=== PATIENT | female | born 1930 | race Caucasian/White ===

== ENCOUNTER 2016-12-08 13:02 | Inpatient (IN) | payer MEDICARE, BC ==
[2016-12-08] VITALS (12 sets, daily range): BP systolic 116–151; BP diastolic 61–97; PULSE 87–132; RESP 20–24; TEMP 97.8–98.1; O2SAT 94–98
[~2016-12-08] VITALS: Ht 162.6 cm; Wt 98.5 kg
[2016-12-08] MEDS ORDERED: DILTIAZEM HCL 25 MG/5 ML VIAL IVP ONE (14:15)
--- NOTE | 2016-12-08 14:22 | PD ---
HPI Chief Complaint: Respiratory Symptoms Time Seen by Provider: 14:17 (Dominick Brower) Time Seen by Provider: 13:48 (Heber Barnett MD) Travel History International Travel<30 days: No Contact w/Intl Traveler<30days: No Traveled to known affect area: No (Dominick Brower) International Travel<30 days: No Contact w/Intl Traveler<30days: No Traveled to known affect area: No (Heber Barnett MD) History of Present Illness HPI 86-year-old female that presents to the ED for evaluation of shortness of breath for the past 4 weeks worsening for the past 2 weeks. Per patient she's had Sinus like symptoms initially. She was seen by her doctor and prescribed steroids as well as inhalers with minimal relief. Per patient she continued to have the shortness of breath and today became more severe which now she has some pressure in her chest. Per patient she came here to get evaluated. She denies taking any blood thinners but she does state that she has a history of atrial fibrillation. Per patient she has never had to have surgery on her heart or any heart operations. Per patient she only takes medications he takes per patient 12th different pills. So history of high blood pressure. Per patient she is short of breath when she ambulates. Per patient is significantly worsening for the past couple of days. Nothing seems to be making it better. Per patient she finished the medications given to her by her PCP just a week ago with no relief. Patient comes here to get evaluated because his symptoms are not improving and she is feeling worse. She has no headache. Patient states no chest pain but chest discomfort is more like a pressure when she takes a deep breath. She has no fevers chills or sweats. She still continues to have some cough. She does have a history of COPD per patient but has never had to be on inhalers until she had this episode. (Dominick Brower) HPI 86-year-old female presents with 4 week history of shortness of breath and congestion. The patient seen by her primary care physician started on steroids and inhalers. The patient presents today because the shortness of breath became worse. She states that she is now having chest pressure. (Heber Barnett MD) [facility] Past Medical History Heart Rhythm Problems: Yes Cardiovascular Problems: Yes High Cholesterol: Yes Diabetes: Yes Patient Takes Glucophage: Yes Diminished Hearing: No Hypertension: Yes Tetanus Vaccination: < 5 Years Influenza Vaccination: Yes ?: Not (Dominick Brower) Social History Alcohol Use: Yes (RARE) Tobacco Use: No Substance Use: No (Dominick Brower) Allergies-Medications (Allergen,Severity, Reaction): Coded Allergies: No Known Allergies (Unverified , 12/08/16) Reported Meds & Prescriptions Reported Meds & Active Scripts Active Reported Potassium Chloride ER (Potassium Chloride) 10 Meq Tab 20 Meq PO DAILY Levothyroxine (Levothyroxine Sodium) 50 Mcg Tab 50 Mcg PO DAILY Atorvastatin (Atorvastatin Calcium) 20 Mg Tab 20 Mg PO HS Diltiazem CD 24 HR 240 Mg Caper 240 Mg PO DAILY Pantoprazole (Pantoprazole Sodium) 40 Mg Tab 40 Mg PO DAILY (Heber Barnett MD) Review of Systems General / Constitutional: No: Fever, Chills, Weight Gain, Weight Loss, Other Eyes: No: Diploplia, Blurred Vision, Photophobia, Drainage, Redness, Foreign Body Sensation, Pain, Tearing, Blind Spots, Visual changes, Blindness, Other HENT: No: Headaches, Vertigo, Lightheadedness, Sore Throat, Rhinitis, Rhinorrhea, Congestion, Nosebleed, Neck Stiffness, Neck Pain, Masses, Gingival Bleeding, Dental Difficulties, Ear Discharge, Earache, Other Cardiovascular: Positive: Chest Pain or Discomfort, Palpitations, Tachycardia, No: Irregular Rhythm, Diaphoresis, Syncope, Dyspnea on exertion, Varicosities , Edema, Cyanosis, Varicosities, Phlebitis, Claudication, Other Respiratory: Positive: Cough, Shortness of Breath, No: Wheezing, Sneezing, Orthopnea, Hemoptysis, Stridor, Night Sweats, Pleuritic Pain, Other Gastrointestinal: No: Nausea, Vomiting, Diarrhea, Abdominal Pain, Hematemesis, Hematochezia, Constipation, Changes in Bowel Habits, Indigestion, Dysphagia, Loss of Appetite, Other Genitourinary: No: Urgency, Frequency, Dysuria, Nocturia, Hematuria, Decreased Urinary Output, Oliguria, Hesitancy, Dribbling, Incontinence, Pelvic Pain, Flank Pain, Dyspareunia, Discharge, Dysmenorrhea, Menorrhagia, Metorrhagia, Vaginal Bleeding, Other Musculoskeletal: No: Myalgias, Arthralgias, Limited ROM, Weakness, Cramping, Edema, Pain, Atrophy, Other Skin: No Rash, No Itching, No Dryness, No Lumps, No Hives, No Change in Pigmentation, No Change in nails, No Alopecia, No Lesions, No Breast Lumps, No Breast Tenderness, No Breast Swelling, No Other Neurologic: No: Weakness, Dizziness, Syncope, Focal Abnormalities, Coordination Problem, Tremor, Ataxia, Headache, Change in Mentation, Slurred Speech, Paresthesia, Incontinence, Seizures, Sensory Disturbance, Other Psychiatric: No: Anxiety, Depression, Suicidal Ideations, Disorder of Thought, Mood Disorder, Substance Abuse, Homicidal Ideation, Other Hematologic/Lymphatic: No: Easy Bruising, Lymph Node Enlargement, Other (Dominick Brower) Physical Exam Narrative GENERAL: SKIN: Warm and dry. HEAD: Atraumatic. Normocephalic. EYES: Pupils equal and round. No scleral icterus. No injection or drainage. ENT: No nasal bleeding or discharge. Mucous membranes pink and moist. Tongue is midline. No uvula deviation. NECK: Trachea midline. No JVD. CARDIOVASCULAR: Irregular rate and rhythm. No sign of murmur, S3, S4 but hard to assess secondary to irregular heart rate RESPIRATORY: No accessory muscle use. Clear to auscultation. Breath sounds equal bilaterally. GASTROINTESTINAL: Abdomen soft, non-tender, nondistended. Hepatic and splenic margins not palpable. MUSCULOSKELETAL: Extremities without clubbing, cyanosis, or edema. No obvious deformities. Full range of motion of the upper and lower extremities bilaterally with no pain. 2+ pulses bilaterally. NEUROLOGICAL: Awake and alert. No obvious cranial nerve deficits. Motor grossly within normal limits. Five out of 5 muscle strength in the arms and legs. Normal speech. PSYCHIATRIC: Appropriate mood and affect; insight and judgment normal. (Dominick Brower) Data Data Orders Electrocardiogram (12/08/16 ) Electrocardiogram (12/08/16 13:46) Complete Blood Count With Diff (12/08/16 13:46) Comprehensive Metabolic Panel (12/08/16 13:46) Ckmb (Isoenzyme) Profile (12/08/16 13:46) Troponin I (12/08/16 13:46) B-Type Natriuretic Peptide (12/08/16 13:46) Prothrombin Time / Inr (Pt) (12/08/16 13:46) Act Partial Throm Time (Ptt) (12/08/16 13:46) Magnesium (Mg) (12/08/16 13:46) Thyroid Stimulating Hormone (12/08/16 13:46) Chest, Single Ap (12/08/16 13:46) Iv Access Insert/Monitor (12/08/16 13:46) Ecg Monitoring (12/08/16 13:46) Oximetry (12/08/16 13:46) Vital Signs (Adult) Q15MX4,Q4H (12/08/16 14:09) Cone Machine Operator / Telemetry AUSTYN.Q8H (12/08/16 14:09) Cardiac Rhythm AUSTYN.Q8H (12/08/16 14:09) ^ Notify Dr: Other (12/08/16 14:09) Diltiazem Inj (Cardizem Inj) (12/08/16 14:15) Diltiazem Inj (Cardizem Inj) (12/08/16 15:00) Aspirin (Aspirin) (12/08/16 15:45) Nitroglycerin 2% Oint (Nitroglycerin 2% (12/08/16 15:45) Admit Order (Ed Use Only) (12/08/16 16:23) Consult Cardiology (12/08/16 ) (Heber Barnett MD) MDM Medical Decision Making Medical Screen Exam Complete: Yes Emergency Medical Condition: Yes Medical Record Reviewed: Yes Interpretation(s) EKG show atrial fibrillation with RVR with a ventricular rate of 125. Read by me and attending. No sign of acute ischemia noted. CBC & BMP Diagram 12/08/16 14:50 BMP of 500 Troponin slightly elevated at 0.08 CK-MB negative. LFTs negative. CXR negative Differential Diagnosis Atrial fibrillation versus ACS versus pneumonia versus COPD versus bronchitis versus respiratory distress versus shortness of breath Narrative Course 86-year-old female that presents to the ED for evaluation of shortness of breath. Patient was properly examined and was found to have signs and symptoms and physical presentation what appears to be acute a. fib on RVR. Possible pneumonia or other severe disease cannot be ruled out. Recommend labs and imaging. Patient is agreeable with this. EKG show A. fib on RVR. Case discussed in my attending who agrees with plan. Patient was given Cardizem bolus and was reassessed. Patient still atrial fibrillation with a heart rate in the 130s. Patient was put on a drip. Labs show slightly elevated BNP as well as slightly elevated troponin of 0.08. Patient again does not have any EKG changes. At this time I believe this is likely more related to the A. fib as well as the heart failure and recommends admission to medicine with inpatient consult to cardiology. This was discussed in my attending Dr. Barnett who agrees admission to medicine. This was discussed with the patient who agrees to admission. Patient's music specialist is Dr. Henderson. I spoke with Dr. Gale who agrees to admission. She wanted me to place a consult to her music specialist. This was placed by me. (Dominick Brower) Medical Screen Exam Complete: Yes Emergency Medical Condition: Yes Differential Diagnosis Pneumonia versus CHF versus A. fib with RVR versus ACS Narrative Course She was seen with Korey Brower PA-C. Patient presented with shortness of breath 4 weeks. Patient was found to be with A. fib with rapid ventricular response. She was bolused with Cardizem and placed on a Cardizem drip. The patient was also found to have an elevated troponin but her x-ray showed congestive heart failure. Elevated troponin is likely secondary to the congestive heart failure. The [facility] Dr. Gale agreed to the admission. There is a consult cardiology. I, Dr. Barnett, have reviewed the advance practice practitioner's documentation and am in agreement, met with the patient face to face, made the diagnosis, and the medical decision making was done by me. *My assessment and Findings: Atrial fibrillation with rapid ventricular response. Congestive heart failure.. Elevated troponin. (Heber Barnett MD) Procedures EKG Prior to Arrival: No (Dominick Brower) Diagnosis Primary Impression: Atrial fibrillation with RVR Additional Impression: Troponin level elevated Admitting Information Admitting Physician Requests: Admit (Dominick Brower) Scripts Furosemide 40 Mg Tab40 Mg PO DAILY 30 Days Prov:Tisha Gale MD 12/11/16 Tolterodine ER (Detrol LA)2 Mg Cap2 Mg PO DAILY 30 Days Prov:Tisha Gale MD 12/11/16 Potassium Chloride Microencaps 20 Meq Tab20 Meq PO DAILY 30 Days Prov:Tisha Gale MD 12/11/16 Metoprolol Tartrate (Lopressor)50 Mg Tab50 Mg PO Q12HR 30 Days Prov:Tisha Gale MD 12/11/16 Lisinopril 5 Mg Tab2.5 Mg PO DAILY 30 Days Prov:Tisha Gale MD 12/11/16 Levofloxacin (Levaquin)500 Mg Hlo051 Mg PO DAILY 6 Days Prov:Tisha Gale MD 12/11/16 Ferrous Sulfate 325 Mg [id number] Mg PO BID 30 Days Prov:Tisha Gale MD 12/11/16 Diltiazem CD 24 HR (Cardizem CD 24 HR)240 Mg [id number] Mg PO DAILY 30 Days Prov:Tisha Gale MD 12/11/16 [Aspirin] (Aspirin Chew)81 MG CHEW No Conflict Check81 Mg PO DAILY 90 Days Prov:Tisha Gale MD 12/11/16 Oxygen tank 1 Ea Tank #2 Liter Chip.canula Continuous Oxygen Concentrator Portable Gaseous 2 L/min via Nasal Cannula Continuous For 99 months Prov:Tisha Gale MD 12/10/16 Dominick Brower Dec 08, 2016 14:22 Heber Barnett MD Dec 13, 2016 08:28 (ALT/SGPT) Alkaline Phosphatase 129 U/L Total Creatine Kinase 37 U/L Troponin I 0.08 NG/ML B-Type Natriuretic Peptide 505 PG/ML Total Protein 7.0 GM/DL Albumin 3.0 GM/DL Thyroid Stimulating Hormone 1.400 uIU/ML 3rd Gen [facility] Medical Decision Making Medical Screen Exam Complete: Yes Emergency Medical Condition: Yes Medical Record Reviewed: Yes Interpretation(s) EKG show atrial fibrillation with RVR with a ventricular rate of 125. Read by me and attending. No sign of acute ischemia noted. CBC & BMP Diagram 12/08/16 14:50 BMP of 500 Troponin slightly elevated at 0.08 CK-MB negative. LFTs negative. CXR negative Differential Diagnosis Atrial fibrillation versus ACS versus pneumonia versus COPD versus bronchitis versus respiratory distress versus shortness of breath Narrative Course 86-year-old female that presents to the ED for evaluation of shortness of breath. Patient was properly examined and was found to have signs and symptoms and physical presentation what appears to be acute a. fib on RVR. Possible pneumonia or other severe disease cannot be ruled out. Recommend labs and imaging. Patient is agreeable with this. EKG show A. fib on RVR. Case discussed in my attending who agrees with plan. Patient was given Cardizem bolus and was reassessed. Patient still atrial fibrillation with a heart rate in the 130s. Patient was put on a drip. Labs show slightly elevated BNP as well as slightly elevated troponin of 0.08. Patient again does not have any EKG changes. At this time I believe this is likely more related to the A. fib as well as the heart failure and recommends admission to medicine with inpatient consult to cardiology. This was discussed in my attending Dr. Barnett who agrees admission to medicine. This was discussed with the patient who agrees to admission. Patient's music specialist is Dr. Henderson. I spoke with Dr. Gale who agrees to admission. She wanted me to place a consult to her music specialist. This was placed by me. Procedures EKG Prior to Arrival: No Diagnosis Primary Impression: Atrial fibrillation with RVR Additional Impression: Troponin level elevated Admitting Information Admitting Physician Requests: Admit Dominick Brower Dec 08, 2016 14:22
--- NOTE | 2016-12-08 14:42 | RADRPT ---
EXAM DATE/TIME: 12/08/2016 13:50 [facility] COMPARISON: No previous studies available for comparison. INDICATIONS : Patient has been short of breath for two weeks. She also claims this morning she had an elevated hear t rate. MEDICAL HISTORY : None. SURGICAL HISTORY : None. ENCOUNTER: Initial ACUITY: 2 weeks PAIN SCORE: 0/10 LOCATION: Bilateral chest FINDINGS: The heart is enlarged. The pulmonary vascular pattern is normal. Minimal scattered atelectactic obdulio nges are noted bilaterally. Degenerative changes are noted involving the shoulders bilaterally. Sco liosis and degenerative changes of the thoracic spine are noted. CONCLUSION: 1. Cardiomegaly. 2. Scattered atelectactic changes bilaterally. 3. Degenerative changes involving the shoulders bilaterally. 4. Degenerative changes and scoliosis of the thoracic spine. Jorden Foster MD on December 08, 2016 at 14:37 Board Certified Radiologist. This report was verified electronically.
[2016-12-08] MEDS ORDERED: METF1000 PO (15:00)
[2016-12-08] MEDS ORDERED: DILT-64 PO (15:00)
[2016-12-08] MEDS ORDERED: PANT40TA3 PO (15:00)
[2016-12-08] MEDS ORDERED: LISI-519 PO (15:00)
[2016-12-08] MEDS ORDERED: POTA10TA2 PO (15:00)
[2016-12-08] MEDS ORDERED: ATOR20TA15 PO (15:00)
[2016-12-08] MEDS ORDERED: LEVO50TA4 PO (15:00)
[2016-12-08 15:04] LABS: AUTOMATED NEUTROPHIL # 9.5 TH/MM3 (1.8-7.7); BASOPHIL % 0.3 % (0.0-2.0); EOSINOPHIL % 0.3 % (0.0-4.0); HEMATOCRIT 32.1 % (35.0-46.0); LYMPH % 10.3 % (9.0-44.0); LYMPHOCYTE # 1.2 TH/MM3 (1.0-4.8); MEAN CELL VOLUME 75.4 FL (80.0-100.0); MEAN CORPUSCULAR HEMOGLOBIN 23.9 PG (27.0-34.0); MEAN CORPUSCULAR HGB CONC 31.6 % (32.0-36.0); MONO % 9.7 % (0.0-8.0); NEUT % 79.4 % (16.0-70.0); PLATELET COUNT 374 TH/MM3 (150-450); RED BLOOD COUNT 4.26 MIL/MM3 (4.00-5.30); RED CELL DISTRIBUTION WIDTH 16.6 % (11.6-17.2); WHITE BLOOD COUNT 11.9 TH/MM3 (4.0-11.0)
[2016-12-08 15:06] LABS: HEMO FLAGS AUTO DIFF
[2016-12-08 15:19] LABS: APTT (PATIENT) 25.1 SEC (24.3-30.1); INTERNATIONAL NORMALIZED RATIO 1.1 RATIO; PROTHROMBIN TIME - PATIENT 12.4 SEC (9.8-11.6)
[2016-12-08 15:24] LABS: ALT (GPT) 48 U/L (10-53); ANION GAP 12 MEQ/L (5-15); AST (GOT) 29 U/L (15-37); BICARBONATE 21.7 MEQ/L (21.0-32.0); BLOOD UREA NITROGEN 15 MG/DL (7-18); CHLORIDE 107 MEQ/L (98-107); GLOMERULAR FILTRATION RATE 60 ML/MIN (>89); MAGNESIUM 1.7 MG/DL (1.5-2.5); POTASSIUM 3.4 MEQ/L (3.5-5.1); SODIUM (NA) 141 MEQ/L (136-145)
[2016-12-08] MEDS: DILTIAZEM INJ 125 MG in SODIUM CHLORIDE 0.9% INJ 100 ML IV SCH (15:25)
[2016-12-08 15:33] LABS: ALKALINE PHOSPHATASE 129 U/L (45-117); TOTAL BILIRUBIN ADULT 0.5 MG/DL (0.2-1.0)
[2016-12-08 15:35] LABS: CREATINE KINASE 37 U/L (26-192)
[2016-12-08] MEDS ORDERED: NITROGLYCERIN 2% OINT 1 GM PACKET TOPICAL ONE (15:45)
[2016-12-08] MEDS ORDERED: ASPIRIN 325 MG TAB PO ONE (15:45)
[2016-12-08] MEDS ORDERED: POTASSIUM CHLORIDE 20 MEQ CONTROLLED RELEASE TAB PO ONE (16:45)
[2016-12-08 17:06] LABS: OVALOCYTES 1+ (NORMAL); PLATELET ESTIMATE SMEAR NORMAL (NORMAL); PLATELET MORPHOLOGY NORMAL (NORMAL); SCAN/DIFF AUTO DIFF CONFIRMED
--- NOTE | 2016-12-08 17:14 | HHI.HP ---
[facility] Ad[facility] Diagnosis a fib on RVR, positive troponin Diagnoses: Chief Complaint: Palpitations Travel History International Travel<30 Days: No Contact w/Intl Traveler <30 Da: No Traveled to Known Affected Are: No History of Present Illness 86-year-old female with a past medical history of A. fib, HTN, DM, HLD, GERD, hypothyroidism who presented with palpitations and shortness of breath. The patient states that a few weeks ago she had "the flu" and bronchitis. She doesn 't say she was actually diagnosed with the flu, but she did have an illness at that time. She states the way her symptoms from that improved, but otherwise it didn't. For the past 2 weeks she's been having constant sensation of heart racing and pounding with associated shortness of breath and chest tightness. She states that it eventually got so worse this morning that she decided to come to the ED for evaluation. She received IV Cardizem in the ED, and states that her symptoms have improved at this time. Currently she denies any further palpitations, but her heart rate remains around 130. She denies any specific chest pain or radiation of the chest tightness. Her link assembler is Dr. Henderson. Her medication list says that she is on diltiazem, but she is not sure about this. She states she had previously been tried on Xarelto, but had bleeding and was taken off of that. She does not take an aspirin. She states 2 days ago she had an episode of nausea, no vomiting. She has noticed that her legs have been a little more swollen lately, but denies any weight gain, actually feels like she has lost weight. Review of Systems Except as stated in HPI: all other systems reviewed are Neg Past Family Social History Past Medical History Hypertension Hyperlipidemia Atrial fibrillation Diabetes mellitus GERD Hypothyroidism History of breast cancer Past Surgical History Right breast lumpectomy followed by additional breast surgery in 1994 Left knee replacement in 2012 Reported Medications Potassium Chloride ER (Potassium Chloride) 10 Meq Tab 20 Meq PO DAILY Metformin (Metformin HCl) 1,000 Mg Tab 1,000 Mg PO BID With meals Levothyroxine (Levothyroxine Sodium) 50 Mcg Tab 50 Mcg PO DAILY Atorvastatin (Atorvastatin Calcium) 20 Mg Tab 20 Mg PO HS Lisinopril 5 Mg Tab 5 Mg PO DAILY Diltiazem CD 24 HR 240 Mg Caper 240 Mg PO DAILY? Pantoprazole (Pantoprazole Sodium) 40 Mg Tab 40 Mg PO DAILY Allergies: Coded Allergies: No Known Allergies (Unverified , 12/08/16) Active Ordered Medications Current Medications Medications (Trade) Dose Ordered Sig/Nova Route Start Time Stop Time Status Last Admin (Cardizem Inj/NS Inj) 125 ml @ 0 mls/hr TITRATE IV 12/08/16 15:00 12/08/16 15:25 (Lipitor) 20 mg HS PO 12/08/16 21:00 UNV (Synthroid) 50 mcg DAILY PO 12/09/16 09:00 UNV (Prinivil) 5 mg DAILY PO 12/09/16 09:00 UNV (Protonix) 40 mg DAILY PO 12/09/16 09:00 UNV (KCl) 20 meq DAILY PO 12/09/16 09:00 UNV Family History Mother and father had heart disease Social History Has one drink every 2 or 3 weeks Quit smoking over 40 years ago Lives at home by herself Physical Exam Vital Signs Vital Signs Date Time Temp Pulse Resp B/P Pulse Ox O2 Delivery O2 Flow Rate FiO2 12/08/16 16:25 124 20 138/96 95 Nasal Cannula 3 12/08/16 15:55 132 20 143/97 Nasal Cannula 3 95 12/08/16 15:20 128 20 135/91 95 Nasal Cannula 3 12/08/16 13:49 22 Nasal Cannula 3 95 12/08/16 13:45 136 20 95 Nasal Cannula 3 12/08/16 13:41 97.8 126 20 151/94 95 Physical Exam GENERAL: Well-developed well-nourished. In no acute distress. SKIN: Warm and dry. No lesions noted. HEENT: Normocephalic. Pupils equal and round. Mucous membranes pink and moist. CARDIOVASCULAR: Tachycardic irregular rate and rhythm. No murmur appreciated. RESPIRATORY: No accessory muscle use. Clear to auscultation. Breath sounds equal bilaterally. GASTROINTESTINAL: Abdomen soft, non-tender, nondistended. Bowel sounds x4. MUSCULOSKELETAL: No obvious deformities. No clubbing or cyanosis. Trace bilateral edema. NEUROLOGICAL: Awake and alert. No focal neurological deficits. Moves upper and lower extremities spontaneously. Normal speech. PSYCHIATRIC: Appropriate mood and affect; insight and judgment normal. Laboratory Laboratory Tests Test 12/08/16 14:50 White Blood Count 11.9 Red Blood Count 4.26 Hemoglobin 10.2 Hematocrit 32.1 Mean Corpuscular Volume 75.4 Mean Corpuscular Hemoglobin 23.9 Mean Corpuscular Hemoglobin 31.6 Concent Red Cell Distribution Width 16.6 Platelet Count 374 Mean Platelet Volume 8.1 Neutrophils (%) (Auto) 79.4 Lymphocytes (%) (Auto) 10.3 Monocytes (%) (Auto) 9.7 Eosinophils (%) (Auto) 0.3 Basophils (%) (Auto) 0.3 Neutrophils # (Auto) 9.5 Lymphocytes # (Auto) 1.2 Monocytes # (Auto) 1.2 Eosinophils # (Auto) 0.0 Basophils # (Auto) 0.0 CBC Comment AUTO DIFF Differential Comment AUTO DIFF CONFIRMED Platelet Estimate NORMAL Platelet Morphology Comment NORMAL Ovalocytes 1+ Prothrombin Time 12.4 Prothromb Time International 1.1 Ratio Activated Partial 25.1 Thromboplast Time Sodium Level 141 Potassium Level 3.4 Chloride Level 107 Carbon Dioxide Level 21.7 Anion Gap 12 Blood Urea Nitrogen 15 Creatinine 0.90 Estimat Glomerular Filtration 60 Rate Random Glucose 111 Calcium Level 8.8 Magnesium Level 1.7 Total Bilirubin 0.5 Aspartate Amino Transf 29 (AST/SGOT) Alanine Aminotransferase 48 (ALT/SGPT) Alkaline Phosphatase 129 Total Creatine Kinase 37 Troponin I 0.08 B-Type Natriuretic Peptide 505 Total Protein 7.0 Albumin 3.0 Thyroid Stimulating Hormone 1.400 3rd Gen Result Diagram: 12/08/16 1450 12/08/16 1450 Assessment and Plan Assessment and Plan 86-year-old female with a past medical history of A. fib, HTN, DM, HLD, GERD, hypothyroidism who presented with palpitations and shortness of breath A. fib with RVR: Presented with heart pounding, shortness of breath, and chest tightness EKG personally reviewed, shows irregular rhythm rate 125. no definite acute ST changes, although there is artifact. No previous EKG for comparison. PE: irregular rhythm, soft systolic murmur left sternal border; Labs reviewed: Potassium 3.4. Troponin 0.08. BNP 505. TSH within normal limits at 1.4. Imaging reviewed: Chest x-ray shows cardiomegaly, atelectasis, no definite acute cardiopulmonary process. -Continue diltiazem drip -Check repeat EKG -Replace potassium -Start daily aspirin -Check echocardiogram -Trend troponins -Monitor on telemetry -Supplemental O2 as needed and incentive spirometry -Patient's link assembler consulted in the ED Diabetes mellitus: Hold home metformin for now. Coverage with SSI with [employer]. HTN: Continue lisinopril. HLD: Continue statin. Hypothyroidism: Continue levothyroxine. GERD: Continue PPI. DVT prophylaxis: SCDs. Patient reports history of GI and urinary bleed on anticoagulation, caution. Discussed Condition With Patient, ED PA and RN, Dr. Gale Attending Statement 86 years old female having shortness of breath, palpitations for about a week now , with 3 pillow orthopnea, leg swelling history of chronic a fib- at one point started on Xarelto was DC because of blood in stools +OB, on CCB PE- awake and aleert, short of breath decreased breath sounds irregularly irregular rhtyhm abdomen soft, + edema atrial fibrillation in RVR- on cardizem drip- Dr. Henderson consulted DM type 2. monitor Gianni Emery Dec 08, 2016 17:14 Tisha Gale MD Dec 08, 2016 17:31 Gianni Emery Dec 08, 2016 17:14 Tisha Gale MD Dec 08, 2016 17:31
[2016-12-08] MEDS ORDERED: METOPROLOL TARTRATE 5 MG/5 ML VIAL IV PUSH ONE (17:15)
[2016-12-08] MEDS ORDERED: METOPROLOL TARTRATE 25 MG TAB PO ONE (17:15)
[2016-12-08] MEDS ORDERED: GLUCAGON 1 MG/ML VIAL OTHER PRN (17:15)
[2016-12-08] MEDS ORDERED: DEXTROSE 50% IN WATER 50 ML VIAL(D50) IV PUSH PRN (17:15)
--- NOTE | 2016-12-08 19:29 | MB ---
cc: MARIA DEL CARMEN OLVERA MD DATE OF CONSULTATION: 12/08/2016 REASON FOR CONSULTATION: A-fib with rapid ventricular rate and elevated troponin. HISTORY OF PRESENT ILLNESS Ms. Michel is a pleasant 86 year-old female who does have a history of atrial fibrillation. She reports that she has had the flu with bronchitis, and then over the last two weeks she has had progressive shortness of breath and some mild lower extremity edema. She was prescribed steroids and an inhaler with minimal relief. She denied any chest pressure or chest pain to me. She subsequently sought attention in the emergency room. PAST MEDICAL HISTORY: Significant for: 1. Aortic stenosis with a mean gradient of 15 mmHg in 2016. 2. Atrial fibrillation with a SUNDAR vas score of 5: Age greater than 75, female. 3. Hypertension. 4. Diabetes. 5. She also has a history of GI bleed and is therefore not on any anticoagulation. 6. History of hyperlipidemia. 7. Noncompliance. 8. Hypothyroidism. SOCIAL HISTORY The patient rarely has alcohol and does not smoke. NO KNOWN DRUG ALLERGIES. OUTPATIENT MEDICATIONS Reportedly include: 1. Metformin. 2. Levophed 3. Atorvastatin. 4. Lisinopril 5. Diltiazem 240 milligrams a day. 6. Pantoprazole REVIEW OF SYSTEMS Except as mentioned in the HPI all 12 systems are negative. PHYSICAL EXAMINATION: On physical examination vital signs, heart rate of 130, respiratory rate 20, blood pressure 143/97. General: She is an overweight elderly female in no apparent distress. Neck: Her neck is free from JVD. Lungs: Lungs have few bibasilar crackles. Cardiovascular: She has a normal S1, S2. There is a 2/6 systolic murmur. The rhythm is irregular and tachycardiac. LABORATORY VALUES: Significant for creatinine of 0.9, white blood cell count of 11.9, and creatinine of 3.4. Troponin is 0.08, BNP is 505. Albumin 3.0. EKG shows atrial fibrillation with rapid ventricular rate of 140 beats per minute. IMPRESSION 1. Atrial fibrillation - the patient does certainly have A-fib with RVR despite bolus and Cardizem drip at 15. Thus at this point I am going to leave the Cardizem on an and IV Lopressor. Again the patient is not on anticoagulation secondary to her history of GI bleed. 2. CHF - the patient does have what is likely acute diastolic dysfunction from her A-fib RVR, I believe this is why her troponin and BNP are elevated. Munir Early /5:14 PM /7:20 PM
[2016-12-08] MEDS: INSULIN ASPART SUPPLEMENTAL SCALE SQ SCH (21:00)
[2016-12-08] MEDS: SODIUM CHLORIDE 0.9% FLUSH 10 ML FLUSH IVF SCH (21:00)
[2016-12-08] MEDS: ATORVASTATIN 20 MG TAB PO SCH (21:23)
[2016-12-09] VITALS (29 sets, daily range): BP systolic 123–155; BP diastolic 50–103; PULSE 55–115; RESP 18–20; TEMP 97.4–98.3; O2SAT 93–99
[2016-12-09] MEDS: LEVOTHYROXINE SODIUM 50 MCG TAB PO SCH (05:29)
[2016-12-09] MEDS: INSULIN ASPART SUPPLEMENTAL SCALE SQ SCH ×4 (05:36→22:09)
[2016-12-09] MEDS ORDERED: METOPROLOL TARTRATE 25 MG TAB PO ONE (06:45)
--- NOTE | 2016-12-09 06:45 | PD.CARD.PN ---
Subjective Subjective Remarks Pt without complaints, breathing is better Objective Medications Current Medications Medications (Trade) Dose Ordered Sig/Nova Route Start Time Stop Time Status Last Admin (Cardizem Inj/NS Inj) 125 ml @ 0 mls/hr TITRATE IV 12/08/16 15:00 12/08/16 15:25 (Lipitor) 20 mg HS PO 12/08/16 21:00 12/08/16 21:23 (Synthroid) 50 mcg DAILY@06 PO 12/09/16 06:00 12/09/16 05:29 (Prinivil) 5 mg DAILY PO 12/09/16 09:00 (Protonix) 40 mg DAILY PO 12/09/16 09:00 (KCl) 20 meq DAILY PO 12/09/16 09:00 (NS Flush) 2 ml BID IVF 12/08/16 21:00 (Aspirin Chew) 81 mg DAILY PO 12/09/16 09:00 (D50w (Vial) Inj) 25 ml UNSCH PRN IV PUSH 12/08/16 17:15 (Glucagon Inj) 1 mg UNSCH PRN OTHER 12/08/16 17:15 Vital Signs / I&O Vital Signs Date Time Temp Pulse Resp B/P Pulse Ox O2 Delivery O2 Flow Rate FiO2 12/09/16 06:00 92 12/09/16 05:00 99 12/09/16 04:00 100 12/09/16 04:00 98.3 94 20 141/103 95 12/09/16 03:00 92 12/09/16 02:00 94 12/09/16 01:00 90 12/09/16 00:00 108 12/08/16 23:00 87 12/08/16 22:00 98 Nasal Cannula 4.00 12/08/16 22:00 98.1 90 22 128/81 95 12/08/16 21:00 109 24 123/71 94 Nasal Cannula 4 12/08/16 20:00 101 24 128/61 94 Nasal Cannula 4 12/08/16 19:00 117 24 147/85 96 Nasal Cannula 4 12/08/16 17:49 97.8 102 20 116/75 Nasal Cannula 3.00 95 12/08/16 17:07 95 Nasal Cannula 3.00 12/08/16 16:25 124 20 138/96 95 Nasal Cannula 3 12/08/16 15:55 132 20 143/97 Nasal Cannula 3 95 3/21/17 15:20 128 20 135/91 95 Nasal Cannula 3 12/08/16 13:49 22 Nasal Cannula 3 95 12/08/16 13:45 136 20 95 Nasal Cannula 3 12/08/16 13:41 97.8 126 20 151/94 95 I/O 12/08/16 12/08/16 12/08/16 12/09/16 12/09/16 12/09/16 07:00 15:00 23:00 07:00 15:00 23:00 Intake Total 240 ml Balance 240 ml Intake Oral 240 ml # Voids 1 # Bowel Movements 1 Physical Exam GENERAL: Well developed, well nourished. No acute distress. HEENT: Jugular venous pressure is normal. CHEST: Lungs clear to auscultation bilaterally. Unlabored respiratory effort. CARDIAC: irregular rate and rhythm without S3, S4, or murmur. ABDOMEN: Soft, nontender, no hepatosplenomegaly. Bowel sounds present. EXTREMITIES: No clubbing, cyanosis, or edema. Laboratory Laboratory Tests Test 12/08/16 12/08/16 12/09/16 14:50 19:05 00:03 White Blood Count 11.9 TH/MM3 Red Blood Count 4.26 MIL/MM3 Hemoglobin 10.2 GM/DL Hematocrit 32.1 % Mean Corpuscular Volume 75.4 FL Mean Corpuscular Hemoglobin 23.9 PG Mean Corpuscular Hemoglobin 31.6 % Concent Red Cell Distribution Width 16.6 % Platelet Count 374 TH/MM3 Mean Platelet Volume 8.1 FL Neutrophils (%) (Auto) 79.4 % Lymphocytes (%) (Auto) 10.3 % Monocytes (%) (Auto) 9.7 % Eosinophils (%) (Auto) 0.3 % Basophils (%) (Auto) 0.3 % Neutrophils # (Auto) 9.5 TH/MM3 Lymphocytes # (Auto) 1.2 TH/MM3 Monocytes # (Auto) 1.2 TH/MM3 Eosinophils # (Auto) 0.0 TH/MM3 Basophils # (Auto) 0.0 TH/MM3 CBC Comment AUTO DIFF Differential Comment AUTO DIFF CONFIRMED Platelet Estimate NORMAL Platelet Morphology Comment NORMAL Ovalocytes 1+ Prothrombin Time 12.4 SEC Prothromb Time International 1.1 RATIO Ratio Activated Partial 25.1 SEC Thromboplast Time Sodium Level 141 MEQ/L Potassium Level 3.4 MEQ/L Chloride Level 107 MEQ/L Carbon Dioxide Level 21.7 MEQ/L Anion Gap 12 MEQ/L Blood Urea Nitrogen 15 MG/DL Creatinine 0.90 MG/DL Estimat Glomerular Filtration 60 ML/MIN Rate Random Glucose 111 MG/DL Calcium Level 8.8 MG/DL Magnesium Level 1.7 MG/DL Total Bilirubin 0.5 MG/DL Aspartate Amino Transf 29 U/L (AST/SGOT) Alanine Aminotransferase 48 U/L (ALT/SGPT) Alkaline Phosphatase 129 U/L Total Creatine Kinase 37 U/L Troponin I 0.08 NG/ML 0.08 NG/ML 0.07 NG/ML B-Type Natriuretic Peptide 505 PG/ML Total Protein 7.0 GM/DL Albumin 3.0 GM/DL Thyroid Stimulating Hormone 1.400 uIU/ML 3rd Gen Imaging Last 72 hours Impressions Chest X-Ray 12/08/16 1346 Signed Impressions: Service Date/Time: Thursday, December 08, 2016 13:50 - CONCLUSION: 1. Cardiomegaly. 2. Scattered atelectactic changes bilaterally. 3. Degenerative changes involving the shoulders bilaterally. 4. Degenerative changes and scoliosis of the thoracic spine. Jorden Foster MD Assessment and Plan Assessment and Plan 1. Atrial fibrillation - rate controlled overnight then spiked with ambulation to BR => continue PO dilt and wean IV as hua => continue metoprolol as started in ER -no anticoagulation secondary to hx GIB 2. CHF - check ECHO Lavern Henderson MD Dec 09, 2016 06:45
[2016-12-09] MEDS: PANTOPRAZOLE SOD 40 MG DELAYED RELEASE TAB PO SCH (08:55)
[2016-12-09] MEDS: ASPIRIN 81 MG CHEW TAB PO SCH (08:55)
[2016-12-09] MEDS: SODIUM CHLORIDE 0.9% FLUSH 10 ML FLUSH IVF SCH ×2 (08:56→21:00)
--- NOTE | 2016-12-09 08:56 | HHI.PR ---
Subjective Remarks patient feeling better very interactive telemetry- rate in the 80s Objective Vitals Vital Signs Date Time Temp Pulse Resp B/P Pulse Ox O2 Delivery O2 Flow Rate FiO2 12/09/16 07:49 94 Nasal Cannula 4.00 12/09/16 06:00 92 12/09/16 05:00 99 12/09/16 04:00 100 12/09/16 04:00 98.3 94 20 141/103 95 12/09/16 03:00 92 12/09/16 02:00 94 12/09/16 01:00 90 12/09/16 00:00 108 12/08/16 23:00 87 12/08/16 22:00 98 Nasal Cannula 4.00 12/08/16 22:00 98.1 90 22 128/81 95 12/08/16 21:00 109 24 123/71 94 Nasal Cannula 4 12/08/16 20:00 101 24 128/61 94 Nasal Cannula 4 12/08/16 19:00 117 24 147/85 96 Nasal Cannula 4 12/08/16 17:49 97.8 102 20 116/75 Nasal Cannula 3.00 95 12/08/16 17:07 95 Nasal Cannula 3.00 12/08/16 16:25 124 20 138/96 95 Nasal Cannula 3 12/08/16 15:55 132 20 143/97 Nasal Cannula 3 95 12/08/16 15:20 128 20 135/91 95 Nasal Cannula 3 12/08/16 13:49 22 Nasal Cannula 3 95 12/08/16 13:45 136 20 95 Nasal Cannula 3 12/08/16 13:41 97.8 126 20 151/94 95 I/O 12/08/16 12/08/16 12/08/16 12/09/16 12/09/16 12/09/16 07:00 15:00 23:00 07:00 15:00 23:00 Intake Total 240 ml Balance 240 ml Intake Oral 240 ml # Voids 1 # Bowel Movements 1 Result Diagram: 12/08/16 1450 12/08/16 1450 Imaging Last Impressions Chest X-Ray 12/08/16 1346 Signed Impressions: Service Date/Time: Thursday, December 08, 2016 13:50 - CONCLUSION: 1. Cardiomegaly. 2. Scattered atelectactic changes bilaterally. 3. Degenerative changes involving the shoulders bilaterally. 4. Degenerative changes and scoliosis of the thoracic spine. Jorden Foster MD Objective Remarks anicteric lungs no rales or wheezes irregularly irregular rhythm abdomen soft, nontender extremities + edema neuro exam- unremarkable A/P Assessment and Plan 86-year-old female with a past medical history of A. fib, HTN, DM, HLD, GERD, hypothyroidism who presented with palpitations and shortness of breath A. fib with RVR: transition to po CArdizem 300 mg po daily continue on Lopressor bid CArdiology ff ASA daily elevated BNP check echo on Lasix Hypokalemia recheck lytes today Diabetes mellitus: on Metformin as OP Coverage with SSI with Accu-Cheks. HTN: Continue lisinopril. HLD: Continue statin. Hypothyroidism: Continue levothyroxine. GERD: Continue PPI. DVT prophylaxis: SCDs. Patient reports history of GI and urinary bleed on anticoagulation ,Increase ambulation and monitor HR Tisha Gale MD Dec 09, 2016 08:56
[2016-12-09] MEDS ORDERED: POTASSIUM CHLORIDE 10 MEQ CONTROLLED RELEASE TAB PO SCH (09:00)
[2016-12-09] MEDS ORDERED: LISINOPRIL 5 MG TAB PO SCH (09:00)
[2016-12-09] MEDS: DILTIAZEM-CD 300 MG CAP ER PO SCH (09:30)
--- NOTE | 2016-12-09 09:34 | EKG ---
Date Performed: 12/08/2016 Time Performed: 23:04:42 PTAGE: 86 years EKG: Atrial fibrillation Possible anterior infarct - age undetermined Low QRS voltages in precor dial leads Abnormal ECG PREVIOUS TRACING : 12/08/2016 17.50 DOCTOR: Carlos Alberto Jolley Interpretating Date/Time 12/09/2016 09:32:52
--- NOTE | 2016-12-09 10:23 | EKG ---
Date Performed: 12/08/2016 Time Performed: 17:50:59 PTAGE: 86 years EKG: ATRIAL FIBRILLATION WITH RAPID VENTRICULAR RESPONSE POSSIBLE ANTERIOR MYOCARDIAL INFARCTION ABNORMAL RHYTHM ECG PREVIOUS TRACING : 12/08/2016 14.05 DOCTOR: Carlos Alberto Jolley Interpretating Date/Time 12/09/2016 10:22:25
--- NOTE | 2016-12-09 11:06 | EKG ---
Date Performed: 12/08/2016 Time Performed: 14:05:54 PTAGE: 86 years EKG: ATRIAL FIBRILLATION WITH RAPID VENTRICULAR RESPONSE WITH ABERRANT CONDUCTION OR VENTRICULAR PREMATURE COMPLEXES POSSIBLE ANTERIOR MYOCARDIAL INFARCTION ABNORMAL RHYTHM ECG NO PREVIOUS TRACING DOCTOR: Carlos Alberto Jolley Interpretating Date/Time 12/09/2016 11:05:05
[2016-12-09] MEDS: DILTIAZEM INJ 125 MG in SODIUM CHLORIDE 0.9% INJ 100 ML IV SCH (12:11)
[2016-12-09 14:14] LABS: BICARBONATE 22.1 MEQ/L (21.0-32.0); POTASSIUM 4.2 MEQ/L (3.5-5.1)
--- NOTE | 2016-12-09 20:03 | EC ---
Study Study Date:12/09/2016 STUDY CONCLUSIONS SUMMARY - Left ventricle: The cavity size was mildly dilated. Wall thickness was increased in a pattern of mild LVH. Systolic function was moderately reduced. The estimated ejection fraction was 35%. Wall motion was normal; there were no regional wall motion abnormalities. - Aortic valve: Transvalvular velocity was increased. There was moderate stenosis. Mean gradient: 20mm Hg (S). Peak gradient: 25mm Hg (S). Valve area: 0.78cm^2(VTI). Valve area: 1.06cm^2 (Vmax). - Mitral valve: Calcified annulus. Moderately thickened leaflets, . - Right ventricle: The cavity size was dilated. Wall thickness was normal. - Tricuspid valve: Moderate regurgitation. - Pulmonary arteries: Systolic pressure was mildly increased. PA peak pressure: 44mm Hg (S). If LV function is below 40, please consider prescribing an ACEI or ARB or document rationale for non-use. PROCEDURE DATA STUDY STATUS: Elective. Procedure: Transthoracic echocardiography. Image quality was good. Scanning was performed from the parasternal, apical, and subcostal acoustic windows. Study completion: The patient tolerated the procedure well. Transthoracic echocardiography. M-mode, complete 2D, complete spectral Doppler, and color Doppler. Height: Height: 64in. Weight: Weight: 274.4lb. Body mass index: BMI: 47.2kg/m^2. Body surface area: BSA: 2.24m^2. Patient status: Inpatient. CARDIAC ANATOMY LEFT VENTRICLE: The cavity size was mildly dilated. Wall thickness was increased in a pattern of mild LVH. Systolic function was moderately reduced. The estimated ejection fraction was 35%. Wall motion was normal; there were no regional wall motion abnormalities. AORTIC VALVE: Trileaflet; severely thickened, moderately calcified leaflets. Doppler: Transvalvular velocity was increased. There was moderate stenosis. No regurgitation. Valve area: 0.78cm^2(VTI). Indexed valve area: 0.35cm^2/m^2 (VTI). Valve area: 1.06cm^2 (Vmax). Indexed valve area: 0.47cm^2/m^2 (Vmax). Mean gradient: 20mm Hg (S). Peak gradient: 25mm Hg (S). AORTA: Aortic root: The aortic root was normal in size. MITRAL VALVE: Calcified annulus. Moderately thickened leaflets, . Doppler: Transvalvular velocity was within the normal range. There was no evidence for stenosis. Trace regurgitation. Valve area by pressure half-time: 3.93cm^2. Indexed valve area by pressure half-time: 1.75cm^2/m^2. Valve area by continuity equation (using LVOT flow): 0.95cm^2. Indexed valve area by continuity equation (using LVOT flow): 0.42cm^2/m^2. Mean gradient: 5mm Hg (D). Peak gradient: 17mm Hg (D). LEFT ATRIUM: The atrium was normal in size. RIGHT VENTRICLE: The cavity size was dilated. Wall thickness was normal. PULMONIC VALVE: Doppler: Transvalvular velocity was within the normal range. There was no evidence for stenosis. No regurgitation. TRICUSPID VALVE: Structurally normal valve. Doppler: Transvalvular velocity was within the normal range. Moderate regurgitation. Peak gradient: 35mm Hg (D). PULMONARY ARTERY: The main pulmonary artery was normal-sized. Systolic pressure was mildly increased. RIGHT ATRIUM: The atrium was normal in size. PERICARDIUM: There was no pericardial effusion. SYSTEMIC VEINS: Inferior vena cava: The vessel was normal in size. Patient weight: 274.4lb _Ejection fraction:_ 65-75% _Fractional shortening:_ 32% up to 5Kg 5-11.5Kg 11.6-22.9Kg 23-45Kg 45-57Kg Aortic Root 7-13 <17 13-22 17-27 17-27 LA diam 6-13 <23 24-38 33-47 37-40 RVID 10-17 7-15 7-15 7-18 8-17 LVIDd 12-22 <32 24-38 33-47 37-40 LVPW 2-4 3-6 5-7 6-8 7-8 IVS 2-4 3-6 5-7 6-8 7-8 BASIC MEASUREMENTS ADULT NORMAL Left ventricle LV internal dimension, ED, chordal 46.6 mm 43-52 level, PLAX LV internal dimension, ES, chordal *39.8 mm 23-38 level, PLAX Fractional shortening, chordal level, *15 % >29 PLAX LV posterior wall thickness, ED 11.9 mm IVS/LVPW ratio, ED 1.03 <1.3 Volume, ED, MOD, 1-plane 45 ml Volume, ES, MOD, 1-plane 30 ml Ejection fraction, MOD, 1-plane 33 % Stroke volume, MOD, 1-plane 15 ml Volume index, ED, MOD, 1-plane 20 ml/m^2 Volume index, ES, MOD, 1-plane 13 ml/m^2 Stroke index, MOD, 1-plane 6.7 ml/m^2 Ventricular septum Septal thickness, ED 12.2 mm Aortic valve Leaflet separation *9 mm 15-26 Left atrium Anterior-posterior dimension 37 mm Anterior-posterior dimension index 1.65 cm/m^2 <2.2 BASIC MEASUREMENTS ADULT NORMAL Aortic valve Leaflet separation *9 mm 15-26 Aorta Root diameter, ED 23 mm 20-37 DOPPLER MEASUREMENTS ADULT NORMAL Main pulmonary artery Pressure, S *44 mm Hg =30 Aortic valve Peak velocity, S 306 cm/s Mean velocity, S 212 cm/s VTI, S 47.3 cm Mean gradient, S 20 mm Hg Peak gradient, S 25 mm Hg Valve area, VTI 0.78 cm^2 Valve area index, VTI 0.35 cm^2/m^2 Valve area, Vmax 1.06 cm^2 Valve area index, Vmax 0.47 cm^2/m^2 Mitral valve Peak E-wave velocity 174 cm/s Peak A-wave velocity 75.3 cm/s Mean velocity, D 94 cm/s Pressure half-time 56 ms Mean gradient, D 5 mm Hg Peak gradient, D 17 mm Hg Peak E/A ratio 2.3 Valve area, pressure half-time 3.93 cm^2 Valve area index, pressure half-time 1.75 cm^2/m^2 Valve area, LVOT continuity 0.95 cm^2 Valve area index, LVOT continuity 0.42 cm^2/m^2 Tricuspid valve Peak gradient, D 35 mm Hg Maximal inflow velocity 296 cm/s Regurgitant peak velocity 293 cm/s Peak RV-RA gradient, S 34 mm Hg Systemic veins Estimated CVP 10 mm Hg Right ventricle RV pressure, S *44 mm Hg <30 Pulmonic valve Peak velocity, S 97.7 cm/s LEGEND: Mean values are shown as u=mean value. Asterisk (*) lion values outside specified normal range. Aspen Graves [id number]
[2016-12-09] MEDS: ATORVASTATIN 20 MG TAB PO SCH (21:25)
[2016-12-09] MEDS: METOPROLOL TARTRATE 25 MG TAB PO SCH (21:25)
[2016-12-10] VITALS (31 sets, daily range): BP systolic 120–163; BP diastolic 62–99; PULSE 52–108; RESP 16–20; TEMP 97.7–98.7; O2SAT 92–99
[2016-12-10] MEDS ORDERED: ONDANSETRON HCL 4 MG/2 ML VIAL IV PUSH PRN (01:45)
[2016-12-10] MEDS: LEVOTHYROXINE SODIUM 50 MCG TAB PO SCH (05:42)
[2016-12-10] MEDS: INSULIN ASPART SUPPLEMENTAL SCALE SQ SCH ×4 (05:42→21:24)
--- NOTE | 2016-12-10 07:19 | PD.CARD.PN ---
Subjective Subjective Remarks Pt without complaints Objective Medications Current Medications Medications (Trade) Dose Ordered Sig/Nova Route Start Time Stop Time Status Last Admin (Lipitor) 20 mg HS PO 12/08/16 21:00 12/09/16 21:25 (Synthroid) 50 mcg DAILY@06 PO 12/09/16 06:00 12/10/16 05:42 (Protonix) 40 mg DAILY PO 12/09/16 09:00 12/09/16 08:55 (NS Flush) 2 ml BID IVF 12/08/16 21:00 12/09/16 21:00 (Aspirin Chew) 81 mg DAILY PO 12/09/16 09:00 12/09/16 08:55 (D50w (Vial) Inj) 25 ml UNSCH PRN IV PUSH 12/08/16 17:15 (Glucagon Inj) 1 mg UNSCH PRN OTHER 12/08/16 17:15 (Cardizem Cd) 300 mg DAILY PO 12/09/16 09:00 12/09/16 09:30 (Lopressor) 25 mg Q12HR PO 12/09/16 21:00 12/09/16 21:25 (Zofran Inj) 4 mg Q6HR PRN IV PUSH 12/10/16 01:45 Vital Signs / I&O Vital Signs Date Time Temp Pulse Resp B/P Pulse Ox O2 Delivery O2 Flow Rate FiO2 12/10/16 06:00 108 12/10/16 05:00 90 12/10/16 04:56 86 12/10/16 04:40 98.3 87 130/62 99 12/10/16 03:00 94 12/10/16 02:00 52 12/10/16 01:00 52 12/10/16 00:00 62 12/09/16 23:00 58 12/09/16 23:00 97.4 55 123/50 99 12/09/16 22:00 78 12/09/16 21:00 90 12/09/16 20:00 86 12/09/16 19:15 97.4 78 139/93 98 12/09/16 19:00 89 12/09/16 18:24 97 12/09/16 17:00 94 12/09/16 16:00 92 12/09/16 15:30 103 19 132/98 98 12/09/16 15:00 98 12/09/16 14:00 88 12/09/16 13:51 81 12/09/16 12:58 93 12/09/16 11:05 98.0 99 18 139/96 96 12/09/16 11:00 94 12/09/16 10:13 95 12/09/16 09:00 110 12/09/16 08:00 99 12/09/16 07:49 94 Nasal Cannula 4.00 12/09/16 07:21 98.3 115 20 155/95 93 I/O 12/09/16 12/09/16 12/09/16 12/10/16 12/10/16 12/10/16 06:59 14:59 22:59 06:59 14:59 22:59 Intake Total 240 ml 588 ml 240 ml Output Total 450 ml Balance 240 ml 588 ml -210 ml Intake Oral 240 ml 480 ml 240 ml IV Total 108 ml Output Urine Total 450 ml # Voids 1 2 # Bowel Movements 3 Physical Exam GENERAL: Well developed, well nourished. No acute distress. HEENT: Jugular venous pressure is normal. CHEST: Lungs clear to auscultation bilaterally. Unlabored respiratory effort. CARDIAC: irregular rate and rhythm without S3, S4, or murmur. ABDOMEN: Soft, nontender, no hepatosplenomegaly. Bowel sounds present. EXTREMITIES: No clubbing, cyanosis, or edema. Laboratory Laboratory Tests Test 12/09/16 13:21 Sodium Level 141 MEQ/L Potassium Level 4.2 MEQ/L Chloride Level 108 MEQ/L Carbon Dioxide Level 22.1 MEQ/L Anion Gap 11 MEQ/L Blood Urea Nitrogen 26 MG/DL Creatinine 1.11 MG/DL Estimat Glomerular Filtration 47 ML/MIN Rate Random Glucose 142 MG/DL Calcium Level 7.9 MG/DL Assessment and Plan Assessment and Plan 1. Atrial fibrillation - rate controlled overnight then spiked with ambulation to BR => reasonable on present meds => no anticoagulation secondary to hx GIB 2. CHF - check ECHO---as outpatient -stable 3. Dispo- ok for d/c from CV perspective Lavern Henderson MD Dec 10, 2016 07:19
--- NOTE | 2016-12-10 08:51 | HHI.PR ---
Subjective Remarks awake and alert, denies any pain appears very anxious complains frequent urination- slight burning Objective Vitals Vital Signs Date Time Temp Pulse Resp B/P Pulse Ox O2 Delivery O2 Flow Rate FiO2 12/10/16 08:14 85 12/10/16 08:00 98.2 107 20 163/99 92 12/10/16 07:46 93 21 12/10/16 07:00 94 12/10/16 06:00 108 12/10/16 05:00 90 12/10/16 04:56 86 12/10/16 04:40 98.3 87 130/62 99 12/10/16 03:00 94 12/10/16 02:00 52 12/10/16 01:00 52 12/10/16 00:00 62 12/09/16 23:00 58 12/09/16 23:00 97.4 55 123/50 99 12/09/16 22:00 78 12/09/16 21:00 90 12/09/16 20:00 86 12/09/16 19:15 97.4 78 139/93 98 12/09/16 19:00 89 12/09/16 18:24 97 12/09/16 17:00 94 12/09/16 16:00 92 12/09/16 15:30 103 19 132/98 98 12/09/16 15:00 98 12/09/16 14:00 88 12/09/16 13:51 81 12/09/16 12:58 93 12/09/16 11:05 98.0 99 18 139/96 96 12/09/16 11:00 94 12/09/16 10:13 95 12/09/16 09:00 110 I/O 12/09/16 12/09/16 12/09/16 12/10/16 12/10/16 12/10/16 07:00 15:00 23:00 07:00 15:00 23:00 Intake Total 240 ml 588 ml 240 ml Output Total 450 ml Balance 240 ml 588 ml -210 ml Intake Oral 240 ml 480 ml 240 ml IV Total 108 ml Output Urine Total 450 ml # Voids 1 2 # Bowel Movements 3 Result Diagram: 12/08/16 1450 12/09/16 1321 Imaging Last Impressions Chest X-Ray 12/08/16 1346 Signed Impressions: Service Date/Time: Thursday, December 08, 2016 13:50 - CONCLUSION: 1. Cardiomegaly. 2. Scattered atelectactic changes bilaterally. 3. Degenerative changes involving the shoulders bilaterally. 4. Degenerative changes and scoliosis of the thoracic spine. Jorden Foster MD Objective Remarks anicteric lungs no rales or wheezes irregularly irregular rhythm abdomen soft, nontender extremities no edema neuro exam- unremarkable A/P Assessment and Plan 86-year-old female with a past medical history of A. fib, HTN, DM, HLD, GERD, hypothyroidism who presented with palpitations and shortness of breath A. fib with RVR:- beter controlled HYpertension- some elevated readings Cardiomyopathy- EF 35% BNP 500s will benefit from TERI- was DC earlier. or low dose diuretics- will also help with HTN Check BMP. add TERI- Lisinorpil 2.5 mg daily po CArdizem 300 mg po daily continue on Lopressor bid ASA daily no OAC with reported GIB Hypokalemia- corrected Diabetes mellitus: Coverage with SSI with Accu-Cheks. restart Metformin at 500 mg po bid- check bmp. first Microcytic anemia- + guiac check iron studies Overactive bladder- Frequent Urination- mild burning get UA. CBC was n Ves[facility]- not availabe start Detrol 2 mg LA daily HLD: Continue statin. Hypothyroidism: Continue levothyroxine.. TSH normal GERD: Continue PPI. DVT prophylaxis: SCDs. Patient reports history of GI and urinary bleed on anticoagulation ,Increase ambulation and monitor HR Tisha Gale MD Dec 10, 2016 08:50
[2016-12-10] MEDS ORDERED: metFORMIN HCL 500 MG TAB PO SCH (09:00)
[2016-12-10] MEDS: ASPIRIN 81 MG CHEW TAB PO SCH (09:04)
[2016-12-10] MEDS: PANTOPRAZOLE SOD 40 MG DELAYED RELEASE TAB PO SCH (09:04)
[2016-12-10] MEDS: SODIUM CHLORIDE 0.9% FLUSH 10 ML FLUSH IVF SCH ×2 (09:04→21:00)
[2016-12-10] MEDS: DILTIAZEM-CD 300 MG CAP ER PO SCH (09:04)
[2016-12-10] MEDS: METOPROLOL TARTRATE 25 MG TAB PO SCH ×2 (09:04→21:23)
[2016-12-10] MEDS: LISINOPRIL 5 MG TAB PO SCH (10:26)
[2016-12-10] MEDS ORDERED: PILL SPLITTER OTHER PRN (10:30)
[2016-12-10] MEDS: TOLTERODINE TARTRATE 2 MG CAP LA PO SCH (10:43)
[2016-12-10 12:07] LABS: HEMATOCRIT 30.4 % (35.0-46.0); MEAN CELL VOLUME 74.2 FL (80.0-100.0); MEAN CORPUSCULAR HEMOGLOBIN 23.3 PG (27.0-34.0); MEAN CORPUSCULAR HGB CONC 31.4 % (32.0-36.0); PLATELET COUNT 353 TH/MM3 (150-450); WHITE BLOOD COUNT 22.7 TH/MM3 (4.0-11.0)
[2016-12-10 12:10] LABS: REVIEW FLAG FINAL
[2016-12-10 12:27] LABS: FERRITIN 35 NG/ML (8-252); TRANSFERRIN IRON PROFILE 263 MG/DL (200-360)
[2016-12-10 12:34] LABS: BICARBONATE 21.5 MEQ/L (21.0-32.0); POTASSIUM 3.9 MEQ/L (3.5-5.1)
[2016-12-10] MEDS ORDERED: OXYGENTANK NAS.CANULA (13:41)
[2016-12-10 18:00] LABS: BACTERIA, URINE RARE /hpf; BLOOD, URINE NEG (NEG); COMMENT (UR) CULTURE INDICATED; CULTURE IF INDICATED CULTURE INDICATED; GLUCOSE,URINE NEG (NEG); KETONE, URINE NEG (NEG); NITRITE,URINE NEG (NEG); PH, URINE 5.5 (5.0-8.5); SQUAMOUS EPITHELIAL CELL URINE 2 /hpf (0-5); TRANSITIONAL EPI CELLS, URINE <1 /hpf; URINE COLOR YELLOW (YELLW/STRAW)
[2016-12-10] MEDS: LEVOFLOXACIN 500 MG TAB PO SCH (18:22)
[2016-12-10] MEDS: ATORVASTATIN 20 MG TAB PO SCH (21:23)
[2016-12-10] MEDS: FERROUS SULFATE 325 MG (65 MG ELEMENTAL IRON) TAB PO SCH (21:23)
[2016-12-11] VITALS (14 sets, daily range): BP systolic 120–138; BP diastolic 81–89; PULSE 76–112; RESP 16–20; TEMP 97.7–98.1; O2SAT 93–98
[2016-12-11] MEDS: LEVOTHYROXINE SODIUM 50 MCG TAB PO SCH (06:21)
[2016-12-11] MEDS: INSULIN ASPART SUPPLEMENTAL SCALE SQ SCH ×2 (06:22→12:05)
[2016-12-11 07:08] LABS: BICARBONATE 24.9 MEQ/L (21.0-32.0); POTASSIUM 3.3 MEQ/L (3.5-5.1)
[2016-12-11] MEDS ORDERED: FUROSEMIDE 20 MG TAB PO SCH (09:00)
--- NOTE | 2016-12-11 09:06 | PD.CARD.PN ---
Subjective Subjective Remarks PT without complaints Objective Medications Current Medications Medications (Trade) Dose Ordered Sig/Nova Route Start Time Stop Time Status Last Admin (Lipitor) 20 mg HS PO 12/08/16 21:00 12/10/16 21:23 (Synthroid) 50 mcg DAILY@06 PO 12/09/16 06:00 12/11/16 06:21 (Protonix) 40 mg DAILY PO 12/09/16 09:00 12/10/16 09:04 (NS Flush) 2 ml BID IVF 12/08/16 21:00 12/10/16 09:04 (Aspirin Chew) 81 mg DAILY PO 12/09/16 09:00 12/10/16 09:04 (D50w (Vial) Inj) 25 ml UNSCH PRN IV PUSH 12/08/16 17:15 (Glucagon Inj) 1 mg UNSCH PRN OTHER 12/08/16 17:15 (Cardizem Cd) 300 mg DAILY PO 12/09/16 09:00 12/10/16 09:04 (Lopressor) 25 mg Q12HR PO 12/09/16 21:00 12/10/16 21:23 (Zofran Inj) 4 mg Q6HR PRN IV PUSH 12/10/16 01:45 (Detrol La) 2 mg DAILY PO 12/10/16 09:30 12/10/16 10:43 (Prinivil) 2.5 mg DAILY PO 12/10/16 10:15 12/10/16 10:26 (Pill Splitter) 1 ea UNSCH PRN OTHER 12/10/16 10:30 (Ferrous Sulfate) 325 mg BID PO 12/10/16 21:00 12/10/16 21:23 (Levaquin) 500 mg DAILY PO 12/10/16 17:30 12/10/16 18:22 (Lasix) 20 mg DAILY PO 12/11/16 09:00 Vital Signs / I&O Vital Signs Date Time Temp Pulse Resp B/P Pulse Ox O2 Delivery O2 Flow Rate FiO2 12/11/16 08:00 97.7 108 18 138/89 96 12/11/16 07:48 95 21 12/11/16 07:00 85 12/11/16 06:23 98.0 98 20 120/85 98 12/11/16 06:00 102 12/11/16 05:00 88 12/11/16 04:00 110 12/11/16 03:00 90 12/11/16 02:00 76 12/11/16 01:00 76 12/11/16 00:00 82 12/10/16 23:00 98.1 96 16 140/89 96 12/10/16 23:00 74 12/10/16 22:00 92 12/10/16 21:00 108 12/10/16 20:00 100 12/10/16 19:00 98.7 100 20 120/91 96 12/10/16 19:00 89 12/10/16 18:13 102 12/10/16 17:26 95 Nasal Cannula 2.00 12/10/16 17:00 99 12/10/16 16:00 97.9 99 17 145/89 95 12/10/16 16:00 98 12/10/16 15:00 104 12/10/16 14:00 91 12/10/16 13:00 92 12/10/16 12:04 97.7 103 18 135/88 99 12/10/16 12:00 90 12/10/16 11:07 95 12/10/16 10:48 147/98 12/10/16 10:00 100 12/10/16 09:56 93 Nasal Cannula 2.00 12/10/16 09:40 2.00 I/O 12/10/16 12/10/16 12/10/16 12/11/16 12/11/16 12/11/16 07:00 15:00 23:00 07:00 15:00 23:00 Intake Total 240 ml 480 ml 240 ml Output Total 450 ml 550 ml 500 ml Balance -210 ml -70 ml -260 ml Intake Oral 240 ml 480 ml 240 ml Output Urine Total 450 ml 550 ml 500 ml # Bowel Movements 3 0 0 Physical Exam GENERAL: Well developed, well nourished. No acute distress. HEENT: Jugular venous pressure is normal. CHEST: Lungs clear to auscultation bilaterally. Unlabored respiratory effort. CARDIAC: irregular rate and rhythm without S3, S4, or murmur. ABDOMEN: Soft, nontender, no hepatosplenomegaly. Bowel sounds present. EXTREMITIES: No clubbing, cyanosis, or edema. Laboratory Laboratory Tests Test 12/10/16 12/10/16 12/11/16 11:30 17:35 06:03 White Blood Count 22.7 TH/MM3 Red Blood Count 4.10 MIL/MM3 Hemoglobin 9.6 GM/DL Hematocrit 30.4 % Mean Corpuscular Volume 74.2 FL Mean Corpuscular Hemoglobin 23.3 PG Mean Corpuscular Hemoglobin 31.4 % Concent Red Cell Distribution Width 17.0 % Platelet Count 353 TH/MM3 Mean Platelet Volume 8.6 FL Sodium Level 139 MEQ/L 139 MEQ/L Potassium Level 3.9 MEQ/L 3.3 MEQ/L Chloride Level 105 MEQ/L 104 MEQ/L Carbon Dioxide Level 21.5 MEQ/L 24.9 MEQ/L Anion Gap 13 MEQ/L 10 MEQ/L Blood Urea Nitrogen 35 MG/DL 31 MG/DL Creatinine 1.28 MG/DL 0.94 MG/DL Estimat Glomerular Filtration 40 ML/MIN 57 ML/MIN Rate Random Glucose 144 MG/DL 103 MG/DL Calcium Level 8.6 MG/DL 8.4 MG/DL Iron Level 16 MCG/DL Total Iron Binding Capacity 368 MCG/DL Percent Iron Saturation 4.3 % Ferritin 35 NG/ML Urine Color YELLOW Urine Turbidity HAZY Urine pH 5.5 Urine Specific [place] 1.019 Urine Protein 30 mg/dL Urine Glucose (UA) NEG mg/dL Urine Ketones NEG mg/dL Urine Occult Blood NEG Urine Nitrite NEG Urine Bilirubin NEG Urine Urobilinogen 2.0 MG/DL Urine Leukocyte Esterase LARGE Urine RBC 2 /hpf Urine WBC 18 /hpf Urine Squamous Epithelial 2 /hpf Cells Urine Transitional Epithelial <1 /hpf Cells Urine Bacteria RARE /hpf Microscopic Urinalysis Comment CULTURE INDICATED Assessment and Plan Assessment and Plan 1. Atrial fibrillation - => reasonable on present meds => no anticoagulation secondary to hx GIB 2. CHF, acute systolic failure, likely tachycardic induced from AF -stable, titrate up metoprolol, less dilt - fluid and sodium caps discussed -agree with lasix 3. HTN-reasonable 4. Dispo- ok for d/c from CV perspective, follow up Wednesday Lavern Henderson MD Dec 11, 2016 09:06
[2016-12-11] MEDS ORDERED: POTASSIUM CHLORIDE 20 MEQ CONTROLLED RELEASE TAB PO SCH (09:15)
[2016-12-11] MEDS ORDERED: METOPROLOL TARTRATE 50 MG TAB PO SCH (09:15)
--- NOTE | 2016-12-11 09:30 | HHI.PR ---
Subjective Remarks patient feeling better voiding well very feisty no chest pains Objective Vitals Vital Signs Date Time Temp Pulse Resp B/P Pulse Ox O2 Delivery O2 Flow Rate FiO2 12/11/16 08:00 97.7 108 18 138/89 96 12/11/16 07:48 95 21 12/11/16 07:00 85 12/11/16 06:23 98.0 98 20 120/85 98 12/11/16 06:00 102 12/11/16 05:00 88 12/11/16 04:00 110 12/11/16 03:00 90 12/11/16 02:00 76 12/11/16 01:00 76 12/11/16 00:00 82 12/10/16 23:00 98.1 96 16 140/89 96 12/10/16 23:00 74 12/10/16 22:00 92 12/10/16 21:00 108 12/10/16 20:00 100 12/10/16 19:00 98.7 100 20 120/91 96 12/10/16 19:00 89 12/10/16 18:13 102 12/10/16 17:26 95 Nasal Cannula 2.00 12/10/16 17:00 99 12/10/16 16:00 97.9 99 17 145/89 95 12/10/16 16:00 98 12/10/16 15:00 104 12/10/16 14:00 91 12/10/16 13:00 92 12/10/16 12:04 97.7 103 18 135/88 99 12/10/16 12:00 90 12/10/16 11:07 95 12/10/16 10:48 147/98 12/10/16 10:00 100 12/10/16 09:56 93 Nasal Cannula 2.00 12/10/16 09:40 2.00 I/O 12/10/16 12/10/16 12/10/16 12/11/16 12/11/16 12/11/16 07:00 15:00 23:00 07:00 15:00 23:00 Intake Total 240 ml 480 ml 240 ml Output Total 450 ml 550 ml 500 ml Balance -210 ml -70 ml -260 ml Intake Oral 240 ml 480 ml 240 ml Output Urine Total 450 ml 550 ml 500 ml # Bowel Movements 3 0 0 Result Diagram: 12/10/16 1130 12/11/16 0603 Imaging Last Impressions Chest X-Ray 12/08/16 1346 Signed Impressions: Service Date/Time: Thursday, December 08, 2016 13:50 - CONCLUSION: 1. Cardiomegaly. 2. Scattered atelectactic changes bilaterally. 3. Degenerative changes involving the shoulders bilaterally. 4. Degenerative changes and scoliosis of the thoracic spine. Jorden Foster MD Objective Remarks anicteric lungs no rales or wheezes irregularly irregular rhythm abdomen soft, nontender extremities no edema neuro exam- unremarkable A/P Assessment and Plan 86-year-old female with a past medical history of A. fib, HTN, DM, HLD, GERD, hypothyroidism who presented with palpitations and shortness of breath A. fib with RVR:- beter controlled HYpertension- some elevated readings Cardiomyopathy- EF 35% BNP 500s Lisinorpil 2.5 mg daily po CArdizem 300 mg po daily continue on Lopressor bid ASA daily no OAC with reported GIB lasix 40 mg po daily Hypokalemia- corrected. KCL 20 neq po daily Diabetes mellitus: Coverage with SSI with Accu-Cheks. restart Metformin at 500 mg po bid- - decrease to once daily- Ff up with PCP Microcytic anemia- + guiac check iron studies Overactive bladder- UTI- DC on po Levaquin total 7 days. PCP ff up Leukocytosis- due to UTI CBC as OP Detrol 2 mg LA daily HLD: Continue statin. Hypothyroidism: Continue levothyroxine.. TSH normal GERD: Continue PPI. DC home today FF up with cardiology - Wednesday FF up with PCP- next week- patient will call Tisha Gale MD Dec 11, 2016 09:30
[2016-12-11] MEDS ORDERED: DETR2CAP PO (09:41)
[2016-12-11] MEDS ORDERED: FURO40TA PO (09:41)
[2016-12-11] MEDS ORDERED: METO-309 PO (09:41)
[2016-12-11] MEDS ORDERED: POTA20TA5 PO (09:41)
[2016-12-11] MEDS ORDERED: LISI-519 PO (09:41)
[2016-12-11] MEDS ORDERED: FERR325T PO (09:41)
[2016-12-11] MEDS ORDERED: Aspirin Chew PO (09:41)
[2016-12-11] MEDS ORDERED: CARD240C6 PO (09:41)
[2016-12-11] MEDS ORDERED: LEVA500T PO (09:41)
[2016-12-11] MEDS: TOLTERODINE TARTRATE 2 MG CAP LA PO SCH (09:45)
[2016-12-11] MEDS: SODIUM CHLORIDE 0.9% FLUSH 10 ML FLUSH IVF SCH (09:45)
[2016-12-11] MEDS: PANTOPRAZOLE SOD 40 MG DELAYED RELEASE TAB PO SCH (09:45)
[2016-12-11] MEDS: LISINOPRIL 5 MG TAB PO SCH (09:46)
[2016-12-11] MEDS: ASPIRIN 81 MG CHEW TAB PO SCH (09:46)
[2016-12-11] MEDS: LEVOFLOXACIN 500 MG TAB PO SCH (09:46)
[2016-12-11] MEDS: FERROUS SULFATE 325 MG (65 MG ELEMENTAL IRON) TAB PO SCH (09:46)
--- NOTE | 2016-12-11 09:46 | HHI.DS ---
Discharge Summary Admission Date Dec 08, 2016 at 16:25 Discharge Date: Dec 11, 2016 Admitting Diagnosis a fib on RVR, positive troponin (1) Atrial fibrillation with RVR ICD Code: I48.91 Diagnosis: Principal (2) CMP Diagnosis: Principal Procedures none Brief History - From Admission 86-year-old female with a past medical history of A. fib, HTN, DM, HLD, GERD, hypothyroidism who presented with palpitations and shortness of breath. The patient states that a few weeks ago she had "the flu" and bronchitis. She doesn 't say she was actually diagnosed with the flu, but she did have an illness at that time. She states the way her symptoms from that improved, but otherwise it didn't. For the past 2 weeks she's been having constant sensation of heart racing and pounding with associated shortness of breath and chest tightness. She states that it eventually got so worse this morning that she decided to come to the ED for evaluation. She received IV Cardizem in the ED, and states that her symptoms have improved at this time. Currently she denies any further palpitations, but her heart rate remains around 130. She denies any specific chest pain or radiation of the chest tightness. Her motorcycle tester is Dr. Henderson. Her medication list says that she is on diltiazem, but she is not sure about this. She states she had previously been tried on Xarelto, but had bleeding and was taken off of that. She does not take an aspirin. She states 2 days ago she had an episode of nausea, no vomiting. She has noticed that her legs have been a little more swollen lately, but denies any weight gain, actually feels like she has lost weight. CBC/BMP: 12/10/16 1130 12/11/16 0603 Significant Findings Laboratory Tests Test 12/08/16 12/08/16 12/09/16 12/09/16 14:50 19:05 00:03 13:21 White Blood Count 11.9 TH/MM3 (4.0-11.0) Hemoglobin 10.2 GM/DL (11.6-15.3) Hematocrit 32.1 % (35.0-46.0) Mean Corpuscular Volume 75.4 FL (80.0-100.0) Mean Corpuscular Hemoglobin 23.9 PG (27.0-34.0) Mean Corpuscular Hemoglobin 31.6 % Concent (32.0-36.0) Neutrophils (%) (Auto) 79.4 % (16.0-70.0) Monocytes (%) (Auto) 9.7 % (0.0-8.0) Neutrophils # (Auto) 9.5 TH/MM3 (1.8-7.7) Monocytes # (Auto) 1.2 TH/MM3 (0-0.9) Ovalocytes 1+ (NORMAL) Prothrombin Time 12.4 SEC (9.8-11.6) Potassium Level 3.4 MEQ/L (3.5-5.1) Estimat Glomerular Filtration 60 ML/MIN (>89) 47 ML/MIN (>89) Rate Random Glucose 111 MG/DL 142 MG/DL (74-106) (74-106) Alkaline Phosphatase 129 U/L (45-117) Troponin I 0.08 NG/ML 0.08 NG/ML 0.07 NG/ML (0.02-0.05) (0.02-0.05) (0.02-0.05) B-Type Natriuretic Peptide 505 PG/ML (0-100) Albumin 3.0 GM/DL (3.4-5.0) Chloride Level 108 MEQ/L (98-107) Blood Urea Nitrogen 26 MG/DL (7-18) Creatinine 1.11 MG/DL (0.50-1.00) Calcium Level 7.9 MG/DL (8.5-10.1) Test 12/10/16 12/10/16 12/11/16 11:30 17:35 06:03 White Blood Count 22.7 TH/MM3 (4.0-11.0) Hemoglobin 9.6 GM/DL (11.6-15.3) Hematocrit 30.4 % (35.0-46.0) Mean Corpuscular Volume 74.2 FL (80.0-100.0) Mean Corpuscular Hemoglobin 23.3 PG (27.0-34.0) Mean Corpuscular Hemoglobin 31.4 % Concent (32.0-36.0) Blood Urea Nitrogen 35 MG/DL (7-18) 31 MG/DL (7-18) Creatinine 1.28 MG/DL (0.50-1.00) Estimat Glomerular Filtration 40 ML/MIN (>89) 57 ML/MIN (>89) Rate Random Glucose 144 MG/DL (74-106) Iron Level 16 MCG/DL (50-170) Percent Iron Saturation 4.3 % (20-50) Urine Turbidity HAZY (CLEAR) Urine Protein 30 mg/dL (NEG-TRACE) Urine Leukocyte Esterase LARGE (NEG) Urine WBC 18 /hpf (0-5) Urine Bacteria RARE /hpf (NONE) Potassium Level 3.3 MEQ/L (3.5-5.1) Calcium Level 8.4 MG/DL (8.5-10.1) Imaging Last Impressions Chest X-Ray 12/08/16 1346 Signed Impressions: Service Date/Time: Thursday, December 08, 2016 13:50 - CONCLUSION: 1. Cardiomegaly. 2. Scattered atelectactic changes bilaterally. 3. Degenerative changes involving the shoulders bilaterally. 4. Degenerative changes and scoliosis of the thoracic spine. Jorden Foster MD PE at Discharge anicteric lungs no rales or wheezes irregularly irregular rhythm abdomen soft, nontender extremities no edema neuro exam- unremarkable Pt update on day of discharge awake and alert, ambulating gradually with 02 a fib rhythmcontrolled rate Hospital Course 86-year-old female with a past medical history of A. fib, HTN, DM, HLD, GERD, hypothyroidism who presented with palpitations and shortness of breath A. fib with RVR:- beter controlled HYpertension- some elevated readings Cardiomyopathy- EF 35% BNP 500s Lisinorpil 2.5 mg daily po CArdizem 300 mg po daily continue on Lopressor bid ASA daily no OAC with reported GIB lasix 40 mg po daily Hypokalemia- corrected. KCL 20 neq po daily Diabetes mellitus: Coverage with SSI with Accu-Cheks. restart Metformin at 500 mg po bid- - decrease to once daily- Ff up with PCP Microcytic anemia- + guiac check iron studies Overactive bladder- UTI- DC on po Levaquin total 7 days. PCP ff up Leukocytosis- due to UTI CBC as OP Detrol 2 mg LA daily HLD: Continue statin. Hypothyroidism: Continue levothyroxine.. TSH normal GERD: Continue PPI. DC home today FF up with cardiology - Wednesday FF up with PCP- next week- patient will call Pt Condition on Discharge: Stable Discharge Disposition: Discharge Home Discharge Time: <= 30 minutes Discharge Instructions DIET: Follow Instructions for: Heart Healthy Diet, Diabetic Diet Speech Therapy-Diet Recommends: Regular Activities you can perform: Weight Bearing as Joaquín Activities to Avoid: Strenuous Activity Follow up Referrals: Cardiology - 12/14/16 with [facility] PCP Follow-up with PCP New Medications: Oxygen tank (Oxygen tank) 1 Ea Tank 2 LITER MARISEL.CANULA CONTINUOUS Oxygen Concentrator Portable Gaseous 2 L/min via Nasal Cannula Continuous For 99 months HYPOXEMIA PREVENTION #2 CYLINDER Diltiazem CD 24 HR (Cardizem CD 24 HR) 240 Mg Caper 240 MG PO DAILY AFIB Days 30 CAP Ferrous Sulfate (Ferrous Sulfate) 325 Mg Tab 325 MG PO BID IRondef Days 30 TAB Furosemide (Furosemide) 40 Mg Tab 40 MG PO DAILY CMP Days 30 TAB Levofloxacin (Levaquin) 500 Mg Tab 500 MG PO DAILY UTI Days 6 TAB Lisinopril (Lisinopril) 5 Mg Tab 2.5 MG PO DAILY CMP Days 30 TAB Metoprolol Tartrate (Lopressor) 50 Mg Tab 50 MG PO Q12HR AFIB Days 30 TAB Potassium Chloride Microencaps (Potassium Chloride Microencaps) 20 Meq Tab 20 MEQ PO DAILY HEMANTH Days 30 TAB Tolterodine ER (Detrol LA) 2 Mg Cap 2 MG PO DAILY INCO Days 30 CAP ([Aspirin Chew]) 81 MG CHEW 81 MG PO DAILY AFIB Days 90 TAB.CHEW Continued Medications: Atorvastatin (Atorvastatin) 20 Mg Tab 20 MG PO HS Cholesterol Management #30 Ref 0 TAB Diltiazem CD 24 HR (Diltiazem CD 24 HR) 240 Mg Caper 240 MG PO DAILY #30 Ref 0 CAP Levothyroxine (Levothyroxine) 50 Mcg Tab 50 MCG PO DAILY Thyroid #30 Ref 0 TAB Pantoprazole (Pantoprazole) 40 Mg Tab 40 MG PO DAILY Reflux #30 Ref 0 TAB Potassium Chloride ER (Potassium Chloride ER) 10 Meq Tab 20 MEQ PO DAILY Electrolyte Replacement #30 Ref 0 TAB Discontinued Medications: Lisinopril (Lisinopril) 5 Mg Tab 5 MG PO DAILY Blood Pressure Management #30 Ref 0 TAB Metformin (Metformin) 1,000 Mg Tab 1000 MG PO BID With meals Blood Sugar Management #60 Ref 0 TAB Tisha Gale MD Dec 11, 2016 09:46
[2016-12-11] MEDS ORDERED: DILTIAZEM-CD 240 MG CAP ER PO SCH (10:00)
[2016-12-12] MEDS ORDERED: FUROSEMIDE 40 MG TAB PO SCH (09:00)
[2016-12-12] MEDS ORDERED: LEVOFLOXACIN 250 MG TAB PO SCH (09:00)
== END 2016-12-11 13:00 | disposition home or self-care (01) | DRG 308 ==
LOC: NEPE 13:02 → NEDA 16:25 → HCIN 21:50
PROVIDERS: ADMIT Internal Medicine; ATTEND Internal Medicine
DX: I48.91 Unspecified atrial fibrillation (principal); I50.41 Acute combined systolic (congestive) and diastolic (congestive) heart failure; I42.9 Cardiomyopathy, unspecified; N39.0 Urinary tract infection, site not specified; J44.9 Chronic obstructive pulmonary disease, unspecified; E11.9 Type 2 diabetes mellitus without complications; I10 Essential (primary) hypertension; D50.9 Iron deficiency anemia, unspecified; E03.9 Hypothyroidism, unspecified; E78.5 Hyperlipidemia, unspecified; K21.9 Gastro-esophageal reflux disease without esophagitis; Z85.3 Personal history of malignant neoplasm of breast; Z96.652 Presence of left artificial knee joint; E87.6 Hypokalemia; I35.0 Nonrheumatic aortic (valve) stenosis; N32.81 Overactive bladder; Z79.899 Other long term (current) drug therapy; Z91.19 Patient's noncompliance with other medical treatment and regimen
CPT/HCPCS: 71010; 76937; 80048; 80053; 81001; 82550; 82728; 82948; 83540; 83550; 83735; 83880; 84443; 84484; 85025; 85027; 85610; 85730; 87077; 87086; 87186; 93005; 93306; 94150; 94620; 96365; 96376; J1815

== ENCOUNTER 2017-01-30 11:10 | Inpatient (IN) | payer MEDICARE, BC ==
[~2017-01-30] VITALS: Ht 167.6 cm; Wt 87.0 kg
[~2017-01-30 11:10] MED LIST: ATOR20TA15 PO; Aspirin Chew PO; CARD240C6 PO; DETR2CAP PO; DILT-64 PO; FERR325T PO; FURO40TA PO; LEVA500T PO; LEVO50TA4 PO; LISI-519 PO; METO-309 PO; OXYGENTANK NAS.CANULA; PANT40TA3 PO; POTA10TA2 PO; POTA20TA5 PO
[2017-01-30 11:17] VITALS: BP 137/84; PULSE 84; RESP 19; TEMP 98.7; O2SAT 99
[2017-01-30 11:45] VITALS: O2SAT 99
[2017-01-30] MEDS ORDERED: SODIUM CHLORIDE 0.9% FLUSH 10 ML FLUSH IVF PRN (11:45)
--- NOTE | 2017-01-30 11:49 | PD ---
HPI Chief Complaint: Altered Mental Status Time Seen by Provider: 11:44 Travel History International Travel<30 days: No Contact w/Intl Traveler<30days: No Traveled to known affect area: No History of Present Illness HPI 86 -year-old female presents to the emergency department for altered mental status from [facility]. Apparently, she was found on the floor this morning. The patient is confused and tells me different stories. First she tells me that she called out of bed, then she told me that she fell out of bed. The patient is oriented to her name and president, but not to place or time. The patient has a past medical history of A. fib, HTN, DM, HLD, GERD, hypothyroidism. She denies any complaints at this time. I reviewed the paperwork from [facility] and it does appear that she is on Eliquis. The patient is unable to contribute to history due to confusion. Once the patient's sister arrived at bedside, I spoke to her. She states the patient has been confused for the past week, but was completely with it before that. She states that she got discharged from [facility] on Wednesday after having DVTs in the bilateral lower extremities. She was confused before she was discharged and they told her was due to a UTI. The sister says she is more alert today, but is not typically confused. PFSH Past Medical History Heart Rhythm Problems: Yes (afib) Cancer: Yes (Breast ) Cardiovascular Problems: Yes High Cholesterol: Yes COPD: Yes Diabetes: Yes Patient Takes Glucophage: No Diminished Hearing: No Hypertension: Yes Social History Alcohol Use: Yes (RARE) Tobacco Use: No Substance Use: No Allergies-Medications (Allergen,Severity, Reaction): Coded Allergies: No Known Allergies (Unverified , 12/08/16) Reported Meds & Prescriptions Reported Meds & Active Scripts Active Reported Ativan (Lorazepam) 0.5 Mg Tab 0.5 Mg PO Q8H PRN Nitrofurantoin Macrocrystal 100 Mg Cap 100 Mg PO QID 5 Days Humalog Inj (Insulin Human Lispro) 1,000 Unit/10 Ml Vial 2-10 Units SQ ACHS SLIDING SCALE: if 151-200=2 units, 201-250=4 units, 251-300=6 units, 301-350=8 units, 351-400=10 units, <70 or >401, call MD Diltiazem (Diltiazem HCl) 30 Mg Tab 30 Mg PO Q6HR Catapres (Clonidine) 0.1 Mg Tab 0.1 Mg PO Q8HR Metformin (Metformin HCl) 500 Mg Tab 500 Mg PO BID With meals Keppra (Levetiracetam) 500 Mg Tab 500 Mg PO BID Calcium 600 Mg Tab 600 Mg PO BID Eliquis (Apixaban) 2.5 Mg Tab 2.5 Mg PO BID Zocor (Simvastatin) 20 Mg Tab 20 Mg PO HS Seroquel (Quetiapine Fumarate) 25 Mg Tab 25 Mg PO BID Omeprazole 20 Mg Tab 20 Mg PO DAILY Lisinopril 20 Mg Tab 20 Mg PO HS Fish Oil 1000 mg ([place]-3 Fatty Acids) 1 Cap Cap 1,000 Mg PO DAILY Lanoxin (Digoxin) 0.25 Mg Tab 0.25 Mg PO DAILY Hold for apical pulse less than 60. Notify Physician if held. Vitamin D3 (Cholecalciferol) 1,000 Unit Tab 1,000 Units PO DAILY Potassium Chloride ER (Potassium Chloride) 20 Meq Tab 20 Meq PO BID Levothyroxine (Levothyroxine Sodium) 50 Mcg Tab 50 Mcg PO DAILY Review of Systems Except as stated in HPI: all other systems reviewed are Neg Physical Exam Exam Limitations: Altered Mental Status Narrative GENERAL: Well-nourished, well-developed elderly female patient, afebrile. Patient is alert and oriented to person and president only, but not place or time. SKIN: Focused skin assessment warm/dry. Patient is ecchymosis noted to left upper extremity. HEAD: Normocephalic. Atraumatic. ENT: Mucosa pink and moist. No erythema or exudates. No uvular edema. No uvular , palatal, or tonsillar deviation. Airway patent. Nasal turbinates appear normal without nasal blood, purulent drainage or septal hematoma. Bilateral tympanic membranes are clear without erythema or perforation. EYES: No scleral icterus. No injection or drainage. NECK: Supple, trachea midline. No JVD or lymphadenopathy. CARDIOVASCULAR: Regular rate and rhythm without murmurs, gallops, or rubs. RESPIRATORY: Breath sounds equal bilaterally. No accessory muscle use. Lungs sounds are clear to auscultation. GASTROINTESTINAL: Abdomen soft, non-tender, nondistended. MUSCULOSKELETAL: No cyanosis, or edema. BACK: Nontender without obvious deformity. No CVA tenderness. Data Data Last Documented VS Vital Signs Date Time Temp Pulse Resp B/P Pulse Ox O2 Delivery O2 Flow Rate FiO2 01/30/17 11:45 99 Room Air 01/30/17:17 98.7 84 19 137/84 Orders Electrocardiogram (01/30/17 11:38) Complete Blood Count With Diff (01/30/17 11:38) Comprehensive Metabolic Panel (01/30/17 11:38) Creatine Kinase (Cpk) (01/30/17 11:38) Prothrombin Time / Inr (Pt) (01/30/17 11:38) Act Partial Throm Time (Ptt) (01/30/17 11:38) Troponin I (01/30/17 11:38) Lactic Acid Sepsis Protocol (01/30/17 11:38) Urinalysis - C+S If Indicated (01/30/17 11:38) Blood Culture (01/30/17 11:38) Chest, Single Ap (01/30/17 11:38) Ct Brain W/O Iv Contrast(Rout) (01/30/17 11:38) Blood Glucose (01/30/17 11:38) Ecg Monitoring (01/30/17 11:38) Iv Access Insert/Monitor (01/30/17 11:38) Oximetry (01/30/17 11:38) Sodium Chloride 0.9% Flush (Ns Flush) (01/30/17 11:45) Magnesium (Mg) (01/30/17 11:38) Cath For Specimen (01/30/17 11:38) Type And Screen (01/30/17 11:43) Digoxin (01/30/17 12:27) Urine Culture (01/30/17 12:05) Ceftriaxone Inj (Rocephin Inj) (01/30/17 13:45) Admit Order (Ed Use Only) (01/30/17 14:19) Labs Laboratory Tests Test 01/30/17 01/30/17 01/30/17 01/30/17 10:30 11:55 12:05 12:35 White Blood Count 9.3 TH/MM3 Red Blood Count 4.19 MIL/MM3 Hemoglobin 10.1 GM/DL Hematocrit 32.0 % Mean Corpuscular Volume 76.5 FL Mean Corpuscular Hemoglobin 24.2 PG Mean Corpuscular Hemoglobin 31.6 % Concent Red Cell Distribution Width 21.0 % Platelet Count 360 TH/MM3 Mean Platelet Volume 8.5 FL Neutrophils (%) (Auto) 69.3 % Lymphocytes (%) (Auto) 13.7 % Monocytes (%) (Auto) 11.0 % Eosinophils (%) (Auto) 5.1 % Basophils (%) (Auto) 0.9 % Neutrophils # (Auto) 6.5 TH/MM3 Lymphocytes # (Auto) 1.3 TH/MM3 Monocytes # (Auto) 1.0 TH/MM3 Eosinophils # (Auto) 0.5 TH/MM3 Basophils # (Auto) 0.1 TH/MM3 CBC Comment AUTO DIFF Differential Total Cells 100 Counted Neutrophils % (Manual) 55 % Band Neutrophils % 6 % Lymphocytes % 18 % Monocytes % 14 % Eosinophils % 4 % Neutrophils # (Manual) 6.0 TH/MM3 Metamyelocytes 2 % Myelocytes 1 % Differential Comment FINAL DIFF MANUAL Platelet Estimate NORMAL Platelet Morphology Comment NORMAL Ovalocytes 1+ Prothrombin Time 12.0 SEC Prothromb Time International 1.1 RATIO Ratio Activated Partial 28.5 SEC Thromboplast Time Sodium Level 141 MEQ/L Potassium Level 3.6 MEQ/L Chloride Level 106 MEQ/L Carbon Dioxide Level 23.8 MEQ/L Anion Gap 11 MEQ/L Blood Urea Nitrogen 11 MG/DL Creatinine 0.79 MG/DL Estimat Glomerular Filtration 69 ML/MIN Rate Random Glucose 88 MG/DL Calcium Level 9.8 MG/DL Magnesium Level 1.7 MG/DL Total Bilirubin 0.9 MG/DL Aspartate Amino Transf 35 U/L (AST/SGOT) Alanine Aminotransferase 26 U/L (ALT/SGPT) Alkaline Phosphatase 116 U/L Total Creatine Kinase 25 U/L Troponin I 0.07 NG/ML Total Protein 7.8 GM/DL Albumin 2.9 GM/DL Digoxin Level 2.6 NG/ML Blood Type O POSITIVE Antibody Screen NEGATIVE Blood Bank Comment Urine Color YELLOW Urine Turbidity HAZY Urine pH 7.0 Urine Specific [place] 1.011 Urine Protein TRACE mg/dL Urine Glucose (UA) NEG mg/dL Urine Ketones TRACE mg/dL Urine Occult Blood TRACE Urine Nitrite NEG Urine Bilirubin NEG Urine Urobilinogen LESS THAN 2.0 MG/DL Urine Leukocyte Esterase LARGE Urine RBC 7 /hpf Urine WBC /hpf Urine WBC Clumps FEW Urine Squamous Epithelial 1 /hpf Cells Urine Bacteria FEW /hpf Microscopic Urinalysis Comment CULTURE INDICATED Lactic Acid Level 1.7 mmol/L [facility] Medical Decision Making Medical Screen Exam Complete: Yes Emergency Medical Condition: Yes Medical Record Reviewed: Yes Interpretation(s) chest x-ray - CONCLUSION: 1. Cardiomegaly with bibasilar atelectasis. CT brain - CONCLUSION: 1. No acute intracranial abnormality. 2. Probable small calcified meningioma left frontal parafalcine region. 3. Fluid left maxillary sinus. Differential Diagnosis Electrolyte abnormality versus dehydration versus UTI versus sepsis versus ACS versus intracranial abnormality Narrative Course 86-year-old elderly female presents to the emergency department sent from [facility] for altered mental status. The patient is confused and unable to contribute to history. EKG, CBC, CMP, magnesium, CK, troponin, lactic acid, PTT, PTT/INR, UA, blood cultures 2, type and screen are ordered and pending. Chest x-ray and CT of the brain are ordered and pending. EKG shows atrial fibrillation, heart rate 86, inverted T waves noted in I, II, V4, V5, V6 which do appear new. CBC shows hemoglobin 10.1, hematocrit 32.0. CMP shows no acute abnormality. Magnesium is 1.7. CK is 25. Troponin is 0.07 , this appears to be at patient's baseline. Lactic acid is 1.7. Coags show no acute abnormality. UA shows large leukocyte esterase, innumerable WBC, few wbc clumps. Digoxin is elevated at 2.6. Chest x-ray shows cardiomegaly with bibasilar atelectasis. CT of the brain shows no acute intracranial abnormality ; probable small calcified meningioma left frontal parafalcine region; fluid left maxillary sinus. Patient is given Rocephin 1 g IV. Patient will be admitted for UTI, altered mental status, elevated digoxin. Dr. Hanson accepted admission. Diagnosis Primary Impression: UTI (urinary tract infection) Qualified Code: N30.00 - Acute cystitis without hematuria Additional Impressions: Altered mental status Qualified Code: R41.82 - Altered mental status, unspecified altered mental status type Elevated digoxin level Admitting Information Admitting Physician Requests: Admit Roberta Song January 30, 2017 11:49 Admitting Information Admitting Physician Requests: it Roberta Song January 30, 2017 11:49
--- NOTE | 2017-01-30 12:11 | RADRPT ---
EXAM DATE/TIME: 01/30/2017 11:44 [facility] COMPARISON: CHEST SINGLE AP, December 08, 2016, 13:50. INDICATIONS : Weakness. AMS. MEDICAL HISTORY : None. SURGICAL HISTORY : None. ENCOUNTER: Initial ACUITY: 1 day PAIN SCORE: 7/10 LOCATION: Bilateral chest FINDINGS: A single view of the chest demonstrates minimal bibasilar densities. Cardiomegaly. The cardiomediasti nal contours are unremarkable. Osseous structures are intact. Degenerative changes right shoulder. CONCLUSION: 1. Cardiomegaly with bibasilar atelectasis. Rajat Miller MD on January 30, 2017 at 12:08 Board Certified Radiologist. This report was verified electronically.
[2017-01-30 12:34] LABS: AUTOMATED NEUTROPHIL # 6.5 TH/MM3 (1.8-7.7); BASOPHIL # 0.1 TH/MM3 (0-0.2); BASOPHIL % 0.9 % (0.0-2.0); EOSINOPHIL # 0.5 TH/MM3 (0-0.4); EOSINOPHIL % 5.1 % (0.0-4.0); LYMPH % 13.7 % (9.0-44.0); LYMPHOCYTE # 1.3 TH/MM3 (1.0-4.8); MEAN CELL VOLUME 76.5 FL (80.0-100.0); MEAN CORPUSCULAR HEMOGLOBIN 24.2 PG (27.0-34.0); MEAN CORPUSCULAR HGB CONC 31.6 % (32.0-36.0); NEUT % 69.3 % (16.0-70.0); PLATELET COUNT 360 TH/MM3 (150-450); RED BLOOD COUNT 4.19 MIL/MM3 (4.00-5.30); WHITE BLOOD COUNT 9.3 TH/MM3 (4.0-11.0)
[2017-01-30 12:37] LABS: HEMO FLAGS AUTO DIFF
[2017-01-30 12:44] LABS: APTT (PATIENT) 28.5 SEC (24.3-30.1); INTERNATIONAL NORMALIZED RATIO 1.1 RATIO
[2017-01-30 12:46] LABS: BACTERIA, URINE FEW /hpf; BLOOD, URINE TRACE (NEG); COMMENT (UR) CULTURE INDICATED; CULTURE IF INDICATED CULTURE INDICATED; GLUCOSE,URINE NEG (NEG); KETONE, URINE TRACE mg/dL (NEG); NITRITE,URINE NEG (NEG); SQUAMOUS EPITHELIAL CELL URINE 1 /hpf (0-5); URINE COLOR YELLOW (YELLW/STRAW)
[2017-01-30 12:54] LABS: ANION GAP 11 MEQ/L (5-15); AST (GOT) 35 U/L (15-37); BICARBONATE 23.8 MEQ/L (21.0-32.0); BLOOD UREA NITROGEN 11 MG/DL (7-18); CHLORIDE 106 MEQ/L (98-107); GLOMERULAR FILTRATION RATE 69 ML/MIN (>89); MAGNESIUM 1.7 MG/DL (1.5-2.5); POTASSIUM 3.6 MEQ/L (3.5-5.1); SODIUM (NA) 141 MEQ/L (136-145)
[2017-01-30 12:58] LABS: ALKALINE PHOSPHATASE 116 U/L (45-117); ALT (GPT) 26 U/L (10-53); TOTAL BILIRUBIN ADULT 0.9 MG/DL (0.2-1.0)
[2017-01-30 13:14] LABS: BANDS 6 % (0-6); EOSINOPHILS 4 % (0-4); METAMYELOCYTES 2 % (0-1); MYELOCYTES 1 % (0-0); OVALOCYTES 1+ (NORMAL); PLATELET ESTIMATE SMEAR NORMAL (NORMAL); PLATELET MORPHOLOGY NORMAL (NORMAL); POLYS (SEG NEUTROPHILS) 55 % (16-70); SCAN/DIFF FINAL DIFF MANUAL; WBC DIFF SAMPLE 100
[2017-01-30 13:19] LABS: CREATINE KINASE 25 U/L (26-192)
[2017-01-30] MEDS ORDERED: FISH100020 PO (13:39)
[2017-01-30] MEDS ORDERED: POTA-163 PO (13:39)
[2017-01-30] MEDS ORDERED: LANO0.2510 PO (13:39)
[2017-01-30] MEDS ORDERED: VITA100018 PO (13:39)
[2017-01-30] MEDS ORDERED: LISI-515 PO (13:39)
[2017-01-30] MEDS ORDERED: OMEP20TA PO (13:39)
[2017-01-30] MEDS ORDERED: CALC600T13 PO (13:40)
[2017-01-30] MEDS ORDERED: SERO25TA PO (13:40)
[2017-01-30] MEDS ORDERED: LEVE500 PO (13:40)
[2017-01-30] MEDS ORDERED: ZOCO20TA PO (13:40)
[2017-01-30] MEDS ORDERED: APIX2.5T PO (13:40)
[2017-01-30] MEDS ORDERED: CLON.1 PO (13:40)
[2017-01-30] MEDS ORDERED: METF500T PO (13:40)
[2017-01-30] MEDS ORDERED: cefTRIAXone INJ 1,000 MG in SODIUM CHLORIDE 0.9% INJ 100 ML IV ONE (13:45)
--- NOTE | 2017-01-30 13:53 | RADRPT ---
EXAM DATE/TIME: 01/30/2017 13:35 [facility] COMPARISON: No previous studies available for comparison. INDICATIONS : Altered mental status. Found on floor this morning. RADIATION DOSE: 37.52 CTDIvol (mGy) MEDICAL HISTORY : Cardiovascular disease. Carcinoma, breast. Chronic obstructive pulmonary disease.Diabetes. Hypertensi on. SURGICAL HISTORY : None. ENCOUNTER: Initial ACUITY: 1 day PAIN SCALE: 0/10 LOCATION: cranial TECHNIQUE: Multiple contiguous axial images were obtained of the head. Using automated exposure control and adj ustment of the mA and/or kV according to patient size, radiation dose was kept as low as reasonably a chievable to obtain optimal diagnostic quality images. FINDINGS: CEREBRUM: The ventricles are normal for age. No evidence of midline shift, mass lesion, hemorrhage or acute in farction. Prominent left parafalcine frontal calcification could be meningioma. No extra-axial fluid collections are seen. POSTERIOR FOSSA: The cerebellum and brainstem are intact. The 4th ventricle is midline. The cerebellopontine angle i s unremarkable. EXTRACRANIAL: The visualized portion of the orbits is intact. Fluid left maxillary sinus. SKULL: The calvaria is intact. No evidence of skull fracture. CONCLUSION: 1. No acute intracranial abnormality. 2. Probable small calcified meningioma left frontal parafalcine region. 3. Fluid left maxillary sinus. Rajat Miller MD on January 30, 2017 at 13:49 Board Certified Radiologist. This report was verified electronically.
[2017-01-30] MEDS ORDERED: NITR1CAP36 PO (13:56)
[2017-01-30] MEDS ORDERED: LORA-392 PO (13:56)
[2017-01-30] MEDS ORDERED: DILT30TA PO (13:56)
[2017-01-30] MEDS ORDERED: HUMALOG SQ (13:56)
[2017-01-30] MEDS: SODIUM CHLOR 0.9% 1000 ML INJ 1,000 ML IV SCH (14:19)
[2017-01-30] MEDS ORDERED: ONDANSETRON HCL 4 MG/2 ML VIAL IVP PRN (14:30)
[2017-01-30] MEDS ORDERED: NALOXONE HCL 0.4 MG/ML AMP IV PRN (14:30)
[2017-01-30] MEDS ORDERED: SODIUM CHLORIDE 0.9% FLUSH 10 ML FLUSH IV FLUSH PRN (14:30)
[2017-01-30] MEDS ORDERED: ACETAMINOPHEN 325 MG TAB PO PRN ×2 (14:30)
[2017-01-30 16:29] VITALS: BP 167/72
[2017-01-30 16:47] VITALS: BP 145/78
--- NOTE | 2017-01-30 17:18 | HHI.HP ---
HPI Service [facility] Primary Care Physician Vish Ortiz MD Admission Diagnosis UTI, AMS Diagnoses: (1) UTI (urinary tract infection) (2) Toxic metabolic encephalopathy (3) Afib (4) DM (diabetes mellitus) Chief Complaint: AMS Travel History International Travel<30 Days: No Contact w/Intl Traveler <30 Da: No Traveled to Known Affected Are: No History of Present Illness 86-year-old female with a history of diabetes type 2 and recent diagnosis of DVT of bilateral lower extremities was brought to the ED from local intermediate for evaluation of acute onset of altered mental status change. Per EMR, patient was found on the floor this morning and appears to be confused. During my exam patient was alert to self and age however not to date and place but she knew with the current president is. She denies any shortness of breath, GI bleed. She has no WBC however UA was positive Review of Systems Other 12 systems reviewed and are negative except for the one mentioned in history of present illness Past Family Social History Past Medical History Hypertension Hyperlipidemia Atrial fibrillation Diabetes mellitus GERD Hypothyroidism History of breast cancer Past Surgical History Right breast lumpectomy followed by additional breast surgery in 1994 Left knee replacement in 2012 Reported Medications Ativan (Lorazepam) 0.5 Mg Tab 0.5 Mg PO Q8H PRN Nitrofurantoin Macrocrystal 100 Mg Cap 100 Mg PO QID 5 Days Humalog Inj (Insulin Human Lispro) 1,000 Unit/10 Ml Vial 2-10 Units SQ ACHS SLIDING SCALE: if 151-200=2 units, 201-250=4 units, 251-300=6 units, 301-350=8 units, 351-400=10 units, <70 or >401, call Diltiazem (Diltiazem HCl) 30 Mg Tab 30 Mg PO Q6HR Catapres (Clonidine) 0.1 Mg Tab 0.1 Mg PO Q8HR Metformin (Metformin HCl) 500 Mg Tab 500 Mg PO BID With meals Keppra (Levetiracetam) 500 Mg Tab 500 Mg PO BID Calcium 600 Mg Tab 600 Mg PO BID Eliquis (Apixaban) 2.5 Mg Tab 2.5 Mg PO BID Zocor (Simvastatin) 20 Mg Tab 20 Mg PO HS Seroquel (Quetiapine Fumarate) 25 Mg Tab 25 Mg PO BID Omeprazole 20 Mg Tab 20 Mg PO DAILY Lisinopril 20 Mg Tab 20 Mg PO HS Fish Oil 1000 mg (Margaret-3 Fatty Acids) 1 Cap Cap 1,000 Mg PO DAILY Lanoxin (Digoxin) 0.25 Mg Tab 0.25 Mg PO DAILY Hold for apical pulse less than 60. Notify Physician if held. Vitamin D3 (Cholecalciferol) 1,000 Unit Tab 1,000 Units PO DAILY Potassium Chloride ER (Potassium Chloride) 20 Meq Tab 20 Meq PO BID Levothyroxine (Levothyroxine Sodium) 50 Mcg Tab 50 Mcg PO DAILY Allergies: Coded Allergies: No Known Allergies (Unverified , 12/08/16) Family History Not relevant secondary to patient's age Social History Alcohol Use: Yes (RARE) Tobacco Use: No Substance Use: No Physical Exam Vital Signs Vital Signs Date Time Temp Pulse Resp B/P Pulse Ox O2 Delivery O2 Flow Rate FiO2 01/30/17 16:47 145/78 99 01/30/17 16:29 167/72 01/30/17 11:45 99 Room Air 01/30/17 11:21 99 Room Air 01/30/17 11:17 98.7 84 19 137/84 99 Physical Exam GENERAL: This is a well-nourished, well-developed patient, in no apparent distress. SKIN: No rashes, ecchymoses or lesions. Cool and dry. HEAD: Atraumatic. Normocephalic. No temporal or scalp tenderness. EYES: Pupils equal round and reactive. Extraocular motions intact. No scleral icterus. No injection or drainage. ENT: Nose without bleeding, purulent drainage or septal hematoma. Throat without erythema, tonsillar hypertrophy or exudate. Uvula midline. Airway patent. NECK: Trachea midline. No JVD or lymphadenopathy. Supple, nontender, no meningeal signs. CARDIOVASCULAR: Regular rate and rhythm without murmurs, gallops, or rubs. RESPIRATORY: Clear to auscultation. Breath sounds equal bilaterally. No wheezes , rales, or rhonchi. GASTROINTESTINAL: Abdomen soft, non-tender, nondistended. No hepato-splenomegaly , or palpable masses. No guarding. MUSCULOSKELETAL: Extremities without clubbing, cyanosis, or edema. No joint tenderness, effusion, or edema noted. No calf tenderness. Negative Homans sign bilaterally. NEUROLOGICAL: Awake and alert. Cranial nerves II through XII intact. Motor and sensory grossly within normal limits. Five out of 5 muscle strength in all muscle groups. Normal speech. Laboratory Laboratory Tests Test 01/30/17 01/30/17 01/30/17 01/30/17 10:30 11:55 12:05 12:35 White Blood Count 9.3 Red Blood Count 4.19 Hemoglobin 10.1 Hematocrit 32.0 Mean Corpuscular Volume 76.5 Mean Corpuscular Hemoglobin 24.2 Mean Corpuscular Hemoglobin 31.6 Concent Red Cell Distribution Width 21.0 Platelet Count 360 Mean Platelet Volume 8.5 Neutrophils (%) (Auto) 69.3 Lymphocytes (%) (Auto) 13.7 Monocytes (%) (Auto) 11.0 Eosinophils (%) (Auto) 5.1 Basophils (%) (Auto) 0.9 Neutrophils # (Auto) 6.5 Lymphocytes # (Auto) 1.3 Monocytes # (Auto) 1.0 Eosinophils # (Auto) 0.5 Basophils # (Auto) 0.1 CBC Comment AUTO DIFF Differential Total Cells 100 Counted Neutrophils % (Manual) 55 Band Neutrophils % 6 Lymphocytes % 18 Monocytes % 14 Eosinophils % 4 Neutrophils # (Manual) 6.0 Metamyelocytes 2 Myelocytes 1 Differential Comment FINAL DIFF MANUAL Platelet Estimate NORMAL Platelet Morphology Comment NORMAL Ovalocytes 1+ Prothrombin Time 12.0 Prothromb Time International 1.1 Ratio Activated Partial 28.5 Thromboplast Time Sodium Level 141 Potassium Level 3.6 Chloride Level 106 Carbon Dioxide Level 23.8 Anion Gap 11 Blood Urea Nitrogen 11 Creatinine 0.79 Estimat Glomerular Filtration 69 Rate Random Glucose 88 Calcium Level 9.8 Magnesium Level 1.7 Total Bilirubin 0.9 Aspartate Amino Transf 35 (AST/SGOT) Alanine Aminotransferase 26 (ALT/SGPT) Alkaline Phosphatase 116 Total Creatine Kinase 25 Troponin I 0.07 Total Protein 7.8 Albumin 2.9 Digoxin Level 2.6 Blood Type O POSITIVE Antibody Screen NEGATIVE Blood Bank Comment Urine Color YELLOW Urine Turbidity HAZY Urine pH 7.0 Urine Specific Aston 1.011 Urine Protein TRACE Urine Glucose (UA) NEG Urine Ketones TRACE Urine Occult Blood TRACE Urine Nitrite NEG Urine Bilirubin NEG Urine Urobilinogen LESS THAN 2.0 Urine Leukocyte Esterase LARGE Urine RBC 7 Urine WBC Urine WBC Clumps FEW Urine Squamous Epithelial 1 Cells Urine Bacteria FEW Microscopic Urinalysis Comment CULTURE INDICATED Lactic Acid Level 1.7 Date/Time Procedure Status Source Growth 01/30/17 12:05 Urine Culture Received Urine Catheterized Urine Pending 01/30/17 10:45 Aerobic Blood Culture Received Blood Peripheral Pending 01/30/17 10:45 Anaerobic Blood Culture Received Blood Peripheral Pending Result Diagram: 01/30/17 1030 01/30/17 1030 Imaging Last Impressions Head CT 01/30/17 1138 Signed Impressions: Service Date/Time: Monday, January 30, 2017 13:35 - CONCLUSION: 1. No acute intracranial abnormality. 2. Probable small calcified meningioma left frontal parafalcine region. 3. Fluid left maxillary sinus. Rajat Miller MD Chest X-Ray 01/30/17 1138 Signed Impressions: Service Date/Time: Monday, January 30, 2017 11:44 - CONCLUSION: 1. Cardiomegaly with bibasilar atelectasis. Rajat Miller MD Assessment and Plan Problem List: (1) UTI (urinary tract infection) ICD Code: N39.0 Status: Acute (2) Toxic metabolic encephalopathy ICD Code: G92 Status: Resolved (3) Afib ICD Code: I48.91 Status: Chronic Assessment and Plan 86-year-old female with Toxic metabolic encephalopathy-likely secondary to UTI Head CT noted and review by me with finding of 1. No acute intracranial abnormality. 2. Probable small calcified meningioma left frontal parafalcine region. 3. Fluid left maxillary sinus UTI: Status post Rocephin IV 1 in ED, continue with antibiotic pending urine culture A. fib Hypertension- some elevated readings Cardiomyopathy- EF 35% BNP 500s Resume Lisinopril 2.5 mg daily, Cardizem , Lasix 40 mg po daily, Eliquis Diabetes mellitus: Coverage with SSI with Accu-Cheks. Hold Metformin HLD: Resume statin. Hypothyroidism: Resume levothyroxine. GERD: Continue PPI. DVT prophylaxis: Eliquis DVT prophylaxis: Code Status Full code Discussed Condition With Patient, ED physician Physician Certification 2 Midnight Certification Type: Admission for Inpatient Services Order for Inpatient Services The services are ordered in accordance with Medicare regulations or non- Medicare payer requirements, as applicable. In the case of services not specified as inpatient-only, they are appropriately provided as inpatient services in accordance with the 2-midnight benchmark. Estimated LOS (days): 2 days is the estimated time the patient will need to remain in the hospital, assuming treatment plan goals are met and no additional complications. Post-Hospital Plan: Not yet determined Problem Qualifiers (1) UTI (urinary tract infection): Qualified Code: N30.00 - Acute cystitis without hematuria Rajat Hanson MD January 30, 2017 17:17
[2017-01-30] MEDS ORDERED: GLUCAGON 1 MG/ML VIAL OTHER PRN (17:45)
[2017-01-30] MEDS ORDERED: DEXTROSE 50% IN WATER 50 ML VIAL(D50) IV PUSH PRN (17:45)
[2017-01-30] MEDS: DILTIAZEM HCL 30 MG TAB PO SCH (18:00)
[2017-01-30] MEDS ORDERED: ENALAPRILAT 1.25 MG/ML VIAL IV PUSH PRN (18:15)
[2017-01-30] MEDS ORDERED: RESP: ALBUTEROL 2.5 MG/IPRATROPIUM 0.5 MG NEB (PRN) NEB (18:15)
[2017-01-30 18:37] VITALS: BP 165/67; PULSE 86; RESP 17; TEMP 98.2; O2SAT 95
[2017-01-30 20:00] VITALS: BP 159/85; PULSE 90; RESP 20; TEMP 98.1; O2SAT 97
[2017-01-30] MEDS: INSULIN ASPART SUPPLEMENTAL SCALE SQ SCH (21:00)
[2017-01-30] MEDS: POTASSIUM CHLORIDE 20 MEQ CONTROLLED RELEASE TAB PO SCH (21:44)
[2017-01-30] MEDS: SODIUM CHLORIDE 0.9% FLUSH 10 ML FLUSH IV FLUSH SCH (21:44)
[2017-01-30] MEDS: LISINOPRIL 20 MG TAB PO SCH (21:44)
[2017-01-30] MEDS: PRAVASTATIN SOD 40 MG TAB PO SCH (21:44)
[2017-01-30] MEDS: cloNIDine HCL 0.1 MG TAB PO SCH (21:44)
[2017-01-30] MEDS: levETIRAcetam 500 MG TAB PO SCH (21:44)
[2017-01-30] MEDS: APIXABAN 2.5 MG TABLET PO SCH (21:44)
[2017-01-31] VITALS (7 sets, daily range): BP systolic 140–163; BP diastolic 67–93; PULSE 79–91; RESP 18–20; TEMP 97.9–98.8; O2SAT 92–97
[2017-01-31] MEDS: SODIUM CHLOR 0.9% 1000 ML INJ 1,000 ML IV SCH ×3 (00:19→20:19)
[2017-01-31] MEDS: DILTIAZEM HCL 30 MG TAB PO SCH ×5 (01:17→23:45)
[2017-01-31] MEDS: cloNIDine HCL 0.1 MG TAB PO SCH ×3 (05:25→20:32)
[2017-01-31] MEDS: INSULIN ASPART SUPPLEMENTAL SCALE SQ SCH ×4 (06:05→20:33)
[2017-01-31] MEDS: APIXABAN 2.5 MG TABLET PO SCH ×2 (08:10→20:32)
[2017-01-31] MEDS: levETIRAcetam 500 MG TAB PO SCH ×2 (08:10→20:32)
[2017-01-31] MEDS: PANTOPRAZOLE SOD 20 MG DELAYED RELEASE TAB PO SCH (08:10)
[2017-01-31] MEDS: POTASSIUM CHLORIDE 20 MEQ CONTROLLED RELEASE TAB PO SCH ×2 (08:10→20:32)
[2017-01-31] MEDS: LEVOTHYROXINE SODIUM 50 MCG TAB PO SCH (08:11)
[2017-01-31] MEDS: SODIUM CHLORIDE 0.9% FLUSH 10 ML FLUSH IV FLUSH SCH ×2 (08:13→20:33)
[2017-01-31 08:47] LABS: AUTOMATED NEUTROPHIL # 6.6 TH/MM3 (1.8-7.7); BASOPHIL # 0.1 TH/MM3 (0-0.2); BASOPHIL % 1.1 % (0.0-2.0); EOSINOPHIL # 0.3 TH/MM3 (0-0.4); EOSINOPHIL % 3.5 % (0.0-4.0); HEMATOCRIT 30.6 % (35.0-46.0); HEMO FLAGS AUTO DIFF; LYMPH % 13.2 % (9.0-44.0); LYMPHOCYTE # 1.2 TH/MM3 (1.0-4.8); MEAN CELL VOLUME 76.6 FL (80.0-100.0); MEAN CORPUSCULAR HEMOGLOBIN 23.6 PG (27.0-34.0); MEAN CORPUSCULAR HGB CONC 30.9 % (32.0-36.0); MONO % 12.6 % (0.0-8.0); NEUT % 69.6 % (16.0-70.0); PLATELET COUNT 316 TH/MM3 (150-450); RED BLOOD COUNT 3.99 MIL/MM3 (4.00-5.30); RED CELL DISTRIBUTION WIDTH 20.9 % (11.6-17.2); WHITE BLOOD COUNT 9.5 TH/MM3 (4.0-11.0)
[2017-01-31 09:16] LABS: ALT (GPT) 21 U/L (10-53); ANION GAP 9 MEQ/L (5-15); AST (GOT) 29 U/L (15-37); BICARBONATE 25.2 MEQ/L (21.0-32.0); BLOOD UREA NITROGEN 10 MG/DL (7-18); CHLORIDE 110 MEQ/L (98-107); GLOMERULAR FILTRATION RATE 84 ML/MIN (>89); POTASSIUM 3.6 MEQ/L (3.5-5.1); SODIUM (NA) 144 MEQ/L (136-145)
[2017-01-31 09:34] LABS: ALKALINE PHOSPHATASE 89 U/L (45-117); DIGOXIN 1.5 NG/ML (0.8-2.0); TOTAL BILIRUBIN ADULT 0.6 MG/DL (0.2-1.0)
[2017-01-31 09:39] LABS: ACANTHOCYTES OCC (NORMAL); OVALOCYTES 1+ (NORMAL)
[2017-01-31 09:40] LABS: SCAN/DIFF AUTO DIFF CONFIRMED
--- NOTE | 2017-01-31 09:55 | HHI.PR ---
Subjective Remarks Follow-up UTI/encephalopathy 01/31/17-patient seen and examined. She is pleasantly confused. She removed her telemetry overnight. Currently afebrile Objective Vitals Vital Signs Date Time Temp Pulse Resp B/P Pulse Ox O2 Delivery O2 Flow Rate FiO2 01/31/17 08:00 98.0 90 18 140/68 92 01/31/17 04:00 98.2 81 20 151/67 93 01/31/17 01:39 98.3 84 20 154/93 97 01/30/17 20:00 98.1 90 20 159/85 97 01/30/17 18:37 98.2 86 17 165/67 95 01/30/17 16:47 145/78 99 01/30/17 16:29 167/72 01/30/17 11:45 99 Room Air 01/30/17 11:21 99 Room Air 01/30/17 11:17 98.7 84 19 137/84 99 I/O 01/30/17 01/30/17 01/30/17 01/31/17 01/31/17 01/31/17 07:00 15:00 23:00 07:00 15:00 23:00 Intake Total 480 ml Balance 480 ml Intake Oral 480 ml # Voids 2 Result Diagram: 01/31/17 0757 01/31/17 0757 Imaging Last Impressions Head CT 01/30/171137 Signed Impressions: Service Date/Time: Monday, January 30, 2017 13:35 - CONCLUSION: 1. No acute intracranial abnormality. 2. Probable small calcified meningioma left frontal parafalcine region. 3. Fluid left maxillary sinus. Rajat Miller MD Chest X-Ray 01/30/17 1131 Signed Impressions: Service Date/Time: Monday, January 30, 2017 11:44 - CONCLUSION: 1. Cardiomegaly with bibasilar atelectasis. Rajat Miller MD Objective Remarks GENERAL: NAD SKIN: Warm and dry. HEAD: Normocephalic. EYES: No scleral icterus. No injection or drainage. NECK: Supple, trachea midline. No JVD or lymphadenopathy. CARDIOVASCULAR: Irregular Regular rate and rhythm without murmurs, gallops, or rubs. RESPIRATORY: Breath sounds equal bilaterally. No accessory muscle use. GASTROINTESTINAL: Abdomen soft, non-tender, nondistended. MUSCULOSKELETAL: No cyanosis, or edema. BACK: Nontender without obvious deformity. No CVA tenderness. A/P Problem List: (1) UTI (urinary tract infection) ICD Code: N39.0 Status: Acute (2) Toxic metabolic encephalopathy ICD Code: G92 Status: Resolved (3) Afib ICD Code: I48.91 Status: Chronic (4) DM (diabetes mellitus) ICD Code: E11.9 Status: Chronic Assessment and Plan 86-year-old female with Toxic metabolic encephalopathy-likely secondary to UTI-resolved Head CT noted and review by me with finding of 1. No acute intracranial abnormality. 2. Probable small calcified meningioma left frontal parafalcine region. 3. Fluid left maxillary sinus UTI: Continue with Rocephin IV daily pending urine culture A. fib Hypertension- some elevated readings Cardiomyopathy- EF 35% BNP 500s Continue with Lisinopril 2.5 mg daily, Cardizem , Lasix 40 mg po daily, Eliquis Resume digoxin Diabetes mellitus: Coverage with SSI with Accu-Cheks. Hold Metformin HLD: on statin. Hypothyroidism: on levothyroxine. GERD: Continue PPI. DVT prophylaxis: Eliquis DVT prophylaxis: Problem Qualifiers (1) UTI (urinary tract infection): Qualified Code: N30.00 - Acute cystitis without hematuria Rajat Hanson MD January 31, 2017 09:55
[2017-01-31] MEDS ORDERED: cefTRIAXone INJ 1,000 MG in SODIUM CHLORIDE 0.9% INJ 100 ML IV SCH (13:00)
[2017-01-31] MEDS ORDERED: LORazepam 2 MG/ML VIAL IM ONE (15:00)
--- NOTE | 2017-01-31 17:45 | EKG ---
Date Performed: 01/30/2017 Time Performed: 11:52:07 PTAGE: 86 years EKG: ATRIAL FIBRILLATION LOW QRS VOLTAGE IN PRECORDIAL LEADS ST DEVIATION AND MODERATE T-WAVE AB NORMALITY, CONSIDER LATERAL ISCHEMIA When compared to previous tracing, there has been an increase in The anterolateral ST segment changes. The patient appears to remain in atrial fibrillation, allthoug h there Is too much artifact on todays EKG to be certain about th rhythm, It is most likely atrial fi brillation. Clinical corrolation is suggested. ABNORMAL ECG PREVIOUS TRACING : 12/08/2016 23.04.42 DOCTOR: Clarissa Elizabeth Interpretating Date/Time 01/31/2017 17:43:42
[2017-01-31] MEDS: LISINOPRIL 20 MG TAB PO SCH (20:32)
[2017-01-31] MEDS: PRAVASTATIN SOD 40 MG TAB PO SCH (20:33)
[2017-02-01] VITALS: BP 147/70; PULSE 83; RESP 20; TEMP 97.5; O2SAT 95
[2017-02-01 04:00] VITALS: BP 171/81; PULSE 80; RESP 18; TEMP 97.6; O2SAT 99
[2017-02-01] MEDS: DILTIAZEM HCL 30 MG TAB PO SCH ×2 (05:11→13:23)
[2017-02-01] MEDS: cloNIDine HCL 0.1 MG TAB PO SCH ×2 (05:11→13:24)
[2017-02-01] MEDS: SODIUM CHLOR 0.9% 1000 ML INJ 1,000 ML IV SCH (06:06)
[2017-02-01] MEDS: INSULIN ASPART SUPPLEMENTAL SCALE SQ SCH ×2 (06:06→11:00)
[2017-02-01 08:01] VITALS: BP 149/72; PULSE 71; RESP 20; TEMP 97.3; O2SAT 96
[2017-02-01] MEDS ORDERED: DIGOXIN 0.25 MG TAB PO SCH (09:00)
--- NOTE | 2017-02-01 09:02 | HHI.PR ---
Subjective Remarks Follow-up UTI/encephalopathy 01/31/17-patient seen and examined. She is pleasantly confused. She removed her telemetry overnight. Currently afebrile 02/01/17-patient seen and examined, afebrile, again pleasantly confused. Patient has been ripping off all IV access. Objective Vitals Vital Signs Date Time Temp Pulse Resp B/P Pulse Ox O2 Delivery O2 Flow Rate FiO2 02/01/17 08:01 97.3 71 20 149/72 96 02/01/17 04:00 97.6 80 18 171/81 99 02/01/17 00:00 97.5 83 20 147/70 95 01/31/17 20:00 97.9 79 18 153/88 96 01/31/17 18:30 98.8 85 20 143/72 97 01/31/17 16:00 98.2 91 18 155/80 97 01/31/17 12:00 98.1 89 18 163/78 92 I/O 01/31/17 01/31/17 01/31/17 02/01/17 02/01/17 02/01/17 07:00 15:00 23:00 07:00 15:00 23:00 Intake Total 1440 ml 100 ml 100 ml Output Total 350 ml Balance 1090 ml 100 ml 100 ml Intake Oral 1440 ml 100 ml 100 ml Output Urine Total 350 ml # Voids 4 0 1 # Bowel Movements 2 0 0 Result Diagram: 01/31/17 0757 01/31/17 0757 Imaging Last Impressions Head CT 01/30/17 1138 Signed Impressions: Service Date/Time: Monday, January 30, 2017 13:35 - CONCLUSION: 1. No acute intracranial abnormality. 2. Probable small calcified meningioma left frontal parafalcine region. 3. Fluid left maxillary sinus. Rajat Miller MD Chest X-Ray 01/30/17 1138 Signed Impressions: Service Date/Time: Monday, January 30, 2017 11:44 - CONCLUSION: 1. Cardiomegaly with bibasilar atelectasis. Rajat Miller MD Objective Remarks GENERAL: NAD SKIN: Warm and dry. HEAD: Normocephalic. EYES: No scleral icterus. No injection or drainage. NECK: Supple, trachea midline. No JVD or lymphadenopathy. CARDIOVASCULAR: Irregular Regular rate and rhythm without murmurs, gallops, or rubs. RESPIRATORY: Breath sounds equal bilaterally. No accessory muscle use. GASTROINTESTINAL: Abdomen soft, non-tender, nondistended. MUSCULOSKELETAL: No cyanosis, or edema. BACK: Nontender without obvious deformity. No CVA tenderness. Procedures none A/P Problem List: (1) UTI (urinary tract infection) ICD Code: N39.0 Status: Resolved (2) Toxic metabolic encephalopathy ICD Code: G92 Status: Resolved (3) Afib ICD Code: I48.91 Status: Chronic (4) DM (diabetes mellitus) ICD Code: E11.9 Status: Chronic Assessment and Plan 86-year-old female with Toxic metabolic encephalopathy-likely secondary to UTI-resolved Head CT noted and review by me with finding of 1. No acute intracranial abnormality. 2. Probable small calcified meningioma left frontal parafalcine region. 3. Fluid left maxillary sinus UTI: Currently on Rocephin however urine culture negative therefore will discontinue antibiotic A. fib Hypertension- some elevated readings Cardiomyopathy- EF 35% BNP 500s Continue with Lisinopril 2.5 mg daily, Cardizem , Lasix 40 mg po daily, Eliquis and digoxin. Diabetes mellitus: Coverage with SSI with Accu-Cheks. Resume Metformin HLD: on statin. Hypothyroidism: on levothyroxine. GERD: Continue PPI. DVT prophylaxis: Eliquis Problem Qualifiers (1) UTI (urinary tract infection): Qualified Code: N30.00 - Acute cystitis without hematuria Rajat Hanson MD February 01, 2017 09:02
--- NOTE | 2017-02-01 09:03 | HHI.DS ---
Discharge Summary Admission Date January 30, 2017 at 14:21 Discharge Date: February 01, 2017 Admitting Diagnosis UTI, AMS (1) UTI (urinary tract infection) ICD Code: N39.0 (2) Toxic metabolic encephalopathy ICD Code: G92 (3) Afib ICD Code: I48.91 (4) DM (diabetes mellitus) ICD Code: E11.9 Procedures none Brief History - From Admission 86-year-old female with a history of diabetes type 2 and recent diagnosis of DVT of bilateral lower extremities was brought to the ED from local senior care for evaluation of acute onset of altered mental status change. Per EMR, patient was found on the floor this morning and appears to be confused. During my exam patient was alert to self and age however not to date and place but she knew with the current president is. She denies any shortness of breath, GI bleed. She has no WBC however UA was positive CBC/BMP: 01/31/17 0757 01/31/17 0757 Significant Findings Laboratory Tests Test 01/30/17 01/30/17 01/31/17 10:30 12:05 07:57 Hemoglobin 10.1 GM/DL 9.4 GM/DL (11.6-15.3) (11.6-15.3) Hematocrit 32.0 % 30.6 % (35.0-46.0) (35.0-46.0) Mean Corpuscular Volume 76.5 FL 76.6 FL (80.0-100.0) (80.0-100.0) Mean Corpuscular Hemoglobin 24.2 PG 23.6 PG (27.0-34.0) (27.0-34.0) Mean Corpuscular Hemoglobin 31.6 % 30.9 % Concent (32.0-36.0) (32.0-36.0) Red Cell Distribution Width 21.0 % 20.9 % (11.6-17.2) (11.6-17.2) Monocytes (%) (Auto) 11.0 % 12.6 % (0.0-8.0) (0.0-8.0) Eosinophils (%) (Auto) 5.1 % (0.0-4.0) Monocytes # (Auto) 1.0 TH/MM3 1.2 TH/MM3 (0-0.9) (0-0.9) Eosinophils # (Auto) 0.5 TH/MM3 (0-0.4) Monocytes % 14 % (0-8) Metamyelocytes 2 % (0-1) Myelocytes 1 % (0-0) Ovalocytes 1+ (NORMAL) 1+ (NORMAL) Prothrombin Time 12.0 SEC (9.8-11.6) Estimat Glomerular Filtration 69 ML/MIN (>89) 84 ML/MIN (>89) Rate Total Creatine Kinase 25 U/L (26-192) Troponin I 0.07 NG/ML (0.02-0.05) Albumin 2.9 GM/DL 2.3 GM/DL (3.4-5.0) (3.4-5.0) Digoxin Level 2.6 NG/ML (0.8-2.0) Urine Turbidity HAZY (CLEAR) Urine Ketones TRACE mg/dL (NEG) Urine Occult Blood TRACE (NEG) Urine Leukocyte Esterase LARGE (NEG) Urine RBC 7 /hpf (0-3) Urine WBC Clumps FEW (NONE) Urine Bacteria FEW /hpf (NONE) Red Blood Count 3.99 MIL/MM3 (4.00-5.30) Acanthocytes OCC (NORMAL) Chloride Level 110 MEQ/L (98-107) PE at Discharge GENERAL: NAD SKIN: Warm and dry. HEAD: Normocephalic. EYES: No scleral icterus. No injection or drainage. NECK: Supple, trachea midline. No JVD or lymphadenopathy. CARDIOVASCULAR: Irregular Regular rate and rhythm without murmurs, gallops, or rubs. RESPIRATORY: Breath sounds equal bilaterally. No accessory muscle use. GASTROINTESTINAL: Abdomen soft, non-tender, nondistended. MUSCULOSKELETAL: No cyanosis, or edema. BACK: Nontender without obvious deformity. No CVA tenderness. Hospital Course Patient admitted secondary to acute toxic metabolic encephalopathy and diagnosed with UTI for which she was started on IV antibiotic with monitoring of culture. Outpatient medications were resumed except metformin. Patient was started on sliding scale insulin with monitoring of blood glucose. Rocephin was discontinue as urine culture resulted negative. DVT and GI prophylaxis were provided. Pt Condition on Discharge: Stable Discharge Disposition: Discharge to SNF Discharge Time: > 30 minutes Discharge Instructions DIET: Follow Instructions for: Diabetic Diet Speech Therapy-Diet Recommends: Soft Activities you can perform: Regular-No Restrictions Follow up Referrals: PCP Follow-up - 2-3 Days New Medications: Lorazepam (Ativan) 0.5 Mg Tab 0.5 MG PO Q8H PRN ANXIETY AND/OR AGITATION #6 Ref 0 TAB Continued Medications: Apixaban (Eliquis) 2.5 Mg Tab 2.5 MG PO BID Blood Clot Prevention Ref 0 TAB Calcium (Calcium) 600 Mg Tab 600 MG PO BID TAB Cholecalciferol (Vitamin D3) 1,000 Unit Tab 1000 UNITS PO DAILY Nutritional Supplement #1 Ref 0 BOTTLE Clonidine (Catapres) 0.1 Mg Tab 0.1 MG PO Q8HR Blood Pressure Management #1 Ref 0 TAB Digoxin (Lanoxin) 0.25 Mg Tab 0.25 MG PO DAILY Hold for apical pulse less than 60. Notify Physician if held. A -FIB #30 Ref 0 TAB Diltiazem (Diltiazem) 30 Mg Tab 30 MG PO Q6HR A-FIB #120 Ref 0 TAB Insulin Lispro (Human) Inj (Humalog Inj) 1,000 Unit/10 Ml Vial 2-10 UNITS SQ ACHS SLIDING SCALE: if 151-200=2 units, 201-250=4 units, 251-300= 6 units, 301-350=8 units, 351-400=10 units, <70 or >401, call Blood Sugar Management #1 Ref 0 VIAL Levetiracetam (Keppra) 500 Mg Tab 500 MG PO BID Control Seizures #60 Ref 0 TAB Levothyroxine (Levothyroxine) 50 Mcg Tab 50 MCG PO DAILY Thyroid #30 Ref 0 TAB Lisinopril (Lisinopril) 20 Mg Tab 20 MG PO HS Blood Pressure Management #30 Ref 0 TAB Metformin (Metformin) 500 Mg Tab 500 MG PO BID With meals Blood Sugar Management #60 Ref 0 TAB Gilead-3 Fatty Acids (Fish Oil 1000 mg) 1 Cap Cap 1000 MG PO DAILY Nutritional Supplement Omeprazole (Omeprazole) 20 Mg Tab 20 MG PO DAILY GERD #30 Ref 0 TAB Potassium Chloride ER (Potassium Chloride ER) 20 Meq Tab 20 MEQ PO BID Electrolyte Replacement #60 Ref 0 TAB Quetiapine (Seroquel) 25 Mg Tab 25 MG PO BID Agitation #30 Ref 0 TAB Simvastatin (Zocor) 20 Mg Tab 20 MG PO HS Cholesterol Management #30 Ref 0 TAB Discontinued Medications: Lorazepam (Ativan) 0.5 Mg Tab 0.5 MG PO Q8H PRN AGITATION Ref 0 TAB Nitrofurantoin Macrocrystal (Nitrofurantoin Macrocrystal) 100 Mg Cap 100 MG PO QID UTI Days 5 Ref 0 CAP Rajat Hanson MD February 01, 2017 09:03
[2017-02-01] MEDS ORDERED: LORA-392 PO (09:06)
[2017-02-01] MEDS: PANTOPRAZOLE SOD 20 MG DELAYED RELEASE TAB PO SCH (09:27)
[2017-02-01] MEDS: levETIRAcetam 500 MG TAB PO SCH (09:27)
[2017-02-01] MEDS: POTASSIUM CHLORIDE 20 MEQ CONTROLLED RELEASE TAB PO SCH (09:27)
[2017-02-01] MEDS: APIXABAN 2.5 MG TABLET PO SCH (09:27)
[2017-02-01] MEDS: LEVOTHYROXINE SODIUM 50 MCG TAB PO SCH (09:28)
[2017-02-01] MEDS: SODIUM CHLORIDE 0.9% FLUSH 10 ML FLUSH IV FLUSH SCH (09:28)
[2017-02-01 12:01] VITALS: BP 144/85; PULSE 104; RESP 18; TEMP 97.2; O2SAT 97
== END 2017-02-01 15:45 | DRG 689 ==
LOC: NEPC 11:10 → NEDA 14:21 → N04B 18:07
PROVIDERS: ADMIT Hospitalist; ATTEND Hospitalist
DX: N39.0 Urinary tract infection, site not specified (principal); G92 Toxic encephalopathy; I48.91 Unspecified atrial fibrillation; I42.9 Cardiomyopathy, unspecified; E11.9 Type 2 diabetes mellitus without complications; Z79.4 Long term (current) use of insulin; Z79.84 Long term (current) use of oral hypoglycemic drugs; Z86.718 Personal history of other venous thrombosis and embolism; Z79.02 Long term (current) use of antithrombotics/antiplatelets; I10 Essential (primary) hypertension; E78.5 Hyperlipidemia, unspecified; K21.9 Gastro-esophageal reflux disease without esophagitis; E03.9 Hypothyroidism, unspecified; Z85.3 Personal history of malignant neoplasm of breast; Z96.652 Presence of left artificial knee joint
CPT/HCPCS: 70450; 71010; 80053; 80162; 81001; 82550; 82948; 83605; 83735; 84484; 85007; 85025; 85027; 85610; 85730; 86850; 86900; 86901; 87040; 87086; 93005; 96365; J0696; J2060; J7030

== ENCOUNTER 2017-02-02 17:10 | Inpatient (IN) | payer MEDICARE, BC ==
[~2017-02-02] VITALS: Ht 170.2 cm; Wt 89.2 kg
[~2017-02-02 17:10] MED LIST changes: +APIX2.5T PO; -ATOR20TA15 PO; -Aspirin Chew PO; +CALC600T13 PO; -CARD240C6 PO; +CLON.1 PO; -DETR2CAP PO; -DILT-64 PO; +DILT30TA PO; -FERR325T PO; +FISH100020 PO; -FURO40TA PO; +HUMALOG SQ; +LANO0.2510 PO; -LEVA500T PO; +LEVE500 PO; +LISI-515 PO; -LISI-519 PO; +LORA-392 PO; +METF500T PO; -METO-309 PO; +OMEP20TA PO; -OXYGENTANK NAS.CANULA; -PANT40TA3 PO; +POTA-163 PO; -POTA10TA2 PO; -POTA20TA5 PO; +SERO25TA PO; +VITA100018 PO; +ZOCO20TA PO
[2017-02-02 17:24] VITALS: BP 143/73; PULSE 99; RESP 17; TEMP 99.1; O2SAT 96
[2017-02-02] MEDS ORDERED: SODIUM CHLOR 0.9% 1000 ML INJ 1,000 ML IV SCH (18:55)
--- NOTE | 2017-02-02 19:26 | PD ---
HPI Chief Complaint: Altered Mental Status Time Seen by Provider: 19:24 Travel History International Travel<30 days: No Contact w/Intl Traveler<30days: No Traveled to known affect area: No History of Present Illness HPI 86-year-old female that presents to the ED for evaluation of altered mental status. Apparently patient is a [facility] [facility] and has a history of dementia. She was apparently agitated today and per report apparently patient made a mess of her room. Per ambulance report patient's room did not appear to be completely in disarray. The pillow appeared to have had its insides taken out but otherwise the room was fine. Patient her facility is more altered than her usual. She was seen here less than a week ago and admitted for UTI. She denies any medical problems. Whenever I ask her what brought her here she tells me that she works for the [employer] and she used to work for the [employer] and she wants to go home. History is somewhat limited because of first mental status. She does have a lot of medical issues. She takes multiple medications including digoxin, seizure medications as well as blood pressure and other medications. Patient denies any falls or injuries. No head injuries. No allergies to medication. PFSH Past Medical History Heart Rhythm Problems: Yes (afib) Cancer: Yes (Breast ) Cardiovascular Problems: Yes High Cholesterol: Yes COPD: Yes Diabetes: Yes Patient Takes Glucophage: Yes (this morning) Diminished Hearing: No Hypertension: Yes Social History Alcohol Use: Yes (RARE) Tobacco Use: No Substance Use: No Allergies-Medications (Allergen,Severity, Reaction): Coded Allergies: No Known Allergies (Unverified , 02/02/17) Reported Meds & Prescriptions Reported Meds & Active Scripts Active Ativan (Lorazepam) 0.5 Mg Tab 0.5 Mg PO Q8H PRN Reported Humalog Inj (Insulin Human Lispro) 1,000 Unit/10 Ml Vial 2-10 Units SQ ACHS SLIDING SCALE: if 151-200=2 units, 201-250=4 units, 251-300=6 units, 301-350=8 units, 351-400=10 units, <70 or >401, call Diltiazem (Diltiazem HCl) 30 Mg Tab 30 Mg PO Q6HR Catapres (Clonidine) 0.1 Mg Tab 0.1 Mg PO Q8HR Metformin (Metformin HCl) 500 Mg Tab 500 Mg PO BID With meals Keppra (Levetiracetam) 500 Mg Tab 500 Mg PO BID Calcium 600 Mg Tab 600 Mg PO BID Eliquis (Apixaban) 2.5 Mg Tab 2.5 Mg PO BID Zocor (Simvastatin) 20 Mg Tab 20 Mg PO HS Seroquel (Quetiapine Fumarate) 25 Mg Tab 25 Mg PO BID Omeprazole 20 Mg Tab 20 Mg PO DAILY Lisinopril 20 Mg Tab 20 Mg PO HS Fish Oil 1000 mg ([place]-3 Fatty Acids) 1 Cap Cap 1,000 Mg PO DAILY Lanoxin (Digoxin) 0.25 Mg Tab 0.25 Mg PO DAILY Hold for apical pulse less than 60. Notify Physician if held. Vitamin D3 (Cholecalciferol) 1,000 Unit Tab 1,000 Units PO DAILY Potassium Chloride ER (Potassium Chloride) 20 Meq Tab 20 Meq PO BID Levothyroxine (Levothyroxine Sodium) 50 Mcg Tab 50 Mcg PO DAILY Review of Systems ROS Limitations: Poor Historian Except as stated in HPI: all other systems reviewed are Neg Physical Exam Exam Limitations: Poor Historian Narrative GENERAL: SKIN: Warm and dry. HEAD: Atraumatic. Normocephalic. EYES: Pupils equal and round. No scleral icterus. No injection or drainage. ENT: No nasal bleeding or discharge. Mucous membranes pink and moist. Tongue is midline. No uvula deviation. NECK: Trachea midline. No JVD. CARDIOVASCULAR: Regular rate and rhythm. No murmurs, S3, S4. RESPIRATORY: No accessory muscle use. Clear to auscultation. Breath sounds equal bilaterally. GASTROINTESTINAL: Abdomen soft, non-tender, nondistended. Hepatic and splenic margins not palpable. MUSCULOSKELETAL: Extremities without clubbing, cyanosis, or edema. No obvious deformities. Full range of motion of the upper and lower extremities bilaterally. 2+ pulses bilaterally. NEUROLOGICAL: Awake and alert. No obvious cranial nerve deficits. Motor grossly within normal limits. Five out of 5 muscle strength in the arms and legs. Normal speech. PSYCHIATRIC: Demented mood and affect; insight and judgment normal. Data Data Last Documented VS Vital Signs Date Time Temp Pulse Resp B/P Pulse Ox O2 Delivery O2 Flow Rate FiO2 02/02/17 17:24 99.1 99 17 143/73 96 Orders Electrocardiogram (02/02/17 18:55) Complete Blood Count With Diff (02/02/17 18:55) Comprehensive Metabolic Panel (02/02/17 18:55) Creatine Kinase (Cpk) (02/02/17 18:55) Prothrombin Time / Inr (Pt) (02/02/17 18:55) Act Partial Throm Time (Ptt) (02/02/17 18:55) Troponin I (02/02/17 18:55) Thyroid Stimulating Hormone (02/02/17 18:55) Urinalysis - C+S If Indicated (02/02/17 18:55) Lactic Acid Sepsis Protocol (02/02/17 18:55) Blood Culture (02/02/17 18:55) Chest, Single Ap (02/02/17 18:55) Ct Brain W/O Iv Contrast(Rout) (02/02/17 18:55) Blood Glucose (02/02/17 18:55) Ecg Monitoring (02/02/17 18:55) Iv Access Insert/Monitor (02/02/17 18:55) Oximetry (02/02/17 18:55) Sodium Chlor 0.9% 1000 Ml Inj (Ns 1000 M (02/02/17 18:55) Levetiracetam (02/02/17 19:00) Digoxin (02/02/17 18:55) MDM Medical Decision Making Medical Screen Exam Complete: Yes Emergency Medical Condition: Yes Medical Record Reviewed: Yes Differential Diagnosis Altered mental status versus dementia versus dementia with behavioral issues versus UTI versus sepsis Narrative Course 86-year-old female that presents to the ED for evaluation of possible altered mental status. Patient was properly examined and was found to have signs and symptoms consistent with appears to be altered mental status. Unclear to at this time. Patient does appear to have a history of dementia. Per [facility] patient is more agitated. Labs and imaging ordered. Patient will be signed out to provider pending disposition and treatment plan. Dominick Brower February 02, 2017 19:26
--- NOTE | 2017-02-02 19:30 | RADRPT ---
EXAM DATE/TIME: 02/02/2017 19:13 [facility] COMPARISON: No previous studies available for comparison. INDICATIONS : Altered mental status. RADIATION DOSE: 56.35 CTDIvol (mGy) MEDICAL HISTORY : Hypertension. Carcinoma, breast. Diabetes. SURGICAL HISTORY : None. ENCOUNTER: Initial ACUITY: 1 day PAIN SCALE: 0/10 LOCATION: cranial TECHNIQUE: Multiple contiguous axial images were obtained of the head. Using automated exposure control and adj ustment of the mA and/or kV according to patient size, radiation dose was kept as low as reasonably a chievable to obtain optimal diagnostic quality images. FINDINGS: There is a stable 1.4 cm left frontal calcified meningioma. Subcentimeter probable calcified meningio ma also posteriorly on the left. No other intracranial mass. No evidence for recent infarct. No midli ne shift. No hydrocephalus. Cortical volume loss. Fluid in left maxillary sinus. CONCLUSION: 1. No acute intracranial abnormalities. Left maxillary sinusitis similar to January 30. Juventino Mcgregor MD on February 02, 2017 at 19:25 Board Certified Radiologist. This report was verified electronically.
--- NOTE | 2017-02-02 19:42 | RADRPT ---
EXAM DATE/TIME: 02/02/2017 19:06 [facility] COMPARISON: CHEST SINGLE AP, January 30, 2017, 11:44. INDICATIONS : Syncope. MEDICAL HISTORY : None. SURGICAL HISTORY : None. ENCOUNTER: Initial ACUITY: 1 day PAIN SCORE: 0/10 LOCATION: Bilateral chest FINDINGS: Mild cardiomegaly. Tortuous aorta. Mild scoliosis. Minimal basilar atelectasis or scarring. No consol idation, effusion or pneumothorax. CONCLUSION: 1. Minimal basilar atelectasis. Juventino Mcgregor MD on February 02, 2017 at 19:40 Board Certified Radiologist. This report was verified electronically.
[2017-02-02 19:57] LABS: AUTOMATED NEUTROPHIL # 14.7 TH/MM3 (1.8-7.7); BASOPHIL # 0.2 TH/MM3 (0-0.2); BASOPHIL % 0.9 % (0.0-2.0); EOSINOPHIL # 0.4 TH/MM3 (0-0.4); EOSINOPHIL % 2.2 % (0.0-4.0); HEMATOCRIT 23.4 % (35.0-46.0); LYMPH % 7.9 % (9.0-44.0); LYMPHOCYTE # 1.4 TH/MM3 (1.0-4.8); MEAN CELL VOLUME 77.4 FL (80.0-100.0); MONO % 7.1 % (0.0-8.0); NEUT % 81.9 % (16.0-70.0); PLATELET COUNT 537 TH/MM3 (150-450); RED BLOOD COUNT 3.02 MIL/MM3 (4.00-5.30); RED CELL DISTRIBUTION WIDTH 21.9 % (11.6-17.2)
[2017-02-02 20:18] LABS: ANION GAP 10 MEQ/L (5-15); AST (GOT) 18 U/L (15-37); BICARBONATE 24.4 MEQ/L (21.0-32.0); BLOOD UREA NITROGEN 14 MG/DL (7-18); CHLORIDE 108 MEQ/L (98-107); GLOMERULAR FILTRATION RATE 57 ML/MIN (>89); POTASSIUM 3.9 MEQ/L (3.5-5.1); SODIUM (NA) 142 MEQ/L (136-145)
[2017-02-02 20:25] LABS: HEMO FLAGS AUTO DIFF
[2017-02-02 20:27] LABS: APTT (PATIENT) 25.8 SEC (24.3-30.1); INTERNATIONAL NORMALIZED RATIO 1.1 RATIO; PROTHROMBIN TIME - PATIENT 12.4 SEC (9.8-11.6)
[2017-02-02 20:34] LABS: ALKALINE PHOSPHATASE 93 U/L (45-117); ALT (GPT) 19 U/L (10-53); DIGOXIN 1.5 NG/ML (0.8-2.0); TOTAL BILIRUBIN ADULT 0.6 MG/DL (0.2-1.0)
[2017-02-02 20:43] LABS: CREATINE KINASE 25 U/L (26-192)
[2017-02-02] MEDS ORDERED: SODIUM CHLOR 0.9% 1000 ML INJ 1,000 ML IV ONE (20:48)
[2017-02-02] MEDS ORDERED: PIPERACIL-TAZO 4.5 GM PREMIX 100 ML IV STA (20:52)
[2017-02-02] MEDS ORDERED: VANCOMYCIN INJ 1,000 MG in SODIUM CHLOR 0.9% 250 ML INJ 250 ML IV STA (20:52)
[2017-02-02 21:03] VITALS: O2SAT 98
[2017-02-02 21:21] LABS: BANDS 3 % (0-6); EOSINOPHILS 1 % (0-4); MYELOCYTES 2 % (0-0); NEUTROPHIL # MANUAL DIFF 16.9 TH/MM3 (1.8-7.7); POLYS (SEG NEUTROPHILS) 89 % (16-70); WBC DIFF SAMPLE 100
[2017-02-02 21:23] LABS: ACANTHOCYTES OCC (NORMAL); OVALOCYTES 1+ (NORMAL)
[2017-02-02 21:24] LABS: PLATELET ESTIMATE SMEAR HIGH (NORMAL); PLATELET MORPHOLOGY NORMAL (NORMAL); SCAN/DIFF FINAL DIFF MANUAL
[2017-02-02 21:30] VITALS: BP 160/70; PULSE 104; RESP 16; O2SAT 97
[2017-02-02 21:38] LABS: BLOOD, URINE NEG (NEG); GLUCOSE,URINE NEG (NEG); KETONE, URINE NEG (NEG); NITRITE,URINE NEG (NEG); PH, URINE 6.5 (5.0-8.5); SQUAMOUS EPITHELIAL CELL URINE <1 /hpf (0-5); URINE COLOR YELLOW (YELLW/STRAW)
--- NOTE | 2017-02-02 21:43 | PD ---
Physical Exam Date Seen by Provider: February 02, 2017 Time Seen by Provider: 21:00 Narrative For full history and physical examination please see previous provider's note. I assumed care of this patient when she was transferred to a medical bed. Data Data Last Documented VS Orders Electrocardiogram (02/02/17 18:55) Complete Blood Count With Diff (02/02/17 18:55) Comprehensive Metabolic Panel (02/02/17 18:55) Creatine Kinase (Cpk) (02/02/17 18:55) Prothrombin Time / Inr (Pt) (02/02/17 18:55) Act Partial Throm Time (Ptt) (02/02/17 18:55) Troponin I (02/02/17 18:55) Thyroid Stimulating Hormone (02/02/17 18:55) Urinalysis - C+S If Indicated (02/02/17 18:55) Lactic Acid Sepsis Protocol (02/02/17 18:55) Blood Culture (02/02/17 18:55) Chest, Single Ap (02/02/17 18:55) Ct Brain W/O Iv Contrast(Rout) (02/02/17 18:55) Blood Glucose (02/02/17 18:55) Ecg Monitoring (02/02/17 18:55) Iv Access Insert/Monitor (02/02/17 18:55) Oximetry (02/02/17 18:55) Sodium Chlor 0.9% 1000 Ml Inj (Ns 1000 M (02/02/17 18:55) Levetiracetam (02/02/17 19:00) Digoxin (02/02/17 18:55) Urinary Catheter Insert/Apply (02/02/17 20:48) Sodium Chlor 0.9% 1000 Ml Inj (Ns 1000 M (02/02/17 20:48) Piperacil-Tazo 4.5 Gm Premix (Zosyn 4.5 (02/02/17 20:52) Vancomycin Inj (Vancomycin Inj) (02/02/17 20:52) Urine Culture (02/02/17 21:20) Type And Screen (02/02/17 21:51) Red Blood Cells (Rbc) (02/02/17 21:51) Ct Abd/Pel W Iv Contrast(Rout) (02/02/17 ) Iohexol 350 Inj (Omnipaque 350 Inj) (02/02/17 22:42) Apixaban (Eliquis) (02/03/17 09:00) Calcium Carbonate (Oscal) (02/03/17 09:00) Cholecalciferol (Vitamin D3) (02/03/17 09:00) Digoxin (Lanoxin) (02/03/17 09:00) Levetiracetam (Keppra) (02/03/17 09:00) Levothyroxine (Synthroid) (02/03/17 06:00) Lorazepam (Ativan) (02/03/17 01:45) Quetiapine (Seroquel) (02/03/17 09:00) (Nf) [place]-3 Fatty Acids (Fish Oil 1000 (02/03/17 09:00) Pantoprazole (Protonix) (02/03/17 09:00) Pravastatin (Pravachol) (02/03/17 21:00) Admit To Inpatient (02/03/17 ) Code Status (02/03/17 01:37) Dry Clipper Tender / Telemetry AUSTYN.Q8H (02/03/17 01:37) Diet 1999 Ada Cons Carb (02/03/17 Breakfast) Sodium Chlor 0.9% 1000 Ml Inj (Ns 1000 M (02/03/17 01:37) Sodium Chloride 0.9% Flush (Ns Flush) (02/03/17 01:45) Sodium Chloride 0.9% Flush (Ns Flush) (02/03/17 09:00) Lactic Acid Sepsis Protocol (02/03/17 01:37) Comprehensive Metabolic Panel (02/04/17 06:00) Complete Blood Count With Diff (02/04/17 06:00) Blood Culture (02/03/17 01:37) C-Reactive Protein (Crp) (02/03/17 01:37) Chest, Single Ap (02/04/17 ) Consult Pt Eval & Treat (02/03/17 01:37) Ot Request For Service (02/03/17 01:37) Heparin Inj (Heparin Inj) (02/03/17 06:00) Scd Bilateral/Knee High AUSTYN.BID (02/03/17 01:37) Bruce Bilateral/Knee High AUSTYN.QSHIFT (02/03/17 01:37) Piperacil-Tazo 4.5 Gm Premix (Zosyn 4.5 (02/03/17 03:00) Vancomycin Consult Pharmacy (Vancomycin (02/03/17 01:45) ^ Initiate Protocol (02/03/17 01:37) ^ Instruction (02/03/17 01:37) Misc Nursing Information (02/03/17 01:45) Chlorhexidine 2% Cloth (Chlorhexidine 2% (02/03/17 04:00) Chlorhexidine 2% Cloth (Chlorhexidine 2% (02/03/17 01:45) Mrsa Pcr Surveillance (02/03/17 01:37) Inpatient Certification (02/03/17 ) Blood Product Administration .UPON TRANSFUSION (02/03/17 01:43) Albuterol-Ipratropium Neb (Duoneb Neb) (02/03/17 01:45) Admit Order (Ed Use Only) (02/03/17 ) Labs MDM Medical Record Reviewed: Yes Supervised Visit with NIELS: No Interpretation(s) Last Impressions Head CT 02/02/171854 Signed Impressions: Service Date/Time: Thursday, February 02, 2017 19:13 - CONCLUSION: 1. No acute intracranial abnormalities. Left maxillary sinusitis similar to January 30. Juventino Mcgregor MD Chest X-Ray 02/02/171854 Signed Impressions: Service Date/Time: Thursday, February 02, 2017 19:06 - CONCLUSION: 1. Minimal basilar atelectasis. Juventino Mcgregor MD Laboratory Tests Test 02/02/17 19:35 White Blood Count 18.0 TH/MM3 Red Blood Count 3.02 MIL/MM3 Hemoglobin 7.3 GM/DL Hematocrit 23.4 % Mean Corpuscular Volume 77.4 FL Mean Corpuscular Hemoglobin 24.0 PG Mean Corpuscular Hemoglobin 31.0 % Concent Red Cell Distribution Width 21.9 % Platelet Count 537 TH/MM3 Mean Platelet Volume 8.1 FL Neutrophils (%) (Auto) 81.9 % Lymphocytes (%) (Auto) 7.9 % Monocytes (%) (Auto) 7.1 % Eosinophils (%) (Auto) 2.2 % Basophils (%) (Auto) 0.9 % Neutrophils # (Auto) 14.7 TH/MM3 Lymphocytes # (Auto) 1.4 TH/MM3 Monocytes # (Auto) 1.3 TH/MM3 Eosinophils # (Auto) 0.4 TH/MM3 Basophils # (Auto) 0.2 TH/MM3 CBC Comment AUTO DIFF Differential Total Cells 100 Counted Neutrophils % (Manual) 89 % Band Neutrophils % 3 % Lymphocytes % 2 % Monocytes % 3 % Eosinophils % 1 % Neutrophils # (Manual) 16.9 TH/MM3 Myelocytes 2 % Differential Comment FINAL DIFF MANUAL Platelet Estimate HIGH Platelet Morphology Comment NORMAL Ovalocytes 1+ Acanthocytes OCC Prothrombin Time 12.4 SEC Prothromb Time International 1.1 RATIO Ratio Activated Partial 25.8 SEC Thromboplast Time Sodium Level 142 MEQ/L Potassium Level 3.9 MEQ/L Chloride Level 108 MEQ/L Carbon Dioxide Level 24.4 MEQ/L Anion Gap 10 MEQ/L Blood Urea Nitrogen 14 MG/DL Creatinine 0.93 MG/DL Estimat Glomerular Filtration 57 ML/MIN Rate Random Glucose 116 MG/DL Lactic Acid Level 2.4 mmol/L Calcium Level 8.9 MG/DL Total Bilirubin 0.6 MG/DL Aspartate Amino Transf 18 U/L (AST/SGOT) Alanine Aminotransferase 19 U/L (ALT/SGPT) Alkaline Phosphatase 93 U/L Total Creatine Kinase 25 U/L Troponin I 0.10 NG/ML Total Protein 7.2 GM/DL Albumin 2.7 GM/DL Thyroid Stimulating Hormone 2.180 uIU/ML 3rd Gen Digoxin Level 1.5 NG/ML Vital Signs Date Time Temp Pulse Resp B/P Pulse Ox O2 Delivery O2 Flow Rate FiO2 02/02/17 21:03 98 Room Air 02/02/17 17:24 99.1 99 17 143/73 96 Differential Diagnosis Sepsis versus UTI versus pneumonia versus arrhythmia versus slight abnormality versus dementia versus other Narrative Course Patient is an 86-year-old female presenting to emergency for evaluation of altered mental status. Patient is accompanied by her sister who states 2 and half weeks ago her mentation was normal and she was living on her own, then she was diagnosed with blood clots and since that time she has not been the same. EKG shows atrial fibrillation with a heart rate of 92. Patient is on eliquis CBC with an elevated white count of 18 with left shift, hemoglobin is 7.3/23.4. Stool was negative for occult blood on Hemoccult card. Patient type and crossmatch for 2 units packed red blood cells. Urinary catheter ordered for accurate I&O's. Lactic acid 2.4 Troponin 0.10 TSH 2.18 Urinalysis with 8 white blood cells Chest x-ray shows minimal basilar atelectasis Head CT shows no intracranial abnormalities Previous urine culture was negative, reflex culture pending on this specimen obtained today however it doesn't appear that the source of her infection is related to a urinary tract infection. CT scan abdomen and pelvis is ordered and pending. Care of patient transferred to my attending physician who will determine patient 's disposition. HemaPrompt Test Point of Care Fecal Specimen Occult Blood: Negative Scripts Clonidine (Catapres)0.1 Mg Tab0.1 Mg PO Q8HR #90 TAB Ref 0 Prov:Tarik Ang MD 02/08/17 Levetiracetam (Keppra)500 Mg [id number] Mg PO BID #60 TAB Ref 0 Prov:Tarik Ang MD 02/08/17 Apixaban (Eliquis)2.5 Mg Tab2.5 Mg PO BID #60 TAB Ref 0 Prov:Tarik Ang MD 02/08/17 Quetiapine (Seroquel)25 Mg Tab25 Mg PO BID #60 TAB Ref 0 Prov:Tarik Ang MD 02/08/17 Digoxin (Lanoxin)0.25 Mg Tab0.25 Mg PO DAILY #30 TAB Ref 0 Hold for apical pulse less than 60. Notify Physician if held. Prov:Tarik Ang MD 02/08/17 Levothyroxine 50 Mcg Tab50 Mcg PO DAILY #30 TAB Ref 0 Prov:Tarik Ang MD 02/08/17 Amoxicillin-Clavulanate 875-125 mg [id number] Mg PO Q12HR #4 TAB Prov:Tarik Ang MD 02/08/17 Pravastatin (Pravachol)40 Mg Tab40 Mg PO HS #30 TAB Prov:Tarik Ang MD 02/08/17 Metoprolol Tartrate (Lopressor)50 Mg Tab50 Mg PO Q12HR #60 TAB Prov:Tarik Ang MD 02/08/17 Diltiazem CD 24 HR (Cardizem CD 24 HR)240 Mg [id number] Mg PO DAILY #30 CAP Prov:Tarik Ang MD 02/08/17 Bessy Amaro February 02, 2017 21:43 Neutrophils % (Manual) 89 % Band Neutrophils % 3 % Lymphocytes % 2 % Monocytes % 3 % Eosinophils % 1 % Neutrophils # (Manual) 16.9 TH/MM3 Myelocytes 2 % Differential Comment FINAL DIFF MANUAL Platelet Estimate HIGH Platelet Morphology Comment NORMAL Ovalocytes 1+ Acanthocytes OCC Prothrombin Time 12.4 SEC Prothromb Time International 1.1 RATIO Ratio Activated Partial 25.8 SEC Thromboplast Time Sodium Level 142 MEQ/L Potassium Level 3.9 MEQ/L Chloride Level 108 MEQ/L Carbon Dioxide Level 24.4 MEQ/L Anion Gap 10 MEQ/L Blood Urea Nitrogen 14 MG/DL Creatinine 0.93 MG/DL Estimat Glomerular Filtration 57 ML/MIN Rate Random Glucose 116 MG/DL Lactic Acid Level 2.4 mmol/L Calcium Level 8.9 MG/DL Total Bilirubin 0.6 MG/DL Aspartate Amino Transf 18 U/L (AST/SGOT) Alanine Aminotransferase 19 U/L (ALT/SGPT) Alkaline Phosphatase 93 U/L Total Creatine Kinase 25 U/L Troponin I 0.10 NG/ML Total Protein 7.2 GM/DL Albumin 2.7 GM/DL Thyroid Stimulating Hormone 2.180 uIU/ML 3rd Gen Digoxin Level 1.5 NG/ML Vital Signs Date Time Temp Pulse Resp B/P Pulse Ox O2 Delivery O2 Flow Rate FiO2 02/02/17 21:03 98 Room Air 02/02/17 17:24 99.1 99 17 143/73 96 Differential Diagnosis Sepsis versus UTI versus pneumonia versus arrhythmia versus slight abnormality versus dementia versus other Narrative Course Patient is an 86-year-old female presenting to emergency for evaluation of altered mental status. Patient is accompanied by her sister who states 2 and half weeks ago her mentation was normal and she was living on her own, then she was diagnosed with blood clots and since that time she has not been the same. EKG shows atrial fibrillation with a heart rate of 92. Patient is on eliquis CBC with an elevated white count of 18 with left shift, hemoglobin is 7.3/23.4. Stool was negative for occult blood on Hemoccult card. Patient type and crossmatch for 2 units packed red blood cells. Urinary catheter ordered for accurate I&O's. Lactic acid 2.4 Troponin 0.10 TSH 2.18 Urinalysis with 8 white blood cells Chest x-ray shows minimal basilar atelectasis Head CT shows no intracranial abnormalities Previous urine culture was negative, reflex culture pending on this specimen obtained today however it doesn't appear that the source of her infection is related to a urinary tract infection. CT scan abdomen and pelvis is ordered and pending. Care of patient transferred to my attending physician who will determine patient 's disposition. HemaPrompt Test Point of Care Fecal Specimen Occult Blood: Negative Bessy Amaro February 02, 2017 21:43
[2017-02-02 21:44] LABS: COMMENT (UR) CATH-CULTURE IND; CULTURE IF INDICATED CATH CULTURE IND
[2017-02-02 21:45] LABS: LACTIC ACID GHOST NOT REPORTABLE
[2017-02-02 22:00] VITALS: BP 123/55; PULSE 98; RESP 16; O2SAT 97
[2017-02-02] MEDS ORDERED: IOHEXOL 350 MG/ML 10 ML VIAL (for RAD DIAG) IV ONE ×2 (22:42→22:43)
[2017-02-02 23:00] VITALS: BP 136/73; PULSE 101; RESP 16; O2SAT 97
--- NOTE | 2017-02-02 23:15 | RADRPT ---
EXAM DATE/TIME: 02/02/2017 22:32 [facility] COMPARISON: No previous studies available for comparison. INDICATIONS : Diffuse abdominal pain. History of diabetes and breast cancer small to moderate size pericardial effu hernando partially visualized.. IV CONTRAST: 90 cc Omnipaque 350 (iohexol) IV ORAL CONTRAST: No oral contrast ingested. RADIATION DOSE: 15.70 CTDIvol (mGy) MEDICAL HISTORY : Cardiovascular disease. Hypertension. Diabetes mellitus type 2.COPD Breast ca SURGICAL HISTORY : None. ENCOUNTER: Initial ACUITY: 1 day PAIN SCALE: 5/10 LOCATION: abdomen TECHNIQUE: Volumetric scanning of the abdomen and pelvis was performed. Using automated exposure control and ad justment of the mA and/or kV according to patient size, radiation dose was kept as low as reasonably achievable to obtain optimal diagnostic quality images. FINDINGS: LOWER LUNGS: The visualized lower lungs are clear. The heart size appears mildly prominent and there is a small to moderate pericardial effusion. LIVER: Homogeneous density without lesion. There is no dilation of the biliary tree. The gallbladder is nor mal in size and wall thickness with no inflammatory change. A small air high density in the dependent portion which could represent faint gallstones. SPLEEN: Normal in size and shape with benign 1.5 cm cystic structure along the anterior margin of the spleen. PANCREAS: Within normal limits. KIDNEYS: Normal in size and shape. There is no mass, stone or hydronephrosis. ADRENAL GLANDS: Thickened and mildly lobular figuration. VASCULAR: There is no aortic aneurysm. Atherosclerotic changes are noted with calcification and tortuosity. BOWEL/MESENTERY: There is a small to moderate size retrocardiac hiatal hernia. The stomach, small bowel, and colon dem onstrate no acute abnormality. There are multiple loops of nondilated air-containing small bowel with several small air-fluid levels. There is no free intraperitoneal air or fluid. ABDOMINAL WALL: Within normal limits. RETROPERITONEUM: There is no lymphadenopathy. BLADDER: No wall thickening or mass. 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 There are scattered diverticuli. INGUINAL: There is no lymphadenopathy or hernia. MUSCULOSKELETAL: Within normal limits for patient age. CONCLUSION: 1. Small to moderate size pericardial effusion which is partially visualized. 2. Small to moderate size retrocardiac hiatal hernia. 3. Benign cystic structure in the anterior spleen. 4. Mild diverticulosis with no definite inflammatory change. There is a mildly nonspecific, nonobstru ctive bowel gas pattern which may represent a mild ileus. 5. The adrenal glands are mildly thickened and lobular in configuration. 6. No definite evidence of metastatic disease. Kieran Bansal MD on February 02, 2017 at 23:07 Board Certified Radiologist. This report was verified electronically.
--- NOTE | 2017-02-02 23:27 | PD ---
Data Data Last Documented VS Vital Signs Date Time Temp Pulse Resp B/P Pulse Ox O2 Delivery O2 Flow Rate FiO2 02/03/17 01:25 95 18 138/78 96 Room Air 02/02/17 17:24 99.1 Orders Electrocardiogram (02/02/17 18:55) Complete Blood Count With Diff (02/02/17 18:55) Comprehensive Metabolic Panel (02/02/17 18:55) Creatine Kinase (Cpk) (02/02/17 18:55) Prothrombin Time / Inr (Pt) (02/02/17 18:55) Act Partial Throm Time (Ptt) (02/02/17 18:55) Troponin I (02/02/17 18:55) Thyroid Stimulating Hormone (02/02/17 18:55) Urinalysis - C+S If Indicated (02/02/17 18:55) Lactic Acid Sepsis Protocol (02/02/17 18:55) Blood Culture (02/02/17 18:55) Chest, Single Ap (02/02/17 18:55) Ct Brain W/O Iv Contrast(Rout) (02/02/17 18:55) Blood Glucose (02/02/17 18:55) Ecg Monitoring (02/02/17 18:55) Iv Access Insert/Monitor (02/02/17 18:55) Oximetry (02/02/17 18:55) Sodium Chlor 0.9% 1000 Ml Inj (Ns 1000 M (02/02/17 18:55) Levetiracetam (02/02/17 19:00) Digoxin (02/02/17 18:55) Urinary Catheter Insert/Apply (02/02/17 20:48) Sodium Chlor 0.9% 1000 Ml Inj (Ns 1000 M (02/02/17 20:48) Piperacil-Tazo 4.5 Gm Premix (Zosyn 4.5 (02/02/17 20:52) Vancomycin Inj (Vancomycin Inj) (02/02/17 20:52) Urine Culture (02/02/17 21:20) Type And Screen (02/02/17 21:51) Red Blood Cells (Rbc) (02/02/17 21:51) Ct Abd/Pel W Iv Contrast(Rout) (02/02/17 ) Iohexol 350 Inj (Omnipaque 350 Inj) (02/02/17 22:42) Iohexol 350 Inj (Omnipaque 350 Inj) (02/02/17 22:43) Apixaban (Eliquis) (02/03/17 09:00) Calcium Carbonate (Oscal) (02/03/17 09:00) Cholecalciferol (Vitamin D3) (02/03/17 09:00) Digoxin (Lanoxin) (02/03/17 09:00) Levetiracetam (Keppra) (02/03/17 09:00) Levothyroxine (Synthroid) (02/03/17 06:00) Lorazepam (Ativan) (02/03/17 01:45) Quetiapine (Seroquel) (02/03/17 09:00) (Nf) [place]-3 Fatty Acids (Fish Oil 1000 (02/03/17 09:00) Pantoprazole (Protonix) (02/03/17 09:00) Pravastatin (Pravachol) (02/03/17 21:00) Admit To Inpatient (02/03/17 ) Code Status (02/03/17 01:37) 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.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 (02/03/17 01:37) Diet 2000 Ada Cons Carb (02/03/17 Breakfast) Sodium Chlor 0.9% 1000 Ml Inj (Ns 1000 M (02/03/17 01:37) Sodium Chloride 0.9% Flush (Ns Flush) (02/03/17 01:45) Sodium Chloride 0.9% Flush (Ns Flush) (02/03/17 09:00) Lactic Acid Sepsis Protocol (02/03/17 01:37) Comprehensive Metabolic Panel (02/04/17 06:00) Complete Blood Count With Diff (02/04/17 06:00) Blood Culture (02/03/17 01:37) C-Reactive Protein (Crp) (02/03/17 01:37) Chest, Single Ap (02/04/17 ) Consult Pt Eval & Treat (02/03/17 01:37) Ot Request For Service (02/03/17 01:37) Heparin Inj (Heparin Inj) (02/03/17 06:00) Scd Bilateral/Knee High AUSTYN.BID (02/03/17 01:37) Bruce Bilateral/Knee High AUSTYN.QSHIFT (02/03/17 01:37) Piperacil-Tazo 4.5 Gm Premix (Zosyn 4.5 (02/03/17 03:00) Vancomycin Consult Pharmacy (Vancomycin (02/03/17 01:45) ^ Initiate Protocol (02/03/17 01:37) ^ Instruction (02/03/17 01:37) Misc Nursing Information (02/03/17 01:45) Chlorhexidine 2% Cloth (Chlorhexidine 2% (02/03/17 04:00) Chlorhexidine 2% Cloth (Chlorhexidine 2% (02/03/17 01:45) Mrsa Pcr Surveillance (02/03/17 01:37) Inpatient Certification (02/03/17 ) Blood Product Administration .UPON TRANSFUSION (02/03/17 01:43) Albuterol-Ipratropium Neb (Duoneb Neb) (02/03/17 01:45) Admit Order (Ed Use Only) (02/03/17 ) Labs Laboratory Tests Test 02/02/17 02/02/17 02/02/17 02/02/17 19:35 21:20 22:00 22:55 White Blood Count 18.0 TH/MM3 Red Blood Count 3.02 MIL/MM3 Hemoglobin 7.3 GM/DL Hematocrit 23.4 % Mean Corpuscular Volume 77.4 FL Mean Corpuscular Hemoglobin 24.0 PG Mean Corpuscular Hemoglobin 31.0 % Concent Red Cell Distribution Width 21.9 % Platelet Count 537 TH/MM3 Mean Platelet Volume 8.1 FL Neutrophils (%) (Auto) 81.9 % Lymphocytes (%) (Auto) 7.9 % Monocytes (%) (Auto) 7.1 % Eosinophils (%) (Auto) 2.2 % Basophils (%) (Auto) 0.9 % Neutrophils # (Auto) 14.7 TH/MM3 Lymphocytes # (Auto) 1.4 TH/MM3 Monocytes # (Auto) 1.3 TH/MM3 Eosinophils # (Auto) 0.4 TH/MM3 Basophils # (Auto) 0.2 TH/MM3 CBC Comment AUTO DIFF Differential Total Cells 100 Counted Neutrophils % (Manual) 89 % Band Neutrophils % 3 % Lymphocytes % 2 % Monocytes % 3 % Eosinophils % 1 % Neutrophils # (Manual) 16.9 TH/MM3 Myelocytes 2 % Differential Comment FINAL DIFF MANUAL Platelet Estimate HIGH Platelet Morphology Comment NORMAL Ovalocytes 1+ Acanthocytes OCC Prothrombin Time 12.4 SEC Prothromb Time International 1.1 RATIO Ratio Activated Partial 25.8 SEC Thromboplast Time Sodium Level 142 MEQ/L Potassium Level 3.9 MEQ/L Chloride Level 108 MEQ/L Carbon Dioxide Level 24.4 MEQ/L Anion Gap 10 MEQ/L Blood Urea Nitrogen 14 MG/DL Creatinine 0.93 MG/DL Estimat Glomerular Filtration 57 ML/MIN Rate Random Glucose 116 MG/DL Lactic Acid Level 2.4 mmol/L 1.2 mmol/L Calcium Level 8.9 MG/DL Total Bilirubin 0.6 MG/DL Aspartate Amino Transf 18 U/L (AST/SGOT) Alanine Aminotransferase 19 U/L (ALT/SGPT) Alkaline Phosphatase 93 U/L Total Creatine Kinase 25 U/L Troponin I 0.10 NG/ML Total Protein 7.2 GM/DL Albumin 2.7 GM/DL Thyroid Stimulating Hormone 2.180 uIU/ML 3rd Gen Digoxin Level 1.5 NG/ML Urine Color YELLOW Urine Turbidity CLEAR Urine pH 6.5 Urine Specific [place] 1.011 Urine Protein NEG mg/dL Urine Glucose (UA) NEG mg/dL Urine Ketones NEG mg/dL Urine Occult Blood NEG Urine Nitrite NEG Urine Bilirubin NEG Urine Urobilinogen LESS THAN 2.0 MG/DL Urine Leukocyte Esterase NEG Urine RBC LESS THAN 1 /hpf Urine WBC 8 /hpf Urine Squamous Epithelial <1 /hpf Cells Microscopic Urinalysis Comment CATH-CULTURE IND Blood Type O POSITIVE Antibody Screen NEGATIVE Crossmatch Leukocyte-Reduced Red Blood Cells Blood Bank Comment [facility] Supervised Visit with NIELS: Yes Narrative Course Patient care assumed from Bessy Amaro. This is a an 86-year-old female who was recently admitted for urinary tract infection and altered mental status. She presents delirious today. On her history for me really seeing she wants to talk about his her chopped liver recipes. She is oriented to self only. Quite bizarre thought content. According to her daughter she is usually alert and awake and able to make her own medical decisions. She does not have a history of dementia. Patient does have only 8 white blood cells in the urine, an abdomen CT was pursued and negative. Chest x-ray negative. She does have a white blood cell count lactic acidemia. He was started on broad-spectrum antibiotic to given 2 L normal saline lactic acid normalize. No indication for further hydration at this time per patient was initially discussed with the hospitalist on-call who is concerned about the patient's possibility for pulmonary edema given the fluid resuscitation her history of congestive heart failure requested the street engineer be involved. Patient was discussed with Dr. Jacobsen who will be happy to admit the patient. The patient is remained in the emergency department for several additional hours and remained hemodynamically stable. Diagnosis Primary Impression: SIRS (systemic inflammatory response syndrome) Additional Impression: Pyuria Admitting Information Admitting Physician Requests: Admit Condition: Stable Jorden Hughes MD February 02, 2017 23:27
[2017-02-03] VITALS (20 sets, daily range): BP systolic 125–180; BP diastolic 67–109; PULSE 50–102; RESP 16–32; TEMP 98–98.6; O2SAT 90–97
[2017-02-03] MEDS ORDERED: CHLORHEXIDINE GLUCONATE 2 % 1 PACK (2 CLOTHS) TOP PRN (01:45)
[2017-02-03] MEDS ORDERED: RESP: ALBUTEROL 2.5 MG/IPRATROPIUM 0.5 MG NEB (PRN) INH (01:45)
[2017-02-03] MEDS ORDERED: Vancomycin Consult Pharmacy 1 EA OTHER SCH (01:45)
[2017-02-03] MEDS ORDERED: VANCOMYCIN INJ 1,000 MG in SODIUM CHLOR 0.9% 250 ML INJ 250 ML IV ONE (01:45)
[2017-02-03] MEDS ORDERED: LORazepam 0.5 MG TAB PO PRN (01:45)
[2017-02-03] MEDS ORDERED: MISCELLANEOUS NURSING INFORMATION XX SCH (01:45)
--- NOTE | 2017-02-03 02:53 | HHI.HP ---
HPI Service Critical Care Medicine Primary Care Physician Vish Ortiz MD Admission Diagnosis Sepsis, Delirium Diagnosis: Travel History International Travel<30 Days: No Contact w/Intl Traveler <30 Da: No Traveled to Known Affected Are: No History of Present Illness 86-year-old female that presents with altered mental status. She was agitated today and per report patient made a mess of her room. Per ambulance report patient's room did not appeared to be completely in disarray. The pillow appeared to have had its insides taken out but otherwise the room was fine. She was seen here less than a week ago and admitted for UTI. She denies any medical problems. Patient is slightly confused and she keeps telling me she lives with her sister. Review of Systems Constitutional: DENIES: Diaphoretic episodes, Fatigue, Fever, Weight gain, Weight loss, Chills, Dizziness, Change in appetite, Night Sweats Endocrine: DENIES: Abnorml menstrual pattern, Heat/cold intolerance, Polydipsia , Polyuria, Polyphagia Eyes: DENIES: Blurred vision, Diplopia, Eye inflammation, Eye pain, Vision loss , Photosensitivity, Double Vision Ears, nose, mouth, throat: DENIES: Tinnitus, Hearing loss, Vertigo, Nasal discharge, Oral lesions, Throat pain, Hoarseness, Ear Pain, Running Nose, Epistaxis, Sinus Pain, Toothache, Odynophagia Respiratory: DENIES: Apneas, Cough, Snoring, Wheezing, Hemoptysis, Sputum production, Shortness of breath Cardiovascular: DENIES: Chest pain, Palpitations, Syncope, Dyspnea on Exertion , PND, Lower Extremity Edema, Orthopnea, Claudication Gastrointestinal: DENIES: Abdominal pain, Black stools, Bloody stools, Constipation, Diarrhea, Nausea, Vomiting, Difficulty Swallowing, Anorexia Genitourinary: DENIES: Abnormal vaginal bleeding, Dysmenorrhea, Dyspareunia, Sexual dysfunction, Urinary frequency, Urinary incontinence, Urgency, Hematuria , Dysuria, Nocturia, Vaginal discharge Musculoskeletal: DENIES: Joint pain, Muscle aches, Stiffness, Joint Swelling, Back pain, Neck pain Integumentary: DENIES: Abnormal pigmentation, Pruritus, Rash, Nail changes, Breast masses, Breast skin changes, Nipple discharge Hematologic/lymphatic: DENIES: Bruising, Lymphadenopathy Immunologic/allergic: DENIES: Eczema, Urticaria Neurologic: DENIES: Abnormal gait, Headache, Localized weakness, Paresthesias, Seizures, Speech Problems, Tremor, Poor Balance Psychiatric: DENIES: Anxiety, Confusion, Mood changes, Depression, Hallucinations, Agitation, Suicidal Ideation, Homicidal Ideation, Delusions Past Family Social History Allergies: Coded Allergies: No Known Allergies (Unverified , 02/02/17) Past Medical History Hypertension Hyperlipidemia Atrial fibrillation Diabetes mellitus GERD Hypothyroidism History of breast cancer CHF EF 35% Past Surgical History Right breast lumpectomy followed by additional breast surgery in 1994 Left knee replacement in 2012 Reported Medications Reported Meds & Active Scripts Active Ativan (Lorazepam) 0.5 Mg Tab 0.5 Mg PO Q8H PRN Reported Humalog Inj (Insulin Human Lispro) 1,000 Unit/10 Ml Vial 2-10 Units SQ ACHS SLIDING SCALE: if 151-200=2 units, 201-250=4 units, 251-300=6 units, 301-350=8 units, 351-400=10 units, <70 or >401, call Diltiazem (Diltiazem HCl) 30 Mg Tab 30 Mg PO Q6HR Catapres (Clonidine) 0.1 Mg Tab 0.1 Mg PO Q8HR Metformin (Metformin HCl) 500 Mg Tab 500 Mg PO BID With meals Keppra (Levetiracetam) 500 Mg Tab 500 Mg PO BID Calcium 600 Mg Tab 600 Mg PO BID Eliquis (Apixaban) 2.5 Mg Tab 2.5 Mg PO BID Zocor (Simvastatin) 20 Mg Tab 20 Mg PO HS Seroquel (Quetiapine Fumarate) 25 Mg Tab 25 Mg PO BID Omeprazole 20 Mg Tab 20 Mg PO DAILY Lisinopril 20 Mg Tab 20 Mg PO HS Fish Oil 1000 mg ([place]-3 Fatty Acids) 1 Cap Cap 1,000 Mg PO DAILY Lanoxin (Digoxin) 0.25 Mg Tab 0.25 Mg PO DAILY Hold for apical pulse less than 60. Notify Physician if held. Vitamin D3 (Cholecalciferol) 1,000 Unit Tab 1,000 Units PO DAILY Potassium Chloride ER (Potassium Chloride) 20 Meq Tab 20 Meq PO BID Levothyroxine (Levothyroxine Sodium) 50 Mcg Tab 50 Mcg PO DAILY Active Ordered Medications Current Medications Medications (Trade) Dose Ordered Sig/Nova Route PRN Reason Start Time Stop Time Status Last Admin Dose Admin Apixaban (Eliquis) 2.5 mg BID PO 02/03/17 09:00 Calcium Carbonate (Oscal) 600 mg BID PO 02/03/17 09:00 Cholecalciferol (Vitamin D3) 1,000 units DAILY PO 02/03/17 09:00 Digoxin (Lanoxin) 0.25 mg DAILY PO 02/03/17 09:00 Levetriacetam (Keppra) 500 mg BID PO 02/03/17 09:00 Levothyroxine Sodium (Synthroid) 50 mcg DAILY@06 PO 02/03/17 06:00 Lorazepam (Ativan) 0.5 mg Q8H PRN PO ANXIETY AND/OR AGITATION 02/03/17 01:45 Quetiapine Fumarate (SEROquel) 25 mg BID PO 02/03/17 09:00 Pantoprazole Sodium (Protonix) 20 mg DAILY PO GERD 02/03/17 09:00 Pravastatin Sodium 40 mg 40 mg HS PO CM 02/03/17 21:00 Sodium Chloride (NS 1000 ml Inj) 1,000 ml @ 75 mls/hr [id number] IV 02/03/17 01:37 Sodium Chloride (NS Flush) 2 ml UNSCH PRN IV FLUSH FLUSH AFTER USING IV ACCESS 02/03/17 01:45 Sodium Chloride (NS Flush) 2 ml BID IV FLUSH 02/03/17 09:00 Heparin Sodium (Porcine) 5000 units 5,000 units Q8HR SQ 02/03/17 06:00 Piperacillin Sod/ Tazobactam Sod 100 ml @ 200 mls/hr Q6H IV 02/03/17 03:00 Pharmacy Profile Note (Vancomycin Consult Pharmacy) 0 ml @ 0 mls/hr UNSCH OTHER 02/03/17 01:45 Miscellaneous Information 1 [id number] XX 02/03/17 01:45 Chlorhexidine Gluconate (Chlorhexidine 2% Cloth) 3 pack Taper DAILY@04 TOP 02/03/17 04:00 01/30/18 03:59 Chlorhexidine Gluconate (Chlorhexidine 2% Cloth) 3 pack UNSCH PRN TOP HYGIENIC CARE 02/03/17 01:45 Family History Noncontributory Social History Negative 3 Physical Exam Vital Signs Vital Signs Date Time Temp Pulse Resp B/P Pulse Ox O2 Delivery O2 Flow Rate FiO2 02/03/17 01:25 95 18 138/78 96 Room Air 02/02/17 23:00 101 16 136/73 97 Room Air 02/02/17 22:00 98 16 123/55 97 Room Air 02/02/17 21:30 104 16 160/70 97 Room Air 02/02/17 21:03 98 Room Air 02/02/17 17:24 99.1 99 17 143/73 96 Physical Exam GENERAL: Well-nourished, well-developed patient. Elderly woman in no acute distress SKIN: Warm and dry. HEAD: Normocephalic. EYES: No scleral icterus. No injection or drainage. NECK: Supple, trachea midline. No JVD or lymphadenopathy. CARDIOVASCULAR: Regular rate and rhythm without murmurs, gallops, or rubs. RESPIRATORY: Breath sounds equal bilaterally. No accessory muscle use. GASTROINTESTINAL: Abdomen soft, non-tender, nondistended. MUSCULOSKELETAL: No cyanosis, or edema. BACK: Nontender without obvious deformity. No CVA tenderness. EXTREMITIES: No clubbing cyanosis or edema Laboratory Laboratory Tests Test 02/02/17 02/02/17 02/02/17 02/02/17 19:35 21:20 22:00 22:55 White Blood Count 18.0 Red Blood Count 3.02 Hemoglobin 7.3 Hematocrit 23.4 Mean Corpuscular Volume 77.4 Mean Corpuscular Hemoglobin 24.0 Mean Corpuscular Hemoglobin 31.0 Concent Red Cell Distribution Width 21.9 Platelet Count 537 Mean Platelet Volume 8.1 Neutrophils (%) (Auto) 81.9 Lymphocytes (%) (Auto) 7.9 Monocytes (%) (Auto) 7.1 Eosinophils (%) (Auto) 2.2 Basophils (%) (Auto) 0.9 Neutrophils # (Auto) 14.7 Lymphocytes # (Auto) 1.4 Monocytes # (Auto) 1.3 Eosinophils # (Auto) 0.4 Basophils # (Auto) 0.2 CBC Comment AUTO DIFF Differential Total Cells 100 Counted Neutrophils % (Manual) 89 Band Neutrophils % 3 Lymphocytes % 2 Monocytes % 3 Eosinophils % 1 Neutrophils # (Manual) 16.9 Myelocytes 2 Differential Comment FINAL DIFF MANUAL Platelet Estimate HIGH Platelet Morphology Comment NORMAL Ovalocytes 1+ Acanthocytes OCC Prothrombin Time 12.4 Prothromb Time International 1.1 Ratio Activated Partial 25.8 Thromboplast Time Sodium Level 142 Potassium Level 3.9 Chloride Level 108 Carbon Dioxide Level 24.4 Anion Gap 10 Blood Urea Nitrogen 14 Creatinine 0.93 Estimat Glomerular Filtration 57 Rate Random Glucose 116 Lactic Acid Level 2.4 1.2 Calcium Level 8.9 Total Bilirubin 0.6 Aspartate Amino Transf 18 (AST/SGOT) Alanine Aminotransferase 19 (ALT/SGPT) Alkaline Phosphatase 93 Total Creatine Kinase 25 Troponin I 0.10 Total Protein 7.2 Albumin 2.7 Thyroid Stimulating Hormone 2.180 3rd Gen Digoxin Level 1.5 Urine Color YELLOW Urine Turbidity CLEAR Urine pH 6.5 Urine Specific [place] 1.011 Urine Protein NEG Urine Glucose (UA) NEG Urine Ketones NEG Urine Occult Blood NEG Urine Nitrite NEG Urine Bilirubin NEG Urine Urobilinogen LESS THAN 2.0 Urine Leukocyte Esterase NEG Urine RBC LESS THAN 1 Urine WBC 8 Urine Squamous Epithelial <1 Cells Microscopic Urinalysis Comment CATH-CULTURE IND Blood Type O POSITIVE Antibody Screen NEGATIVE Crossmatch Leukocyte-Reduced Red Blood Cells Blood Bank Comment Date/Time Procedure Status Source Growth 02/02/17 21:20 Urine Culture Received Urine Catheterized Urine Pending 02/02/17 19:30 Aerobic Blood Culture Received Blood Peripheral Pending 02/02/17 19:30 Anaerobic Blood Culture Received Blood Peripheral Pending Result Diagram: 02/02/17193402/02/171934 Imaging Last [address] 02/02/171854 Signed Impressions: Service Date/Time: Thursday, February 02, 2017 19:13 - CONCLUSION: 1. No acute intracranial abnormalities. Left maxillary sinusitis similar to January 30. Juventino Mcgregor MD Chest X-Ray 02/02/171854 Signed Impressions: Service Date/Time: Thursday, February 02, 2017 19:06 - CONCLUSION: 1. Minimal basilar atelectasis. Juventino Mcgregor MD Assessment and Plan Assessment and Plan Altered mental status - UTI - Broad-spectrum antibiotics - De-escalate per culture - Gentle IV fluids resuscitation Hypertension - Hold antihypertensive meds due to borderline blood pressure Hyperlipidemia - Continue atorvastatin Atrial fibrillation - Eliquis for anticoagulation - Digoxin - rate control Diabetes mellitus - Insulin sliding scale GERD - Pantoprazole Hypothyroidism - Synthroid DVT GI prophylaxis -Eliquis and pantoprazole Critical Care: The total critical care time was 35 minutes. Time to perform other separately billable procedures was not included in the critical care time. Aldo Gil MD February 03, 2017 02:53
[2017-02-03] MEDS: SODIUM CHLOR 0.9% 1000 ML INJ 1,000 ML IV SCH ×2 (03:00→17:19)
[2017-02-03] MEDS: PIPERACIL-TAZO 4.5 GM PREMIX 100 ML IV SCH ×4 (04:56→20:48)
[2017-02-03] MEDS: LEVOTHYROXINE SODIUM 50 MCG TAB PO SCH (07:26)
[2017-02-03] MEDS: HEPARIN SODIUM - SQ 10,000 UNITS/ML VIAL SQ SCH ×3 (07:27→22:04)
[2017-02-03] MEDS ORDERED: NON-FORMULARY DRUG (Omega-3 Fatty Acids (Fish Oil 1000 mg) 1,000 MG) PO SCH (09:00)
--- NOTE | 2017-02-03 10:05 | PD.TRANSFR ---
Transfer Summary Admission Date February 03, 2017 at 02:30 Transfer Date: February 03, 2017 Admitting Diagnosis Sepsis, Delirium Diagnoses: (1) Altered mental status Diagnosis: Principal (2) Troponin level elevated Diagnosis: Principal (3) UTI (urinary tract infection) Diagnosis: Principal (4) DM (diabetes mellitus) Diagnosis: Principal (5) Toxic metabolic encephalopathy Diagnosis: Principal (6) SIRS (systemic inflammatory response syndrome) Diagnosis: Principal Significant Findings Last Impressions Head CT 02/02/171854 Signed Impressions: Service Date/Time: Thursday, February 02, 2017 19:13 - CONCLUSION: 1. No acute intracranial abnormalities. Left maxillary sinusitis similar to January 30. Juventino Mcgregor MD Chest X-Ray 02/02/171854 Signed Impressions: Service Date/Time: Thursday, February 02, 2017 19:06 - CONCLUSION: 1. Minimal basilar atelectasis. Juventino Mcgregor MD Abdomen/Pelvis CT 02/02/17 0000 Signed Impressions: Service Date/Time: Thursday, February 02, 2017 22:32 - CONCLUSION: 1. Small to moderate size pericardial effusion which is partially visualized. 2. Small to moderate size retrocardiac hiatal hernia. 3. Benign cystic structure in the anterior spleen. 4. Mild diverticulosis with no definite inflammatory change. There is a mildly nonspecific, nonobstructive bowel gas pattern which may represent a mild ileus. 5. The adrenal glands are mildly thickened and lobular in configuration. 6. No definite evidence of metastatic disease. Kieran Bansal MD Transfer Summary/Subjective This is a 86-year-old female. She is admitted with altered mental status. Negative head CT. The urine not indicative of for 4 urinary tract infection. Transfuse 2 units PRBCs due to anemia. Repeat in a.m. Currently Hemoccult stool. Okay to transfer to floor. Near nurses station Objective Vital Signs Date Time Temp Pulse Resp B/P Pulse Ox O2 Delivery O2 Flow Rate FiO2 02/03/17 08:25 98.2 02/03/17 07:00 80 18 156/70 96 Room Air Intake and Output 02/02/17 02/02/17 02/03/17 08:00 16:00 00:00 Output Total 800 ml Balance -800 ml Result Diagram: 02/02/17193402/02/171934 Imaging Last [address] 02/02/171854 Signed Impressions: Service Date/Time: Thursday, February 02, 2017 19:13 - CONCLUSION: 1. No acute intracranial abnormalities. Left maxillary sinusitis similar to January 30. Juventino Mcgregor MD Chest X-Ray 02/02/171854 Signed Impressions: Service Date/Time: Thursday, February 02, 2017 19:06 - CONCLUSION: 1. Minimal basilar atelectasis. Juventino Mcgregor MD Objective Remarks GENERAL: Well-nourished, well-developed patient. Elderly woman in no acute distress SKIN: Warm and dry. HEAD: Normocephalic. EYES: No scleral icterus. No injection or drainage. NECK: Supple, trachea midline. No JVD or lymphadenopathy. CARDIOVASCULAR: Regular rate and rhythm without murmurs, gallops, or rubs. RESPIRATORY: Breath sounds equal bilaterally. No accessory muscle use. GASTROINTESTINAL: Abdomen soft, non-tender, nondistended. MUSCULOSKELETAL: No cyanosis, or edema. BACK: Nontender without obvious deformity. No CVA tenderness. EXTREMITIES: No clubbing cyanosis or edema A/P Assessment and Plan Altered mental status - UTI - Broad-spectrum antibiotics - De-escalate per culture - Gentle IV fluids resuscitation Hypertension - Hold antihypertensive meds due to borderline blood pressure Hyperlipidemia - Continue atorvastatin Atrial fibrillation - Eliquis for anticoagulation - Digoxin - rate control Diabetes mellitus - Insulin sliding scale GERD - Pantoprazole Hypothyroidism - Synthroid DVT GI prophylaxis -Eliquis and pantoprazole Critical Care: The total critical care time was 35 minutes. Time to perform other separately billable procedures was not included in the critical care time. Kunal Sawyer MD February 03, 2017 10:05
[2017-02-03] MEDS: CHLORHEXIDINE GLUCONATE 2 % 1 PACK (2 CLOTHS) TOP SCH (10:11)
[2017-02-03] MEDS ORDERED: NITROGLYCERIN 2% OINT 1 GM PACKET TOPICAL PRN (10:15)
--- NOTE | 2017-02-03 10:28 | EKG ---
Date Performed: 02/02/2017 Time Performed: 21:12:16 PTAGE: 86 years EKG: ATRIAL FIBRILLATION LOW QRS VOLTAGE IN PRECORDIAL LEADS MODERATE ST DEPRESSION ABNORMAL ECG PREVIOUS TRACING : 01/30/2017 11.52 DOCTOR: Carlos Alberto Jolley Interpretating Date/Time 02/03/2017 10:22:49
[2017-02-03] MEDS: CHOLECALCIFEROL (VIT D3) 1000 UNIT TAB PO SCH (11:15)
[2017-02-03] MEDS: CALCIUM CARBONATE 1.25 GM (CA 500 MG) TAB PO SCH ×2 (11:15→20:47)
[2017-02-03] MEDS: PANTOPRAZOLE SOD 20 MG DELAYED RELEASE TAB PO SCH (11:15)
[2017-02-03] MEDS: QUEtiapine FUMARATE 25 MG TAB PO SCH ×2 (11:15→20:47)
[2017-02-03] MEDS: DIGOXIN 0.25 MG TAB PO SCH (11:15)
[2017-02-03] MEDS: APIXABAN 2.5 MG TABLET PO SCH ×2 (11:15→20:47)
[2017-02-03] MEDS: levETIRAcetam 500 MG TAB PO SCH ×2 (11:15→20:47)
[2017-02-03] MEDS: SODIUM CHLORIDE 0.9% FLUSH 10 ML FLUSH IV FLUSH PRN (11:15)
[2017-02-03] MEDS: SODIUM CHLORIDE 0.9% FLUSH 10 ML FLUSH IV FLUSH SCH ×2 (11:16→20:47)
[2017-02-03] MEDS: HALOPERIDOL LACTATE 5 MG/ML AMP IV PUSH PRN ×2 (11:57→22:04)
[2017-02-03] MEDS ORDERED: LABETALOL HCL 100 MG/20 ML VIAL IV PUSH PRN (13:00)
[2017-02-03] MEDS ORDERED: ZIPRASIDONE MESYLATE 20 MG VIAL IM PRN (13:00)
[2017-02-03] MEDS ORDERED: DEXMEDETOMIDINE INJ 200 MCG in SODIUM CHLORIDE 0.9% INJ 50 ML IV SCH (13:00)
[2017-02-03 13:11] LABS: AMPHETAMINE, URINE NEG (NEG); BARBITURATES, URINE NEG (NEG); COCAINE, URINE NEG (NEG)
[2017-02-03 13:13] LABS: REVIEW FLAG FINAL
[2017-02-03] MEDS: cloNIDine HCL 0.1 MG TAB PO SCH ×2 (13:50→22:04)
[2017-02-03] MEDS ORDERED: GADODIAMIDE PF 287 MG/ML 5 ML VIAL (for RAD MRI) IV ONE (15:19)
--- NOTE | 2017-02-03 15:49 | RADRPT ---
EXAM DATE/TIME: 02/03/2017 14:57 [place] COMPARISON: No previous studies available for comparison. INDICATIONS : Altered mental status. CONTRAST: 15 cc Omniscan (gadodiamide) IV MEDICAL HISTORY : Hypertension. Diabetes mellitus type 2. Carcinoma, breast. SURGICAL HISTORY : Total knee replacement, left. ENCOUNTER: Initial ACUITY: 2 day PAIN SCORE: 0/10 LOCATION: Head TECHNIQUE: Multiplanar, multisequence MRI of the brain was performed both prior to and following the administrat ion of paramagnetic contrast. FINDINGS: MRI of the brain is performed in sagittal, axial and coronal planes. The craniocervical junction and midline structures are unremarkable. Diffusion weighted images demonstrate no abnormality. There is n o evidence of acute cortical infarction, acute hemorrhage, mass effect or midline shift is seen. Ther e is periventricular hyperintensity on the T2 weighted images consistent with small vessel vascular d isease not unexpected in a patient of this age. Following the administration of contrast there is a 1 cm mass arising from the right cavernous sinus directed superiorly in extra-axial location most moises acteristic of meningioma. This is of doubtful clinical significance.. Posterior fossa structures are unremarkable. CONCLUSION: No evidence of acute intracranial pathology. 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 Yoan Evans MD on February 03, 2017 at 15:42 Board Certified Radiologist. This report was verified electronically.
[2017-02-03] MEDS ORDERED: VANCOMYCIN INJ 1,500 MG in SODIUM CHLORID 0.9% 500 ML INJ 500 ML IV SCH (16:00)
--- NOTE | 2017-02-03 16:49 | MG ---
cc: ESA MCKINNEY M.D. Lab No: Date: 02/03/17 Age: 86 Sex: F Race: REQUESTING PHYSICIAN Dr. Sawyer An EEG was obtained on this 86-year-old patient with history of confusion, hallucinations. The patient he is moving hands constantly. MEDICATIONS Medications include: 1. Seroquel. 2. Keppra. 3. Ativan. This EEG shows a lot of movement artifact but there are some readable EEGs including alpha with theta rhythms in the central and posterior head regions. There is beta activity intermixed with muscle artifact centrally and frontally. There is no obvious asymmetry and there are no paroxysmal discharges though the study is limited due to the excessive amount of artifact. Photic stimulation showed no change and hyperventilation was not performed. INTERPRETATION Abnormal EEG because of a generalized slowing suggesting a [id number] diffuse disturbance of cerebral function. The study is somewhat suboptimal in regards to a search for epileptiform abnormality. Esa Mckinney MD OFC/EO /4:20 PM /4:35 PM
[2017-02-03] MEDS: PRAVASTATIN SOD 40 MG TAB PO SCH (20:47)
[2017-02-04] VITALS (25 sets, daily range): BP systolic 120–182; BP diastolic 57–91; PULSE 54–110; RESP 22–37; TEMP 98–98.4; O2SAT 89–98
[2017-02-04] MEDS: PIPERACIL-TAZO 4.5 GM PREMIX 100 ML IV SCH ×4 (03:43→20:23)
[2017-02-04] MEDS: CHLORHEXIDINE GLUCONATE 2 % 1 PACK (2 CLOTHS) TOP SCH (03:43)
[2017-02-04] MEDS: SODIUM CHLOR 0.9% 1000 ML INJ 1,000 ML IV SCH ×2 (03:44→17:19)
[2017-02-04] MEDS: hydrALAZINE HCL 20 MG/ML VIAL IV PUSH PRN ×2 (04:09→09:35)
--- NOTE | 2017-02-04 04:58 | RADRPT ---
EXAM DATE/TIME: 02/04/2017 03:50 [place] COMPARISON: CHEST SINGLE AP, February 02, 2017, 19:06. INDICATIONS : Shortness of breath, possible pulmonary disease. MEDICAL HISTORY : None. SURGICAL HISTORY : None. ENCOUNTER: Subsequent ACUITY: 3 days PAIN SCORE: 0/10 LOCATION: Bilateral chest FINDINGS: A single view of the chest demonstrates the lungs to be symmetrically aerated without evidence of mas s, infiltrate or effusion. The heart size remains moderately enlarged. There are atherosclerotic anders cifications again noted in the aorta. Osseous structures are intact. CONCLUSION: No acute disease. Stable appearance with cardiomegaly and no definite pulmonary edema. Kieran Bansal MD on February 04, 2017 at 4:56 Board Certified Radiologist. This report was verified electronically.
[2017-02-04] MEDS: LEVOTHYROXINE SODIUM 50 MCG TAB PO SCH (06:05)
[2017-02-04] MEDS: cloNIDine HCL 0.1 MG TAB PO SCH ×3 (06:05→20:23)
[2017-02-04] MEDS: HEPARIN SODIUM - SQ 10,000 UNITS/ML VIAL SQ SCH ×3 (06:06→20:24)
[2017-02-04 06:23] LABS: AUTOMATED NEUTROPHIL # 6.7 TH/MM3 (1.8-7.7); BASOPHIL # 0.1 TH/MM3 (0-0.2); BASOPHIL % 0.6 % (0.0-2.0); EOSINOPHIL # 0.4 TH/MM3 (0-0.4); EOSINOPHIL % 4.9 % (0.0-4.0); HEMATOCRIT 33.8 % (35.0-46.0); LYMPH % 13.2 % (9.0-44.0); LYMPHOCYTE # 1.2 TH/MM3 (1.0-4.8); MEAN CELL VOLUME 79.5 FL (80.0-100.0); MEAN CORPUSCULAR HGB CONC 31.4 % (32.0-36.0); MONO % 7.2 % (0.0-8.0); NEUT % 74.1 % (16.0-70.0); PLATELET COUNT 333 TH/MM3 (150-450); RED BLOOD COUNT 4.26 MIL/MM3 (4.00-5.30); RED CELL DISTRIBUTION WIDTH 21.3 % (11.6-17.2); WHITE BLOOD COUNT 9.1 TH/MM3 (4.0-11.0)
[2017-02-04 06:41] LABS: HEMO FLAGS AUTO DIFF
[2017-02-04 06:53] LABS: ALKALINE PHOSPHATASE 75 U/L (45-117); ALT (GPT) 16 U/L (10-53); ANION GAP 11 MEQ/L (5-15); AST (GOT) 14 U/L (15-37); BICARBONATE 22.6 MEQ/L (21.0-32.0); BLOOD UREA NITROGEN 7 MG/DL (7-18); CHLORIDE 112 MEQ/L (98-107); GLOMERULAR FILTRATION RATE 90 ML/MIN (>89); MAGNESIUM 1.6 MG/DL (1.5-2.5); SODIUM (NA) 146 MEQ/L (136-145); TOTAL BILIRUBIN ADULT 0.7 MG/DL (0.2-1.0)
[2017-02-04 06:58] LABS: CREATINE KINASE 18 U/L (26-192)
[2017-02-04 07:00] LABS: POTASSIUM 2.9 MEQ/L (3.5-5.1)
[2017-02-04 07:22] LABS: ACANTHOCYTES OCC (NORMAL); OVALOCYTES 1+ (NORMAL)
[2017-02-04 07:23] LABS: PLATELET ESTIMATE SMEAR NORMAL (NORMAL); PLATELET MORPHOLOGY NORMAL (NORMAL); SCAN/DIFF AUTO DIFF CONFIRMED
[2017-02-04] MEDS ORDERED: POTASSIUM CHLORIDE 20 MEQ CONTROLLED RELEASE TAB PO ONE (07:30)
[2017-02-04] MEDS: DIGOXIN 0.25 MG TAB PO SCH (09:00)
[2017-02-04] MEDS: SODIUM CHLORIDE 0.9% FLUSH 10 ML FLUSH IV FLUSH PRN (09:09)
[2017-02-04] MEDS: QUEtiapine FUMARATE 25 MG TAB PO SCH ×2 (09:09→20:24)
[2017-02-04] MEDS: PANTOPRAZOLE SOD 20 MG DELAYED RELEASE TAB PO SCH (09:09)
[2017-02-04] MEDS: CALCIUM CARBONATE 1.25 GM (CA 500 MG) TAB PO SCH ×2 (09:09→20:25)
[2017-02-04] MEDS: CHOLECALCIFEROL (VIT D3) 1000 UNIT TAB PO SCH (09:09)
[2017-02-04] MEDS: levETIRAcetam 500 MG TAB PO SCH ×2 (09:09→20:24)
[2017-02-04] MEDS: APIXABAN 2.5 MG TABLET PO SCH ×2 (09:09→20:23)
[2017-02-04] MEDS: SODIUM CHLORIDE 0.9% FLUSH 10 ML FLUSH IV FLUSH SCH ×2 (09:09→20:25)
--- NOTE | 2017-02-04 10:31 | HHI.PR ---
Subjective Remarks Follow-up encephalopathy 02/04/17-patient seen and examined, she was working with PT and pleasantly confused. BP up. No acute event overnight per nurse report Objective Vitals Vital Signs Date Time Temp Pulse Resp B/P Pulse Ox O2 Delivery O2 Flow Rate FiO2 02/04/17 06:00 74 02/04/17 05:30 79 26 153/87 95 02/04/17 05:00 68 26 135/65 93 02/04/17 04:01 59 27 182/91 95 02/04/17 04:00 65 02/04/17 03:00 63 23 158/78 96 02/04/17 02:03 54 23 164/79 96 02/04/17 02:00 59 02/04/17 01:01 56 25 163/78 96 02/04/17 00:01 98.0 61 33 176/77 97 02/04/17 00:00 65 02/03/17 23:01 75 32 173/76 94 02/03/17 22:05 71 28 170/81 93 02/03/17 22:00 86 02/03/17 21:05 78 32 164/78 90 02/03/17 21:01 98.6 81 30 180/109 92 02/03/17 20:00 50 02/03/17 18:00 55 02/03/17 16:00 97 02/03/17 14:00 96 02/03/17 12:37 94 Nasal Cannula 2.00 02/03/17 12:00 102 I/O 02/03/17 02/03/17 02/03/17 02/04/17 02/04/17 02/04/17 07:00 15:00 23:00 07:00 15:00 23:00 Intake Total 250 ml 754 ml 950 ml 910 ml Output Total 1400 ml 425 ml 1250 ml 425 ml Balance -1150 ml 329 ml -300 ml 485 ml Intake Oral 290 ml 240 ml IV Total 464 ml 950 ml 670 ml Packed Cells 250 ml Output Urine Total 1400 ml 425 ml 1250 ml 425 ml # Bowel Movements 1 Result Diagram: 02/04/17 0509 02/04/17 0505 Imaging Last Impressions Chest X-Ray 02/04/17 0000 Signed Impressions: Service Date/Time: January 03:50 - CONCLUSION: No acute disease. Stable appearance with cardiomegaly and no definite pulmonary edema. Kieran Bansal MD Brain MRI 02/03/17 0000 Signed Impressions: Service Date/Time: Friday, February 03, 2017 14:57 - CONCLUSION: No evidence of acute intracranial pathology. 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 Yoan Evans MD Head CT 02/02/17 1855 Signed Impressions: Service Date/Time: Thursday, February 02, 2017 19:13 - CONCLUSION: 1. No acute intracranial abnormalities. Left maxillary sinusitis similar to January 30. Juventino Mcgregor MD Abdomen/Pelvis CT 02/02/17 0000 Signed Impressions: Service Date/Time: Thursday, February 02, 2017 22:32 - CONCLUSION: 1. Small to moderate size pericardial effusion which is partially visualized. 2. Small to moderate size retrocardiac hiatal hernia. 3. Benign cystic structure in the anterior spleen. 4. Mild diverticulosis with no definite inflammatory change. There is a mildly nonspecific, nonobstructive bowel gas pattern which may represent a mild ileus. 5. The adrenal glands are mildly thickened and lobular in configuration. 6. No definite evidence of metastatic disease. Kieran Bansal MD Objective Remarks GENERAL: NAD SKIN: Warm and dry. HEAD: Normocephalic. EYES: No scleral icterus. No injection or drainage. NECK: Supple, trachea midline. No JVD or lymphadenopathy. CARDIOVASCULAR: Irregular Regular rate and rhythm without murmurs, gallops, or rubs. RESPIRATORY: Breath sounds equal bilaterally. No accessory muscle use. GASTROINTESTINAL: Abdomen soft, non-tender, nondistended. MUSCULOSKELETAL: No cyanosis, or edema. BACK: Nontender without obvious deformity. No CVA tenderness. A/P Problem List: (1) Altered mental status ICD Code: R41.82 Status: Resolved (2) Troponin level elevated ICD Code: R74.8 Status: Acute (3) UTI (urinary tract infection) ICD Code: N39.0 Status: Resolved (4) DM (diabetes mellitus) ICD Code: E11.9 Status: Chronic (5) Toxic metabolic encephalopathy ICD Code: G92 Status: Resolved (6) SIRS (systemic inflammatory response syndrome) ICD Code: R65.10 Status: Acute Assessment and Plan 86-year-old female with Altered mental status-resolved UTI - Broad-spectrum antibiotics - Will discontinue vancomycin and continue Zosyn Hypertension-labile BP - Resume Cardizem and lisinopril Hyperlipidemia - Continue atorvastatin Atrial fibrillation - Eliquis for anticoagulation - Digoxin - rate control -Resume Cardizem Diabetes mellitus - Insulin sliding scale -Continue to hold basal insulin GERD - Pantoprazole Hypothyroidism - Synthroid Abnormal EEG -Currently on Keppra and monitor level DVT GI prophylaxis -Eliquis and pantoprazole Total critical care time spent over 35 minutes Rajat Hanson MD February 04, 2017 10:31
[2017-02-04] MEDS: DILTIAZEM HCL 30 MG TAB PO SCH ×3 (11:39→23:47)
[2017-02-04] MEDS ORDERED: CALCIUM CARBONATE 500 MG CHEWABLE TAB PO PRN (15:15)
[2017-02-04] MEDS: LISINOPRIL 20 MG TAB PO SCH (20:23)
[2017-02-04] MEDS: PRAVASTATIN SOD 40 MG TAB PO SCH (20:24)
[2017-02-04] MEDS: HALOPERIDOL LACTATE 5 MG/ML AMP IV PUSH PRN (20:24)
[2017-02-05] VITALS (14 sets, daily range): BP systolic 123–154; BP diastolic 68–92; PULSE 61–97; RESP 24–35; TEMP 97.8–98.5; O2SAT 93–99
[2017-02-05] MEDS: CHLORHEXIDINE GLUCONATE 2 % 1 PACK (2 CLOTHS) TOP SCH (02:32)
[2017-02-05] MEDS: PIPERACIL-TAZO 4.5 GM PREMIX 100 ML IV SCH ×4 (02:32→21:32)
[2017-02-05] MEDS: HEPARIN SODIUM - SQ 10,000 UNITS/ML VIAL SQ SCH ×3 (05:19→21:35)
[2017-02-05] MEDS: cloNIDine HCL 0.1 MG TAB PO SCH ×3 (05:19→21:35)
[2017-02-05] MEDS: LEVOTHYROXINE SODIUM 50 MCG TAB PO SCH (05:19)
[2017-02-05] MEDS: DILTIAZEM HCL 30 MG TAB PO SCH ×4 (05:19→23:16)
[2017-02-05 06:43] LABS: AUTOMATED NEUTROPHIL # 6.3 TH/MM3 (1.8-7.7); BASOPHIL % 0.4 % (0.0-2.0); EOSINOPHIL # 0.6 TH/MM3 (0-0.4); HEMATOCRIT 33.1 % (35.0-46.0); HEMO FLAGS DIFF FINAL; LYMPH % 18.2 % (9.0-44.0); LYMPHOCYTE # 1.7 TH/MM3 (1.0-4.8); MEAN CELL VOLUME 79.3 FL (80.0-100.0); MEAN CORPUSCULAR HGB CONC 32.8 % (32.0-36.0); NEUT % 67.4 % (16.0-70.0); PLATELET COUNT 356 TH/MM3 (150-450); RED BLOOD COUNT 4.17 MIL/MM3 (4.00-5.30); RED CELL DISTRIBUTION WIDTH 21.9 % (11.6-17.2); WHITE BLOOD COUNT 9.3 TH/MM3 (4.0-11.0)
[2017-02-05 07:16] LABS: BICARBONATE 23.3 MEQ/L (21.0-32.0); POTASSIUM 3.3 MEQ/L (3.5-5.1)
[2017-02-05] MEDS: SODIUM CHLORIDE 0.9% FLUSH 10 ML FLUSH IV FLUSH SCH ×2 (09:00→21:33)
[2017-02-05] MEDS: CALCIUM CARBONATE 1.25 GM (CA 500 MG) TAB PO SCH ×2 (09:10→21:34)
[2017-02-05] MEDS: CHOLECALCIFEROL (VIT D3) 1000 UNIT TAB PO SCH (09:10)
[2017-02-05] MEDS: QUEtiapine FUMARATE 25 MG TAB PO SCH ×2 (09:11→21:34)
[2017-02-05] MEDS: DIGOXIN 0.25 MG TAB PO SCH (09:11)
[2017-02-05] MEDS: APIXABAN 2.5 MG TABLET PO SCH ×2 (09:11→21:33)
[2017-02-05] MEDS: levETIRAcetam 500 MG TAB PO SCH ×2 (09:11→21:34)
[2017-02-05] MEDS: PANTOPRAZOLE SOD 20 MG DELAYED RELEASE TAB PO SCH (09:11)
[2017-02-05] MEDS ORDERED: POTASSIUM CHLORIDE 10 MEQ CONTROLLED RELEASE TAB PO ONE (10:00)
--- NOTE | 2017-02-05 10:00 | HHI.PR ---
Subjective Remarks Follow-up encephalopathy 02/04/17-patient seen and examined, she was working with PT and pleasantly confused. BP up. No acute event overnight per nurse report 02/05/17-patient seen and examined, pleasantly confused, stable and afebrile. Denies any chest pain or shortness of breath Objective Vitals Vital Signs Date Time Temp Pulse Resp B/P Pulse Ox O2 Delivery O2 Flow Rate FiO2 02/05/17 09:00 96 Nasal Cannula 2.00 02/05/17 08:00 72 02/05/17 08:00 98.5 72 24 154/92 96 02/05/17 06:00 70 02/05/17 04:00 97.8 61 26 148/80 93 02/05/17 04:00 61 02/05/17 02:00 81 02/05/17 00:00 98.3 67 29 144/83 96 02/05/17 00:00 67 02/04/17 22:00 68 02/04/17 21:09 95 Nasal Cannula 2.00 02/04/17 20:00 96 02/04/17 20:00 98.0 96 37 145/86 90 02/04/17 18:00 104 02/04/17 16:00 92 02/04/17 16:00 98.1 92 27 141/81 93 02/04/17 14:00 93 28 126/59 93 02/04/17 14:00 93 02/04/17 13:00 110 26 89 02/04/17 12:00 91 02/04/17 12:00 98.4 91 25 143/76 95 02/04/17 11:43 95 Nasal Cannula 2.00 02/04/17 11:00 101 27 120/57 95 02/04/17 10:00 98 22 98 02/04/17 10:00 98 I/O 02/04/17 02/04/17 02/04/17 02/05/17 02/05/17 02/05/17 07:00 15:00 23:00 07:00 15:00 23:00 Intake Total 910 ml 1264 ml 735 ml 255 ml Output Total 425 ml 250 ml 150 ml 175 ml Balance 485 ml 1014 ml 585 ml 80 ml Intake Oral 240 ml 700 ml 300 ml 150 ml IV Total 670 ml 564 ml 435 ml 105 ml Output Urine Total 425 ml 250 ml 150 ml 175 ml # Bowel Movements 0 Result Diagram: 02/05/17 0619 02/05/17 0619 Imaging Last Impressions Chest X-Ray 02/04/17 0000 Signed Impressions: Service Date/Time: January 03:50 - CONCLUSION: No acute disease. Stable appearance with cardiomegaly and no definite pulmonary edema. Kieran Bansal MD Brain MRI 02/03/17 0000 Signed Impressions: Service Date/Time: Friday, February 03, 2017 14:57 - CONCLUSION: No evidence of acute intracranial pathology. 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 Yoan Evans MD Head CT 02/02/17 1855 Signed Impressions: Service Date/Time: Thursday, February 02, 2017 19:13 - CONCLUSION: 1. No acute intracranial abnormalities. Left maxillary sinusitis similar to January 30. Juventino Mcgregor MD Abdomen/Pelvis CT 02/02/17 0000 Signed Impressions: Service Date/Time: Thursday, February 02, 2017 22:32 - CONCLUSION: 1. Small to moderate size pericardial effusion which is partially visualized. 2. Small to moderate size retrocardiac hiatal hernia. 3. Benign cystic structure in the anterior spleen. 4. Mild diverticulosis with no definite inflammatory change. There is a mildly nonspecific, nonobstructive bowel gas pattern which may represent a mild ileus. 5. The adrenal glands are mildly thickened and lobular in configuration. 6. No definite evidence of metastatic disease. Kieran Bansal MD Objective Remarks GENERAL: NAD SKIN: Warm and dry. HEAD: Normocephalic. EYES: No scleral icterus. No injection or drainage. NECK: Supple, trachea midline. No JVD or lymphadenopathy. CARDIOVASCULAR: Irregular Regular rate and rhythm without murmurs, gallops, or rubs. RESPIRATORY: Breath sounds equal bilaterally. No accessory muscle use. GASTROINTESTINAL: Abdomen soft, non-tender, nondistended. MUSCULOSKELETAL: No cyanosis, or edema. BACK: Nontender without obvious deformity. No CVA tenderness. Procedures None A/P Problem List: (1) Altered mental status ICD Code: R41.82 Status: Resolved (2) Troponin level elevated ICD Code: R74.8 Status: Acute (3) UTI (urinary tract infection) ICD Code: N39.0 Status: Resolved (4) DM (diabetes mellitus) ICD Code: E11.9 Status: Chronic (5) Toxic metabolic encephalopathy ICD Code: G92 Status: Resolved (6) SIRS (systemic inflammatory response syndrome) ICD Code: R65.10 Status: Acute Assessment and Plan 86-year-old female with Altered mental status-resolved UTI - Broad-spectrum antibiotics - Status post vancomycin and continue Zosyn Hypertension - Continue Cardizem and lisinopril Hyperlipidemia - Continue atorvastatin Atrial fibrillation - Eliquis for anticoagulation - Digoxin and monitor level -Continue Cardizem Diabetes mellitus - Insulin sliding scale with fingerstick blood glucose monitoring -Continue to hold basal insulin GERD - Pantoprazole Hypothyroidism - Synthroid Abnormal EEG -Currently on Keppra and monitor level DVT GI prophylaxis -Eliquis and pantoprazole Rajat Hanson MD February 05, 2017 09:59
[2017-02-05] MEDS ORDERED: PHARMACY ORDERED LAB ONE (15:45)
[2017-02-05] MEDS: PRAVASTATIN SOD 40 MG TAB PO SCH (21:34)
[2017-02-05] MEDS: LISINOPRIL 20 MG TAB PO SCH (21:34)
[2017-02-05] MEDS: HALOPERIDOL LACTATE 5 MG/ML AMP IV PUSH PRN (23:16)
[2017-02-06] VITALS (13 sets, daily range): BP systolic 125–172; BP diastolic 67–90; PULSE 66–99; RESP 20–34; TEMP 97.8–98.5; O2SAT 94–100
[2017-02-06] MEDS: CHLORHEXIDINE GLUCONATE 2 % 1 PACK (2 CLOTHS) TOP SCH (04:00)
[2017-02-06] MEDS ORDERED: GLUCAGON 1 MG/ML VIAL OTHER PRN (04:15)
[2017-02-06] MEDS ORDERED: DEXTROSE 50% IN WATER 50 ML VIAL(D50) IV PRN (04:15)
[2017-02-06] MEDS: PIPERACIL-TAZO 4.5 GM PREMIX 100 ML IV SCH ×2 (05:50→09:07)
[2017-02-06] MEDS: cloNIDine HCL 0.1 MG TAB PO SCH ×3 (05:50→21:43)
[2017-02-06] MEDS: LEVOTHYROXINE SODIUM 50 MCG TAB PO SCH (05:51)
[2017-02-06] MEDS: hydrALAZINE HCL 20 MG/ML VIAL IV PUSH PRN ×2 (05:51→17:27)
[2017-02-06] MEDS: HEPARIN SODIUM - SQ 10,000 UNITS/ML VIAL SQ SCH (05:51)
[2017-02-06 06:22] LABS: BICARBONATE 24.4 MEQ/L (21.0-32.0); POTASSIUM 3.4 MEQ/L (3.5-5.1)
[2017-02-06] MEDS: SODIUM CHLORIDE 0.9% FLUSH 10 ML FLUSH IV FLUSH SCH ×2 (09:07→21:00)
[2017-02-06] MEDS: QUEtiapine FUMARATE 25 MG TAB PO SCH ×2 (09:08→21:43)
[2017-02-06] MEDS: CALCIUM CARBONATE 1.25 GM (CA 500 MG) TAB PO SCH ×2 (09:08→21:44)
[2017-02-06] MEDS: PANTOPRAZOLE SOD 20 MG DELAYED RELEASE TAB PO SCH (09:08)
[2017-02-06] MEDS: levETIRAcetam 500 MG TAB PO SCH ×2 (09:08→21:00)
[2017-02-06] MEDS: APIXABAN 2.5 MG TABLET PO SCH ×2 (09:08→21:43)
[2017-02-06] MEDS: CHOLECALCIFEROL (VIT D3) 1000 UNIT TAB PO SCH (09:17)
[2017-02-06] MEDS: DIGOXIN 0.25 MG TAB PO SCH (09:17)
--- NOTE | 2017-02-06 13:34 | HHI.PR ---
Subjective Remarks Follow-up for mental status changes Per RN, this morning, patient was confused, combative, was pulling lines. However patient got better, restraints removed. Presently, patient is oriented but very forgetful. No complaints. Denies any nausea, vomiting, chest pain or shortness of breath. Afebrile. Objective Vitals Vital Signs Date Time Temp Pulse Resp B/P Pulse Ox O2 Delivery O2 Flow Rate FiO2 02/06/17 10:00 99 02/06/17 08:00 98.5 87 34 172/78 94 02/06/17 08:00 73 02/06/17 07:00 96 Nasal Cannula 2.00 02/06/17 06:00 78 02/06/17 04:00 97.9 66 27 125/71 100 02/06/17 04:00 66 02/06/17 02:00 75 02/06/17 00:00 74 02/06/17 00:00 74 22 154/67 97 02/05/17 22:00 84 02/05/17 20:00 82 02/05/17 20:00 98.0 82 24 123/79 94 02/05/17 19:51 96 Nasal Cannula 2.00 02/05/17 18:00 73 02/05/17 16:00 72 02/05/17 16:00 98.5 72 30 148/71 99 02/05/17 14:00 80 I/O 02/05/17 02/05/17 02/05/17 02/06/17 02/06/17 02/06/17 07:00 15:00 23:00 07:00 15:00 23:00 Intake Total 255 ml 690 ml 387 ml 167 ml Output Total 175 ml 250 ml 375 ml 950 ml Balance 80 ml 440 ml 12 ml -783 ml Intake Oral 150 ml 500 ml 120 ml 0 ml IV Total 105 ml 190 ml 267 ml 167 ml Output Urine Total 175 ml 250 ml 375 ml 950 ml # Bowel Movements 0 0 0 Result Diagram: 02/05/1761802/06/17 0528 Objective Remarks GENERAL: NAD SKIN: Warm and dry. HEAD: Normocephalic. EYES: No scleral icterus. No injection or drainage. NECK: Supple, trachea midline. No JVD or lymphadenopathy. CARDIOVASCULAR: Irregular Regular rate and rhythm without murmurs, gallops, or rubs. RESPIRATORY: Breath sounds equal bilaterally. No accessory muscle use. GASTROINTESTINAL: Abdomen soft, non-tender, nondistended. MUSCULOSKELETAL: No cyanosis, or edema. BACK: Nontender without obvious deformity. No CVA tenderness. Alert, awake, oriented to place, self and time. Nose and wrist. No focal deficits. Still not to confuse and very forgetful. Procedures None A/P Problem List: (1) Altered mental status ICD Code: R41.82 Status: Resolved (2) Troponin level elevated ICD Code: R74.8 Status: Acute (3) UTI (urinary tract infection) ICD Code: N39.0 Status: Resolved (4) DM (diabetes mellitus) ICD Code: E11.9 Status: Chronic (5) Toxic metabolic encephalopathy ICD Code: G92 Status: Resolved (6) SIRS (systemic inflammatory response syndrome) ICD Code: R65.10 Status: Acute Assessment and Plan 86-year-old female [place] with altered mental status Acute delirium with toxic metabolic encephalopathy secondary to urinary tract infection -urine culture no growth, stop vancomycin and Zosyn, start Augmentin. EEG showed mild disturbance of cerebral function but no definite epileptiform activities, continue Keppra. On Seroquel, taper. Recheck CBC and BMP tomorrow Hypertension- Continue lisinopril, hydralazine as needed. Hyperlipidemia - Continue atorvastatin Atrial fibrillation - Eliquis for anticoagulation, continue digoxin, monitor levels, recently 1.5. Restart Cardizem. Diabetes mellitus - Insulin sliding scale with fingerstick blood glucose monitoring -Continue to hold basal insulin GERD - Pantoprazole Hypothyroidism - Synthroid DVT GI prophylaxis -Eliquis and pantoprazole Transfer to [facility]. Remove Pearl catheter. Possible discharge in 1-2 days, consult physical therapy. Might need home healthcare and or rehabilitation. Discharge Planning Discharge to SNF versus home health care in 1-2 days Angela Lewis MD February 06, 2017 13:34
[2017-02-06] MEDS ORDERED: POTASSIUM CHLORIDE 25 MEQ EFFERVESCENT TAB PO ONE (14:45)
--- NOTE | 2017-02-06 16:32 | EKG ---
Date Performed: 02/06/2017 Time Performed: 02:47:08 PTAGE: 86 years EKG: Atrial fibrillation. Possible inferior infarct - age undetermined Possible anteroseptal inf arct - age undetermined Lateral ST-T changes may be due to myocardial ischemia Low QRS voltages in pr ecordial leads Abnormal ECG PREVIOUS TRACING 02/02/2017 @21.12 Compared to prior tracing no significant change DOCTOR: Lavern Henderson Interpretating Date/Time 02/06/2017 16:30:42
[2017-02-06] MEDS: DILTIAZEM HCL 30 MG TAB PO SCH ×2 (17:06→23:52)
[2017-02-06] MEDS: AMOXICILLIN/CLAVULANATE K 875 MG TAB PO SCH (21:00)
[2017-02-06] MEDS: LISINOPRIL 20 MG TAB PO SCH (21:43)
[2017-02-06] MEDS: PRAVASTATIN SOD 40 MG TAB PO SCH (21:44)
[2017-02-07] VITALS (10 sets, daily range): BP systolic 128–195; BP diastolic 56–98; PULSE 57–101; RESP 18–22; TEMP 97.4–98.1; O2SAT 92–100
[2017-02-07] MEDS: CHLORHEXIDINE GLUCONATE 2 % 1 PACK (2 CLOTHS) TOP SCH (04:00)
[2017-02-07] MEDS: LEVOTHYROXINE SODIUM 50 MCG TAB PO SCH (05:15)
[2017-02-07] MEDS: DILTIAZEM HCL 30 MG TAB PO SCH ×3 (05:15→16:24)
[2017-02-07] MEDS: cloNIDine HCL 0.1 MG TAB PO SCH ×3 (05:15→20:52)
[2017-02-07] MEDS ORDERED: ACETAMINOPHEN 325 MG TAB PO PRN (08:30)
[2017-02-07] MEDS ORDERED: ONDANSETRON HCL 4 MG/2 ML VIAL IV PRN (08:30)
[2017-02-07] MEDS: CHOLECALCIFEROL (VIT D3) 1000 UNIT TAB PO SCH (08:31)
[2017-02-07] MEDS: QUEtiapine FUMARATE 25 MG TAB PO SCH ×2 (08:31→20:52)
[2017-02-07] MEDS: AMOXICILLIN/CLAVULANATE K 875 MG TAB PO SCH ×2 (08:31→20:51)
[2017-02-07] MEDS: APIXABAN 2.5 MG TABLET PO SCH ×2 (08:31→20:51)
[2017-02-07] MEDS: DIGOXIN 0.25 MG TAB PO SCH (08:31)
[2017-02-07] MEDS: levETIRAcetam 500 MG TAB PO SCH ×2 (08:31→20:51)
[2017-02-07] MEDS: CALCIUM CARBONATE 1.25 GM (CA 500 MG) TAB PO SCH ×2 (08:31→20:52)
[2017-02-07] MEDS: PANTOPRAZOLE SOD 20 MG DELAYED RELEASE TAB PO SCH (08:31)
[2017-02-07] MEDS: SODIUM CHLORIDE 0.9% FLUSH 10 ML FLUSH IV FLUSH SCH ×2 (08:32→20:51)
[2017-02-07 08:56] LABS: AUTOMATED NEUTROPHIL # 5.4 TH/MM3 (1.8-7.7); BASOPHIL # 0.1 TH/MM3 (0-0.2); BASOPHIL % 0.6 % (0.0-2.0); EOSINOPHIL # 0.5 TH/MM3 (0-0.4); EOSINOPHIL % 6.5 % (0.0-4.0); HEMATOCRIT 35.9 % (35.0-46.0); HEMO FLAGS DIFF FINAL; LYMPH % 15.9 % (9.0-44.0); LYMPHOCYTE # 1.3 TH/MM3 (1.0-4.8); MEAN CORPUSCULAR HGB CONC 32.5 % (32.0-36.0); PLATELET COUNT 337 TH/MM3 (150-450); RED BLOOD COUNT 4.48 MIL/MM3 (4.00-5.30); RED CELL DISTRIBUTION WIDTH 22.1 % (11.6-17.2)
[2017-02-07 09:16] LABS: BICARBONATE 24.7 MEQ/L (21.0-32.0); POTASSIUM 3.7 MEQ/L (3.5-5.1)
--- NOTE | 2017-02-07 12:26 | HHI.PR ---
Subjective Remarks Follow up for encephalopathy, UTI. The patient is awake, alert, oriented to person, birthdate, [place] in [place], year 2014, Wednesday, but states the month is November. She reports frequent urination and 3 episodes of diarrhea today. She reports some occasional lower abdominal cramping. Denies fevers/ chills. Per RN, she has been out of restraints over 24 hours. The patient reports she is not going back to [facility]. She states she is going home, plans to live with her sister, and agrees to [facility]. Per RN, the patient's sister did speak with her yesterday and is willing to take her home, does not want patient going back to rehab. Objective Vitals Vital Signs Date Time Temp Pulse Resp B/P Pulse Ox O2 Delivery O2 Flow Rate FiO2 02/07/17 09:00 Nasal Cannula 2.00 02/07/17 09:00 82 02/07/17 08:00 97.9 57 18 162/83 94 02/07/17 06:00 97.4 79 22 179/86 96 02/07/17 03:55 Nasal Cannula 2.00 02/07/17 00:00 97.5 99 22 128/56 100 02/06/17 20:16 89 02/06/17 19:02 97.8 92 20 170/76 97 02/06/17 18:00 84 02/06/17 16:00 98.4 90 21 172/90 98 02/06/17 16:00 84 02/06/17 14:00 94 I/O 02/06/17 02/06/17 02/06/17 02/07/17 02/07/17 02/07/17 07:00 15:00 23:00 07:00 15:00 23:00 Intake Total 167 ml 630 ml 2 ml Output Total 950 ml 1300 ml 100 ml Balance -783 ml -670 ml 2 ml -100 ml Intake Oral 0 ml 500 ml IV Total 167 ml 130 ml 2 ml Output Urine Total 950 ml 1300 ml 100 ml # Voids 2 # Bowel Movements 0 0 1 2 Result Diagram: 02/07/17 0835 02/07/17 0835 Imaging Last Impressions Chest X-Ray 02/04/17 0000 Signed Impressions: Service Date/Time: January 03:50 - CONCLUSION: No acute disease. Stable appearance with cardiomegaly and no definite pulmonary edema. Kieran Bansal MD Brain MRI 02/03/17 0000 Signed Impressions: Service Date/Time: Friday, February 03, 2017 14:57 - CONCLUSION: No evidence of acute intracranial pathology. 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 Yoan Evans MD Head CT 02/02/17 1855 Signed Impressions: Service Date/Time: Thursday, February 02, 2017 19:13 - CONCLUSION: 1. No acute intracranial abnormalities. Left maxillary sinusitis similar to January 30. Juventino Mcgregor MD Abdomen/Pelvis CT 02/02/17 0000 Signed Impressions: Service Date/Time: Thursday, February 02, 2017 22:32 - CONCLUSION: 1. Small to moderate size pericardial effusion which is partially visualized. 2. Small to moderate size retrocardiac hiatal hernia. 3. Benign cystic structure in the anterior spleen. 4. Mild diverticulosis with no definite inflammatory change. There is a mildly nonspecific, nonobstructive bowel gas pattern which may represent a mild ileus. 5. The adrenal glands are mildly thickened and lobular in configuration. 6. No definite evidence of metastatic disease. Kieran Bansal MD Objective Remarks GENERAL: Well-nourished, well-developed pleasant elderly female patient in [facility]. SKIN: Warm and dry. No rash. HEENT: Normocephalic. Atraumatic.Pupils equal and round. Mucous membranes pink and moist. NECK: Supple. Trachea midline. CARDIOVASCULAR: Irregular rate and rhythm. S1, S2 noted. No murmur appreciated. RESPIRATORY: No accessory muscle use. Clear to auscultation. Breath sounds equal bilaterally. GASTROINTESTINAL: Abdomen soft, non-tender, nondistended. Normoactive bowel sounds x4. MUSCULOSKELETAL: No obvious deformities. Extremities without clubbing, cyanosis , or edema. NEUROLOGICAL: Awake and alert. No obvious cranial nerve deficits. Motor grossly within normal limits. Normal speech. PSYCHIATRIC: Appropriate mood and affect; insight and judgment fair. Procedures None Medications and IVs Current Medications Medications (Trade) Dose Ordered Sig/Nova Route Start Time Stop Time Status Last Admin (Eliquis) 2.5 mg BID PO 02/03/17 09:00 02/07/17 08:31 (Oscal) 600 mg BID PO 02/03/17 09:00 02/07/17 08:31 (Vitamin D3) 1,000 units DAILY PO 02/03/17 09:00 02/07/17 08:31 (Lanoxin) 0.25 mg DAILY PO 02/03/17 09:00 02/07/17 08:31 (Keppra) 500 mg BID PO 02/03/17 09:00 02/07/17 08:31 (Synthroid) 50 mcg DAILY@06 PO 02/03/17 06:00 02/07/17 05:15 (SEROquel) 25 mg BID PO 02/03/17 09:00 02/07/17 08:31 (Protonix) 20 mg DAILY PO 02/03/17 09:00 02/07/17 08:31 (Pravachol) 40 mg HS PO 02/03/17 21:00 02/06/17 21:44 (NS Flush) 2 ml UNSCH PRN IV FLUSH 02/03/17 01:45 02/04/17 09:09 (NS Flush) 2 ml BID IV FLUSH 02/03/17 09:00 02/07/17 08:32 Miscellaneous Information 1 Q361D XX 02/03/17 01:45 02/03/17 10:12 (Chlorhexidine 2% Cloth) 3 pack Taper DAILY@04 TOP 02/03/17 04:00 01/30/18 03:59 02/05/17 02:32 (Chlorhexidine 2% Cloth) 3 pack UNSCH PRN TOP 02/03/17 01:45 (Catapres) 0.1 mg Q8HR PO 02/03/17 14:00 02/07/17 12:10 (Nitroglycerin 2% Oint) 1 inch Q6HR PRN TOPICAL 02/03/17 10:15 02/03/17 11:15 (Haldol Inj) 1 mg Q4HR PRN IV PUSH 02/03/17 11:45 Hold 02/05/17 23:16 (Apresoline Inj) 10 mg Q1HR PRN IV PUSH 02/03/17 13:00 02/06/17 17:27 (Cardizem) 30 mg Q6HR PO 02/04/17 12:00 02/07/17 12:10 (Prinivil) 20 mg HS PO 02/04/17 21:00 02/06/17 21:43 (Tums Chew) 500 mg TID PRN PO 02/04/17 15:15 02/04/17 15:20 (D50w (Vial) Inj) 50 ml UNSCH PRN IV 02/06/17 04:15 (Glucagon Inj) 1 mg UNSCH PRN OTHER 02/06/17 04:15 (Augmentin) 875 mg Q12HR PO 02/06/17 21:00 02/10/17 20:59 02/07/17 08:31 (Tylenol) 650 mg Q4H PRN PO 02/07/17 08:30 (Zofran Inj) 4 mg Q6H PRN IV 02/07/17 08:30 Urinary Catheter: No Vascular Central Line Catheter: No A/P Problem List: (1) Altered mental status ICD Code: R41.82 Status: Resolved (2) Troponin level elevated ICD Code: R74.8 Status: Acute (3) UTI (urinary tract infection) ICD Code: N39.0 Status: Resolved (4) DM (diabetes mellitus) ICD Code: E11.9 Status: Chronic (5) Toxic metabolic encephalopathy ICD Code: G92 Status: Resolved (6) SIRS (systemic inflammatory response syndrome) ICD Code: R65.10 Status: Acute Assessment and Plan 86-year-old female with hx of HTN, HLD, Afib, DM, GERD, hypothyroidism, and hx of breast cancer, presents with acute altered mental status Acute delirium with metabolic encephalopathy: secondary to UTI, on abx, see below. EEG showed mild disturbance of cerebral function but no definite epileptiform activities, continue Keppra. On Seroquel, taper dosing. Monitored CBC/BMP, much improved. Patient now AAOx4, out of restraints x24+hrs. Appears back to baseline. Resolved. UTI: UA 01/30/17 consistent with UTI, +large leuks, WBCs. Previous urine culture with E.Coli and Group B strep. Repeat urine culture with no growth. S/p IV Vanco /Zosyn, now switched to po Augmentin, to be completed on 02/10. Hypertension- Continue lisinopril, hydralazine as needed. Hyperlipidemia- Continue atorvastatin Atrial fibrillation- Eliquis for anticoagulation, continue digoxin, monitor levels, recently 1.5. Restarted patient's Cardizem. Heart rate better controlled. Diabetes mellitus- Insulin sliding scale with fingerstick blood glucose monitoring. Continue to hold basal insulin as blood glucose very well controlled , 98-125. Check HgbA1c. GERD- Pantoprazole Hypothyroidism-Continue Synthroid Diarrhea: patient reports 3 episodes of diarrhea today. Possibly secondary to antibiotics. Check Cdiff and stool cultures. Repeat BMP in am. Elevated Troponin: suspect secondary to sepsis/UTI, CHF, or episodes of afib RVR. Patient denies any chest pain. Troponins flat at 0.10. Echo 12/08/16 showed moderately reduced systolic function with EF 35% with moderate aortic stenosis. Chronic Systolic CHF: echo as above with EF 35% in November2016. Evaluated by cardiology Dr. Henderson on previous admission, acute systolic CHF likely secondary to afib RVR, recommended continuing medical management. Will continue lisinopril, metoprolol, statin. No current signs of fluid overload, will hold of on Lasix for now. DVT/GI prophylaxis-Eliquis and pantoprazole Discharge Planning The patient adamantly does not want to return to [facility]. She wants to go home with her sister and [facility]. Per RN, sister agrees to this plan. Case management to arrange [facility]. Likely discharge tomorrow if diarrhea improves. Jil Layne PA-C February 07, 2017 12:26 pm
--- NOTE | 2017-02-07 14:32 | HHI.FF ---
Face to Face Verification Diagnosis: (1) Altered mental status (2) Toxic metabolic encephalopathy (3) UTI (urinary tract infection) (4) Afib (5) DM (diabetes mellitus) Physical Therapy Order: Evaluate and Treat, Improve ambulation, Strength and gait training Home Health Nursing Order: Medical education Signs/symptoms of disease process Diabetic education Nursing assessment with vital signs I have seen patient Val Michel on 02/07/17. My clinical findings support the need for the requested home health care services because: Ltd mobility - disease progression Deconditioned w/ increased weakness Med compliance is questionable Limited ability to care for self Impaired cognition/judgement I certify that my clinical findings support that this patient is homebound because: Impaired cognitive ability/safety Unsteady gait/balance Unsafe to leave home unassisted Unable to use public transportation Jil Layne PA-C February 07, 2017 2:32 pm
[2017-02-07] MEDS: hydrALAZINE HCL 20 MG/ML VIAL IV PUSH PRN (16:24)
[2017-02-07] MEDS: PRAVASTATIN SOD 40 MG TAB PO SCH (20:52)
[2017-02-07] MEDS: LISINOPRIL 20 MG TAB PO SCH (20:52)
[2017-02-07] MEDS ORDERED: METOPROLOL TARTRATE 50 MG TAB PO SCH (21:00)
[2017-02-08] VITALS: BP 144/81; PULSE 81; RESP 18; TEMP 98.6; O2SAT 96
[2017-02-08] MEDS ORDERED: QUEtiapine FUMARATE 25 MG TAB PO ONE (03:00)
[2017-02-08 04:00] VITALS: BP 160/77; PULSE 84; RESP 18; TEMP 97.4; O2SAT 95
[2017-02-08] MEDS: CHLORHEXIDINE GLUCONATE 2 % 1 PACK (2 CLOTHS) TOP SCH (04:00)
[2017-02-08] MEDS: cloNIDine HCL 0.1 MG TAB PO SCH (05:00)
[2017-02-08] MEDS: LEVOTHYROXINE SODIUM 50 MCG TAB PO SCH (05:00)
[2017-02-08 08:00] VITALS: BP 150/75; PULSE 86; PULSE 88; RESP 20; TEMP 98.1; O2SAT 96
[2017-02-08] MEDS ORDERED: DILTIAZEM-CD 240 MG CAP ER PO SCH (09:00)
[2017-02-08 10:34] VITALS: O2SAT 96
[2017-02-08 12:00] VITALS: BP 145/70; PULSE 93; RESP 20; TEMP 98.2; O2SAT 96
--- NOTE | 2017-02-08 12:30 | HHI.DCPOC ---
Discharge Care Plan Diagnosis: (1) Toxic metabolic encephalopathy Your Health Problems Are: Difficulty with ADL Exercise Tolerance Goals to Promote Your Health * To prevent worsening of your condition and complications * To maintain your health at the optimal level Directions to Meet Your Goals Take your medications as prescribed Follow your dietary instruction Follow activity as directed Keep your appointments as scheduled Take your immunizations and boosters as scheduled If your symptoms worsen call your PCP, if no PCP go to Urgent Care Center or Emergency Room Smoking is Dangerous to Your Health. Avoid second hand smoke Call the 24-hour hour crisis hotline for domestic abuse at Tarik Ang MD February 08, 2017 12:30
[2017-02-08] MEDS ORDERED: METO-309 PO (12:35)
[2017-02-08] MEDS ORDERED: CARD240C6 PO (12:35)
[2017-02-08] MEDS ORDERED: PRAV40TA PO (12:35)
[2017-02-08] MEDS ORDERED: AMOX875T2 PO (12:35)
--- NOTE | 2017-02-08 12:40 | HHI.PR ---
Subjective Remarks Follow-up encephalopathy. She is awake and oriented but has been difficult to deal with this morning since she wants to go home. She refused to take her medicines stating that she's been taking medications entire life. Aware if she stops taking her medicine she could get worse and . Patient and POA refusing rehabilitation, they want home health care. Discussed with RN, no more diarrhea had a formed BM this morning. Discussed with case management and physical therapy Objective Vitals Vital Signs Date Time Temp Pulse Resp B/P Pulse Ox O2 Delivery O2 Flow Rate FiO2 02/08/17 10:34 96 21 02/08/17 08:00 98.1 88 20 150/75 96 02/08/17 04:00 97.4 84 18 160/77 95 02/08/17 00:57 Nasal Cannula 2.00 02/08/17 00:00 98.6 81 18 144/81 96 02/07/17 20:00 98.1 98 18 140/80 92 02/07/17 19:35 89 02/07/17 18:03 158/80 02/07/17 16:00 97.8 101 18 195/98 96 I/O 02/07/17 02/07/17 02/07/17 02/08/17 02/08/17 02/08/17 07:00 15:00 23:00 07:00 15:00 23:00 Intake Total 480 ml 242 ml 100 ml Output Total 100 ml Balance -100 ml 480 ml 242 ml 100 ml Intake Oral 480 ml 240 ml 100 ml IV Total 2 ml Output Urine Total 100 ml # Voids 5 1 1 # Bowel Movements 1 5 0 0 Result Diagram: 02/07/17 0835 02/07/17 0835 Imaging Last Impressions Chest X-Ray 02/04/17 0000 Signed Impressions: Service Date/Time: January 03:50 - CONCLUSION: No acute disease. Stable appearance with cardiomegaly and no definite pulmonary edema. Kieran Bansal MD Brain MRI 02/03/17 0000 Signed Impressions: Service Date/Time: Friday, February 03, 2017 14:57 - CONCLUSION: No evidence of acute intracranial pathology. 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 Yoan Evans MD Head CT 02/02/17 8043 Signed Impressions: Service Date/Time: Thursday, February 02, 2017 19:13 - CONCLUSION: 1. No acute intracranial abnormalities. Left maxillary sinusitis similar to January 30. Juventino Mcgregor MD Abdomen/Pelvis CT 02/02/17 0000 Signed Impressions: Service Date/Time: Thursday, February 02, 2017 22:32 - CONCLUSION: 1. Small to moderate size pericardial effusion which is partially visualized. 2. Small to moderate size retrocardiac hiatal hernia. 3. Benign cystic structure in the anterior spleen. 4. Mild diverticulosis with no definite inflammatory change. There is a mildly nonspecific, nonobstructive bowel gas pattern which may represent a mild ileus. 5. The adrenal glands are mildly thickened and lobular in configuration. 6. No definite evidence of metastatic disease. Kieran Bansal MD Objective Remarks GENERAL: Well-nourished, well-developed pleasant elderly female patient in [facility]. SKIN: Warm and dry. No rash. HEENT: Normocephalic. Atraumatic.Pupils equal and round. Mucous membranes pink and moist. NECK: Supple. Trachea midline. CARDIOVASCULAR: Irregular rate and rhythm. S1, S2 noted. No murmur appreciated. RESPIRATORY: No accessory muscle use. Clear to auscultation. Breath sounds equal bilaterally. GASTROINTESTINAL: Abdomen soft, non-tender, nondistended. Normoactive bowel sounds x4. MUSCULOSKELETAL: No obvious deformities. Extremities without clubbing, cyanosis , or edema. NEUROLOGICAL: Awake and alert. No obvious cranial nerve deficits. Motor grossly within normal limits. Normal speech. PSYCHIATRIC: Appropriate mood and affect; insight and judgment fair. Procedures None A/P Problem List: (1) Altered mental status ICD Code: R41.82 Status: Resolved (2) Troponin level elevated ICD Code: R74.8 Status: Acute (3) UTI (urinary tract infection) ICD Code: N39.0 Status: Resolved (4) DM (diabetes mellitus) ICD Code: E11.9 Status: Chronic (5) Toxic metabolic encephalopathy ICD Code: G92 Status: Resolved (6) SIRS (systemic inflammatory response syndrome) ICD Code: R65.10 Status: Resolved Assessment and Plan 86-year-old female with hx of HTN, HLD, Afib, DM, GERD, hypothyroidism, and hx of breast cancer, presents with acute altered mental status Acute delirium with metabolic encephalopathy: secondary to UTI, on abx, see below. EEG showed mild disturbance of cerebral function but no definite epileptiform activities, continue Keppra. On Seroquel, taper dosing. Monitored CBC/BMP, much improved. Patient now AAOx4, out of restraints x24+hrs. Appears back to baseline. Resolved. UTI: UA 01/30/17 consistent with UTI, +large leuks, WBCs. Previous urine culture with E.Coli and Group B strep. Repeat urine culture with no growth. S/p IV Vanco /Zosyn, now switched to po Augmentin, to be completed on 02/10. Hypertension- Continue lisinopril, hydralazine as needed. Hyperlipidemia- Continue atorvastatin Atrial fibrillation- Eliquis for anticoagulation, continue digoxin and Lopressor , monitor levels, recently 1.5. Restarted patient's Cardizem. Heart rate better controlled. Diabetes mellitus- Insulin sliding scale with fingerstick blood glucose monitoring. Continue to hold basal insulin as blood glucose very well controlled , 98-125. Check HgbA1c. GERD- Pantoprazole Hypothyroidism-Continue Synthroid Diarrhea: patient reports 3 episodes of diarrhea yesterday. Formed BM today. Possibly secondary to antibiotics. Ordered Cdiff and stool cultures. Repeat BMP Elevated Troponin: suspect secondary to sepsis/UTI, CHF, or episodes of afib RVR. Patient denies any chest pain. Troponins flat at 0.10. Echo 12/08/16 showed moderately reduced systolic function with EF 35% with moderate aortic stenosis. Chronic Systolic CHF: echo as above with EF 35% in November2016. Evaluated by cardiology Dr. Henderson on previous admission, acute systolic CHF likely secondary to afib RVR, recommended continuing medical management. Will continue lisinopril, metoprolol, statin. No current signs of fluid overload, will hold of on Lasix for now. DVT/GI prophylaxis-Eliquis and pantoprazole Tarik Ang MD February 08, 2017 12:40
--- NOTE | 2017-02-08 12:41 | HHI.DS ---
Discharge Summary Admission Date February 03, 2017 at 02:30 Discharge Date: February 08, 2017 Admitting Diagnosis Sepsis, Delirium (1) Altered mental status ICD Code: R41.82 Diagnosis: Principal (2) Troponin level elevated ICD Code: R74.8 Diagnosis: Principal (3) UTI (urinary tract infection) ICD Code: N39.0 Diagnosis: Principal (4) DM (diabetes mellitus) ICD Code: E11.9 Diagnosis: Principal (5) Toxic metabolic encephalopathy ICD Code: G92 Diagnosis: Principal (6) SIRS (systemic inflammatory response syndrome) ICD Code: R65.10 Diagnosis: Principal Procedures None Brief History - From Admission 86-year-old female that presents with altered mental status. She was agitated today and per report patient made a mess of her room. Per ambulance report patient's room did not appeared to be completely in disarray. The pillow appeared to have had its insides taken out but otherwise the room was fine. She was seen here less than a week ago and admitted for UTI. She denies any medical problems. Patient is slightly confused and she keeps telling me she lives with her sister. CBC/BMP: 02/07/17 0835 02/07/17 0835 Significant Findings Laboratory Tests Test 02/06/17 02/07/17 05:28 08:35 Potassium Level 3.4 MEQ/L (3.5-5.1) Chloride Level 110 MEQ/L 108 MEQ/L (98-107) (98-107) Estimat Glomerular Filtration 78 ML/MIN (>89) Rate Random Glucose 110 MG/DL (74-106) Mean Corpuscular Hemoglobin 26.0 PG (27.0-34.0) Red Cell Distribution Width 22.1 % (11.6-17.2) Monocytes (%) (Auto) 10.0 % (0.0-8.0) Eosinophils (%) (Auto) 6.5 % (0.0-4.0) Eosinophils # (Auto) 0.5 TH/MM3 (0-0.4) Imaging Last Impressions Chest X-Ray 02/04/17 0000 Signed Impressions: Service Date/Time: January 03:50 - CONCLUSION: No acute disease. Stable appearance with cardiomegaly and no definite pulmonary edema. Kieran Bansla MD Brain MRI 02/03/17 0000 Signed Impressions: Service Date/Time: Friday, February 03, 2017 14:57 - CONCLUSION: No evidence of acute intracranial pathology. 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 Yoan Evans MD Head CT 02/02/17 1855 Signed Impressions: Service Date/Time: Thursday, February 02, 2017 19:13 - CONCLUSION: 1. No acute intracranial abnormalities. Left maxillary sinusitis similar to January 30. Juventino Mcgregor MD Abdomen/Pelvis CT 02/02/17 0000 Signed Impressions: Service Date/Time: Thursday, February 02, 2017 22:32 - CONCLUSION: 1. Small to moderate size pericardial effusion which is partially visualized. 2. Small to moderate size retrocardiac hiatal hernia. 3. Benign cystic structure in the anterior spleen. 4. Mild diverticulosis with no definite inflammatory change. There is a mildly nonspecific, nonobstructive bowel gas pattern which may represent a mild ileus. 5. The adrenal glands are mildly thickened and lobular in configuration. 6. No definite evidence of metastatic disease. Kieran Bansal MD PE at Discharge GENERAL: Well-nourished, well-developed pleasant elderly female patient in [facility]. SKIN: Warm and dry. No rash. HEENT: Normocephalic. Atraumatic.Pupils equal and round. Mucous membranes pink and moist. NECK: Supple. Trachea midline. CARDIOVASCULAR: Irregular rate and rhythm. S1, S2 noted. No murmur appreciated. RESPIRATORY: No accessory muscle use. Clear to auscultation. Breath sounds equal bilaterally. GASTROINTESTINAL: Abdomen soft, non-tender, nondistended. Normoactive bowel sounds x4. MUSCULOSKELETAL: No obvious deformities. Extremities without clubbing, cyanosis , or edema. NEUROLOGICAL: Awake and alert. No obvious cranial nerve deficits. Motor grossly within normal limits. Normal speech. PSYCHIATRIC: Appropriate mood and affect; insight and judgment fair. Transfer Summary This is a 86-year-old female. She is admitted with altered mental status. Negative head CT. The urine not indicative of for 4 urinary tract infection. Transfuse 2 units PRBCs due to anemia. Repeat in a.m. Currently Hemoccult stool. Okay to transfer to floor. Near nurses station Hospital Course 86-year-old female with hx of HTN, HLD, Afib, DM, GERD, hypothyroidism, and hx of breast cancer, presents with acute altered mental status Acute delirium with metabolic encephalopathy: secondary to UTI, on abx, see below. EEG showed mild disturbance of cerebral function but no definite epileptiform activities, continue Keppra. On Seroquel, taper dosing. Monitored CBC/BMP, much improved. Patient now AAOx4, out of restraints x24+hrs. Appears back to baseline. Resolved. UTI: UA 01/30/17 consistent with UTI, +large leuks, WBCs. Previous urine culture with E.Coli and Group B strep. Repeat urine culture with no growth. S/p IV Vanco /Zosyn, now switched to po Augmentin, to be completed on 02/10. Hypertension- Continue lisinopril, hydralazine as needed. Hyperlipidemia- Continue atorvastatin Atrial fibrillation- Eliquis for anticoagulation, continue digoxin and Lopressor , monitor levels, recently 1.5. Restarted patient's Cardizem. Heart rate better controlled. Diabetes mellitus- Insulin sliding scale with fingerstick blood glucose monitoring. Continue to hold basal insulin as blood glucose very well controlled , 98-125. Check HgbA1c. GERD- Pantoprazole Hypothyroidism-Continue Synthroid Diarrhea: patient reports 3 episodes of diarrhea yesterday. Formed BM today. Possibly secondary to antibiotics. Ordered Cdiff and stool cultures. Repeat BMP Elevated Troponin: suspect secondary to sepsis/UTI, CHF, or episodes of afib RVR. Patient denies any chest pain. Troponins flat at 0.10. Echo 12/08/16 showed moderately reduced systolic function with EF 35% with moderate aortic stenosis. Chronic Systolic CHF: echo as above with EF 35% in November2016. Evaluated by cardiology Dr. Henderson on previous admission, acute systolic CHF likely secondary to afib RVR, recommended continuing medical management. Will continue lisinopril, metoprolol, statin. No current signs of fluid overload, will hold of on Lasix for now. DVT/GI prophylaxis-Eliquis and pantoprazole Pt Condition on Discharge: Stable Discharge Disposition: Disch w/ Home Health Serv Discharge Time: > 30 minutes Discharge Instructions DIET: Follow Instructions for: Heart Healthy Diet, Diabetic Diet Activities you can perform: Regular-No Restrictions Activities to Avoid: Driving Follow up Referrals: PCP Follow-up - 1 Week New Medications: Amoxicillin-Clavulanate (Amoxicillin-Clavulanate) 875-125 mg Tab 875 MG PO Q12HR Infection #4 TAB Diltiazem CD 24 HR (Cardizem CD 24 HR) 240 Mg Caper 240 MG PO DAILY Regulate Heart Beat #30 CAP Metoprolol Tartrate (Lopressor) 50 Mg Tab 50 MG PO Q12HR Regulate Heart Beat #60 TAB Pravastatin (Pravachol) 40 Mg Tab 40 MG PO HS CM #30 TAB Continued Medications: Apixaban (Eliquis) 2.5 Mg Tab 2.5 MG PO BID Blood Clot Prevention Ref 0 TAB Calcium (Calcium) 600 Mg Tab 600 MG PO BID TAB Cholecalciferol (Vitamin D3) 1,000 Unit Tab 1000 UNITS PO DAILY Nutritional Supplement #1 Ref 0 BOTTLE Clonidine (Catapres) 0.1 Mg Tab 0.1 MG PO Q8HR Blood Pressure Management #1 Ref 0 TAB Digoxin (Lanoxin) 0.25 Mg Tab 0.25 MG PO DAILY Hold for apical pulse less than 60. Notify Physician if held. A -FIB #30 Ref 0 TAB Levetiracetam (Keppra) 500 Mg Tab 500 MG PO BID Control Seizures #60 Ref 0 TAB Levothyroxine (Levothyroxine) 50 Mcg Tab 50 MCG PO DAILY Thyroid #30 Ref 0 TAB Lisinopril (Lisinopril) 20 Mg Tab 20 MG PO HS Blood Pressure Management #30 Ref 0 TAB Omeprazole (Omeprazole) 20 Mg Tab 20 MG PO DAILY GERD #30 Ref 0 TAB Quetiapine (Seroquel) 25 Mg Tab 25 MG PO BID Agitation #30 Ref 0 TAB Tarik Ang MD February 08, 2017 12:41
[2017-02-08] MEDS ORDERED: LEVE500 PO (13:44)
[2017-02-08] MEDS ORDERED: SERO25TA PO (13:44)
[2017-02-08] MEDS ORDERED: LANO0.2510 PO (13:44)
[2017-02-08] MEDS ORDERED: LEVO50TA4 PO (13:44)
[2017-02-08] MEDS ORDERED: CLON.1 PO (13:44)
[2017-02-08] MEDS ORDERED: APIX2.5T PO (13:44)
[2017-02-08 19:40] LABS: HEMOGLOBIN A1a 1.4 %; HEMOGLOBIN A1b 1.9 %; HEMOGLOBIN Ao 86.1 %; HEMOGLOBIN LA1C 1.3 %; HEMOGLOBIN P3 4.8 %
== END 2017-02-08 15:00 | disposition home or self-care (01) | DRG 92 ==
LOC: NEPC 17:10 → NEDA 02-03 02:30 → NEDH 02-03 03:49 → HIME 02-03 08:45 → N04A 02-06 18:59
PROVIDERS: ADMIT Internal Medicine; ATTEND Internal Medicine
PROC: 30233N1 Transfusion of Nonautologous Red Blood Cells into Peripheral Vein, Percutaneous Approach (ICD-10-PCS; principal; 2017-02-03)
DX: G92 Toxic encephalopathy (principal); R65.10 Systemic inflammatory response syndrome (SIRS) of non-infectious origin without acute organ dysfunction; I11.0 Hypertensive heart disease with heart failure; I48.91 Unspecified atrial fibrillation; F03.90 Unspecified dementia, unspecified severity, without behavioral disturbance, psychotic disturbance, mood disturbance, and anxiety; I50.22 Chronic systolic (congestive) heart failure; N39.0 Urinary tract infection, site not specified; J44.9 Chronic obstructive pulmonary disease, unspecified; E11.9 Type 2 diabetes mellitus without complications; I10 Essential (primary) hypertension; E78.5 Hyperlipidemia, unspecified; K21.9 Gastro-esophageal reflux disease without esophagitis; E03.9 Hypothyroidism, unspecified; R19.7 Diarrhea, unspecified; I35.0 Nonrheumatic aortic (valve) stenosis; R74.8 Abnormal levels of other serum enzymes; Z79.84 Long term (current) use of oral hypoglycemic drugs
CPT/HCPCS: 36430; 51702; 70450; 70553; 71010; 74177; 76937; 80048; 80053; 80162; 80177; 80307; 81001; 82550; 82948; 83036; 83605; 83735; 84100; 84132; 84443; 84484; 85007; 85014; 85018; 85025; 85027; 85610; 85730; 86140; 86592; 86850; 86900; 86901; 86920; 87040; 87086; 87641; 87804; 93005; 94150; 95819; 96361; 96365; 96366; 96368; A9579; J0360; J1630; J1644; J2543; J3370; J3486; J7030; J7040; J7050; P9016; Q9967

== ENCOUNTER 2017-08-02 18:13 | Inpatient (IN) | payer MEDICARE, BC ==
[~2017-08-02] VITALS: Ht 170.2 cm; Wt 95.0 kg
[~2017-08-02 18:13] MED LIST changes: +AMOX875T2 PO; +CARD240C6 PO; +METO-309 PO; -OMEP20TA PO; +OMEP20TA93 PO; +PRAV40TA PO
[2017-08-02 18:15] VITALS: BP 213/102; PULSE 88; RESP 20; TEMP 97.9; O2SAT 95
[2017-08-02] MEDS ORDERED: MORPHINE SULFATE 4 MG/ML INJ IV PUSH ONE (19:15)
[2017-08-02] MEDS ORDERED: ONDANSETRON HCL 4 MG/2 ML VIAL IV PUSH ONE ×2 (19:15→21:45)
--- NOTE | 2017-08-02 19:16 | RADRPT ---
EXAM DATE/TIME: 08/02/2017 18:45 [place] COMPARISON: No previous studies available for comparison. INDICATIONS : Chest pain MEDICAL HISTORY : Hypertension. SURGICAL HISTORY : None. ENCOUNTER: Initial ACUITY: 1 day PAIN SCORE: 0/10 LOCATION: chest FINDINGS: The heart size is mildly enlarged. The lungs are grossly clear. No effusion is seen. There is deformi ty at the glenohumeral joints likely from prominent degenerative change being worse on the right. The re is kyphosis of the thoracic spine. The bones are osteopenic. CONCLUSION: No acute abnormality is seen. The heart size is mildly enlarged. Christian Hahn MD on August 02, 2017 at 19:13 Board Certified Radiologist. This report was verified electronically.
--- NOTE | 2017-08-02 19:22 | PD ---
HPI Chief Complaint: Pain: Acute or Chronic Time Seen by Provider: 18:59 Travel History International Travel<30 days: No Contact w/Intl Traveler<30days: No Traveled to known affect area: No History of Present Illness HPI This is an 87-year-old female with history of diabetes mellitus, atrial fibrillation, neuropathy, presents today with points of left lower extremity pain and numbness and tingling. Patient reports it started yesterday. Says that over the day of scan worse. She denies any fevers, chills. She denies any injury to her left lower extremity. She also reports pain up her leg and to her low back. There is no reported bowel incontinence. There is no reported urinary incontinence. There are no other complaints time my examination. PFSH Past Medical History Hx Anticoagulant Therapy: Yes (ELIQUIS) Heart Rhythm Problems: Yes (afib) Cancer: Yes (Breast ) Cardiovascular Problems: Yes (AFIB) High Cholesterol: Yes COPD: Yes Diabetes: Yes Diminished Hearing: No Hypertension: Yes Social History Alcohol Use: Yes (RARE) Tobacco Use: No Substance Use: No Allergies-Medications (Allergen,Severity, Reaction): Coded Allergies: levetiracetam (Verified Allergy, Intermediate, 08/02/17) quetiapine (Verified Allergy, Mild, 08/02/17) Reported Meds & Prescriptions Reported Meds & Active Scripts Active Catapres (Clonidine) 0.1 Mg Tab 0.1 Mg PO Q8HR Eliquis (Apixaban) 2.5 Mg Tab 2.5 Mg PO BID Levothyroxine (Levothyroxine Sodium) 50 Mcg Tab 50 Mcg PO DAILY Pravachol (Pravastatin) 40 Mg Tab 40 Mg PO HS Lopressor (Metoprolol Tartrate) 50 Mg Tab 50 Mg PO Q12HR Cardizem CD 24 HR (Diltiazem CD 24 HR) 240 Mg Caper 240 Mg PO DAILY Reported Tolterodine (Tolterodine Tartrate) 2 Mg Tab 2 Mg PO BID Biotin 5 Mg Cap 5 Mg PO Diltiazem (Diltiazem HCl) 30 Mg Tab 30 Mg PO Q6HR Metformin (Metformin HCl) 500 Mg Tab 500 Mg PO BID With meals Omeprazole 20 Mg Tab 20 Mg PO DAILY Lisinopril 20 Mg Tab 20 Mg PO HS Potassium Chloride ER (Potassium Chloride) 20 Meq Tab 20 Meq PO BID Review of Systems Except as stated in HPI: all other systems reviewed are Neg General / Constitutional: No: Fever, Chills HENT: No: Headaches, Lightheadedness, Neck Pain Cardiovascular: Positive: Irregular Rhythm (history of A. fib), No: Chest Pain or Discomfort, Palpitations Respiratory: No: Cough, Shortness of Breath Gastrointestinal: No: Nausea, Vomiting, Abdominal Pain Genitourinary: No: Dysuria, Incontinence Musculoskeletal: Positive: Weakness (left lower extremity left lower extremity) , Edema (trace edema to bilateral lower extremity), Pain Skin: Positive Dryness (to the bilateral lower extremities), No Rash, No Lesions Neurologic: Positive: Sensory Disturbance (numbness and pain to left lower extremity), No: Weakness (left lower extremity with pain), Headache, Change in Mentation, Incontinence Physical Exam Narrative GENERAL: Well-developed well-nourished female in no obvious respiratory distress SKIN: Focused skin assessment warm/dry. HEAD: Atraumatic. Normocephalic. EYES: No scleral icterus. No injection or drainage. ENT: No nasal bleeding or discharge. Mucous membranes pink and moist. NECK: Trachea midline. Supple. CARDIOVASCULAR: Irregularly irregular. No murmur appreciated. RESPIRATORY: No accessory muscle use. Clear to auscultation. Breath sounds equal bilaterally. GASTROINTESTINAL: Abdomen soft, non-tender, nondistended. MUSCULOSKELETAL: No obvious deformities. Trace edema bilateral lower extremity is. Left lower extremity has no palpable or dopplerable dorsalis pedis or posterior tibial pulse. It is cool to touch compared to the right foot and lower leg. Subjectively patient has decreased sensation across the lower extremity from the knee down. NEUROLOGICAL: Awake and alert. No obvious cranial nerve deficits. Motor grossly within normal limits. Normal speech. PSYCHIATRIC: Appropriate mood and affect; insight and judgment normal. Data Data Last Documented VS Vital Signs Date Time Temp Pulse Resp B/P (MAP) Pulse Ox O2 Delivery O2 Flow Rate FiO2 08/02/17 21:40 20 08/02/17 21:21 90 Nasal Cannula 2.00 08/02/17 18:15 97.9 88 Orders Orders Complete Blood Count With Diff (08/02/17 18:27) Comprehensive Metabolic Panel (08/02/17 18:27) Prothrombin Time / Inr (Pt) (08/02/17 18:27) Act Partial Throm Time (Ptt) (08/02/17 18:27) Chest, Pa & Lat (08/02/17 18:27) Cta Runoff W Iv Contrast W 3d (08/02/17 ) Morphine Inj (Morphine Inj) (08/02/17 19:15) Ondansetron Inj (Zofran Inj) (08/02/17 19:15) Electrocardiogram (08/02/17 19:22) Sodium Chlor 0.9% 1000 Ml Inj (Ns 1000 M (08/02/17 20:45) Ondansetron Inj (Zofran Inj) (08/02/17 21:45) Hydromorphone Pf Inj (Dilaudid Pf Inj) (08/02/17 21:45) Place In Observation (08/02/17 ) Vital Signs (Adult) Q4H (08/02/17 22:46) Activity Bed Rest (08/02/17 22:46) Sales Operations Specialist / Telemetry .CONTINUOUS (08/02/17 22:46) Diet Heart Healthy (08/03/17 Breakfast) Sodium Chlor 0.9% 1000 Ml Inj (Ns 1000 M (08/02/17 22:46) Sodium Chloride 0.9% Flush (Ns Flush) (08/02/17 23:00) Sodium Chloride 0.9% Flush (Ns Flush) (08/03/17 09:00) Acetaminophen (Tylenol) (08/02/17 23:00) Ondansetron Inj (Zofran Inj) (08/02/17 23:00) Basic Metabolic Panel (Bmp) (08/03/17 06:00) Complete Blood Count With Diff (08/03/17 06:00) Case Management Consult (08/02/17 22:46) Enoxaparin Inj (Lovenox Inj) (08/02/17 23:00) Naloxone Inj (Narcan Inj) (08/02/17 23:00) Magnesium Hydroxide Liq (Milk Of Magnesi (08/02/17 23:00) Consult Vascular Surgery (08/02/17 ) Bedside Glucose AUSTYN.CSUGAR (08/02/17 22:53) Special Diet Instructions (08/02/17 22:53) Blood Glucose Goal (Criteria) (08/02/17 22:53) Hypoglycemia 70 Mg/Dl Or < (08/02/17 22:53) Notify Dr: Other (08/02/17 22:53) Dextrose 50% In Lauren (Vial) Inj (D50w (Vi (08/02/17 23:00) Glucagon Inj (Glucagon Inj) (08/02/17 23:00) Insulin Aspart Supplemtl Scale (Novolog (08/03/17 08:00) Apixaban (Eliquis) (08/03/17 09:00) Clonidine (Catapres) (08/03/17 06:00) Diltiazem Cd (Cardizem Cd) (08/03/17 09:00) Levothyroxine (Synthroid) (08/03/17 09:00) Metoprolol Tartrate (Lopressor) (08/03/17 09:00) Pravastatin (Pravachol) (08/03/17 21:00) (Nf) Omeprazole (08/03/17 09:00) (Nf) Tolterodine (08/03/17 09:00) Iohexol 350 Inj (Omnipaque 350 Inj) (08/02/17 23:04) (Hub Use Only)Inp Phy Cons/Ref (08/02/17 ) Admit Order (Ed Use Only) (08/02/17 23:16) Labs Laboratory Tests Test 08/02/17 19:35 White Blood Count 12.0 TH/MM3 Red Blood Count 4.34 MIL/MM3 Hemoglobin 11.4 GM/DL Hematocrit 35.5 % Mean Corpuscular Volume 81.7 FL Mean Corpuscular Hemoglobin 26.3 PG Mean Corpuscular Hemoglobin Concent 32.2 % Red Cell Distribution Width 15.9 % Platelet Count 334 TH/MM3 Mean Platelet Volume 8.4 FL Neutrophils (%) (Auto) 86.2 % Lymphocytes (%) (Auto) 8.5 % Monocytes (%) (Auto) 4.5 % Eosinophils (%) (Auto) 0.4 % Basophils (%) (Auto) 0.4 % Neutrophils # (Auto) 10.3 TH/MM3 Lymphocytes # (Auto) 1.0 TH/MM3 Monocytes # (Auto) 0.5 TH/MM3 Eosinophils # (Auto) 0.0 TH/MM3 Basophils # (Auto) 0.0 TH/MM3 CBC Comment DIFF FINAL Differential Comment Prothrombin Time 10.9 SEC Prothromb Time International Ratio 1.0 RATIO Activated Partial Thromboplast Time 25.0 SEC Blood Urea Nitrogen 24 MG/DL Creatinine 1.09 MG/DL Random Glucose 150 MG/DL Total Protein 7.8 GM/DL Albumin 3.4 GM/DL Calcium Level 9.3 MG/DL Alkaline Phosphatase 90 U/L Aspartate Amino Transf (AST/SGOT) 17 U/L Alanine Aminotransferase (ALT/SGPT) 19 U/L Total Bilirubin 0.3 MG/DL Sodium Level 137 MEQ/L Potassium Level 4.5 MEQ/L Chloride Level 102 MEQ/L Carbon Dioxide Level 20.3 MEQ/L Anion Gap 15 MEQ/L Estimat Glomerular Filtration Rate 48 ML/MIN [facility] Medical Decision Making Medical Screen Exam Complete: Yes Emergency Medical Condition: Yes Differential Diagnosis Vascular insufficiency versus DVT versus neuropathy Narrative Course 87 year old female history of atrial fibrillation, diabetes mother's, who presents today with points of left lower shimmy pain and numbness. The patient has no palpable pulses on her left dorsalis pedis or posterior tibial artery. Questionable slight dopplerable pulse on the dorsalis pedis however not reproducible. The patient has a cool extremity. It is not bleeding at this time however there is some slight mottling compared to the right foot. She's been given 2 doses of IV pain medication. There is a CT lower extremity arteriogram with runoff pending at this time. She'll be admitted to the hospital. She'll likely need to have a vascular consult in the morning. The patient is currently on eliquis for her atrial fibrillation. We will hold off on heparin at this time. Case was discussed with [facility]. John, [facility], who agrees with the admission. Diagnosis Primary Impression: left lower extremity vascular insufficiency with rest pain. Additional Impressions: Diabetes mellitus Atrial fibrillation anticoagulated, on eliquis. Admitting Information Admitting Physician Requests: Admit Heber Barnett MD Aug 02, 2017 19:22
[2017-08-02 20:16] LABS: AUTOMATED NEUTROPHIL # 10.3 TH/MM3 (1.8-7.7); BASOPHIL % 0.4 % (0.0-2.0); EOSINOPHIL % 0.4 % (0.0-4.0); HEMATOCRIT 35.5 % (35.0-46.0); HEMO FLAGS DIFF FINAL; LYMPH % 8.5 % (9.0-44.0); MEAN CELL VOLUME 81.7 FL (80.0-100.0); MEAN CORPUSCULAR HEMOGLOBIN 26.3 PG (27.0-34.0); MEAN CORPUSCULAR HGB CONC 32.2 % (32.0-36.0); MONO % 4.5 % (0.0-8.0); NEUT % 86.2 % (16.0-70.0); PLATELET COUNT 334 TH/MM3 (150-450); RED BLOOD COUNT 4.34 MIL/MM3 (4.00-5.30); RED CELL DISTRIBUTION WIDTH 15.9 % (11.6-17.2)
[2017-08-02 20:26] LABS: PROTHROMBIN TIME - PATIENT 10.9 SEC (9.8-11.6)
[2017-08-02 20:29] LABS: ANION GAP 15 MEQ/L (5-15); BICARBONATE 20.3 MEQ/L (21.0-32.0); BLOOD UREA NITROGEN 24 MG/DL (7-18); CHLORIDE 102 MEQ/L (98-107); GLOMERULAR FILTRATION RATE 48 ML/MIN (>89); POTASSIUM 4.5 MEQ/L (3.5-5.1); SODIUM (NA) 137 MEQ/L (136-145)
[2017-08-02 20:31] LABS: ALT (GPT) 19 U/L (10-53); AST (GOT) 17 U/L (15-37)
[2017-08-02 20:34] LABS: ALKALINE PHOSPHATASE 90 U/L (45-117); TOTAL BILIRUBIN ADULT 0.3 MG/DL (0.2-1.0)
[2017-08-02] MEDS ORDERED: SODIUM CHLOR 0.9% 1000 ML INJ 1,000 ML IV SCH ×2 (20:45→22:46)
[2017-08-02] MEDS ORDERED: BIOTCAP PO (21:09)
[2017-08-02] MEDS ORDERED: TOLT1TAB16 PO (21:09)
[2017-08-02 21:21] VITALS: RESP 20; O2SAT 90
[2017-08-02] MEDS ORDERED: HYDROmorphone HCL PF 1 MG/ML VIAL IV PUSH ONE (21:45)
[2017-08-02] MEDS ORDERED: NALOXONE HCL 0.4 MG/ML AMP IV PUSH PRN (23:00)
[2017-08-02] MEDS ORDERED: MAGNESIUM HYDROXIDE SUSP 30 ML CUP PO PRN (23:00)
[2017-08-02] MEDS ORDERED: ONDANSETRON HCL 4 MG/2 ML VIAL IVP PRN (23:00)
[2017-08-02] MEDS ORDERED: DEXTROSE 50% IN WATER 50 ML VIAL(D50) IV PUSH PRN (23:00)
[2017-08-02] MEDS ORDERED: GLUCAGON 1 MG/ML VIAL OTHER PRN (23:00)
[2017-08-02] MEDS ORDERED: SODIUM CHLORIDE 0.9% FLUSH 10 ML FLUSH IV FLUSH PRN (23:00)
[2017-08-02] MEDS ORDERED: ENOXAPARIN SODIUM 40 MG/0.4 ML SYRINGE SQ SCH (23:00)
[2017-08-02] MEDS ORDERED: IOHEXOL 350 MG/ML 10 ML VIAL (for RAD DIAG) IVCONTRAST ONE (23:04)
[2017-08-02 23:55] VITALS: BP 184/108; PULSE 104; RESP 22; O2SAT 92
[2017-08-03] VITALS (12 sets, daily range): BP systolic 117–182; BP diastolic 56–104; PULSE 98–119; RESP 12–20; TEMP 97.9–99.1; O2SAT 91–99
[2017-08-03] MEDS ORDERED: cloNIDine HCL 0.1 MG TAB PO ONE (01:30)
[2017-08-03] MEDS ORDERED: hydrALAZINE HCL 20 MG/ML VIAL IV PUSH ONE (01:45)
--- NOTE | 2017-08-03 02:10 | HHI.HP ---
[facility] Juli Resendiz MD Admission Diagnosis left lower ext. vascular insufficiency with rest pain, dm, Diagnoses: Travel History International Travel<30 Days: No Contact w/Intl Traveler <30 Da: No Traveled to Known Affected Are: No History of Present Illness 87-year-old female with a past medical history significant for history of bilateral lower extremity DVT, atrial fibrillation anticoagulated on Eliquis, hypertension, hyperlipidemia, CHF with an EF of 35% (echo done on 12/04) and type 2 diabetes mellitus presents to the emergency department with severe left lower extremity pain and numbness that started this afternoon. The patient states that the pain became worse to the point where she knew that she needed to come to the hospital. She states it starts in her toes and radiates up to her left hip. Her left lower extremity is cold. Pulses were not palpated and were not located with Doppler. CTA of the left lower extremity is pending. Review of Systems Denies fever or chills Denies blurry vision, otorrhea, rhinorrhea Denies sore throat and cough No chest pain, palpitations, shortness of breath No abdominal pain Denies constipation/diarrhea/nausea/vomiting Left lower extremity pain and weakness No rashes Past Family Social History Past Medical History History of bilateral DVTs and November 2016 Atrial fibrillation anticoagulated on Eliquis Type 2 diabetes mellitus Hypertension Hyperlipidemia Neuropathy History of breast cancer CHF Past Surgical History Left knee replacement Right breast lumpectomy 1994 Reported Medications Reported Meds & Active Scripts Active Catapres (Clonidine) 0.1 Mg Tab 0.1 Mg PO Q8HR Eliquis (Apixaban) 2.5 Mg Tab 2.5 Mg PO BID Levothyroxine (Levothyroxine Sodium) 50 Mcg Tab 50 Mcg PO DAILY Pravachol (Pravastatin) 40 Mg Tab 40 Mg PO HS Lopressor (Metoprolol Tartrate) 50 Mg Tab 50 Mg PO Q12HR Cardizem CD 24 HR (Diltiazem CD 24 HR) 240 Mg Caper 240 Mg PO DAILY Reported Tolterodine (Tolterodine Tartrate) 2 Mg Tab 2 Mg PO BID Biotin 5 Mg Cap 5 Mg PO Diltiazem (Diltiazem HCl) 30 Mg Tab 30 Mg PO Q6HR Metformin (Metformin HCl) 500 Mg Tab 500 Mg PO BID With meals Omeprazole 20 Mg Tab 20 Mg PO DAILY Lisinopril 20 Mg Tab 20 Mg PO HS Potassium Chloride ER (Potassium Chloride) 20 Meq Tab 20 Meq PO BID Allergies: Coded Allergies: levetiracetam (Verified Allergy, Intermediate, 08/02/17) quetiapine (Verified Allergy, Mild, 08/02/17) Family History Both parents with diabetes and CAD Social History Quit smoking 50 years ago. Occasional alcohol. Denies illicit drugs. Physical Exam Vital Signs Vital Signs Date Time Temp Pulse Resp B/P (MAP) Pulse Ox O2 Delivery O2 Flow Rate FiO2 08/03/17 00:31 107 182/104 (130) 91 Nasal Cannula 2.50 08/02/17 23:55 104 22 184/108 (133) 92 Nasal Cannula 3.00 08/02/17 21:40 20 08/02/17 21:21 20 90 Nasal Cannula 2.00 08/02/17 18:15 97.9 88 20 213/102 (139) 95 Physical Exam GENERAL: Elderly female sitting up in bed SKIN: Left lower extremity pale. No other rashes or lesions. HEAD: Atraumatic. Normocephalic. No temporal or scalp tenderness. EYES: Pupils equal round and reactive. Extraocular motions intact. No scleral icterus. No injection or drainage. ENT: Nose without bleeding, purulent drainage or septal hematoma. Throat without erythema, tonsillar hypertrophy or exudate. Uvula midline. Airway patent. NECK: Trachea midline. No JVD or lymphadenopathy. Supple, nontender, no meningeal signs. CARDIOVASCULAR: Irregular rate without murmurs/rubs/gallops. RESPIRATORY: Clear to auscultation. Breath sounds equal bilaterally. No wheezes , rales, or rhonchi. GASTROINTESTINAL: Abdomen soft, non-tender, nondistended. No hepato-splenomegaly , or palpable masses. No guarding. MUSCULOSKELETAL: Left lower extremity is cool and pale. No palpable or dopplerable pedal pulses. Patient with decreased sensation below the knee. NEUROLOGICAL: Awake and alert. Cranial nerves II through XII intact. Motor and sensory grossly within normal limits. Normal speech. Laboratory Laboratory Tests Test 11/13/17 19:35 White Blood Count 12.0 Red Blood Count 4.34 Hemoglobin 11.4 Hematocrit 35.5 Mean Corpuscular Volume 81.7 Mean Corpuscular Hemoglobin 26.3 Mean Corpuscular Hemoglobin Concent 32.2 Red Cell Distribution Width 15.9 Platelet Count 334 Mean Platelet Volume 8.4 Neutrophils (%) (Auto) 86.2 Lymphocytes (%) (Auto) 8.5 Monocytes (%) (Auto) 4.5 Eosinophils (%) (Auto) 0.4 Basophils (%) (Auto) 0.4 Neutrophils # (Auto) 10.3 Lymphocytes # (Auto) 1.0 Monocytes # (Auto) 0.5 Eosinophils # (Auto) 0.0 Basophils # (Auto) 0.0 CBC Comment DIFF FINAL Differential Comment Prothrombin Time 10.9 Prothromb Time International Ratio 1.0 Activated Partial Thromboplast Time 25.0 Blood Urea Nitrogen 24 Creatinine 1.09 Random Glucose 150 Total Protein 7.8 Albumin 3.4 Calcium Level 9.3 Alkaline Phosphatase 90 Aspartate Amino Transf (AST/SGOT) 17 Alanine Aminotransferase (ALT/SGPT) 19 Total Bilirubin 0.3 Sodium Level 137 Potassium Level 4.5 Chloride Level 102 Carbon Dioxide Level 20.3 Anion Gap 15 Estimat Glomerular Filtration Rate 48 Result Diagram: 08/02/17193408/02/171934 Caprini VTE Risk Assessment Caprini VTE Risk Assessment: Mod/High Risk (score >= 2) Caprini Risk Assessment Model Point Value = 1 Point Value = 2 Point Value = 3 Point Value = 5 Age 41-60 Minor surgery BMI > 25 kg/m2 Swollen legs Varicose veins or History of unexplained or recurrent spontaneous Oral contraceptives or hormone replacement Sepsis (< 1 month) Serious lung disease, including pneumonia (< 1 month) Abnormal pulmonary function Acute myocardial infarction Congestive heart failure (< 1 month) History of inflammatory bowel disease Medical patient at bed rest Age 61-74 Arthroscopic surgery Major open surgery (> 45 min) Laparoscopic surgery (> 45 min) Malignancy Confined to bed (> 72 hours) Immobilizing plaster cast Central venous access Age >= 75 History of VTE Family history of VTE Factor V Leiden Prothrombin [id number] Lupus anticoagulant Anticardiolipin antibodies Elevated serum homocysteine Heparin-induced thrombocytopenia Other congenital or acquired thrombophilia Stroke (< 1 month) Elective arthroplasty Hip, pelvis, or leg fracture Acute spinal cord injury (< 1 month) Prophylaxis Regimen Total Risk Factor Score Risk Level Prophylaxis Regimen 0-1 Low Early ambulation 2 Moderate Order ONE of the following: *Sequential Compression Device (SCD) *Heparin 5000 units SQ BID 3-4 Higher Order ONE of the following medications: *Heparin 5000 units SQ TID *Enoxaparin/Lovenox 40 mg SQ daily (WT < 150 kg, CrCl > 30 mL/min) *Enoxaparin/Lovenox 30 mg SQ daily (WT < 150 kg, CrCl > 10-29 mL/min) *Enoxaparin/Lovenox 30 mg SQ BID (WT < 150 kg, CrCl > 30 mL/min) AND/OR *Sequential Compression Device (SCD) 5 or more Highest Order ONE of the following medications: *Heparin 5000 units SQ TID (Preferred with Epidurals) *Enoxaparin/Lovenox 40 mg SQ daily (WT < 150 kg, CrCl > 30 mL/min) *Enoxaparin/Lovenox 30 mg SQ daily (WT < 150 kg, CrCl > 10-29 mL/min) *Enoxaparin/Lovenox 30 mg SQ BID (WT < 150 kg, CrCl > 30 mL/min) AND *Sequential Compression Device (SCD) Assessment and Plan Assessment and Plan 87-year-old female with a past medical history significant for A. fib anticoagulated on Eliquis, CHF (EF 35%), hypertension, hyperlipidemia and history of bilateral lower extremity DVT presents with a one-day history of claudication at rest, numbness and decreased sensation in her left lower extremity. 1. Left lower extremity pain/claudication at rest CTA pending Vascular surgery consult placed Patient anticoagulated on Eliquis 2. LEVAR BUN/creatinine 24/1.09, baseline 0.7 Gentle IV fluid hydration 3. CHF Monitor for signs/symptoms of volume overload Last echo done on 11/2016 showed an EF of 35% Patient's girl friday is Dr. Henderson 4. Atrial fibrillation Anticoagulated on a Eliquis Rate controlled Continue home metoprolol, diltiazem 4. Diabetes mellitus SSI Holding metformin 5. Hypertension Continue home medications 6. Hyperlipidemia Continue home medications 7. Hypothyroidism Continue home Synthroid FEN NPO NS at 42 cc/hr Electrolytes: monitor and replete prn Juanis Quiles MD Aug 03, 2017 02:10
[2017-08-03] MEDS ORDERED: GLUCAGON 1 MG/ML VIAL OTHER PRN (02:15)
[2017-08-03] MEDS ORDERED: DEXTROSE 50% IN WATER 50 ML VIAL(D50) IV PUSH PRN (02:15)
[2017-08-03] MEDS: ACETAMINOPHEN 325 MG TAB PO PRN (04:28)
[2017-08-03] MEDS: LEVOTHYROXINE SODIUM 50 MCG TAB PO SCH (05:16)
[2017-08-03] MEDS: cloNIDine HCL 0.1 MG TAB PO SCH ×3 (05:16→20:55)
[2017-08-03] MEDS: HEPARIN-D5W 25,000 U/250 ML 250 ML IV PRN (06:05)
[2017-08-03 06:55] LABS: AUTOMATED NEUTROPHIL # 11.4 TH/MM3 (1.8-7.7); BASOPHIL # 0.1 TH/MM3 (0-0.2); BASOPHIL % 0.5 % (0.0-2.0); HEMATOCRIT 30.7 % (35.0-46.0); HEMO FLAGS DIFF FINAL; LYMPH % 7.8 % (9.0-44.0); LYMPHOCYTE # 1.1 TH/MM3 (1.0-4.8); MEAN CORPUSCULAR HGB CONC 32.1 % (32.0-36.0); NEUT % 83.7 % (16.0-70.0); PLATELET COUNT 334 TH/MM3 (150-450); RED BLOOD COUNT 3.79 MIL/MM3 (4.00-5.30); RED CELL DISTRIBUTION WIDTH 15.8 % (11.6-17.2); WHITE BLOOD COUNT 13.7 TH/MM3 (4.0-11.0)
[2017-08-03 07:05] LABS: APTT (PATIENT) 24.7 SEC (24.3-30.1); PROTHROMBIN TIME - PATIENT 11.6 SEC (9.8-11.6)
[2017-08-03 07:41] LABS: BICARBONATE 24.9 MEQ/L (21.0-32.0); POTASSIUM 3.5 MEQ/L (3.5-5.1)
--- NOTE | 2017-08-03 07:50 | RADRPT ---
EXAM DATE/TIME: 08/02/2017 22:26 [place] COMPARISON: No previous studies available for comparison. INDICATIONS : Left lower extremity numbness, pain and discolored. IV CONTRAST: 80 cc Omnipaque 350 (iohexol) IV RADIATION DOSE: 3.56 CTDIvol (mGy) MEDICAL HISTORY : Cardiovascular disease. Chronic obstructive pulmonary disease. Hypertension.Diabetes. Breast cancer. SURGICAL HISTORY : None. ENCOUNTER: Initial ACUITY: 1 day PAIN SCALE: 6/10 LOCATION: Left lower extremety TECHNIQUE: Volumetric scanning was performed using a multi-row detector CT scanner. The data was post processed with a variety of visualization algorithms including full volume maximum intensity projection, multi -planar sliding thin slab reformation, curved planar reformation, and surface rendering techniques. Using automated exposure control and adjustment of the mA and/or kV according to patient size, radiat ion dose was kept as low as reasonably achievable to obtain optimal diagnostic quality images. DICO M format image data is available electronically for review and comparison. FINDINGS: Aorta/inflow: Scattered calcified and noncalcified atheromatous plaque throughout the aorta and inflow vessels. No aneurysmal change or hemodynamically significant stenosis. Atherosclerotic plaque generates a 50% lisa nosis of the celiac origin and 60% stenosis of the SMA origin. A high-grade stenosis is seen involvin g the right renal artery. A 30-40% stenosis involving the left renal artery. Both internal artery devika w moderate stenoses at their origins. Right lower extremity: Scattered calcified plaque throughout the outflow vessels without a hemodynamically significant steno sis observed. Significant trifurcation disease observed with all 3 vessels heavily calcified. The ant erior tibial artery is shows scattered calcified plaque with a solitary short segment occlusion withi n its distal aspect. It does cross the ankle joint and form the dorsalis pedis. The posterior tibial artery is heavily calcified and chronically occluded there are areas of reconstitution. It does form the plantar vessels. The peroneal artery is calcified but patent. Left lower extremity: The common femoral artery occludes at its origin. There is complete occlusion throughout the outflow and runoff vessels. No named vessel observed opacified with contrast. The profunda femoris does recon stitute and is patent. Other structures: A total knee prosthesis is seen on the left. This generates beam hardening artifact obscuring the pop liteal fossa. A calcified fibroid is seen within an otherwise unremarkable uterus. Multiple colonic d iverticuli. No acute inflammation observed. There is diffuse thickening of both adrenal glands. No di screte mass. Bilateral renal cysts. Tiny calcified gallstones within an otherwise normal-appearing ga llbladder. Moderate sized hiatal hernia. 1.9 cm cystic lesion involving the spleen. Bilateral hip deg enerative changes. CONCLUSION: 1. Patent inflow. 2. Right lower extremity shows patent outflow with diseased runoff. Runoff is via a diseased anterior tibial artery and reconstituted posterior tibial artery. 3. Left lower extremity has complete occlusion of the outflow and runoff beginning at the origin of t he common femoral artery. There is reconstitution of the profunda femoris. 4. Hemodynamically significant stenoses involving the celiac, SMA, and renal arteries. Davey Parsons Jr., MD on August 03, 2017 at 7:35 Board Certified Radiologist. This report was verified electronically.
[2017-08-03] MEDS: INSULIN ASPART SUPPLEMENTAL SCALE SQ SCH ×4 (08:00→20:58)
[2017-08-03] MEDS ORDERED: INSULIN ASPART SUPPLEMENTAL SCALE SQ SCH (08:00)
--- NOTE | 2017-08-03 08:46 | PD.VS.PN ---
Subjective Subjective/Hospital Course Pt seen in ED this morning. Acute L LE ischemia and has lost motor function at ankle. Palpable femoral pulse To OR emergently. Full H&P to follow. Objective Vitals/I&O Date Time Temp Pulse Resp B/P (MAP) Pulse Ox O2 Delivery O2 Flow Rate FiO2 08/03/17 07:32 97.9 119 18 150/85 (106) 92 08/03/17 03:39 99.1 116 18 134/80 (98) 93 08/03/17 03:37 114 08/03/17 03:04 08/03/17 01:48 103 20 170/92 (118) 92 Nasal Cannula 2.50 08/03/17 00:31 107 182/104 (130) 91 Nasal Cannula 2.50 08/02/17 23:55 104 22 184/108 (133) 92 Nasal Cannula 3.00 08/02/17 21:40 20 08/02/17 21:21 20 90 Nasal Cannula 2.00 08/02/17 18:15 97.9 88 20 213/102 (139) 95 Physical Exam Palpable L femoral pulse. No distal signals. No motor function at ankle. Laboratory Laboratory Tests Test 08/02/17 19:35 08/03/17 06:40 White Blood Count 12.0 13.7 Red Blood Count 4.34 3.79 Hemoglobin 11.4 9.9 Hematocrit 35.5 30.7 Mean Corpuscular Volume 81.7 81.0 Mean Corpuscular Hemoglobin 26.3 26.0 Mean Corpuscular Hemoglobin Concent 32.2 32.1 Red Cell Distribution Width 15.9 15.8 Platelet Count 334 334 Mean Platelet Volume 8.4 8.0 Neutrophils (%) (Auto) 86.2 83.7 Lymphocytes (%) (Auto) 8.5 7.8 Monocytes (%) (Auto) 4.5 8.0 Eosinophils (%) (Auto) 0.4 0.0 Basophils (%) (Auto) 0.4 0.5 Neutrophils # (Auto) 10.3 11.4 Lymphocytes # (Auto) 1.0 1.1 Monocytes # (Auto) 0.5 1.1 Eosinophils # (Auto) 0.0 0.0 Basophils # (Auto) 0.0 0.1 CBC Comment DIFF FINAL DIFF FINAL Differential Comment Prothrombin Time 10.9 11.6 Prothromb Time International Ratio 1.0 1.0 Activated Partial Thromboplast Time 25.0 24.7 Blood Urea Nitrogen 24 18 Creatinine 1.09 0.67 Random Glucose 150 139 Total Protein 7.8 Albumin 3.4 Calcium Level 9.3 8.3 Alkaline Phosphatase 90 Aspartate Amino Transf (AST/SGOT) 17 Alanine Aminotransferase (ALT/SGPT) 19 Total Bilirubin 0.3 Sodium Level 137 139 Potassium Level 4.5 3.5 Chloride Level 102 105 Carbon Dioxide Level 20.3 24.9 Anion Gap 15 9 Estimat Glomerular Filtration Rate 48 84 Imaging Last 48 hours Impressions Chest X-Ray 08/02/17 1827 Signed Impressions: Service Date/Time: Wednesday, August 02, 2017 18:45 - CONCLUSION: No acute abnormality is seen. The heart size is mildly enlarged. Christian Hahn MD Aorta w/Runoff CTA 08/02/17 0000 Signed Impressions: Service Date/Time: Wednesday, August 02, 2017 22:26 - CONCLUSION: 1. Patent inflow. 2. Right lower extremity shows patent outflow with diseased runoff. Runoff is via a diseased anterior tibial artery and reconstituted posterior tibial artery. 3. Left lower extremity has complete occlusion of the outflow and runoff beginning at the origin of the common femoral artery. There is reconstitution of the profunda femoris. 4. Hemodynamically significant stenoses involving the celiac, SMA, and renal arteries. Davey Parsons Jr., MD Assessment and Plan Plan To OR emergently. Discussed procedure with patient. CPCU post-op. Jorden Torrez MD Aug 03, 2017 08:46
[2017-08-03] MEDS ORDERED: APIXABAN 2.5 MG TABLET PO SCH (09:00)
--- NOTE | 2017-08-03 09:45 | PD.VS.CON ---
History of Present Illness Chief Complaint: Pt c/o Sudden onset LEFT Lower extremity pain and numbness Consult Requested by: ED History of Present Illness Ms. Michel is an 87-year-old female with a past medical history of bilateral lower extremity DVT, atrial fibrillation (on Eliquis), HTN, Hyperlipidemia, CHF and DM Pt presented to the emergency department with severe left lower extremity pain and numbness that started suddenly after lunch on 08/02/17. LLE w/ non palpable DP/PT and cold to touch with mottled skin from Left lateral aspect of knee to toes. LLE w/ decreased motor function. (Coco Horvath) Past/Family/Social History Past Medical History History of bilateral DVTs (11/2016) Atrial fibrillation anticoagulated on Eliquis Type 2 diabetes mellitus HTN Hyperlipidemia Neuropathy History of breast cancer CHF Past Surgical History Left knee replacement Right breast lumpectomy 1994 Social History Neg- Smoking (quit 50 years ago) Occasional- ETOH Neg- Illicit drugs Family History DM CAD (Coco Horvath) Home Medications Active Scripts Clonidine (Catapres) 0.1 Mg Tab, 0.1 MG PO Q8HR for Blood Pressure Management, # 90 TAB 0 Refills Prov:Tarik Ang MD 02/08/17 Apixaban (Eliquis) 2.5 Mg Tab, 2.5 MG PO BID for Blood Clot Prevention, #60 TAB 0 Refills Prov:Tarik Ang MD 02/08/17 Levothyroxine (Levothyroxine) 50 Mcg Tab, 50 MCG PO DAILY for Thyroid, #30 TAB 0 Refills Prov:Tarik Ang MD 02/08/17 Pravastatin (Pravachol) 40 Mg Tab, 40 MG PO HS for CM, #30 TAB Prov:Tarik Ang MD 02/08/17 Metoprolol Tartrate (Lopressor) 50 Mg Tab, 50 MG PO Q12HR for Regulate Heart Beat, #60 TAB Prov:Tarik Ang MD 02/08/17 Diltiazem CD 24 HR (Cardizem CD 24 HR) 240 Mg Caper, 240 MG PO DAILY for Regulate Heart Beat, #30 CAP Prov:Tarik Ang MD 02/08/17 Reported Medications Tolterodine (Tolterodine) 2 Mg Tab, 2 MG PO BID for Urinary Symptom Managemen, # 60 TAB 0 Refills 08/02/17 Biotin (Biotin) 5 Mg Cap, 5 MG PO for Nutritional Supplement, #1 BOTTLE 0 Refills 08/02/17 Diltiazem (Diltiazem) 30 Mg Tab, 30 MG PO Q6HR for A-FIB, #120 TAB 0 Refills 01/30/17 Metformin (Metformin) 500 Mg Tab, 500 MG PO BID for Blood Sugar Management, #60 TAB 0 Refills With meals 01/30/17 Omeprazole (Omeprazole) 20 Mg Tab, 20 MG PO DAILY for GERD, #30 TAB 0 Refills 01/30/17 Lisinopril (Lisinopril) 20 Mg Tab, 20 MG PO HS for Blood Pressure Management, # 30 TAB 0 Refills 01/30/17 Potassium Chloride ER (Potassium Chloride ER) 20 Meq Tab, 20 MEQ PO BID for Electrolyte Replacement, #60 TAB 0 Refills 01/30/17 Discontinued Reported Medications Insulin Lispro (Human) Inj (Humalog Inj) 1,000 Unit/10 Ml Vial, 2-10 UNITS SQ ACHS for Blood Sugar Management, #1 VIAL 0 Refills SLIDING SCALE: if 151-200=2 units, 201-250=4 units, 251-300=6 units, 301-350=8 units, 351-400=10 units, <70 or >401, call 01/30/17 Calcium (Calcium) 600 Mg Tab, 600 MG PO BID, TAB 01/30/17 Simvastatin (Zocor) 20 Mg Tab, 20 MG PO HS for Cholesterol Management, #30 TAB 0 Refills 01/30/17 [place]-3 Fatty Acids (Fish Oil 1000 mg) 1 Cap Cap, 1000 MG PO DAILY for Nutritional Supplement 01/30/17 Cholecalciferol (Vitamin D3) 1,000 Unit Tab, 1000 UNITS PO DAILY for Nutritional Supplement, #1 BOTTLE 0 Refills 01/30/17 Discontinued Scripts Levetiracetam (Keppra) 500 Mg Tab, 500 MG PO BID for Control Seizures, #60 TAB 0 Refills Prov:Tarik Ang MD 02/08/17 Quetiapine (Seroquel) 25 Mg Tab, 25 MG PO BID for Agitation, #60 TAB 0 Refills Prov:Tarik Ang MD 02/08/17 Digoxin (Lanoxin) 0.25 Mg Tab, 0.25 MG PO DAILY for A-FIB, #30 TAB 0 Refills Hold for apical pulse less than 60. Notify Physician if held. Prov:Tarik Ang MD 02/08/17 Amoxicillin-Clavulanate (Amoxicillin-Clavulanate) 875-125 mg Tab, 875 MG PO Q12HR for Infection, #4 TAB Prov:Tarik Ang MD 02/08/17 Lorazepam (Ativan) 0.5 Mg Tab, 0.5 MG PO Q8H Y for ANXIETY AND/OR AGITATION, #6 TAB 0 Refills Prov:Rajat Hanson MD 02/01/17 Coded Allergies: levetiracetam (Verified Allergy, Intermediate, 08/02/17) quetiapine (Verified Allergy, Mild, 08/02/17) Review of Systems Integumentary: COMPLAINS OF: Abnormal pigmentation (mottled LLE /cold to touch ) (Coco Horvath) Physical Exam Vitals/I&O Date Time Temp Pulse Resp B/P (MAP) Pulse Ox O2 Delivery O2 Flow Rate FiO2 08/03/17 07:32 97.9 119 18 150/85 (106) 92 08/03/17 03:39 99.1 116 18 134/80 (98) 93 08/03/17 03:37 114 08/03/17 03:04 08/03/17 01:48 103 20 170/92 (118) 92 Nasal Cannula 2.50 08/03/17 00:31 107 182/104 (130) 91 Nasal Cannula 2.50 08/02/17 23:55 104 22 184/108 (133) 92 Nasal Cannula 3.00 08/02/17 21:40 20 08/02/17 21:21 20 90 Nasal Cannula 2.00 08/02/17 18:15 97.9 88 20 213/102 (139) 95 Neuro: GCS 15 CN 2-12 intact Neck: No JVD distention Heart: +S1,S2 Lungs: CTA O2/2L/NC Abdomen: S/NT Vascular: Non palpable L DP/PT Palpable R/L femoral pulses LLE cold to touch with mottled skin from lateral aspect of L knee to toes (Coco Horvath) Laboratory Tests Test 08/02/17 19:35 08/03/17 06:40 White Blood Count 12.0 13.7 Red Blood Count 4.34 3.79 Hemoglobin 11.4 9.9 Hematocrit 35.5 30.7 Mean Corpuscular Volume 81.7 81.0 Mean Corpuscular Hemoglobin 26.3 26.0 Mean Corpuscular Hemoglobin Concent 32.2 32.1 Red Cell Distribution Width 15.9 15.8 Platelet Count 334 334 Mean Platelet Volume 8.4 8.0 Neutrophils (%) (Auto) 86.2 83.7 Lymphocytes (%) (Auto) 8.5 7.8 Monocytes (%) (Auto) 4.5 8.0 Eosinophils (%) (Auto) 0.4 0.0 Basophils (%) (Auto) 0.4 0.5 Neutrophils # (Auto) 10.3 11.4 Lymphocytes # (Auto) 1.0 1.1 Monocytes # (Auto) 0.5 1.1 Eosinophils # (Auto) 0.0 0.0 Basophils # (Auto) 0.0 0.1 CBC Comment DIFF FINAL DIFF FINAL Differential Comment Prothrombin Time 10.9 11.6 Prothromb Time International Ratio 1.0 1.0 Activated Partial Thromboplast Time 25.0 24.7 Blood Urea Nitrogen 24 18 Creatinine 1.09 0.67 Random Glucose 150 139 Total Protein 7.8 Albumin 3.4 Calcium Level 9.3 8.3 Alkaline Phosphatase 90 Aspartate Amino Transf (AST/SGOT) 17 Alanine Aminotransferase (ALT/SGPT) 19 Total Bilirubin 0.3 Sodium Level 137 139 Potassium Level 4.5 3.5 Chloride Level 102 105 Carbon Dioxide Level 20.3 24.9 Anion Gap 15 9 Estimat Glomerular Filtration Rate 48 84 Last 48 hours Impressions Chest X-Ray 08/02/17 1827 Signed Impressions: Service Date/Time: Wednesday, August 02, 2017 18:45 - CONCLUSION: No acute abnormality is seen. The heart size is mildly enlarged. Christian Hahn MD Aorta w/Runoff CTA 08/02/17 0000 Signed Impressions: Service Date/Time: Wednesday, August 02, 2017 22:26 - CONCLUSION: 1. Patent inflow. 2. Right lower extremity shows patent outflow with diseased runoff. Runoff is via a diseased anterior tibial artery and reconstituted posterior tibial artery. 3. Left lower extremity has complete occlusion of the outflow and runoff beginning at the origin of the common femoral artery. There is reconstitution of the profunda femoris. 4. Hemodynamically significant stenoses involving the celiac, SMA, and renal arteries. Davey Parsons Jr., MD (Coco Horvath) Assessment and Plan Assessment: (1) Arterial occlusion Status: Acute Plan Pt presents with a decrease in LLE motor function, sudden onset rest pain and cold LLE To OR emergently for revascularization Plan PT to OR for LLE revascularization with Dr. Torrez Discussed procedure with patient Pt agrees with plan and consents were signed Pt to CPCU post op Coco BUCKLEY [facility] [phone] Discharge Planning 3-5 days (Coco Horvath) Plan Acute L LE ischemia now with motor deficit. To OR emergently. Seen with MARCIO Fritz MD FACS executive coordinator [facility] - Heart and Vascular Surgery [phone] (Jorden Torrez MD) Coco Horvath Aug 03, 2017 09:45 Jorden Torrez MD Aug 03, 2017 12:33
[2017-08-03] MEDS ORDERED: HEPARIN-NS/PF INJ 500 ML ONE (09:59)
[2017-08-03] MEDS ORDERED: HEPARIN SODIUM - IV 10,000 UNITS/10 ML VIAL ONE (09:59)
[2017-08-03] MEDS ORDERED: THROMBIN (TOPICAL) 20,000 UNIT SPRAY KIT ONE (09:59)
[2017-08-03] MEDS ORDERED: BUPIVACAINE HCL PF 0.5% 30 ML VIAL ONE (09:59)
[2017-08-03] MEDS ORDERED: PROTAMINE SULFATE 50 MG/5 ML VIAL ONE (09:59)
[2017-08-03] MEDS: D5-1/2 NS + KCL 20 MEQ INJ 1,000 ML IV SCH (11:08)
--- NOTE | 2017-08-03 11:08 | HHI.PR ---
Immediate Post Op Note Procedure Date: Aug 03, 2017 Pre Op Diagnosis: Acute LEFT leg ischemia Post Op Diagnosis: Acute LEFT leg ischemia Surgeon: Jorden Torrez Photographic Artist(s): Kendra Procedure: 1. L TOP COLLAR MAKER TEA w/ patch endarterectomy 2. L femoral embolectomy via groin incision 3. L LE 4 compartment fasciotomies Findings: 1. Acute thrombus in L TOP COLLAR MAKER 2. Chronically occluded PT 3. Peroneal artery runoff only 4. Bulging muscle in calf when re-perfused - all viable Additional Information: + Peroneal signal (lateral distal calf) Complications: none Specimen(s) removed: none for pathology Estimated blood loss: 125mL Anesthesia: General Drains: None Fluids: 1100mL IVF Urinary Output (mLs): 625 Patient to: CVICU Patient Condition: Fair Implant/Devices: SEE IMPLANT LOG (if applicable) Date/Time of Procedure: SEE SURGICAL CARE RECORD Jorden Torrez MD Aug 03, 2017 11:08
[2017-08-03] MEDS ORDERED: HYDROmorphone HCL 2 MG TAB PO PRN (11:15)
[2017-08-03] MEDS ORDERED: BISACODYL 10 MG SUPP RECTAL PRN (11:15)
[2017-08-03] MEDS ORDERED: MAGNESIUM HYDROXIDE SUSP 30 ML CUP PO PRN (11:15)
[2017-08-03] MEDS ORDERED: LACTULOSE SYRUP 20 GM/30 ML CUP PO PRN (11:15)
[2017-08-03] MEDS ORDERED: MORPHINE SULFATE 4 MG/ML INJ IV PUSH PRN (11:15)
[2017-08-03] MEDS ORDERED: HEPARIN-D5W 25,000 U/250 ML 250 ML IV PRN (11:15)
[2017-08-03] MEDS ORDERED: SENNOSIDES 8.6 MG TAB PO PRN (11:15)
[2017-08-03] MEDS ORDERED: LORazepam 2 MG/ML VIAL ONE (11:39)
[2017-08-03] MEDS ORDERED: PHENYLEPHRINE HCL 10 MG/ML VIAL IV ONE (12:00)
[2017-08-03] MEDS ORDERED: LACTATED RINGER'S 1000 ML INJ 2,000 ML IV ONE (12:00)
[2017-08-03] MEDS ORDERED: DEXAMETHASONE SOD PHOS 4 MG/ML VIAL IV ONE (12:00)
[2017-08-03] MEDS ORDERED: PHENYLEPH/NS 1000 MCG/10 ML SYR IV ONE (12:00)
[2017-08-03] MEDS ORDERED: HALOPERIDOL LACTATE 5 MG/ML AMP IV PUSH ONE (12:00)
[2017-08-03] MEDS ORDERED: LIDOCAINE HCL 1% PF 5 ML AMPULE OTHER ONE (12:00)
[2017-08-03] MEDS ORDERED: METOPROLOL TARTRATE 5 MG/5 ML VIAL IV PUSH ONE (12:00)
[2017-08-03] MEDS ORDERED: GLYCOPYRROLATE 1 MG/5 ML SYRINGE IV PUSH ONE (12:00)
[2017-08-03] MEDS ORDERED: PROPOFOL 200 MG/20 ML AMP IV ONE (12:00)
[2017-08-03] MEDS ORDERED: ceFAZolin INJ 1,000 MG VIAL IV ONE (12:00)
[2017-08-03] MEDS ORDERED: SODIUM CHLORID 0.9% 500 ML INJ 500 ML IV ONE (12:00)
[2017-08-03] MEDS ORDERED: ESMOLOL HCL 100 MG/10 ML VIAL IV ONE (12:00)
[2017-08-03] MEDS ORDERED: SODIUM CHLOR 0.9% 250 ML INJ 250 ML IV ONE (12:00)
[2017-08-03] MEDS ORDERED: NEOSTIGMINE 3 MG/3 ML SYR IV ONE (12:00)
[2017-08-03] MEDS ORDERED: ROCURONIUM INJ 50 MG/5 ML SYRINGE IV PUSH ONE (12:00)
[2017-08-03] MEDS ORDERED: ONDANSETRON HCL 4 MG/2 ML VIAL IV PUSH ONE (12:00)
[2017-08-03] MEDS ORDERED: LORazepam 2 MG/ML VIAL IV PUSH PRN (12:30)
[2017-08-03 12:31] LABS: HEMATOCRIT 33.3 % (35.0-46.0); MEAN CELL VOLUME 81.7 FL (80.0-100.0); MEAN CORPUSCULAR HEMOGLOBIN 26.2 PG (27.0-34.0); MEAN CORPUSCULAR HGB CONC 32.1 % (32.0-36.0); PLATELET COUNT 386 TH/MM3 (150-450); RED BLOOD COUNT 4.08 MIL/MM3 (4.00-5.30); REVIEW FLAG FINAL; WHITE BLOOD COUNT 15.9 TH/MM3 (4.0-11.0)
[2017-08-03 12:41] LABS: INTERNATIONAL NORMALIZED RATIO 1.1 RATIO; PROTHROMBIN TIME - PATIENT 12.1 SEC (9.8-11.6)
[2017-08-03 12:57] LABS: APTT (PATIENT) 94.5 SEC (24.3-30.1)
[2017-08-03 12:59] LABS: BICARBONATE 25.5 MEQ/L (21.0-32.0); POTASSIUM 3.2 MEQ/L (3.5-5.1)
--- NOTE | 2017-08-03 13:42 | PD.CONS ---
[facility] Service Critical Care Medicine Consult Requested By Dr. Torrez Reason for Consult management of medical comorbidities Primary Care Physician Juli Resendiz MD History of Present Illness This is an 87yF with h/o prior DVTs and PAD and CHF with EF 35% (last echo november 2016) who presented to the ED with 1 day history of LE pain and numbness and found to have common femoral artery occlusion with vascular compromise. She was taken emergently to the OR for acute embolectomy and revascularization with groin reconstruction. At the conclusion of the procedure, her calf muscles were edematous and prophylactic/therapeutic fasciotomy was performed on the LE compartments. She is brought to the CVICU in stable condition for close monitoring. On my initial evaluation, she is still arousing from anesthesia and no additional information is obtained from the patient. ROS negative. Review of Systems ROS Limitations: Clinical Condition, Altered Mental Status ROS recently under anesthesia, still sedated and arousing. 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 Atrial fibrillation anticoagulated on Eliquis Type 2 diabetes mellitus Hypertension Hyperlipidemia Neuropathy History of breast cancer CHF Past Surgical History Left knee replacement Right breast lumpectomy 1994 Reported Medications Catapres (Clonidine) 0.1 Mg Tab 0.1 Mg PO Q8HR Eliquis (Apixaban) 2.5 Mg Tab 2.5 Mg PO BID Levothyroxine (Levothyroxine Sodium) 50 Mcg Tab 50 Mcg PO DAILY Pravachol (Pravastatin) 40 Mg Tab 40 Mg PO HS Lopressor (Metoprolol Tartrate) 50 Mg Tab 50 Mg PO Q12HR Cardizem CD 24 HR (Diltiazem CD 24 HR) 240 Mg Caper 240 Mg PO DAILY Tolterodine (Tolterodine Tartrate) 2 Mg Tab 2 Mg PO BID Biotin 5 Mg Cap 5 Mg PO Diltiazem (Diltiazem HCl) 30 Mg Tab 30 Mg PO Q6HR Metformin (Metformin HCl) 500 Mg Tab 500 Mg PO BID With meals Omeprazole 20 Mg Tab 20 Mg PO DAILY Lisinopril 20 Mg Tab 20 Mg PO HS Potassium Chloride ER (Potassium Chloride) 20 Meq Tab 20 Meq PO BID Active Ordered Medications See MAR Family History Both parents with diabetes and CAD Social History Quit smoking 50 years ago. Occasional alcohol. Denies illicit drugs. Physical Exam Vital Signs Vital Signs Date Time Temp Pulse Resp B/P (MAP) Pulse Ox O2 Delivery O2 Flow Rate FiO2 08/03/17 07:32 97.9 119 18 150/85 (106) 92 08/03/17 03:39 99.1 116 18 134/80 (98) 93 08/03/17 03:37 114 08/03/17 03:04 08/03/17 01:48 103 20 170/92 (118) 92 Nasal Cannula 2.50 08/03/17 00:31 107 182/104 (130) 91 Nasal Cannula 2.50 08/02/17 23:55 104 22 184/108 (133) 92 Nasal Cannula 3.00 08/02/17 21:40 20 08/02/17 21:21 20 90 Nasal Cannula 2.00 08/02/17 18:15 97.9 88 20 213/102 (139) 95 Physical Exam gen: frail elderly female, lying in bed, arousing from anesthesia. heent: nc. at. perrl. mmm. neck: no jvd. trachea midline chest: facemask o2. unlabored. cv: normal rate, irregularly irregular rhythm. afib by tele. abd: soft, nontender, nondistended. no guarding. extr: left groin incision c/d/i. no hematoma. left distal LE wrapped. + Doppler pulses. neuro: RASS -2 on my eval. arousing from anesthesia. moves all extremities. Laboratory Laboratory Tests Test 08/02/17 19:35 08/03/17 06:40 08/03/17 12:00 White Blood Count 12.0 13.7 15.9 Red Blood Count 4.34 3.79 4.08 Hemoglobin 11.4 9.9 10.7 Hematocrit 35.5 30.7 33.3 Mean Corpuscular Volume 81.7 81.0 81.7 Mean Corpuscular Hemoglobin 26.3 26.0 26.2 Mean Corpuscular Hemoglobin Concent 32.2 32.1 32.1 Red Cell Distribution Width 15.9 15.8 16.0 Platelet Count 334 334 386 Mean Platelet Volume 8.4 8.0 8.0 Neutrophils (%) (Auto) 86.2 83.7 Lymphocytes (%) (Auto) 8.5 7.8 Monocytes (%) (Auto) 4.5 8.0 Eosinophils (%) (Auto) 0.4 0.0 Basophils (%) (Auto) 0.4 0.5 Neutrophils # (Auto) 10.3 11.4 Lymphocytes # (Auto) 1.0 1.1 Monocytes # (Auto) 0.5 1.1 Eosinophils # (Auto) 0.0 0.0 Basophils # (Auto) 0.0 0.1 CBC Comment DIFF FINAL DIFF FINAL Differential Comment Prothrombin Time 10.9 11.6 12.1 Prothromb Time International Ratio 1.0 1.0 1.1 Activated Partial Thromboplast Time 25.0 24.7 94.5 Blood Urea Nitrogen 24 18 17 Creatinine 1.09 0.67 0.87 Random Glucose 150 139 199 Total Protein 7.8 Albumin 3.4 Calcium Level 9.3 8.3 8.1 Alkaline Phosphatase 90 Aspartate Amino Transf (AST/SGOT) 17 Alanine Aminotransferase (ALT/SGPT) 19 Total Bilirubin 0.3 Sodium Level 137 139 138 Potassium Level 4.5 3.5 3.2 Chloride Level 102 105 101 Carbon Dioxide Level 20.3 24.9 25.5 Anion Gap 15 9 12 Estimat Glomerular Filtration Rate 48 84 62 Result Diagram: 08/03/17 1200 08/03/17 1200 Imaging Last Impressions Chest X-Ray 08/02/17 1827 Signed Impressions: Service Date/Time: Wednesday, August 02, 2017 18:45 - CONCLUSION: No acute abnormality is seen. The heart size is mildly enlarged. Christian Hahn MD Aorta w/Runoff CTA 08/02/17 0000 Signed Impressions: Service Date/Time: Wednesday, August 02, 2017 22:26 - CONCLUSION: 1. Patent inflow. 2. Right lower extremity shows patent outflow with diseased runoff. Runoff is via a diseased anterior tibial artery and reconstituted posterior tibial artery. 3. Left lower extremity has complete occlusion of the outflow and runoff beginning at the origin of the common femoral artery. There is reconstitution of the profunda femoris. 4. Hemodynamically significant stenoses involving the celiac, SMA, and renal arteries. Davey Parsons Jr., MD Assessment and Plan Assessment and Plan Assessment: 87yF with acute LE vascular occlusion POD 0 s/p thrombectomy and groin reconstruction. s/p MEDICAL RECORDS CODER embolectomy with groin reconstruction 08/03 - frequent neurovascular checks - anticoagulation per Dr. Torrez. will need to resume full anticoagulation for DVTs when safe with either eliquis or coumadin. - mivf CHF with EF 35% - gentle fluid hydration post-operatively. close monitoring and early cessation of ivf. s/p fasciotomy LE - check CK now and in the AM - dressing change per Dr. Torrez Hypertension - restart home meds as tolerated Hyperlipidemia - home statin DM - SSI PT consult. Remain in ICU. High risk for complications. [facility] will continue to follow along as long as patient remains in the CVICU. Jose Duke MD Aug 03, 2017 13:42
--- NOTE | 2017-08-03 14:17 | EKG ---
Date Performed: 08/02/2017 Time Performed: 20:01:57 PTAGE: 87 years EKG: ATRIAL FIBRILLATION ABNORMAL RHYTHM ECG PREVIOUS TRACING : 02/06/2017 02.47 Compared to prior tracing no significant change DOCTOR: Yossi Arriola Interpretating Date/Time 08/03/2017 14:11:43
[2017-08-03 17:05] LABS: APTT (PATIENT) 28.4 SEC (24.3-30.1)
[2017-08-03] MEDS ORDERED: METOPROLOL TARTRATE 5 MG/5 ML VIAL ONE (17:49)
[2017-08-03] MEDS ORDERED: METOPROLOL TARTRATE 5 MG/5 ML VIAL IV PUSH PRN (18:15)
[2017-08-03] MEDS: PRAVASTATIN SOD 40 MG TAB PO SCH (20:55)
[2017-08-03] MEDS: DOCUSATE SODIUM 50 MG/SENNA 8.6 MG TAB PO SCH (20:55)
[2017-08-03] MEDS: METOPROLOL TARTRATE 50 MG TAB PO SCH (20:56)
[2017-08-03] MEDS: SODIUM CHLORIDE 0.9% FLUSH 10 ML FLUSH IV FLUSH SCH (20:57)
[2017-08-03 21:28] LABS: APTT (PATIENT) 32.6 SEC (24.3-30.1)
[2017-08-03 22:27] LABS: CKMB 16.7 NG/ML (0.5-3.6)
[2017-08-04] VITALS (7 sets, daily range): BP systolic 106–147; BP diastolic 55–90; PULSE 53–125; RESP 16–20; TEMP 98–98.6; O2SAT 95–99
[2017-08-04] MEDS ORDERED: SODIUM CHLOR 0.9% 250 ML INJ 250 ML IV ONE (01:30)
[2017-08-04] MEDS ORDERED: ALBUMIN 25% INJ 50 ML IV ONE (01:30)
[2017-08-04] MEDS: HEPARIN-D5W 25,000 U/250 ML 250 ML IV PRN (01:52)
[2017-08-04 05:11] LABS: HEMATOCRIT 26.2 % (35.0-46.0); MEAN CELL VOLUME 81.1 FL (80.0-100.0); MEAN CORPUSCULAR HEMOGLOBIN 25.8 PG (27.0-34.0); MEAN CORPUSCULAR HGB CONC 31.8 % (32.0-36.0); PLATELET COUNT 361 TH/MM3 (150-450); RED BLOOD COUNT 3.23 MIL/MM3 (4.00-5.30); RED CELL DISTRIBUTION WIDTH 15.4 % (11.6-17.2); REVIEW FLAG FINAL; WHITE BLOOD COUNT 16.1 TH/MM3 (4.0-11.0)
[2017-08-04 05:17] LABS: APTT (PATIENT) 36.3 SEC (24.3-30.1)
[2017-08-04 05:30] LABS: BICARBONATE 27.1 MEQ/L (21.0-32.0); POTASSIUM 3.7 MEQ/L (3.5-5.1)
[2017-08-04] MEDS: LEVOTHYROXINE SODIUM 50 MCG TAB PO SCH (05:30)
[2017-08-04] MEDS: cloNIDine HCL 0.1 MG TAB PO SCH (05:31)
[2017-08-04 06:02] LABS: CKMB 23.1 NG/ML (0.5-3.6)
--- NOTE | 2017-08-04 07:09 | MP ---
cc: YANG TORREZ MD DATE OF SURGERY 08/03/2017 PREOPERATIVE DIAGNOSIS Acute left lower extremity ischemia with motor dysfunction. POSTOPERATIVE DIAGNOSIS Acute left lower extremity ischemia with motor dysfunction. PROCEDURE 1. Left common femoral artery endarterectomy with patch angioplasty. 2. Embolectomy of left femoral popliteal artery via groin incision. 3. Left lower extremity fasciotomies (four compartments). ATTENDING SURGEON Yang Torrez MD ANESTHESIA General INDICATIONS Ms. Michel is an 87-year-old lady who presented to the emergency department with left lower extremity ischemia that started a day before presentation and on my evaluation, the patient had motor dysfunction. She was taken to the operating room emergently. DESCRIPTION OF PROCEDURE Informed consent was obtained from the patient. She was taken to the operating room, placed supine on the operating table and appropriate time-out was taken to ensure the patient's identity, operative site and planned procedure. The administration of 2 grams of Ancef was initiated prior to the skin incision and will be discontinued after a single preoperative dose. Everyone in the room agreed with the time-out and we proceeded. She was prepped from her nipples to her toes. A vertical incision made in the patient's left groin, carried down through the subcutaneous tissue with electrocautery. The distal external artery was identified, dissected free, encircled with a Vesseloop. They common femoral artery, proximal profunda down to its bifurcation and superficial femoral artery were all dissected free. The patient was systemically heparinized and throughout the remainder of the case, the ACT was kept greater than 250. Proximal control of the external iliac artery was obtained from profunda clamps and distal control of both branches of the profunda and the superficial femoral artery were obtained with profunda clamps. A longitudinal arteriotomy was made with an 11 blade, extended with Beaufort scissors. There was fresh thrombus in the left common femoral artery that extended to the profunda and this was removed without difficulty. A Nanci embolectomy catheter was then passed down the superficial femoral artery and all the way down to approximately the distal calf and fresh thrombus was retrieved from the femoral popliteal artery. A reasonable back bleeding was encountered. The longitudinal arteriotomy was then closed with a bovine pericardial patch which was sewn on with running 5-0 Prolene suture. At the completion, it was flushed and noted to be hemostatic. The clamps were released. There was a nice pulse in both the SFA and both branches of the profunda. However, the Doppler signals in the foot were somewhat diminished. An incision made in the patient's medial calf, carried down through the subcutaneous tissue with electrocautery. The muscle was divided and retracted posteriorly. The below-knee popliteal artery was identified and was noted to have an excellent pulse. We dissected down to the tibioperoneal trunk which also had an excellent pulse and the peroneal artery had an excellent pulse. The posterior tibial artery was intensely and chronically calcified. At this point, Doppler signals from the distal peroneal artery just above the ankle were biphasic and the thought was that her predominant runoff was peroneal and this was a chronic finding. The fascia was reapproximated over the below-knee popliteal artery vessels using running 2-0 Polysorb suture and the skin was reapproximated loosely with 3-0 interrupted nylon sutures. An incision was made on the lateral aspect of the calf in between the anterior and lateral compartments and carried down through the subcutaneous tissue with electrocautery. The fascia was divided in both these compartments and the fasciotomy was extended cranially and caudally with Metzenbaum scissors. The muscle was noted be viable and bulged significantly. There was a nice Doppler signal in the foot. The wounds were made hemostatic. The lateral calf wound was dressed with a Kerlix. The groin wound was closed with 2-0 Polysorb, 3-0 Polysorb and 4-0 Monocryl. Marcaine was infiltrated. The patient was then awoken from anesthesia and transported to the CVICU in stable condition. I was present, scrubbed and performed the entire procedure. MD IRMA Kelley/AYUSH /4:48 AM /7:04 AM
--- NOTE | 2017-08-04 07:18 | HHI.CCPN ---
Subjective Remarks/Hospital Course Hospital Course: This is an 87yF with h/o prior DVTs and PAD and CHF with EF 35% (last echo november 2016) who presented to the ED with 1 day history of LE pain and numbness and found to have common femoral artery occlusion with vascular compromise. She was taken emergently to the OR for acute embolectomy and revascularization with groin reconstruction. At the conclusion of the procedure, her calf muscles were edematous and prophylactic/therapeutic fasciotomy was performed on the LE compartments. She is brought to the CVICU in stable condition for close monitoring. On my initial evaluation, she is still arousing from anesthesia and no additional information is obtained from the patient. ROS negative. Subjective: 08/04: intermittently confused overnight. fasciotomy dressing changed twice overnight. hgb dropped from 10.7 to 8.3. no active bleeding, just venous oozing from fasciotomy. groin without hematoma. patient upset about not being able to control her own home medications. +Doppler pulses. Objective Vital Signs Date Time Temp Pulse Resp B/P (MAP) Pulse Ox O2 Delivery O2 Flow Rate FiO2 08/04/17 03:00 109 08/04/17 03:00 98.2 16 147/90 (109) 98 145/74 (97) 08/04/17 03:00 Nasal Cannula 3.00 Intake and Output 08/04/17 08/04/17 08/05/17 08:00 16:00 00:00 Intake Total 550 ml Balance 550 ml Result Diagram: 08/04/17 0430 08/04/17 0430 Imaging Last Impressions Chest X-Ray 08/02/17 1827 Signed Impressions: Service Date/Time: Wednesday, August 02, 2017 18:45 - CONCLUSION: No acute abnormality is seen. The heart size is mildly enlarged. Christian Hahn MD Aorta w/Runoff CTA 08/02/17 0000 Signed Impressions: Service Date/Time: Wednesday, August 02, 2017 22:26 - CONCLUSION: 1. Patent inflow. 2. Right lower extremity shows patent outflow with diseased runoff. Runoff is via a diseased anterior tibial artery and reconstituted posterior tibial artery. 3. Left lower extremity has complete occlusion of the outflow and runoff beginning at the origin of the common femoral artery. There is reconstitution of the profunda femoris. 4. Hemodynamically significant stenoses involving the celiac, SMA, and renal arteries. Davey Parsons Jr., MD Objective Remarks gen: frail elderly female, lying in bed, CAM+. heent: nc. at. perrl. mmm. neck: no jvd. trachea midline chest: nc o2. unlabored. cv: tachycardic rate, irregularly irregular rhythm. afib by tele. abd: soft, nontender, nondistended. no guarding. extr: left groin incision c/d/i. no hematoma. left distal LE wrapped. + Doppler pulses. neuro: RASS +1. CAM+. oriented to person and occasionally place. no focal deficits. follows commands. A/P Assessment and Plan Assessment: 87yF with acute LE vascular occlusion POD 1 s/p thrombectomy and groin reconstruction. s/p INSIGHT LEADER embolectomy with groin reconstruction 08/03 - frequent neurovascular checks - continue heparin drip. anticoagulation transition per Dr. Torrez. - mivf Oliguria - cr stable. will need to balance ivf with known CHF/depressed EF. will gently increase mivf to 84 cc/hr. - trend daily BMP - keep Pearl today. Rhabdomyolysis - trend CK q6h until downtrending - gentle ivf hydration as above. Anemia secondary to acute blood loss - likely from fasciotomy. no signs of bleeding at groin site. - if ongoing losses continue, may need a unit of blood. Atrial Fibrillation - continue diltiazem - continue metoprolol - increase clonidine to 0.2 mg po q8hr - metop 5mg iv q1h prn for breakthrough tachycardia - patient appears clinically euvolemic and persistent tachycardia likely SIRS response. CHF with EF 35% - gentle fluid hydration post-operatively. close monitoring. s/p fasciotomy LE - check CK q6h until downtrending. - dressing change per Dr. Torrez Hypertension - home meds. - goal sbp < 160. Hyperlipidemia - home statin Hypothyroidism - home synthroid. DM - SSI PT consult. OOB today. keep leg elevated at all times. Remain in ICU. High risk for complications. [facility] will continue to follow along as long as patient remains in the CVICU. Jose Duke MD Aug 04, 2017 07:18
[2017-08-04] MEDS: SODIUM CHLORIDE 0.9% FLUSH 10 ML FLUSH IV FLUSH SCH ×2 (07:54→21:00)
[2017-08-04] MEDS: INSULIN ASPART SUPPLEMENTAL SCALE SQ SCH ×4 (08:26→21:30)
[2017-08-04] MEDS: TOLTERODINE TARTRATE 4 MG CAP LA PO SCH (08:27)
[2017-08-04] MEDS: METOPROLOL TARTRATE 50 MG TAB PO SCH ×2 (08:27→21:26)
[2017-08-04] MEDS: PANTOPRAZOLE SOD 20 MG DELAYED RELEASE TAB PO SCH (08:27)
[2017-08-04] MEDS: DOCUSATE SODIUM 50 MG/SENNA 8.6 MG TAB PO SCH ×2 (08:27→21:25)
[2017-08-04] MEDS: DILTIAZEM-CD 240 MG CAP ER PO SCH (08:27)
[2017-08-04] MEDS: D5-1/2 NS + KCL 20 MEQ INJ 1,000 ML IV SCH ×2 (08:28→22:36)
--- NOTE | 2017-08-04 09:25 | PD.VS.PN ---
Subjective POD #: 1 Procedure(s): L PATIENT PLACEMENT COORDINATOR TEA and embolectomy, fasciotomies Subjective/Hospital Course Foot subjectively feels better, motor intact. pain better. Objective Vitals/I&O Date Time Temp Pulse Resp B/P (MAP) Pulse Ox O2 Delivery O2 Flow Rate FiO2 08/04/17 07:00 118 08/04/17 07:00 95 Nasal Cannula 3.00 08/04/17 07:00 98.0 125 18 129/84 (99) 95 124/60 (81) 08/04/17 03:00 109 08/04/17 03:00 98.2 110 16 147/90 (109) 98 145/74 (97) 08/04/17 03:00 95 Nasal Cannula 3.00 08/03/17 23:00 99 Nasal Cannula 3.00 08/03/17 23:00 111 08/03/17 23:00 98.4 111 12 117/56 (76) 99 128/88 (101) 08/03/17 20:50 98 Nasal Cannula 3.00 08/03/17 19:15 98.0 114 16 169/89 (115) 99 150/89 (109) 08/03/17 19:00 96 Nasal Cannula 3.00 08/03/17 19:00 114 08/03/17 15:00 97.9 114 18 140/93 (109) 98 08/03/17 15:00 114 08/03/17 14:15 95 Simple Mask 8.00 08/03/17 11:30 99 Simple Mask 6.00 08/03/17 11:30 98.2 98 18 159/104 (122) 98 08/03/17 11:30 98 08/04/17 08/04/17 08/04/17 07:00 15:00 23:00 Intake Total 1270 ml Output Total 400 ml Balance 870 ml Exam: L groin VAC in place L lateral fasciotomy site with viable muscle L medial fasciotomy site reapproximated Foot pink, edematous motor intact + Doppler signals DP Laboratory Laboratory Tests Test 08/03/17 12:00 08/03/17 15:35 08/03/17 20:53 08/04/17 04:30 White Blood Count 15.9 16.1 Red Blood Count 4.08 3.23 Hemoglobin 10.7 8.3 Hematocrit 33.3 26.2 Mean Corpuscular Volume 81.7 81.1 Mean Corpuscular Hemoglobin 26.2 25.8 Mean Corpuscular Hemoglobin Concent 32.1 31.8 Red Cell Distribution Width 16.0 15.4 Platelet Count 386 361 Mean Platelet Volume 8.0 8.4 Prothrombin Time 12.1 Prothromb Time International Ratio 1.1 Activated Partial Thromboplast Time 94.5 28.4 32.6 36.3 Blood Urea Nitrogen 17 15 Creatinine 0.87 0.71 Random Glucose 199 144 Calcium Level 8.1 7.9 Sodium Level 138 139 Potassium Level 3.2 3.7 Chloride Level 101 102 Carbon Dioxide Level 25.5 27.1 Anion Gap 12 10 Estimat Glomerular Filtration Rate 62 78 Total Creatine Kinase 2741 4758 Creatine Kinase MB 16.7 23.1 Creatine Kinase MB % 0.6 0.5 Assessment and Plan Assessment: (1) Arterial occlusion Status: Acute Plan POD#1 L LE revascularization 1. Continue MIVF, allow po and monitor UOP and CK (still going up). Pearl in for adequate UOP monitoring 2. OOB TC with PT 3. VAC lateral fasciotomy 4. Heparin gtt 5. F/U TTE Discharge Planning 5-7 days Jorden Torrez MD Aug 04, 2017 09:25
[2017-08-04 12:45] LABS: APTT (PATIENT) 36.9 SEC (24.3-30.1)
[2017-08-04 13:29] LABS: CKMB 12.1 NG/ML (0.5-3.6)
[2017-08-04] MEDS: cloNIDine HCL 0.2 MG TAB PO SCH ×2 (14:00→21:25)
--- NOTE | 2017-08-04 15:59 | PD.WCN.NOT ---
Wound Consult Description: Received consult for VAC placement on L lateral calf fasciotomy site from Nathaniel Torrez Communicated with: [facility] and call placed to Coco BUCKLEY for Doctor Torrez Recommendation: Please cleanse wound with normal saline and apply Adaptic (oil emulsion gauze to exposed facia, or tendon). Apply wound VAC dressing and change Wednesday, Wednesday and Wednesday, with settings at 125 mm/hg low continuous suction. Neg Pressure Wound Therapy Wound Location Wound Location: L lateral calf Wound Description Length: 13.4cm Width: 3.5cm Depth: 1.1cm Wound bed appearance: ~30% adipose tissue, ~40% muscle, ~20% facia and ~10% dark red tissue.Wound has minimal active sanguinous drainage when cleansed with gauze pad and normal saline, that is with out foul odor. Periwound appearance: Unremarkable Settings Suction: 125 mmHg, Continuous Other Information: Bridged, Windowpaned, Mushroomed Foam type: Black Number of pieces: 1 Additonal Information Patient seen on CVICU for wound VAC dressing application to L lateral calf. knee brace nick wrap in placed, and removed moist to dry dressing in place to L lateral calf to reveal wound. Wound is located on L lateral calf, measurements and description noted above. Irrigated wound with 30 ml of normal saline to cleanse and pat dry with gauze pad . Skin prep was the applied to periwound and to L anterior leg. Oil emulsion gauze was then placed over exposed facia, and dark red tissue in a single layer. Window paned wound with VAC drape and bridged VAC drape to Anterior L leg. Granufoam was then cut to fit wound bed in one large piece and was applied to wound bed. Bridged granufoam from wound bed to L anterior leg. Mushroom cap of black foam was then placed over bridged granufoam with VAC Sensi trac pad attached. Covered all exposed granufoam with VAC drape to seal. DAVION Shelby covered sutured incision to L medial calf with dry gauze pads before applying knee place back in place. Patient's L leg is elevated on pillow, with no complaints of pain or discomfort. Patient tolerated procedure well. Wound VAC is suctioning at 125mm/hg continuous low suction, without leaks. Ember Terry Aug 04, 2017 15:59
--- NOTE | 2017-08-04 17:24 | ECHRPT ---
Indication: Acute and subacute endocarditis, unspecified CONCLUSIONS LV function is normal. The left atrial size is etld-bz-aozreziugx dilated. The right atrial size is mildly dilated. Qyktc-hw-exso mitral valve regurgitation. Moderate mitral annular calcification. Aortic valve sclerosis is present with suboptimal imaging. Doppler did not suggest aortic stenosis There is estimated ehfawyvl-ab-fjyxhj pulmonary hypertension present (range 60-70 mmHg). There is moderate to severe tricuspid valve regurgitation. The estimated pulmonary arterial pressure is 64.2 mmHg. BP: / HR: Rhythm: Other MEASUREMENTS (Male / Female) Normal Values Technical Quality:Good DOPPLER MR Peak Velocity 315.0 cm/s MR Peak Gradient 39.7 mmHg TR Peak Velocity 368.0 cm/s TR Peak Gradient 54.2 mmHg Right Atrial Pressure 10.0 mmHg Pulmonary Artery Systolic Pressu 64.2 mmHg Right Ventricular Systolic Press 64.2 mmHg FINDINGS LEFT VENTRICLE Normal left ventricular size and wall thickness. The left ventricular systolic function is normal wi th an estimated ejection fraction in the range of 60-65%. Left ventricular diastolic function parameters a re normal. RIGHT VENTRICLE Normal right ventricular size and systolic function. LEFT ATRIUM The left atrial size is xwoq-xe-copjtsudih dilated. RIGHT ATRIUM The right atrial size is mildly dilated. ATRIAL SEPTUM Normal atrial septal thickness without atrial level shunting by limited color doppler interrogation. AORTA The aortic root and proximal ascending aorta are normal in size on limited imaging. MITRAL VALVE Rixfh-re-lacw mitral valve regurgitation. Moderate mitral annular calcification. AORTIC VALVE Trileaflet aortic valve. Aortic valve sclerosis is present with suboptimal imaging. Doppler did not suggest aortic stenosis TRICUSPID VALVE There is estimated vhvjgvgw-vp-jwbupc pulmonary hypertension present (range 60-70 mmHg). There is moderate to severe tricuspid valve regurgitation. The estimated pulmonary arterial pressure is 64.2 mmHg. PULMONARY VALVE No pulmonary valve regurgitation or stenosis. VESSELS The inferior vena cava is normal in size. PERICARDIUM No pericardial effusion. Juan Jose Singh MD (Electronically Signed) Final Date:04 August 2017 17:24
[2017-08-04 18:51] LABS: CKMB 7.4 NG/ML (0.5-3.6)
[2017-08-04] MEDS: PRAVASTATIN SOD 40 MG TAB PO SCH (21:26)
[2017-08-04] MEDS ORDERED: HALOPERIDOL LACTATE 5 MG/ML AMP IV ONE (22:30)
[2017-08-05] VITALS (10 sets, daily range): BP systolic 85–127; BP diastolic 48–90; PULSE 57–123; RESP 16–18; TEMP 97.9–98.7; O2SAT 95–99
[2017-08-05] MEDS: HALOPERIDOL LACTATE 5 MG/ML AMP IV PRN ×3 (01:00→18:50)
[2017-08-05 02:20] LABS: HEMATOCRIT 23.3 % (35.0-46.0); MEAN CORPUSCULAR HEMOGLOBIN 25.6 PG (27.0-34.0); MEAN CORPUSCULAR HGB CONC 31.2 % (32.0-36.0); PLATELET COUNT 303 TH/MM3 (150-450); RED BLOOD COUNT 2.85 MIL/MM3 (4.00-5.30); RED CELL DISTRIBUTION WIDTH 15.5 % (11.6-17.2); REVIEW FLAG FINAL; WHITE BLOOD COUNT 14.4 TH/MM3 (4.0-11.0)
[2017-08-05 02:32] LABS: APTT (PATIENT) 50.7 SEC (24.3-30.1)
[2017-08-05 03:26] LABS: CKMB 5.1 NG/ML (0.5-3.6)
[2017-08-05] MEDS: cloNIDine HCL 0.2 MG TAB PO SCH ×4 (06:00→22:00)
[2017-08-05] MEDS: LEVOTHYROXINE SODIUM 50 MCG TAB PO SCH ×2 (06:00→10:03)
[2017-08-05] MEDS: HEPARIN-D5W 25,000 U/250 ML 250 ML IV PRN (06:32)
[2017-08-05] MEDS: INSULIN ASPART SUPPLEMENTAL SCALE SQ SCH ×4 (08:00→21:00)
[2017-08-05] MEDS: SODIUM CHLORIDE 0.9% FLUSH 10 ML FLUSH IV FLUSH SCH ×2 (08:16→21:00)
--- NOTE | 2017-08-05 09:17 | PD.VS.PN ---
Subjective POD #: 2 Procedure(s): L MEAT LUGGER TEA and embolectomy, fasciotomies Subjective/Hospital Course Delirium last night Moves everything OOB TC yesterday CPK trending down remains on hep gtt Objective Vitals/I&O Date Time Temp Pulse Resp B/P (MAP) Pulse Ox O2 Delivery O2 Flow Rate FiO2 08/05/17 07:00 100 Nasal Cannula 2.00 08/05/17 07:00 98.6 117 16 127/90 (102) 99 Arterial Line 08/05/17 03:00 97.9 107 18 109/65 (80) 99 08/05/17 03:00 105 08/05/17 03:00 99 Nasal Cannula 3.00 08/04/17 23:00 98.0 110 18 130/81 (97) 99 08/04/17 23:00 99 Nasal Cannula 3.00 08/04/17 23:00 113 08/04/17 22:37 22 08/04/17 22:05 97 Nasal Cannula 2.00 08/04/17 19:00 104 08/04/17 19:00 99 Nasal Cannula 3.00 08/04/17 19:00 98.2 107 20 136/64 (88) 99 08/04/17 15:00 53 08/04/17 15:00 97 Nasal Cannula 3.00 08/04/17 15:00 98.6 53 20 106/56 (73) 97 08/04/17 11:00 95 Nasal Cannula 2.00 08/04/17 11:00 111 08/04/17 11:00 98.1 113 18 128/89 (102) 95 115/55 (75) 08/05/17 08/05/17 08/05/17 07:00 15:00 23:00 Intake Total 865 ml Output Total 870 ml Balance -5 ml Exam: Somnolent from Haldol [place] Foot pink and perfused Excellent signal Laboratory Laboratory Tests Test 08/04/17 11:30 08/04/17 17:40 08/05/17 02:02 Activated Partial Thromboplast Time 36.9 45.0 50.7 Total Creatine Kinase 3619 2775 2265 Creatine Kinase MB 12.1 7.4 5.1 Creatine Kinase MB % 0.3 0.3 0.2 White Blood Count 14.4 Red Blood Count 2.85 Hemoglobin 7.3 Hematocrit 23.3 Mean Corpuscular Volume 82.0 Mean Corpuscular Hemoglobin 25.6 Mean Corpuscular Hemoglobin Concent 31.2 Red Cell Distribution Width 15.5 Platelet Count 303 Mean Platelet Volume 8.1 Assessment and Plan Assessment: (1) Arterial occlusion Status: Acute Plan POD#2 L LE revascularization 1. HL MIVF when hua po 2. OOB/PT 3. VAC to lateral fasciotomy and skin VAC to L groin - will take down tomorrow ( POD#3) 4. Ok to transition to home systemic anticoagulation regimen and once on that, can d/c hep gtt 5. Transfer from CVICU 6. Aggressive PT and re-orientation Discharge Planning 3-4 days Jorden Torrez MD Aug 05, 2017 09:17
[2017-08-05] MEDS: TOLTERODINE TARTRATE 4 MG CAP LA PO SCH (10:01)
[2017-08-05] MEDS: METOPROLOL TARTRATE 50 MG TAB PO SCH ×2 (10:01→21:02)
[2017-08-05] MEDS: PANTOPRAZOLE SOD 20 MG DELAYED RELEASE TAB PO SCH (10:01)
[2017-08-05] MEDS: DILTIAZEM-CD 240 MG CAP ER PO SCH (10:02)
[2017-08-05] MEDS: DOCUSATE SODIUM 50 MG/SENNA 8.6 MG TAB PO SCH ×2 (10:02→21:02)
--- NOTE | 2017-08-05 10:09 | HHI.CCPN ---
Subjective Remarks/Hospital Course Hospital Course: This is an 87yF with h/o prior DVTs and PAD and CHF with EF 35% (last echo november 2016) who presented to the ED with 1 day history of LE pain and numbness and found to have common femoral artery occlusion with vascular compromise. She was taken emergently to the OR for acute embolectomy and revascularization with groin reconstruction. At the conclusion of the procedure, her calf muscles were edematous and prophylactic/therapeutic fasciotomy was performed on the LE compartments. She is brought to the CVICU in stable condition for close monitoring. On my initial evaluation, she is still arousing from anesthesia and no additional information is obtained from the patient. ROS negative. Subjective: 08/04: intermittently confused overnight. fasciotomy dressing changed twice overnight. hgb dropped from 10.7 to 8.3. no active bleeding, just venous oozing from fasciotomy. groin without hematoma. patient upset about not being able to control her own home medications. +Doppler pulses. 08/05: confusion persists overnight. given haldol iv x 1. hgb dropped again slightly to 7.3. no active bleeding. distal pulses still present. ROS negative. Objective Vital Signs Date Time Temp Pulse Resp B/P (MAP) Pulse Ox O2 Delivery O2 Flow Rate FiO2 08/05/17 07:00 118 08/05/17 07:00 100 Nasal Cannula 2.00 08/05/17 07:00 98.6 16 127/90 (102) Arterial Line Intake and Output 08/05/17 08/05/17 08/06/17 08:00 16:00 00:00 Intake Total 865 ml 182 ml Output Total 870 ml Balance -5 ml 182 ml Result Diagram: 08/05/17 0202 08/04/17 0430 Imaging Last Impressions Chest X-Ray 08/02/17 1827 Signed Impressions: Service Date/Time: Wednesday, August 02, 2017 18:45 - CONCLUSION: No acute abnormality is seen. The heart size is mildly enlarged. Christian Hahn MD Aorta w/Runoff CTA 08/02/17 0000 Signed Impressions: Service Date/Time: Wednesday, August 02, 2017 22:26 - CONCLUSION: 1. Patent inflow. 2. Right lower extremity shows patent outflow with diseased runoff. Runoff is via a diseased anterior tibial artery and reconstituted posterior tibial artery. 3. Left lower extremity has complete occlusion of the outflow and runoff beginning at the origin of the common femoral artery. There is reconstitution of the profunda femoris. 4. Hemodynamically significant stenoses involving the celiac, SMA, and renal arteries. Davey Parsons Jr., MD Objective Remarks gen: frail elderly female, lying in bed, CAM+. heent: nc. at. perrl. mmm. neck: no jvd. trachea midline chest: nc o2. unlabored. cv: tachycardic rate, irregularly irregular rhythm. afib by tele. abd: soft, nontender, nondistended. no guarding. extr: left groin incision c/d/i. no hematoma. left distal LE wrapped. + Doppler pulses. neuro: RASS 0. CAM+. oriented to person and occasionally place. no focal deficits. follows commands. A/P Assessment and Plan Assessment: 87yF with acute LE vascular occlusion POD 2 s/p thrombectomy and groin reconstruction. echo with significant TR. given downtrending CK, would be more aggressive now about diuresis and aim for net negative fluid balance for the next few days. s/p LICENSED MIDWIFE embolectomy with groin reconstruction 08/03 - frequent neurovascular checks - continue heparin drip. anticoagulation transition per Dr. Torrez. - mivf Agitated Delirium - melatonin for sleep - prn haldol iv. Oliguria - improved. - cr stable. d/c mivf. - trend daily BMP - keep Pearl today and then could d/c tomorrow. Tricuspid Regurgitation - lasix 40mg iv x 1. - goal net negative. would attempt to keep her negative by 500cc/day for the next few days. Rhabdomyolysis - improving. - downtrending. will stop checking serial CKs. - d/c ivf. Anemia secondary to acute blood loss - likely from fasciotomy. no signs of bleeding at groin site. - if ongoing losses continue, may need a unit of blood. Atrial Fibrillation - continue diltiazem - continue metoprolol - increase clonidine to 0.2 mg po q8hr - metop 5mg iv q1h prn for breakthrough tachycardia - patient appears clinically euvolemic and persistent tachycardia likely SIRS response. CHF with EF 35% - saline lock ivf. s/p fasciotomy LE - dressing change per Dr. Torrez Hypertension - home meds. - goal sbp < 160. Hyperlipidemia - home statin Hypothyroidism - home synthroid. DM - SSI PT consult. OOB today. keep leg elevated at all times. CCM will continue to follow along as long as patient remains in the CVICU. ok to transfer to floor from my standpoint. Jose Duke MD Aug 05, 2017 10:09
[2017-08-05] MEDS ORDERED: FUROSEMIDE 40 MG/4 ML VIAL IV PUSH ONE (10:30)
[2017-08-05 10:49] LABS: BICARBONATE 25.6 MEQ/L (21.0-32.0); POTASSIUM 4.2 MEQ/L (3.5-5.1)
[2017-08-05] MEDS ORDERED: HYDROmorphone HCL 2 MG TAB PO PRN (11:15)
[2017-08-05 11:37] LABS: BLOOD, URINE SMALL (NEG); GLUCOSE,URINE NEG (NEG); KETONE, URINE NEG (NEG); MUCUS URINE FEW /lpf (OCC); NITRITE,URINE NEG (NEG); URINE COLOR YELLOW (YELLW/STRAW)
[2017-08-05 11:38] LABS: COMMENT (UR) CATH-CULT NOT IND; CULTURE IF INDICATED CATH CULTURE NOT IND
[2017-08-05] MEDS ORDERED: PILL SPLITTER OTHER PRN (11:45)
[2017-08-05] MEDS: MELATONIN 5 MG TAB PO SCH (21:02)
[2017-08-05] MEDS: PRAVASTATIN SOD 40 MG TAB PO SCH (21:02)
[2017-08-05] MEDS ORDERED: OLANZapine ODT 5 MG TAB PO PRN (23:00)
[2017-08-06] VITALS (30 sets, daily range): BP systolic 115–152; BP diastolic 55–87; PULSE 90–114; RESP 18–20; TEMP 97.8–98.4; O2SAT 94–96
[2017-08-06] MEDS: LEVOTHYROXINE SODIUM 50 MCG TAB PO SCH (06:13)
[2017-08-06] MEDS: cloNIDine HCL 0.2 MG TAB PO SCH ×3 (06:13→20:21)
[2017-08-06 06:48] LABS: APTT (PATIENT) 49.5 SEC (24.3-30.1)
[2017-08-06 07:03] LABS: ALT (GPT) 43 U/L (10-53); ANION GAP 10 MEQ/L (5-15); AST (GOT) 90 U/L (15-37); BICARBONATE 24.3 MEQ/L (21.0-32.0); CHLORIDE 102 MEQ/L (98-107); GLOMERULAR FILTRATION RATE 69 ML/MIN (>89); MAGNESIUM 1.8 MG/DL (1.5-2.5); POTASSIUM 3.7 MEQ/L (3.5-5.1); SODIUM (NA) 136 MEQ/L (136-145)
[2017-08-06 07:11] LABS: BASOPHIL % 0.2 % (0.0-2.0); EOSINOPHIL # 0.1 TH/MM3 (0-0.4); EOSINOPHIL % 0.9 % (0.0-4.0); HEMATOCRIT 21.4 % (35.0-46.0); HEMO FLAGS DIFF FINAL; LYMPH % 12.7 % (9.0-44.0); LYMPHOCYTE # 1.6 TH/MM3 (1.0-4.8); MEAN CELL VOLUME 82.3 FL (80.0-100.0); MEAN CORPUSCULAR HEMOGLOBIN 27.1 PG (27.0-34.0); MONO % 9.6 % (0.0-8.0); NEUT % 76.6 % (16.0-70.0); PLATELET COUNT 281 TH/MM3 (150-450); RED CELL DISTRIBUTION WIDTH 15.9 % (11.6-17.2)
[2017-08-06 07:12] LABS: ALKALINE PHOSPHATASE 72 U/L (45-117); BLOOD UREA NITROGEN 17 MG/DL (7-18); FREE T4 1.54 NG/DL (0.76-1.46); TOTAL BILIRUBIN ADULT 0.4 MG/DL (0.2-1.0)
[2017-08-06] MEDS: INSULIN ASPART SUPPLEMENTAL SCALE SQ SCH ×4 (07:47→20:23)
--- NOTE | 2017-08-06 09:06 | HHI.PR ---
Subjective Remarks This is an 87yF with h/o prior DVTs and PAD and CHF with EF 35% (last echo november 2016) who presented to the ED with 1 day history of LE pain and numbness and found to have common femoral artery occlusion with vascular compromise. She was taken emergently to the OR for acute embolectomy and revascularization with groin reconstruction. At the conclusion of the procedure, her calf muscles were edematous and prophylactic/therapeutic fasciotomy was performed on the LE compartments. She is brought to the CVICU in stable condition for close monitoring. On my initial evaluation, she is still arousing from anesthesia and no additional information is obtained from the patient. ROS negative. Subjective: 08/04: intermittently confused overnight. fasciotomy dressing changed twice overnight. hgb dropped from 10.7 to 8.3. no active bleeding, just venous oozing from fasciotomy. groin without hematoma. patient upset about not being able to control her own home medications. +Doppler pulses. 08/05: confusion persists overnight. given haldol iv x 1. hgb dropped again slightly to 7.3. no active bleeding. distal pulses still present. ROS negative. 08/06 PATIENT TRANSFERRED TO OUR SERVICE TODAY MOVED OUT OF ICU TO [facility] remains CONFUSED "STATES I WANTED TO GO OUTSIDE AND WALK YESTERDAY BUT IT WAS RAINING" LEFT LOWER EXTREMITY DRESSED WITH VAC IN PLACE DW RN AND PT WILL TRANSFUSE 2 UNITS PRBC TODAY AM LABS Objective Vitals Vital Signs Date Time Temp Pulse Resp B/P (MAP) Pulse Ox O2 Delivery O2 Flow Rate FiO2 08/06/17 08:00 95 Room Air 08/06/17 07:00 106 08/06/17 04:20 98.2 103 18 136/82 (100) 95 08/06/17 04:03 95 Room Air 08/06/17 03:00 99 08/05/17 23:11 94 Room Air 08/05/17 23:05 97.9 92 18 123/69 (87) 95 08/05/17 23:00 90 08/05/17 20:00 96 Nasal Cannula 2.00 08/05/17 20:00 97.9 98 18 123/69 (87) 95 08/05/17 19:00 64 08/05/17 18:35 98.2 61 18 126/63 (84) 95 08/05/17 16:58 98 Nasal Cannula 2.00 08/05/17 15:00 95 Nasal Cannula 2.00 08/05/17 15:00 98.6 57 18 85/48 (60) 95 08/05/17 15:00 62 08/05/17 11:00 123 08/05/17 11:00 98.7 118 16 112/77 (89) 97 08/05/17 11:00 97 Nasal Cannula 2.00 I/O 08/05/17 08/05/17 08/05/17 08/06/17 08/06/17 08/06/17 07:00 15:00 23:00 07:00 15:00 23:00 Intake Total 865 ml 182 ml 586 ml 480 ml Output Total 870 ml 400 ml 1400 ml Balance -5 ml 182 ml 186 ml -920 ml Intake Oral 240 ml 480 ml 480 ml IV Total 625 ml 182 ml 106 ml Output Urine Total 870 ml 400 ml 1400 ml # Bowel Movements 0 0 Result Diagram: 08/06/17 0519 08/06/17 0519 Other Results Laboratory Tests Test 08/03/17 12:00 08/03/17 15:35 08/03/17 20:53 08/04/17 04:30 White Blood Count 15.9 TH/MM3 16.1 TH/MM3 Red Blood Count 4.08 MIL/MM3 3.23 MIL/MM3 Hemoglobin 10.7 GM/DL 8.3 GM/DL Hematocrit 33.3 % 26.2 % Mean Corpuscular Volume 81.7 FL 81.1 FL Mean Corpuscular Hemoglobin 26.2 PG 25.8 PG Mean Corpuscular Hemoglobin Concent 32.1 % 31.8 % Red Cell Distribution Width 16.0 % 15.4 % Platelet Count 386 TH/MM3 361 TH/MM3 Mean Platelet Volume 8.0 FL 8.4 FL Prothrombin Time 12.1 SEC Prothromb Time International Ratio 1.1 RATIO Activated Partial Thromboplast Time 94.5 SEC 28.4 SEC 32.6 SEC 36.3 SEC Blood Urea Nitrogen 17 MG/DL 15 MG/DL Creatinine 0.87 MG/DL 0.71 MG/DL Random Glucose 199 MG/DL 144 MG/DL Calcium Level 8.1 MG/DL 7.9 MG/DL Sodium Level 138 MEQ/L 139 MEQ/L Potassium Level 3.2 MEQ/L 3.7 MEQ/L Chloride Level 101 MEQ/L 102 MEQ/L Carbon Dioxide Level 25.5 MEQ/L 27.1 MEQ/L Anion Gap 12 MEQ/L 10 MEQ/L Estimat Glomerular Filtration Rate 62 ML/MIN 78 ML/MIN Total Creatine Kinase 2741 U/L 4758 U/L Creatine Kinase MB 16.7 NG/ML 23.1 NG/ML Creatine Kinase MB % 0.6 % 0.5 % Test 08/04/17 11:30 08/04/17 17:40 08/05/17 02:02 08/05/17 09:55 Activated Partial Thromboplast Time 36.9 SEC 45.0 SEC 50.7 SEC Total Creatine Kinase 3619 U/L 2775 U/L 2265 U/L Creatine Kinase MB 12.1 NG/ML 7.4 NG/ML 5.1 NG/ML Creatine Kinase MB % 0.3 % 0.3 % 0.2 % White Blood Count 14.4 TH/MM3 Red Blood Count 2.85 MIL/MM3 Hemoglobin 7.3 GM/DL Hematocrit 23.3 % Mean Corpuscular Volume 82.0 FL Mean Corpuscular Hemoglobin 25.6 PG Mean Corpuscular Hemoglobin Concent 31.2 % Red Cell Distribution Width 15.5 % Platelet Count 303 TH/MM3 Mean Platelet Volume 8.1 FL Blood Urea Nitrogen 12 MG/DL Creatinine 0.60 MG/DL Random Glucose 127 MG/DL Calcium Level 7.9 MG/DL Sodium Level 139 MEQ/L Potassium Level 4.2 MEQ/L Chloride Level 103 MEQ/L Carbon Dioxide Level 25.6 MEQ/L Anion Gap 10 MEQ/L Estimat Glomerular Filtration Rate 95 ML/MIN Test 08/05/17 10:25 08/06/17 05:19 Urine Color YELLOW Urine Turbidity CLEAR Urine pH 6.0 Urine Specific [place] 1.021 Urine Protein 30 mg/dL Urine Glucose (UA) NEG mg/dL Urine Ketones NEG mg/dL Urine Occult Blood SMALL Urine Nitrite NEG Urine Bilirubin NEG Urine Urobilinogen 2.0 MG/DL Urine Leukocyte Esterase TRACE Urine RBC 4 /hpf Urine WBC 5 /hpf Urine Mucus FEW /lpf Microscopic Urinalysis Comment CATH-CULT NOT IND White Blood Count 13.0 TH/MM3 Red Blood Count 2.60 MIL/MM3 Hemoglobin 7.1 GM/DL Hematocrit 21.4 % Mean Corpuscular Volume 82.3 FL Mean Corpuscular Hemoglobin 27.1 PG Mean Corpuscular Hemoglobin Concent 33.0 % Red Cell Distribution Width 15.9 % Platelet Count 281 TH/MM3 Mean Platelet Volume 9.4 FL Neutrophils (%) (Auto) 76.6 % Lymphocytes (%) (Auto) 12.7 % Monocytes (%) (Auto) 9.6 % Eosinophils (%) (Auto) 0.9 % Basophils (%) (Auto) 0.2 % Neutrophils # (Auto) 10.0 TH/MM3 Lymphocytes # (Auto) 1.6 TH/MM3 Monocytes # (Auto) 1.2 TH/MM3 Eosinophils # (Auto) 0.1 TH/MM3 Basophils # (Auto) 0.0 TH/MM3 CBC Comment DIFF FINAL Differential Comment Activated Partial Thromboplast Time 49.5 SEC Blood Urea Nitrogen 17 MG/DL Creatinine 0.79 MG/DL Random Glucose 147 MG/DL Total Protein 6.2 GM/DL Albumin 2.5 GM/DL Calcium Level 8.2 MG/DL Phosphorus Level 3.1 MG/DL Magnesium Level 1.8 MG/DL Alkaline Phosphatase 72 U/L Aspartate Amino Transf (AST/SGOT) 90 U/L Alanine Aminotransferase (ALT/SGPT) 43 U/L Total Bilirubin 0.4 MG/DL Sodium Level 136 MEQ/L Potassium Level 3.7 MEQ/L Chloride Level 102 MEQ/L Carbon Dioxide Level 24.3 MEQ/L Anion Gap 10 MEQ/L Estimat Glomerular Filtration Rate 69 ML/MIN Free Thyroxine 1.54 NG/DL Thyroid Stimulating Hormone 3rd Gen 2.480 uIU/ML Imaging Last Impressions Chest X-Ray 08/02/17 1827 Signed Impressions: Service Date/Time: Wednesday, August 02, 2017 18:45 - CONCLUSION: No acute abnormality is seen. The heart size is mildly enlarged. Christian Hahn MD Aorta w/Runoff CTA 08/02/17 0000 Signed Impressions: Service Date/Time: Wednesday, August 02, 2017 22:26 - CONCLUSION: 1. Patent inflow. 2. Right lower extremity shows patent outflow with diseased runoff. Runoff is via a diseased anterior tibial artery and reconstituted posterior tibial artery. 3. Left lower extremity has complete occlusion of the outflow and runoff beginning at the origin of the common femoral artery. There is reconstitution of the profunda femoris. 4. Hemodynamically significant stenoses involving the celiac, SMA, and renal arteries. Davey Parsons Jr., MD Objective Remarks GENERAL: AWAKE AND ALERT BUT CONFUSED AT THIS TIME SKIN: Warm and dry. HEAD: Atraumatic. Normocephalic. EYES: Pupils equal and round. No scleral icterus. No injection or drainage. EOMI ENT: No nasal bleeding or discharge. Mucous membranes pink and moist. TONGUE IS MIDLINE NECK: Trachea midline. No JVD. SUPPLE CARDIOVASCULAR: IRRegular rate and rhythm. S1, S2 NO S3 OR S4 RESPIRATORY: No accessory muscle use. Clear to auscultation. Breath sounds equal bilaterally. GASTROINTESTINAL: Abdomen soft, non-tender, nondistended. Hepatic and splenic margins not palpable. MUSCULOSKELETAL: Extremities without clubbing, cyanosis, or edema. No obvious deformities. LEFT LEG IS IN BRACE AND DRESSED WITH WOUND VAC IN PLACE NEUROLOGICAL: Awake and alert. No obvious cranial nerve deficits. Motor grossly within normal limits. Five out of 5 muscle strength in the arms and legs. Normal speech. PSYCHIATRIC: INAppropriate mood and affect; insight and judgment ABnormal. Procedures YANG SULLIVAN MD DATE OF SURGERY 08/03/2017 PREOPERATIVE DIAGNOSIS Acute left lower extremity ischemia with motor dysfunction. POSTOPERATIVE DIAGNOSIS Acute left lower extremity ischemia with motor dysfunction. PROCEDURE 1. Left common femoral artery endarterectomy with patch angioplasty. 2. Embolectomy of left femoral popliteal artery via groin incision. 3. Left lower extremity fasciotomies (four compartments). ATTENDING SURGEON Yang Sullivan MD ANESTHESIA General INDICATIONS Ms. Michel is an 87-year-old lady who presented to the emergency department with left lower extremity ischemia that started a day before presentation and on my evaluation, the patient had motor dysfunction. She was taken to the operating room emergently. DESCRIPTION OF PROCEDURE Informed consent was obtained from the patient. She was taken to the operating room, placed supine on the operating table and appropriate time-out was taken to ensure the patient's identity, operative site and planned procedure. The administration of 2 grams of Ancef was initiated prior to the skin incision and will be discontinued after a single preoperative dose. Everyone in the room agreed with the time-out and we proceeded. She was prepped from her nipples to her toes. A vertical incision made in the patient's left groin, carried down through the subcutaneous tissue with electrocautery. The distal external artery was identified, dissected free, encircled with a Vesseloop. They common femoral artery, proximal profunda down to its bifurcation and superficial femoral artery were all dissected free. The patient was systemically heparinized and throughout the remainder of the case, the ACT was kept greater than 250. Proximal control of the external iliac artery was obtained from profunda clamps and distal control of both branches of the profunda and the superficial femoral artery were obtained with profunda clamps. A longitudinal arteriotomy was made with an 11 blade, extended with Paddy scissors. There was fresh thrombus in the left common femoral artery that extended to the profunda and this was removed without difficulty. A Nanci embolectomy catheter was then passed down the superficial femoral artery and all the way down to approximately the distal calf and fresh thrombus was retrieved from the femoral popliteal artery. A reasonable back bleeding was encountered. The longitudinal arteriotomy was then closed with a bovine pericardial patch which was sewn on with running 5-0 Prolene suture. At the completion, it was flushed and noted to be hemostatic. The clamps were released. There was a nice pulse in both the SFA and both branches of the profunda. However, the Doppler signals in the foot were somewhat diminished. An incision made in the patient's medial calf, carried down through the subcutaneous tissue with electrocautery. The muscle was divided and retracted posteriorly. The below-knee popliteal artery was identified and was noted to have an excellent pulse. We dissected down to the tibioperoneal trunk which also had an excellent pulse and the peroneal artery had an excellent pulse. The posterior tibial artery was intensely and chronically calcified. At this point, Doppler signals from the distal peroneal artery just above the ankle were biphasic and the thought was that her predominant runoff was peroneal and this was a chronic finding. The fascia was reapproximated over the below-knee popliteal artery vessels using running 2-0 Polysorb suture and the skin was reapproximated loosely with 3-0 interrupted nylon sutures. An incision was made on the lateral aspect of the calf in between the anterior and lateral compartments and carried down through the subcutaneous tissue with electrocautery. The fascia was divided in both these compartments and the fasciotomy was extended cranially and caudally with Metzenbaum scissors. The muscle was noted be viable and bulged significantly. There was a nice Doppler signal in the foot. The wounds were made hemostatic. The lateral calf wound was dressed with a Kerlix. The groin wound was closed with 2-0 Polysorb, 3-0 Polysorb and 4-0 Monocryl. Marcaine was infiltrated. The patient was then awoken from anesthesia and transported to the CVICU in stable condition. I was present, scrubbed and performed the entire procedure. Medications and IVs Current Medications Morphine Sulfate (Morphine Inj) 4 mg ONCE ONCE IV PUSH Last administered on 19:51; Start 08/02/17 at 19:15; Stop 08/02/17 at 19:17; Status DC Ondansetron HCl (Zofran Inj) 4 mg ONCE ONCE IV PUSH Last administered on 08/02 19:52; Start 08/02/17 at 19:15; Stop 08/02/17 at 19:17; Status DC Sodium Chloride 1,000 ml @ 125 mls/hr Q8H IV Last administered on 08/02/17 20:54; Start 08/02/17 at 20:45; Stop 08/03/17 at 02:12; Status DC Ondansetron HCl (Zofran Inj) 4 mg ONCE ONCE IV PUSH Last administered on 08/02 22:08; Start 08/02/17 at 21:45; Stop 08/02/17 at 21:46; Status DC Hydromorphone HCl (Dilaudid Pf Inj) 1 mg ONCE ONCE IV PUSH Last administered on 08/02/17 22:08; Start 08/02/17 at 21:45; Stop 08/02/17 at 21:46; Status DC Sodium Chloride 1,000 ml @ 42 mls/hr [id number] IV Last administered on 01:52; Start 08/02/17 at 22:46; Stop 08/03/17 at 11:22; Status DC Sodium Chloride (NS Flush) 2 ml UNSCH PRN IV FLUSH FLUSH AFTER USING IV ACCESS ; Start 08/02/17 at 23:00 Sodium Chloride (NS Flush) 2 ml BID IV FLUSH Last administered on 08/05/17 21 :00; Start 08/03/17 at 09:00 Acetaminophen (Tylenol) 650 mg Q4H PRN PO TEMP > 100.4 Last administered on 04:28; Start 08/02/17 at 23:00 Ondansetron HCl (Zofran Inj) 4 mg Q6H PRN IVP NAUSEA OR VOMITING; Start at 23:00 Enoxaparin Sodium (Lovenox Inj) 40 mg Q24H SQ ; Start 08/02/17 at 23:00; Stop 08/02/17 at 23:00; Status DC Naloxone HCl (Narcan Inj) 0.4 mg UNSCH PRN IV PUSH SEE LABEL COMMENTS; Start 08/02/17 at 23:00 Magnesium Hydroxide (Milk Of Magnesia Liq) 30 ml Q12H PRN PO Mild constipation ; Start 08/02/17 at 23:00; Stop 08/03/17 at 11:27; Status DC Dextrose (D50w (Vial) Inj) 50 ml UNSCH PRN IV PUSH HYPOGLYCEMIA-SEE COMMENTS; Start 08/02/17 at 23:00 Glucagon (Glucagon Inj) 1 mg UNSCH PRN OTHER HYPOGLYCEMIA-SEE COMMENTS; Start 08/02/17 at 23:00 Insulin Aspart (NovoLOG SUPPLEMENTAL SCALE) 1 ACHS SLIDING SCALE SQ ; Start at 08:00; Stop 08/03/17 at 12:27; Status DC Apixaban (Eliquis) 2.5 mg BID PO ; Start 08/03/17 at 09:00; Stop 08/03/17 at 11:13; Status DC Clonidine (Catapres) 0.1 mg Q8HR PO Last administered on 08/04/17 05:31; Start 08/03/17 at 06:00; Stop 08/04/17 at 07:18; Status DC Diltiazem HCl (Cardizem Cd) 240 mg DAILY PO Last administered on 08/05/17 10: 02; Start 08/03/17 at 09:00 Levothyroxine Sodium (Synthroid) 50 mcg DAILY@0600 PO Last administered on 06:13; Start 08/03/17 at 06:00 Metoprolol Tartrate (Lopressor) 50 mg Q12HR PO Last administered on 08/05/17 21:02; Start 08/03/17 at 09:00 Pravastatin Sodium (Pravachol) 40 mg HS PO Last administered on 08/05/17 21: 02; Start 08/03/17 at 21:00 Pantoprazole Sodium (Protonix) 20 mg DAILY PO Last administered on 08/05/17 10:01; Start 08/03/17 at 09:00 Tolterodine Tartrate (Detrol La) 4 mg DAILY PO Last administered on 08/05/17 10:01; Start 08/03/17 at 09:00 Iohexol (Omnipaque 350 Inj) 80 ml STK-MED ONCE IVCONTRAST Last administered on 08/02/17 23:04; Start 08/02/17 at 23:04; Stop 08/02/17 at 23:05; Status DC Clonidine (Catapres) 0.1 mg ONCE ONCE PO ; Start 08/03/17 at 01:30; Stop at 01:31; Status DC Hydralazine HCl (Apresoline Inj) 20 mg ONCE ONCE IV PUSH Last administered on 08/03/17 01:40; Start 08/03/17 at 01:45; Stop 08/03/17 at 01:46; Status DC Dextrose (D50w (Vial) Inj) 50 ml UNSCH PRN IV PUSH HYPOGLYCEMIA-SEE COMMENTS; Start 08/03/17 at 02:15; Status Cancel Glucagon (Glucagon Inj) 1 mg UNSCH PRN OTHER HYPOGLYCEMIA-SEE COMMENTS; Start 08/03/17 at 02:15; Status Cancel Insulin Aspart (NovoLOG SUPPLEMENTAL SCALE) 1 ACHS SLIDING SCALE SQ Last administered on 08/05/17 11:46; Start 08/03/17 at 08:00 Heparin Sodium/ Dextrose 250 ml @ 15 mls/hr TITRATE PRN IV Coagulation Management Last administered on 08/05/17 06:32; Start 08/03/17 at 05:45 Protamine Sulfate (Protamine Sulfate Inj) 50 mg STK-MED ONCE .ROUTE ; Start at 09:59; Stop 08/03/17 at 10:00; Status DC Heparin Sodium (Porcine) (Heparin Inj) 10,000 units STK-MED ONCE .ROUTE Last administered on 08/03/17 09:40; Start 08/03/17 at 09:59; Stop 08/03/17 at 10 :00; Status DC Bupivacaine HCl (Marcaine Pf 0.5% Inj) 30 ml STK-MED ONCE .ROUTE Last administered on 11/14/17at 09:59; Start 08/03/17 at 09:59; Stop 08/03/17 at 10 :00; Status DC Thrombin (Thrombin [place]) 20,000 units STK-MED ONCE .ROUTE Last administered on 08/03/17 09:10; Start 08/03/17 at 09:59; Stop 08/03/17 at 10 :00; Status DC Heparin Sodium/ Sodium Chloride 500 ml @ As Directed STK-MED ONCE .ROUTE Last administered on 08/03/17 08:50; Start 08/03/17 at 09:59; Stop 08/03/17 at 10 :00; Status DC Potassium Chloride/Dextrose/ Sod Cl 1,000 ml @ 80 mls/hr [id number] IV Last administered on 08/04/17 22:36; Start 08/03/17 at 11:08; Stop 08/05/17 at 09 :33; Status DC Oxycodone HCl (Roxicodone) 5 mg Q4H PRN PO PAIN SCALE 1 TO 5 Last administered on 08/04/17 21:25; Start 08/03/17 at 11:15 Hydromorphone HCl (Dilaudid) 2 mg Q4H PRN PO PAIN SCALE 6 TO 10; Start at 11:15; Stop 08/05/17 at 10:34; Status DC Morphine Sulfate (Morphine Inj) 2 mg Q1H PRN IV PUSH BREAKTHROUGH PAIN Last administered on 08/04/17 12:42; Start 08/03/17 at 11:15 Senna/Docusate Sodium ([place]-Colace) 1 tab BID PO Last administered on 21:02; Start 08/03/17 at 21:00 Magnesium Hydroxide (Milk Of Magnesia Liq) 30 ml Q12H PRN PO Mild constipation ; Start 08/03/17 at 11:15 Sennosides (Senokot) 17.2 mg Q12H PRN PO Moderate constipation; Start at 11:15 Bisacodyl (Dulcolax Supp) 10 mg DAILY PRN RECTAL SEVERE CONSITIPATION; Start 08/03/17 at 11:15 Lactulose (Lactulose Liq) 30 ml DAILY PRN PO SEVERE CONSITIPATION; Start 08/03 at 11:15 Heparin Sodium/ Dextrose 250 ml @ 15.03 mls/ hr TITRATE PRN IV Coagulation Management; Start 08/03/17 at 11:15; Stop 08/03/17 at 11:22; Status DC Lorazepam (Ativan Inj) 2 mg STK-MED ONCE .ROUTE ; Start 08/03/17 at 11:39; Stop 08/03/17 at 11:40; Status DC Haloperidol Lactate (Haldol Inj) 2 mg ONCE ONCE IV PUSH ; Start 08/03/17 at 12 :00; Stop 08/03/17 at 12:01; Status DC Lorazepam (Ativan Inj) 0.5 mg Q15M PRN IV PUSH AGITATION; Start 08/03/17 at 12 :30; Stop 08/03/17 at 12:59; Status DC Metoprolol Tartrate (Lopressor Inj) 5 mg STK-MED ONCE .ROUTE Last administered on 08/03/17 17:51; Start 08/03/17 at 17:49; Stop 08/03/17 at 17:50; Status DC Metoprolol Tartrate (Lopressor Inj) 5 mg Q1H PRN IV PUSH HR > 110 Last administered on 08/03/17 21:12; Start 08/03/17 at 18:15 Sodium Chloride 250 ml @ 250 mls/hr BOLUS ONCE IV Last administered on 01:39; Start 08/04/17 at 01:30; Stop 08/04/17 at 02:29; Status DC Albumin Human 50 ml @ 60 mls/hr ONCE ONCE IV Last administered on 08/04/17 01:38; Start 08/04/17 at 01:30; Stop 08/04/17 at 02:19; Status DC Clonidine (Catapres) 0.2 mg Q8HR PO Last administered on 08/06/17 06:13; Start 08/04/17 at 14:00 Haloperidol Lactate (Haldol Inj) 2 mg ONCE ONCE IV Last administered on 22:37; Start 08/04/17 at 22:30; Stop 08/04/17 at 22:33; Status DC Haloperidol Lactate (Haldol Inj) 2 mg Q4H PRN IV agitation Last administered on 08/05/17 18:50; Start 08/05/17 at 00:30 Furosemide (Lasix Inj) 40 mg ONCE ONCE IV PUSH Last administered on t 11:46; Start 08/05/17 at 10:30; Stop 08/05/17 at 10:31; Status DC Hydromorphone HCl (Dilaudid) 1 mg Q4H PRN PO PAIN SCALE 6 TO 10; Start at 11:15 Melatonin (Melatonin) 5 mg HS PO Last administered on 08/05/17t 21:02; Start 08/05/17 at 21:00 Olanzapine (ZyPREXA ZYDIS ODT) 5 mg Q24H PRN PO if not asleep by 2300; Start 08/05/17 at 23:00 Miscellaneous (Pill Splitter) 1 ea UNSCH PRN OTHER SEE LABEL COMMENTS; Start 08/05/17 at 11:45 Lidocaine HCl (Xylocaine-Mpf 1% Inj) 50 ml STK-MED ONCE OTHER ; Start 08/03/17 at 12:00; Stop 08/05/17 at 13:03; Status DC Rocuronium [place] (Zemuron Inj) 50 mg STK-MED ONCE IV PUSH ; Start 08/03/17 at 12:00; Stop 08/05/17 at 13:03; Status DC Neostigmine Methylsulfate (Prostigmin Inj) 3 mg STK-MED ONCE IV ; Start at 12:00; Stop 08/05/17 at 13:03; Status DC Glycopyrrolate (Robinul Inj) 1 mg STK-MED ONCE IV PUSH ; Start 08/03/17 at 12: 00; Stop 08/05/17 at 13:03; Status DC Phenylephrine HCl (Neosynephrine/ NS 1000 Mcg/10ml Syr) 1,000 mcg STK-MED ONCE IV ; Start 08/03/17 at 12:00; Stop 08/05/17 at 13:03; Status DC Phenylephrine HCl (Neosynephrine Inj) 10 mg STK-MED ONCE IV ; Start 08/03/17 at 12:00; Stop 08/05/17 at 13:03; Status DC Metoprolol Tartrate (Lopressor Inj) 5 mg STK-MED ONCE IV PUSH ; Start 08/03/17 at 12:00; Stop 08/05/17 at 13:03; Status DC Esmolol HCl (Brevibloc Bolus Inj) 100 mg STK-MED ONCE IV ; Start 08/03/17 at 12 :00; Stop 08/05/17 at 13:03; Status DC Dexamethasone Sodium Phosphate (Decadron Inj) 4 mg STK-MED ONCE IV ; Start at 12:00; Stop 08/05/17 at 13:03; Status DC Ondansetron HCl (Zofran Inj) 4 mg STK-MED ONCE IV PUSH ; Start 08/03/17 at 12: 00; Stop 08/05/17 at 13:03; Status DC Cefazolin Sodium (Ancef Inj) 2,000 mg STK-MED ONCE IV ; Start 08/03/17 at 12:00 ; Stop 08/05/17 at 13:03; Status DC Fentanyl Citrate (fentaNYL INJ) 300 mcg STK-MED ONCE IV ; Start 08/03/17 at 12: 00; Stop 08/05/17 at 13:03; Status DC Propofol (Diprivan 200 Mg/20 ml Inj) 200 mg STK-MED ONCE IV ; Start 08/03/17 at 12:00; Stop 08/05/17 at 13:03; Status DC Sodium Chloride 250 ml @ As Directed STK-MED ONCE IV ; Start 08/03/17 at 12:00 ; Stop 08/05/17 at 13:03; Status DC Sodium Chloride 500 ml @ As Directed STK-MED ONCE IV ; Start 08/03/17 at 12:00 ; Stop 08/05/17 at 13:03; Status DC Lactated Ringer's 2,000 ml @ As Directed STK-MED ONCE IV ; Start 08/03/17 at 12:00; Stop 08/05/17 at 13:03; Status DC A/P Assessment and Plan Assessment: 87yF with acute LE vascular occlusion POD 2 s/p thrombectomy and groin reconstruction. echo with significant TR. given downtrending CK, would be more aggressive now about diuresis and aim for net negative fluid balance for the next few days. 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 anticoagulation transition per Dr. Sullivan. - mivf Agitated Delirium - melatonin for sleep - prn haldol iv. Oliguria - improved. - cr stable. d/c mivf. - trend daily BMP - keep Pearl today and then could d/c tomorrow. Tricuspid Regurgitation - lasix 40mg iv x 1. - goal net negative. would attempt to keep her negative by 500cc/day for the next few days. Rhabdomyolysis - improving. - downtrending. will stop checking serial CKs. - d/c ivf. Anemia secondary to acute blood loss - likely from fasciotomy. no signs of bleeding at groin site. - if ongoing losses continue, may need a unit of blood. 11-17 TRANSFUSE 2 UNITS PRBC Atrial Fibrillation - continue diltiazem - continue metoprolol - increase clonidine to 0.2 mg po q8hr - metop 5mg iv q1h prn for breakthrough tachycardia - patient appears clinically euvolemic and persistent tachycardia likely SIRS response. CHF with EF 35% - saline lock ivf. s/p fasciotomy LE - dressing change per Dr. Sullivan Hypertension - home meds. - goal sbp < 160. Hyperlipidemia - home statin Hypothyroidism - home synthroid. DM - SSI PT consult. OOB today. keep leg elevated at all times. PT AND OT WILL PROBABLY NEED SNF VS [facility] AND OR [facility] AT DC INCREASE ACTIVITY TRANSFUSE Jefry Kearney DO Aug 06, 2017 09:06
[2017-08-06] MEDS: TOLTERODINE TARTRATE 4 MG CAP LA PO SCH (09:27)
[2017-08-06] MEDS: PANTOPRAZOLE SOD 20 MG DELAYED RELEASE TAB PO SCH (09:27)
[2017-08-06] MEDS: DILTIAZEM-CD 240 MG CAP ER PO SCH (09:27)
[2017-08-06] MEDS: METOPROLOL TARTRATE 50 MG TAB PO SCH ×2 (09:27→20:22)
--- NOTE | 2017-08-06 09:27 | PD.VS.PN ---
Subjective POD #: 3 Procedure(s): L [employer] and embolectomy, fasciotomies Subjective/Hospital Course somnolent this morning Foot warm and motor intact says pain controlled Objective Vitals/I&O Date Time Temp Pulse Resp B/P (MAP) Pulse Ox O2 Delivery O2 Flow Rate FiO2 08/06/17 08:00 95 Room Air 08/06/17 07:00 106 08/06/17 04:20 98.2 103 18 136/82 (100) 95 08/06/17 04:03 95 Room Air 08/06/17 03:00 99 08/05/17 23:11 94 Room Air 08/05/17 23:05 97.9 92 18 123/69 (87) 95 08/05/17 23:00 90 08/05/17 20:00 96 Nasal Cannula 2.00 08/05/17 20:00 97.9 98 18 123/69 (87) 95 08/05/17 19:00 64 08/05/17 18:35 98.2 61 18 126/63 (84) 95 08/05/17 16:58 98 Nasal Cannula 2.00 08/05/17 15:00 95 Nasal Cannula 2.00 08/05/17 15:00 98.6 57 18 85/48 (60) 95 08/05/17 15:00 62 08/05/17 11:00 123 08/05/17 11:00 98.7 118 16 112/77 (89) 97 08/05/17 11:00 97 Nasal Cannula 2.00 08/06/17 08/06/17 08/06/17 07:00 15:00 23:00 Intake Total 480 ml Output Total 1400 ml Balance -920 ml Exam: L groin with Provena but no hematoma L foot warm motor intact Laboratory Laboratory Tests Test 08/05/17 09:55 08/05/17 10:25 08/06/17 05:19 Blood Urea Nitrogen 12 17 Creatinine 0.60 0.79 Random Glucose 127 147 Calcium Level 7.9 8.2 Sodium Level 139 136 Potassium Level 4.2 3.7 Chloride Level 103 102 Carbon Dioxide Level 25.6 24.3 Anion Gap 10 10 Estimat Glomerular Filtration Rate 95 69 Urine Color YELLOW Urine Turbidity CLEAR Urine pH 6.0 Urine Specific Russell 1.021 Urine Protein 30 Urine Glucose (UA) NEG Urine Ketones NEG Urine Occult Blood SMALL Urine Nitrite NEG Urine Bilirubin NEG Urine Urobilinogen 2.0 Urine Leukocyte Esterase TRACE Urine RBC 4 Urine WBC 5 Urine Mucus FEW Microscopic Urinalysis Comment CATH-CULT NOT IND White Blood Count 13.0 Red Blood Count 2.60 Hemoglobin 7.1 Hematocrit 21.4 Mean Corpuscular Volume 82.3 Mean Corpuscular Hemoglobin 27.1 Mean Corpuscular Hemoglobin Concent 33.0 Red Cell Distribution Width 15.9 Platelet Count 281 Mean Platelet Volume 9.4 Neutrophils (%) (Auto) 76.6 Lymphocytes (%) (Auto) 12.7 Monocytes (%) (Auto) 9.6 Eosinophils (%) (Auto) 0.9 Basophils (%) (Auto) 0.2 Neutrophils # (Auto) 10.0 Lymphocytes # (Auto) 1.6 Monocytes # (Auto) 1.2 Eosinophils # (Auto) 0.1 Basophils # (Auto) 0.0 CBC Comment DIFF FINAL Differential Comment Activated Partial Thromboplast Time 49.5 Total Protein 6.2 Albumin 2.5 Phosphorus Level 3.1 Magnesium Level 1.8 Alkaline Phosphatase 72 Aspartate Amino Transf (AST/SGOT) 90 Alanine Aminotransferase (ALT/SGPT) 43 Total Bilirubin 0.4 Free Thyroxine 1.54 Thyroid Stimulating Hormone 3rd Gen 2.480 Assessment and Plan Assessment: (1) Arterial occlusion Status: Acute Plan POD#3 L LE revascularization 1. Rec transition to home therapeutic anticoagulation 2. D/C Pearl 3. OOB/PT 4. Lateral calf fasciotomy VAC change Discharge Planning 3-4 days Jorden Torrez MD Aug 06, 2017 09:27
[2017-08-06] MEDS: SODIUM CHLORIDE 0.9% FLUSH 10 ML FLUSH IV FLUSH SCH ×2 (09:29→20:23)
[2017-08-06] MEDS ORDERED: SODIUM CHLOR 0.9% 250 ML INJ 250 ML IV ONE (09:30)
[2017-08-06] MEDS ORDERED: diphenhydrAMINE HCL 25 MG CAP PO PRN (09:30)
[2017-08-06] MEDS ORDERED: FUROSEMIDE 20 MG/2 ML VIAL IV PUSH ONE (09:30)
[2017-08-06] MEDS ORDERED: ACETAMINOPHEN 325 MG TAB PO PRN (09:30)
[2017-08-06] MEDS: DOCUSATE SODIUM 50 MG/SENNA 8.6 MG TAB PO SCH ×2 (10:39→20:21)
--- NOTE | 2017-08-06 11:52 | PD.WCN.NOT ---
Neg Pressure Wound Therapy Wound Location Wound Location: L lateral calf Wound Description Wound bed appearance: ~30% adipose tissue, ~40% muscle, ~10% facia and ~20% dark red tissue.Wound has minimal active sanguinous drainage when cleansed with gauze pad and normal saline, that is with out foul odor. Periwound appearance: Other (ecchymotic area from 4 to 9 o'clock extending ~ 0.5cm out from wound bed, periwound is otherwise unremarkable) Settings Suction: 125 mmHg, Continuous Intensity: Low Other Information: Bridged, Windowpaned, Mushroomed Foam type: Black Number of pieces: 1 Additonal Information Patient seen on [facility] for wound VAC dressing change to L lateral calf. knee brace in place , and VAC dressing in place was removed to reveal wound. Wound is located on L lateral calf, description noted above. Irrigated wound with 30 ml of normal saline to cleanse and pat dry with gauze pad . Skin prep was the applied to periwound and to L anterior leg. Oil emulsion gauze was then placed over exposed facia, and dark red tissue in a single layer. Window paned wound with VAC drape and bridged VAC drape to Anterior L leg. Granufoam was then cut to fit wound bed in one large piece and was applied to wound bed. Bridged granufoam from wound bed to L anterior leg. Mushroom cap of black foam was then placed over bridged granufoam with VAC Sensi trac pad attached. Covered all exposed granufoam with VAC drape to seal. Student nurse in room covered sutured incision to L medial calf with dry gauze pads before applying knee place back in place. Patient's L leg is elevated on pillow, with no complaints of pain or discomfort. Patient tolerated procedure well. Wound VAC is suctioning at 125mm/ hg continuous low suction, without leaks. Next VAC dressing change is due on . Ember Terry [facility] Aug 06, 2017 11:52
[2017-08-06] MEDS: HALOPERIDOL LACTATE 5 MG/ML AMP IV PRN (16:35)
[2017-08-06] MEDS: PRAVASTATIN SOD 40 MG TAB PO SCH (20:21)
[2017-08-06] MEDS: MELATONIN 5 MG TAB PO SCH (20:21)
[2017-08-06 22:03] LABS: HEMOGLOBIN A1b 2.8 %; HEMOGLOBIN P3 6.1 %
[2017-08-06 22:49] LABS: HEMOGLOBIN A1a 2.7 %; HEMOGLOBIN Ao 80.9 %; HEMOGLOBIN LA1C 2.3 %
[2017-08-07] VITALS (28 sets, daily range): BP systolic 108–152; BP diastolic 62–97; PULSE 54–114; RESP 18–20; TEMP 97.8–98.7; O2SAT 94–97
[2017-08-07 04:53] LABS: AUTOMATED NEUTROPHIL # 9.3 TH/MM3 (1.8-7.7); BASOPHIL % 0.3 % (0.0-2.0); EOSINOPHIL # 0.2 TH/MM3 (0-0.4); EOSINOPHIL % 1.3 % (0.0-4.0); HEMATOCRIT 27.3 % (35.0-46.0); HEMO FLAGS DIFF FINAL; LYMPH % 13.1 % (9.0-44.0); LYMPHOCYTE # 1.6 TH/MM3 (1.0-4.8); MEAN CELL VOLUME 81.1 FL (80.0-100.0); MEAN CORPUSCULAR HEMOGLOBIN 27.7 PG (27.0-34.0); MEAN CORPUSCULAR HGB CONC 34.2 % (32.0-36.0); MONO % 9.7 % (0.0-8.0); NEUT % 75.6 % (16.0-70.0); PLATELET COUNT 346 TH/MM3 (150-450); RED BLOOD COUNT 3.37 MIL/MM3 (4.00-5.30); RED CELL DISTRIBUTION WIDTH 16.1 % (11.6-17.2); WHITE BLOOD COUNT 12.3 TH/MM3 (4.0-11.0)
[2017-08-07 05:00] LABS: APTT (PATIENT) 38.8 SEC (24.3-30.1)
[2017-08-07 05:20] LABS: ANION GAP 9 MEQ/L (5-15); AST (GOT) 75 U/L (15-37); BICARBONATE 25.6 MEQ/L (21.0-32.0); BLOOD UREA NITROGEN 17 MG/DL (7-18); CHLORIDE 102 MEQ/L (98-107); GLOMERULAR FILTRATION RATE 78 ML/MIN (>89); MAGNESIUM 1.7 MG/DL (1.5-2.5); POTASSIUM 3.2 MEQ/L (3.5-5.1); SODIUM (NA) 137 MEQ/L (136-145)
[2017-08-07 05:30] LABS: ALKALINE PHOSPHATASE 95 U/L (45-117); ALT (GPT) 52 U/L (10-53); FREE T4 1.57 NG/DL (0.76-1.46); TOTAL BILIRUBIN ADULT 0.7 MG/DL (0.2-1.0)
[2017-08-07] MEDS: cloNIDine HCL 0.2 MG TAB PO SCH ×3 (05:49→21:17)
[2017-08-07] MEDS: LEVOTHYROXINE SODIUM 50 MCG TAB PO SCH (05:49)
[2017-08-07] MEDS: INSULIN ASPART SUPPLEMENTAL SCALE SQ SCH ×3 (08:00→20:26)
[2017-08-07] MEDS: METOPROLOL TARTRATE 50 MG TAB PO SCH ×2 (09:12→20:26)
[2017-08-07] MEDS: DOCUSATE SODIUM 50 MG/SENNA 8.6 MG TAB PO SCH ×2 (09:12→20:21)
[2017-08-07] MEDS: PANTOPRAZOLE SOD 20 MG DELAYED RELEASE TAB PO SCH (09:12)
[2017-08-07] MEDS: DILTIAZEM-CD 240 MG CAP ER PO SCH (09:12)
[2017-08-07] MEDS: TOLTERODINE TARTRATE 4 MG CAP LA PO SCH (09:27)
--- NOTE | 2017-08-07 10:30 | PD.VS.PN ---
Subjective POD #: 4 Procedure(s): L [employer] and embolectomy, fasciotomies Subjective/Hospital Course somewhat irritable but [place] somnolent Objective Vitals/I&O Date Time Temp Pulse Resp B/P (MAP) Pulse Ox O2 Delivery O2 Flow Rate FiO2 08/07/17 09:30 97.9 109 20 145/92 (109) 95 08/07/17 09:30 109 08/07/17 09:30 95 Room Air 08/07/17 05:00 103 08/07/17 04:53 98.4 106 20 147/97 (114) 96 08/07/17 04:51 95 Room Air 08/07/17 04:00 114 08/07/17 03:00 101 08/07/17 02:00 106 08/07/17 01:11 95 Room Air 08/07/17 01:00 100 08/07/17 00:00 90 08/06/17 23:40 98.4 91 20 152/85 (107) 96 08/06/17 23:00 114 08/06/17 22:00 98 08/06/17 21:00 92 08/06/17 20:02 95 Room Air 08/06/17 20:00 90 08/06/17 19:20 98.3 99 20 131/87 (102) 96 08/06/17 19:00 94 08/06/17 18:00 94 08/06/17 17:23 94 21 08/06/17 17:00 92 08/06/17 16:45 98.0 121/60 08/06/17 16:40 98.0 120/56 08/06/17 16:32 98.2 115/55 08/06/17 16:00 99 08/06/17 15:36 94 Room Air 08/06/17 15:35 98.0 99 20 115/55 (75) 96 08/06/17 15:00 90 08/06/17 14:00 99 08/06/17 13:33 20 128/68 08/06/17 13:30 98.4 129/78 08/06/17 13:21 97.8 99 20 119/58 08/06/17 13:00 92 08/06/17 12:00 94 08/06/17 11:32 97.8 101 20 140/86 (104) 95 08/06/17 11:28 96 Room Air 08/06/17 11:00 90 08/07/17 08/07/17 08/07/17 07:00 15:00 23:00 Intake Total 852 ml Output Total 2750 ml Balance -1898 ml Exam: resting, no distress L LE mildly edematous warm motor intact Pulses: Strong peroneal Doppler signal Laboratory Laboratory Tests Test 08/07/17 04:19 White Blood Count 12.3 Red Blood Count 3.37 Hemoglobin 9.3 Hematocrit 27.3 Mean Corpuscular Volume 81.1 Mean Corpuscular Hemoglobin 27.7 Mean Corpuscular Hemoglobin Concent 34.2 Red Cell Distribution Width 16.1 Platelet Count 346 Mean Platelet Volume 8.5 Neutrophils (%) (Auto) 75.6 Lymphocytes (%) (Auto) 13.1 Monocytes (%) (Auto) 9.7 Eosinophils (%) (Auto) 1.3 Basophils (%) (Auto) 0.3 Neutrophils # (Auto) 9.3 Lymphocytes # (Auto) 1.6 Monocytes # (Auto) 1.2 Eosinophils # (Auto) 0.2 Basophils # (Auto) 0.0 CBC Comment DIFF FINAL Differential Comment Activated Partial Thromboplast Time 38.8 Blood Urea Nitrogen 17 Creatinine 0.71 Random Glucose 148 Total Protein 6.5 Albumin 2.5 Calcium Level 8.4 Phosphorus Level 3.2 Magnesium Level 1.7 Alkaline Phosphatase 95 Aspartate Amino Transf (AST/SGOT) 75 Alanine Aminotransferase (ALT/SGPT) 52 Total Bilirubin 0.7 Sodium Level 137 Potassium Level 3.2 Chloride Level 102 Carbon Dioxide Level 25.6 Anion Gap 9 Estimat Glomerular Filtration Rate 78 Free Thyroxine 1.57 Thyroid Stimulating Hormone 3rd Gen 2.040 Assessment and Plan Assessment: (1) Arterial occlusion Status: Acute Plan POD#4 L LE revascularization 1. Rec transition to home therapeutic anticoagulation 2. D/C Pearl 3. OOB/PT 4. Change lateral calf VAC Wed and will d/c groin VAC Wednesday Discharge Planning 3-4 days Jorden Torrez MD Aug 07, 2017 10:30
--- NOTE | 2017-08-07 12:00 | HHI.PR ---
Subjective Remarks This is an 87yF with h/o prior DVTs and PAD and CHF with EF 35% (last echo november 2016) who presented to the ED with 1 day history of LE pain and numbness and found to have common femoral artery occlusion with vascular compromise. She was taken emergently to the OR for acute embolectomy and revascularization with groin reconstruction. At the conclusion of the procedure, her calf muscles were edematous and prophylactic/therapeutic fasciotomy was performed on the LE compartments. She is brought to the CVICU in stable condition for close monitoring. On my initial evaluation, she is still arousing from anesthesia and no additional information is obtained from the patient. ROS negative. Subjective: 08/04: intermittently confused overnight. fasciotomy dressing changed twice overnight. hgb dropped from 10.7 to 8.3. no active bleeding, just venous oozing from fasciotomy. groin without hematoma. patient upset about not being able to control her own home medications. +Doppler pulses. 08/05: confusion persists overnight. given haldol iv x 1. hgb dropped again slightly to 7.3. no active bleeding. distal pulses still present. ROS negative. 08/06 PATIENT TRANSFERRED TO OUR SERVICE TODAY MOVED OUT OF ICU TO [facility] remains CONFUSED "STATES I WANTED TO GO OUTSIDE AND WALK YESTERDAY BUT IT WAS RAINING" LEFT LOWER EXTREMITY DRESSED WITH VAC IN PLACE DW RN AND PT WILL TRANSFUSE 2 UNITS PRBC TODAY AM LABS 08-07 PATIENT REFUSED SOME LAB WORK TODAY IMPROVED POST TRANSFUSION SWITCH TO XARELTO 15MG PO BID DW RN AND PT HAS GOOD PULSE ON LEFT LEG- LEFT LEG DRESSED IN VAC Objective Vitals Vital Signs Date Time Temp Pulse Resp B/P (MAP) Pulse Ox O2 Delivery O2 Flow Rate FiO2 08/07/17 11:36 98.7 92 20 152/79 (103) 96 08/07/17 11:36 94 Room Air 08/07/17 11:36 92 08/07/17 09:30 97.9 109 20 145/92 (109) 95 08/07/17 09:30 109 08/07/17 09:30 95 Room Air 08/07/17 05:00 103 08/07/17 04:53 98.4 106 20 147/97 (114) 96 08/07/17 04:51 95 Room Air 08/07/17 04:00 114 08/07/17 03:00 101 08/07/17 02:00 106 08/07/17 01:11 95 Room Air 08/07/17 01:00 100 08/07/17 00:00 90 08/06/17 23:40 98.4 91 20 152/85 (107) 96 08/06/17 23:00 114 08/06/17 22:00 98 08/06/17 21:00 92 08/06/17 20:02 95 Room Air 08/06/17 20:00 90 08/06/17 19:20 98.3 99 20 131/87 (102) 96 08/06/17 19:00 94 08/06/17 18:00 94 08/06/17 17:23 94 21 08/06/17 17:00 92 08/06/17 16:45 98.0 121/60 08/06/17 16:40 98.0 120/56 08/06/17 16:32 98.2 115/55 08/06/17 16:00 99 08/06/17 15:36 94 Room Air 08/06/17 15:35 98.0 99 20 115/55 (75) 96 08/06/17 15:00 90 08/06/17 14:00 99 08/06/17 13:33 20 128/68 08/06/17 13:30 98.4 129/78 08/06/17 13:21 97.8 99 20 119/58 08/06/17 13:00 92 08/06/17 12:00 94 I/O 08/06/17 08/06/17 08/06/17 08/07/17 08/07/17 08/07/17 07:00 15:00 23:00 07:00 15:00 23:00 Intake Total 480 ml 50 ml 1879 ml 852 ml Output Total 1400 ml 450 ml 2750 ml Balance -920 ml 50 ml 1429 ml -1898 ml Intake Oral 480 ml 675 ml 720 ml IV Total 254 ml 132 ml Packed Cells 800 ml Blood Product IV Normal Saline Flush 50 ml 150 ml Output Urine Total 1400 ml 450 ml 2750 ml # Bowel Movements 0 Result Diagram: 08/07/17 0419 08/07/17 0419 Other Results Laboratory Tests Test 08/04/17 17:40 08/05/17 02:02 08/05/17 09:55 08/05/17 10:25 Activated Partial Thromboplast Time 45.0 SEC 50.7 SEC Total Creatine Kinase 2775 U/L 2265 U/L Creatine Kinase MB 7.4 NG/ML 5.1 NG/ML Creatine Kinase MB % 0.3 % 0.2 % White Blood Count 14.4 TH/MM3 Red Blood Count 2.85 MIL/MM3 Hemoglobin 7.3 GM/DL Hematocrit 23.3 % Mean Corpuscular Volume 82.0 FL Mean Corpuscular Hemoglobin 25.6 PG Mean Corpuscular Hemoglobin Concent 31.2 % Red Cell Distribution Width 15.5 % Platelet Count 303 TH/MM3 Mean Platelet Volume 8.1 FL Blood Urea Nitrogen 12 MG/DL Creatinine 0.60 MG/DL Random Glucose 127 MG/DL Calcium Level 7.9 MG/DL Sodium Level 139 MEQ/L Potassium Level 4.2 MEQ/L Chloride Level 103 MEQ/L Carbon Dioxide Level 25.6 MEQ/L Anion Gap 10 MEQ/L Estimat Glomerular Filtration Rate 95 ML/MIN Urine Color YELLOW Urine Turbidity CLEAR Urine pH 6.0 Urine Specific [place] 1.021 Urine Protein 30 mg/dL Urine Glucose (UA) NEG mg/dL Urine Ketones NEG mg/dL Urine Occult Blood SMALL Urine Nitrite NEG Urine Bilirubin NEG Urine Urobilinogen 2.0 MG/DL Urine Leukocyte Esterase TRACE Urine RBC 4 /hpf Urine WBC 5 /hpf Urine Mucus FEW /lpf Microscopic Urinalysis Comment CATH-CULT NOT IND Test 08/06/17 05:19 08/07/17 04:19 White Blood Count 13.0 TH/MM3 12.3 TH/MM3 Red Blood Count 2.60 MIL/MM3 3.37 MIL/MM3 Hemoglobin 7.1 GM/DL 9.3 GM/DL Hematocrit 21.4 % 27.3 % Mean Corpuscular Volume 82.3 FL 81.1 FL Mean Corpuscular Hemoglobin 27.1 PG 27.7 PG Mean Corpuscular Hemoglobin Concent 33.0 % 34.2 % Red Cell Distribution Width 15.9 % 16.1 % Platelet Count 281 TH/MM3 346 TH/MM3 Mean Platelet Volume 9.4 FL 8.5 FL Neutrophils (%) (Auto) 76.6 % 75.6 % Lymphocytes (%) (Auto) 12.7 % 13.1 % Monocytes (%) (Auto) 9.6 % 9.7 % Eosinophils (%) (Auto) 0.9 % 1.3 % Basophils (%) (Auto) 0.2 % 0.3 % Neutrophils # (Auto) 10.0 TH/MM3 9.3 TH/MM3 Lymphocytes # (Auto) 1.6 TH/MM3 1.6 TH/MM3 Monocytes # (Auto) 1.2 TH/MM3 1.2 TH/MM3 Eosinophils # (Auto) 0.1 TH/MM3 0.2 TH/MM3 Basophils # (Auto) 0.0 TH/MM3 0.0 TH/MM3 CBC Comment DIFF FINAL DIFF FINAL Differential Comment Activated Partial Thromboplast Time 49.5 SEC 38.8 SEC Blood Urea Nitrogen 17 MG/DL 17 MG/DL Creatinine 0.79 MG/DL 0.71 MG/DL Random Glucose 147 MG/DL 148 MG/DL Total Protein 6.2 GM/DL 6.5 GM/DL Albumin 2.5 GM/DL 2.5 GM/DL Calcium Level 8.2 MG/DL 8.4 MG/DL Phosphorus Level 3.1 MG/DL 3.2 MG/DL Magnesium Level 1.8 MG/DL 1.7 MG/DL Alkaline Phosphatase 72 U/L 95 U/L Aspartate Amino Transf (AST/SGOT) 90 U/L 75 U/L Alanine Aminotransferase (ALT/SGPT) 43 U/L 52 U/L Total Bilirubin 0.4 MG/DL 0.7 MG/DL Sodium Level 136 MEQ/L 137 MEQ/L Potassium Level 3.7 MEQ/L 3.2 MEQ/L Chloride Level 102 MEQ/L 102 MEQ/L Carbon Dioxide Level 24.3 MEQ/L 25.6 MEQ/L Anion Gap 10 MEQ/L 9 MEQ/L Estimat Glomerular Filtration Rate 69 ML/MIN 78 ML/MIN Hemoglobin A1c 6.3 % Free Thyroxine 1.54 NG/DL 1.57 NG/DL Thyroid Stimulating Hormone 3rd Gen 2.480 uIU/ML 2.040 uIU/ML Imaging Last Impressions Chest X-Ray 08/02/17 1827 Signed Impressions: Service Date/Time: Wednesday, August 02, 2017 18:45 - CONCLUSION: No acute abnormality is seen. The heart size is mildly enlarged. Christian Hahn MD Aorta w/Runoff CTA 08/02/17 0000 Signed Impressions: Service Date/Time: Wednesday, August 02, 2017 22:26 - CONCLUSION: 1. Patent inflow. 2. Right lower extremity shows patent outflow with diseased runoff. Runoff is via a diseased anterior tibial artery and reconstituted posterior tibial artery. 3. Left lower extremity has complete occlusion of the outflow and runoff beginning at the origin of the common femoral artery. There is reconstitution of the profunda femoris. 4. Hemodynamically significant stenoses involving the celiac, SMA, and renal arteries. Davey Parsons Jr., MD Objective Remarks GENERAL: AWAKE AND ALERT BUT CONFUSED AT THIS TIME SKIN: Warm and dry. HEAD: Atraumatic. Normocephalic. EYES: Pupils equal and round. No scleral icterus. No injection or drainage. EOMI ENT: No nasal bleeding or discharge. Mucous membranes pink and moist. TONGUE IS MIDLINE NECK: Trachea midline. No JVD. SUPPLE CARDIOVASCULAR: IRRegular rate and rhythm. S1, S2 NO S3 OR S4 RESPIRATORY: No accessory muscle use. Clear to auscultation. Breath sounds equal bilaterally. GASTROINTESTINAL: Abdomen soft, non-tender, nondistended. Hepatic and splenic margins not palpable. MUSCULOSKELETAL: Extremities without clubbing, cyanosis, or edema. No obvious deformities. LEFT LEG IS IN BRACE AND DRESSED WITH WOUND VAC IN PLACE NEUROLOGICAL: Awake and alert. No obvious cranial nerve deficits. Motor grossly within normal limits. Five out of 5 muscle strength in the arms and legs. Normal speech. PSYCHIATRIC: INAppropriate mood and affect; insight and judgment ABnormal. Procedures YANG SULLIVAN MD DATE OF SURGERY 08/03/2017 PREOPERATIVE DIAGNOSIS Acute left lower extremity ischemia with motor dysfunction. POSTOPERATIVE DIAGNOSIS Acute left lower extremity ischemia with motor dysfunction. PROCEDURE 1. Left common femoral artery endarterectomy with patch angioplasty. 2. Embolectomy of left femoral popliteal artery via groin incision. 3. Left lower extremity fasciotomies (four compartments). ATTENDING SURGEON Yang Sullivan MD ANESTHESIA General INDICATIONS Ms. Michel is an 87-year-old lady who presented to the emergency department with left lower extremity ischemia that started a day before presentation and on my evaluation, the patient had motor dysfunction. She was taken to the operating room emergently. DESCRIPTION OF PROCEDURE Informed consent was obtained from the patient. She was taken to the operating room, placed supine on the operating table and appropriate time-out was taken to ensure the patient's identity, operative site and planned procedure. The administration of 2 grams of Ancef was initiated prior to the skin incision and will be discontinued after a single preoperative dose. Everyone in the room agreed with the time-out and we proceeded. She was prepped from her nipples to her toes. A vertical incision made in the patient's left groin, carried down through the subcutaneous tissue with electrocautery. The distal external artery was identified, dissected free, encircled with a Vesseloop. They common femoral artery, proximal profunda down to its bifurcation and superficial femoral artery were all dissected free. The patient was systemically heparinized and throughout the remainder of the case, the ACT was kept greater than 250. Proximal control of the external iliac artery was obtained from profunda clamps and distal control of both branches of the profunda and the superficial femoral artery were obtained with profunda clamps. A longitudinal arteriotomy was made with an 11 blade, extended with Paddy scissors. There was fresh thrombus in the left common femoral artery that extended to the profunda and this was removed without difficulty. A Nanci embolectomy catheter was then passed down the superficial femoral artery and all the way down to approximately the distal calf and fresh thrombus was retrieved from the femoral popliteal artery. A reasonable back bleeding was encountered. The longitudinal arteriotomy was then closed with a bovine pericardial patch which was sewn on with running 5-0 Prolene suture. At the completion, it was flushed and noted to be hemostatic. The clamps were released. There was a nice pulse in both the SFA and both branches of the profunda. However, the Doppler signals in the foot were somewhat diminished. An incision made in the patient's medial calf, carried down through the subcutaneous tissue with electrocautery. The muscle was divided and retracted posteriorly. The below-knee popliteal artery was identified and was noted to have an excellent pulse. We dissected down to the tibioperoneal trunk which also had an excellent pulse and the peroneal artery had an excellent pulse. The posterior tibial artery was intensely and chronically calcified. At this point, Doppler signals from the distal peroneal artery just above the ankle were biphasic and the thought was that her predominant runoff was peroneal and this was a chronic finding. The fascia was reapproximated over the below-knee popliteal artery vessels using running 2-0 Polysorb suture and the skin was reapproximated loosely with 3-0 interrupted nylon sutures. An incision was made on the lateral aspect of the calf in between the anterior and lateral compartments and carried down through the subcutaneous tissue with electrocautery. The fascia was divided in both these compartments and the fasciotomy was extended cranially and caudally with Metzenbaum scissors. The muscle was noted be viable and bulged significantly. There was a nice Doppler signal in the foot. The wounds were made hemostatic. The lateral calf wound was dressed with a Kerlix. The groin wound was closed with 2-0 Polysorb, 3-0 Polysorb and 4-0 Monocryl. Marcaine was infiltrated. The patient was then awoken from anesthesia and transported to the CVICU in stable condition. I was present, scrubbed and performed the entire procedure. Medications and IVs Current Medications Morphine Sulfate (Morphine Inj) 4 mg ONCE ONCE IV PUSH Last administered on 19:51; Start 08/02/17 at 19:15; Stop 08/02/17 at 19:17; Status DC Ondansetron HCl (Zofran Inj) 4 mg ONCE ONCE IV PUSH Last administered on 08/02 19:52; Start 08/02/17 at 19:15; Stop 08/02/17 at 19:17; Status DC Sodium Chloride 1,000 ml @ 125 mls/hr Q8H IV Last administered on 08/02/17 20:54; Start 08/02/17 at 20:45; Stop 08/03/17 at 02:12; Status DC Ondansetron HCl (Zofran Inj) 4 mg ONCE ONCE IV PUSH Last administered on 08/02 22:08; Start 08/02/17 at 21:45; Stop 08/02/17 at 21:46; Status DC Hydromorphone HCl (Dilaudid Pf Inj) 1 mg ONCE ONCE IV PUSH Last administered on 08/02/17 22:08; Start 08/02/17 at 21:45; Stop 08/02/17 at 21:46; Status DC Sodium Chloride 1,000 ml @ 42 mls/hr [id number] IV Last administered on 01:52; Start 08/02/17 at 22:46; Stop 08/03/17 at 11:22; Status DC Sodium Chloride (NS Flush) 2 ml UNSCH PRN IV FLUSH FLUSH AFTER USING IV ACCESS ; Start 08/02/17 at 23:00 Sodium Chloride (NS Flush) 2 ml BID IV FLUSH Last administered on 08/06/17 20 :23; Start 08/03/17 at 09:00 Acetaminophen (Tylenol) 650 mg Q4H PRN PO TEMP > 100.4 Last administered on 04:28; Start 08/02/17 at 23:00 Ondansetron HCl (Zofran Inj) 4 mg Q6H PRN IVP NAUSEA OR VOMITING; Start at 23:00 Enoxaparin Sodium (Lovenox Inj) 40 mg Q24H SQ ; Start 08/02/17 at 23:00; Stop 08/02/17 at 23:00; Status DC Naloxone HCl (Narcan Inj) 0.4 mg UNSCH PRN IV PUSH SEE LABEL COMMENTS; Start 08/02/17 at 23:00 Magnesium Hydroxide (Milk Of Magnesia Liq) 30 ml Q12H PRN PO Mild constipation ; Start 08/02/17 at 23:00; Stop 08/03/17 at 11:27; Status DC Dextrose (D50w (Vial) Inj) 50 ml UNSCH PRN IV PUSH HYPOGLYCEMIA-SEE COMMENTS; Start 08/02/17 at 23:00 Glucagon (Glucagon Inj) 1 mg UNSCH PRN OTHER HYPOGLYCEMIA-SEE COMMENTS; Start 08/02/17 at 23:00 Insulin Aspart (NovoLOG SUPPLEMENTAL SCALE) 1 ACHS SLIDING SCALE SQ ; Start at 08:00; Stop 08/03/17 at 12:27; Status DC Apixaban (Eliquis) 2.5 mg BID PO ; Start 08/03/17 at 09:00; Stop 08/03/17 at 11:13; Status DC Clonidine (Catapres) 0.1 mg Q8HR PO Last administered on 08/04/17 05:31; Start 08/03/17 at 06:00; Stop 08/04/17 at 07:18; Status DC Diltiazem HCl (Cardizem Cd) 240 mg DAILY PO Last administered on 08/07/17 09: 12; Start 08/03/17 at 09:00 Levothyroxine Sodium (Synthroid) 50 mcg DAILY@0600 PO Last administered on 05:49; Start 08/03/17 at 06:00 Metoprolol Tartrate (Lopressor) 50 mg Q12HR PO Last administered on 08/07/17 09:12; Start 08/03/17 at 09:00 Pravastatin Sodium (Pravachol) 40 mg HS PO Last administered on 08/06/17 20: 21; Start 08/03/17 at 21:00 Pantoprazole Sodium (Protonix) 20 mg DAILY PO Last administered on 08/07/17 09:12; Start 08/03/17 at 09:00 Tolterodine Tartrate (Detrol La) 4 mg DAILY PO Last administered on 08/07/17 09:27; Start 08/03/17 at 09:00 Iohexol (Omnipaque 350 Inj) 80 ml STK-MED ONCE IVCONTRAST Last administered on 08/02/17 23:04; Start 08/02/17 at 23:04; Stop 08/02/17 at 23:05; Status DC Clonidine (Catapres) 0.1 mg ONCE ONCE PO ; Start 08/03/17 at 01:30; Stop at 01:31; Status DC Hydralazine HCl (Apresoline Inj) 20 mg ONCE ONCE IV PUSH Last administered on 08/03/17 01:40; Start 08/03/17 at 01:45; Stop 08/03/17 at 01:46; Status DC Dextrose (D50w (Vial) Inj) 50 ml UNSCH PRN IV PUSH HYPOGLYCEMIA-SEE COMMENTS; Start 08/03/17 at 02:15; Status Cancel Glucagon (Glucagon Inj) 1 mg UNSCH PRN OTHER HYPOGLYCEMIA-SEE COMMENTS; Start 08/03/17 at 02:15; Status Cancel Insulin Aspart (NovoLOG SUPPLEMENTAL SCALE) 1 ACHS SLIDING SCALE SQ Last administered on 08/06/17 12:00; Start 08/03/17 at 08:00 Heparin Sodium/ Dextrose 250 ml @ 15 mls/hr TITRATE PRN IV Coagulation Management Last administered on 08/05/17 06:32; Start 08/03/17 at 05:45 Protamine Sulfate (Protamine Sulfate Inj) 50 mg STK-MED ONCE .ROUTE ; Start at 09:59; Stop 08/03/17 at 10:00; Status DC Heparin Sodium (Porcine) (Heparin Inj) 10,000 units STK-MED ONCE .ROUTE Last administered on 08/03/17 09:40; Start 08/03/17 at 09:59; Stop 08/03/17 at 10 :00; Status DC Bupivacaine HCl (Marcaine Pf 0.5% Inj) 30 ml STK-MED ONCE .ROUTE Last administered on 08/03/17 09:59; Start 08/03/17 at 09:59; Stop 08/03/17 at 10 :00; Status DC Thrombin (Thrombin Top Orange) 20,000 units STK-MED ONCE .ROUTE Last administered on 08/03/17 09:10; Start 08/03/17 at 09:59; Stop 08/03/17 at 10 :00; Status DC Heparin Sodium/ Sodium Chloride 500 ml @ As Directed STK-MED ONCE .ROUTE Last administered on 08/03/17 08:50; Start 08/03/17 at 09:59; Stop 08/03/17 at 10 :00; Status DC Potassium Chloride/Dextrose/ Sod Cl 1,000 ml @ 80 mls/hr [id number] IV Last administered on 08/04/17 22:36; Start 08/03/17 at 11:08; Stop 08/05/17 at 09 :33; Status DC Oxycodone HCl (Roxicodone) 5 mg Q4H PRN PO PAIN SCALE 1 TO 5 Last administered on 08/04/17 21:25; Start 08/03/17 at 11:15 Hydromorphone HCl (Dilaudid) 2 mg Q4H PRN PO PAIN SCALE 6 TO 10; Start at 11:15; Stop 08/05/17 at 10:34; Status DC Morphine Sulfate (Morphine Inj) 2 mg Q1H PRN IV PUSH BREAKTHROUGH PAIN Last administered on 08/04/17 12:42; Start 08/03/17 at 11:15 Senna/Docusate Sodium ([place]-Colace) 1 tab BID PO Last administered on 09:12; Start 08/03/17 at 21:00 Magnesium Hydroxide (Milk Of Magnesia Liq) 30 ml Q12H PRN PO Mild constipation ; Start 08/03/17 at 11:15 Sennosides (Senokot) 17.2 mg Q12H PRN PO Moderate constipation; Start at 11:15 Bisacodyl (Dulcolax Supp) 10 mg DAILY PRN RECTAL SEVERE CONSITIPATION; Start 08/03/17 at 11:15 Lactulose (Lactulose Liq) 30 ml DAILY PRN PO SEVERE CONSITIPATION; Start 08/03 at 11:15 Heparin Sodium/ Dextrose 250 ml @ 15.03 mls/ hr TITRATE PRN IV Coagulation Management; Start 08/03/17 at 11:15; Stop 08/03/17 at 11:22; Status DC Lorazepam (Ativan Inj) 2 mg STK-MED ONCE .ROUTE ; Start 08/03/17 at 11:39; Stop 08/03/17 at 11:40; Status DC Haloperidol Lactate (Haldol Inj) 2 mg ONCE ONCE IV PUSH ; Start 08/03/17 at 12 :00; Stop 08/03/17 at 12:01; Status DC Lorazepam (Ativan Inj) 0.5 mg Q15M PRN IV PUSH AGITATION; Start 08/03/17 at 12 :30; Stop 08/03/17 at 12:59; Status DC Metoprolol Tartrate (Lopressor Inj) 5 mg STK-MED ONCE .ROUTE Last administered on 08/03/17 17:51; Start 08/03/17 at 17:49; Stop 08/03/17 at 17:50; Status DC Metoprolol Tartrate (Lopressor Inj) 5 mg Q1H PRN IV PUSH HR > 110 Last administered on 08/03/17 21:12; Start 08/03/17 at 18:15 Sodium Chloride 250 ml @ 250 mls/hr BOLUS ONCE IV Last administered on 01:39; Start 08/04/17 at 01:30; Stop 08/04/17 at 02:29; Status DC Albumin Human 50 ml @ 60 mls/hr ONCE ONCE IV Last administered on 08/04/17 01:38; Start 08/04/17 at 01:30; Stop 08/04/17 at 02:19; Status DC Clonidine (Catapres) 0.2 mg Q8HR PO Last administered on 08/07/17 05:49; Start 08/04/17 at 14:00 Haloperidol Lactate (Haldol Inj) 2 mg ONCE ONCE IV Last administered on 22:37; Start 08/04/17 at 22:30; Stop 08/04/17 at 22:33; Status DC Haloperidol Lactate (Haldol Inj) 2 mg Q4H PRN IV agitation Last administered on 08/05/17 18:50; Start 08/05/17 at 00:30 Furosemide (Lasix Inj) 40 mg ONCE ONCE IV PUSH Last administered on 11:46; Start 08/05/17 at 10:30; Stop 08/05/17 at 10:31; Status DC Hydromorphone HCl (Dilaudid) 1 mg Q4H PRN PO PAIN SCALE 6 TO 10; Start at 11:15 Melatonin (Melatonin) 5 mg HS PO Last administered on 08/06/17 20:21; Start 08/05/17 at 21:00 Olanzapine (ZyPREXA ZYDIS ODT) 5 mg Q24H PRN PO if not asleep by 2300; Start 08/05/17 at 23:00 Miscellaneous (Pill Splitter) 1 ea UNSCH PRN OTHER SEE LABEL COMMENTS; Start 08/05/17 at 11:45 Lidocaine HCl (Xylocaine-Mpf 1% Inj) 50 ml STK-MED ONCE OTHER ; Start 08/03/17 at 12:00; Stop 08/05/17 at 13:03; Status DC Rocuronium [place] (Zemuron Inj) 50 mg STK-MED ONCE IV PUSH ; Start 08/03/17 at 12:00; Stop 08/05/17 at 13:03; Status DC Neostigmine Methylsulfate (Prostigmin Inj) 3 mg STK-MED ONCE IV ; Start at 12:00; Stop 08/05/17 at 13:03; Status DC Glycopyrrolate (Robinul Inj) 1 mg STK-MED ONCE IV PUSH ; Start 08/03/17 at 12: 00; Stop 08/05/17 at 13:03; Status DC Phenylephrine HCl (Neosynephrine/ NS 1000 Mcg/10ml Syr) 1,000 mcg STK-MED ONCE IV ; Start 08/03/17 at 12:00; Stop 08/05/17 at 13:03; Status DC Phenylephrine HCl (Neosynephrine Inj) 10 mg STK-MED ONCE IV ; Start 08/03/17 at 12:00; Stop 08/05/17 at 13:03; Status DC Metoprolol Tartrate (Lopressor Inj) 5 mg STK-MED ONCE IV PUSH ; Start 08/03/17 at 12:00; Stop 08/05/17 at 13:03; Status DC Esmolol HCl (Brevibloc Bolus Inj) 100 mg STK-MED ONCE IV ; Start 08/03/17 at 12 :00; Stop 08/05/17 at 13:03; Status DC Dexamethasone Sodium Phosphate (Decadron Inj) 4 mg STK-MED ONCE IV ; Start at 12:00; Stop 08/05/17 at 13:03; Status DC Ondansetron HCl (Zofran Inj) 4 mg STK-MED ONCE IV PUSH ; Start 08/03/17 at 12: 00; Stop 08/05/17 at 13:03; Status DC Cefazolin Sodium (Ancef Inj) 2,000 mg STK-MED ONCE IV ; Start 08/03/17 at 12:00 ; Stop 08/05/17 at 13:03; Status DC Fentanyl Citrate (fentaNYL INJ) 300 mcg STK-MED ONCE IV ; Start 08/03/17 at 12: 00; Stop 08/05/17 at 13:03; Status DC Propofol (Diprivan 200 Mg/20 ml Inj) 200 mg STK-MED ONCE IV ; Start 08/03/17 at 12:00; Stop 08/05/17 at 13:03; Status DC Sodium Chloride 250 ml @ As Directed STK-MED ONCE IV ; Start 08/03/17 at 12:00 ; Stop 08/05/17 at 13:03; Status DC Sodium Chloride 500 ml @ As Directed STK-MED ONCE IV ; Start 08/03/17 at 12:00 ; Stop 08/05/17 at 13:03; Status DC Lactated Ringer's 2,000 ml @ As Directed STK-MED ONCE IV ; Start 08/03/17 at 12:00; Stop 08/05/17 at 13:03; Status DC Sodium Chloride 250 ml @ 15 mls/hr ONCE ONCE IV ; Start 08/06/17 at 09:30; Stop 08/07/17 at 02:09; Status DC Acetaminophen (Tylenol) 650 mg Q4H PRN PO SEE LABEL COMMENTS; Start 08/06/17 at 09:30 Diphenhydramine HCl (Benadryl) 25 mg Q4H PRN PO SEE LABEL COMMENTS Last administered on 08/06/17 13:00; Start 08/06/17 at 09:30 Furosemide (Lasix Inj) 20 mg ONCE ONCE IV PUSH Last administered on 09:30; Start 08/06/17 at 09:30; Stop 08/06/17 at 09:31; Status DC A/P Assessment and Plan Assessment: 87yF with acute LE vascular occlusion POD 4 s/p thrombectomy and groin reconstruction. echo with significant TR. given downtrending CK, would be more aggressive now about diuresis and aim for net negative fluid balance for the next few days. s/p NURSE PRACTITIONER HOME ASSESSMENTS embolectomy with groin reconstruction 08/03 - frequent neurovascular checks - continue heparin drip. anticoagulation transition per Dr. Sullivan. - mivf SWITCH TO XARELTO 15MG BID Agitated Delirium - melatonin for sleep - prn haldol iv. Oliguria - improved. - cr stable. d/c mivf. - trend daily BMP - keep Matson today and then could d/c tomorrow.- DC MATSON Tricuspid Regurgitation - lasix 40mg iv x 1. - goal net negative. would attempt to keep her negative by 500cc/day for the next few days. Rhabdomyolysis - improving. - downtrending. will stop checking serial CKs. - d/c ivf. Anemia secondary to acute blood loss - likely from fasciotomy. no signs of bleeding at groin site. - if ongoing losses continue, may need a unit of blood. 08-06 TRANSFUSE 2 UNITS PRBC Atrial Fibrillation - continue diltiazem - continue metoprolol - increase clonidine to 0.2 mg po q8hr - metop 5mg iv q1h prn for breakthrough tachycardia - patient appears clinically euvolemic and persistent tachycardia likely SIRS response. CHF with EF 35% - saline lock ivf. s/p fasciotomy LE - dressing change per Dr. Sullivan Hypertension - home meds. - goal sbp < 160. Hyperlipidemia - home statin Hypothyroidism - home synthroid. DM - SSI PT consult. OOB today. keep leg elevated at all times. PT AND OT WILL PROBABLY NEED SNF VS [facility] AND OR [facility] AT DC INCREASE ACTIVITY TRANSFUSED 08-06 AM LABS DW RN AND PT Discharge Planning PENDING SURGERY CLEARANCE AND SNF VS [facility] VS OTHER Jefry Kearney DO Aug 07, 2017 12:00
[2017-08-07] MEDS: RIVAROXABAN 15 MG TAB PO SCH ×2 (13:03→20:22)
[2017-08-07] MEDS: SODIUM CHLORIDE 0.9% FLUSH 10 ML FLUSH IV FLUSH SCH ×2 (13:03→20:26)
[2017-08-07 18:51] LABS: APTT (PATIENT) 37.8 SEC (24.3-30.1)
[2017-08-07] MEDS: MELATONIN 5 MG TAB PO SCH (20:21)
[2017-08-07] MEDS: PRAVASTATIN SOD 40 MG TAB PO SCH (20:21)
[2017-08-08] VITALS (27 sets, daily range): BP systolic 108–137; BP diastolic 63–83; PULSE 52–96; RESP 16–20; TEMP 97.2–98.5; O2SAT 95–98
[2017-08-08] MEDS: cloNIDine HCL 0.2 MG TAB PO SCH ×3 (06:00→22:24)
[2017-08-08] MEDS: LEVOTHYROXINE SODIUM 50 MCG TAB PO SCH (06:00)
[2017-08-08] MEDS: INSULIN ASPART SUPPLEMENTAL SCALE SQ SCH ×4 (08:00→22:25)
[2017-08-08 08:02] LABS: AUTOMATED NEUTROPHIL # 7.2 TH/MM3 (1.8-7.7); BASOPHIL % 0.3 % (0.0-2.0); EOSINOPHIL # 0.2 TH/MM3 (0-0.4); EOSINOPHIL % 2.3 % (0.0-4.0); HEMATOCRIT 26.4 % (35.0-46.0); LYMPH % 17.5 % (9.0-44.0); LYMPHOCYTE # 1.8 TH/MM3 (1.0-4.8); MEAN CELL VOLUME 82.3 FL (80.0-100.0); MEAN CORPUSCULAR HEMOGLOBIN 27.6 PG (27.0-34.0); MEAN CORPUSCULAR HGB CONC 33.5 % (32.0-36.0); MONO % 9.7 % (0.0-8.0); NEUT % 70.2 % (16.0-70.0); PLATELET COUNT 342 TH/MM3 (150-450); RED BLOOD COUNT 3.21 MIL/MM3 (4.00-5.30); RED CELL DISTRIBUTION WIDTH 16.4 % (11.6-17.2); WHITE BLOOD COUNT 10.3 TH/MM3 (4.0-11.0)
[2017-08-08 08:07] LABS: HEMO FLAGS AUTO DIFF
[2017-08-08 08:40] LABS: ANION GAP 8 MEQ/L (5-15); AST (GOT) 48 U/L (15-37); BLOOD UREA NITROGEN 17 MG/DL (7-18); CHLORIDE 104 MEQ/L (98-107); GLOMERULAR FILTRATION RATE 75 ML/MIN (>89); MAGNESIUM 1.7 MG/DL (1.5-2.5); SODIUM (NA) 139 MEQ/L (136-145)
[2017-08-08 08:45] LABS: ALKALINE PHOSPHATASE 79 U/L (45-117); ALT (GPT) 39 U/L (10-53); TOTAL BILIRUBIN ADULT 0.5 MG/DL (0.2-1.0)
[2017-08-08 09:38] LABS: BANDS 4 % (0-6); CORRECTED NUCLEATED RBC 1 /100 WBC (0-0); EOSINOPHILS 1 % (0-4); METAMYELOCYTES 1 % (0-1); NEUTROPHIL # MANUAL DIFF 7.8 TH/MM3 (1.8-7.7); PLATELET ESTIMATE SMEAR NORMAL (NORMAL); PLATELET MORPHOLOGY NORMAL (NORMAL); POLYS (SEG NEUTROPHILS) 71 % (16-70); WBC DIFF SAMPLE 100
[2017-08-08 09:39] LABS: SCAN/DIFF FINAL DIFF MANUAL
[2017-08-08 09:59] LABS: HEMOGLOBIN A1a 1.2 %; HEMOGLOBIN A1b 2.5 %; HEMOGLOBIN Ao 82.8 %; HEMOGLOBIN LA1C 2.6 %; HEMOGLOBIN P3 5.9 %
[2017-08-08] MEDS: DOCUSATE SODIUM 50 MG/SENNA 8.6 MG TAB PO SCH ×2 (10:12→22:22)
[2017-08-08] MEDS: TOLTERODINE TARTRATE 4 MG CAP LA PO SCH (10:12)
[2017-08-08] MEDS: PANTOPRAZOLE SOD 20 MG DELAYED RELEASE TAB PO SCH (10:12)
[2017-08-08] MEDS: SODIUM CHLORIDE 0.9% FLUSH 10 ML FLUSH IV FLUSH SCH ×2 (10:14→22:24)
[2017-08-08] MEDS: DILTIAZEM-CD 240 MG CAP ER PO SCH (10:14)
[2017-08-08] MEDS: METOPROLOL TARTRATE 50 MG TAB PO SCH ×2 (10:15→22:24)
--- NOTE | 2017-08-08 10:20 | PD.VS.PN ---
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 and embolectomy, fasciotomies Subjective/Hospital Course more alert than I have seen her in days says she has minimal pain motor intact Objective Vitals/I&O Date Time Temp Pulse Resp B/P (MAP) Pulse Ox O2 Delivery O2 Flow Rate FiO2 08/08/17 07:30 80 08/08/17 06:00 82 08/08/17 05:00 88 08/08/17 04:00 80 08/08/17 03:00 Room Air 08/08/17 03:00 86 08/08/17 03:00 97.5 87 18 137/83 (101) 95 08/08/17 02:00 80 08/08/17 01:00 72 08/08/17 00:00 77 08/07/17 23:00 Room Air 08/07/17 23:00 55 08/07/17 23:00 97.8 83 18 134/74 (94) 97 08/07/17 22:14 95 08/07/17 22:00 60 08/07/17 21:00 54 08/07/17 20:00 56 08/07/17 20:00 97.8 62 18 108/62 (77) 96 08/07/17 20:00 Room Air 08/07/17 19:00 57 08/07/17 18:15 95 08/07/17 17:00 79 08/07/17 16:00 70 08/07/17 15:30 95 Room Air 08/07/17 15:30 97.8 84 18 142/82 (102) 95 08/07/17 15:30 84 08/07/17 15:00 74 08/07/17 14:00 78 08/07/17 13:11 94 21 08/07/17 13:00 82 08/07/17 12:00 86 08/07/17 11:36 98.7 92 20 152/79 (103) 96 08/07/17 11:36 94 Room Air 08/07/17 11:36 92 08/07/17 11:00 100 08/08/17 08/08/17 08/08/17 07:00 15:00 23:00 Intake Total 480 ml Output Total 150 ml Balance 330 ml Exam: resting comfortably L LE motor intact foot warm L groin soft Laboratory Laboratory Tests Test 08/07/17 17:37 08/08/17 07:17 Activated Partial Thromboplast Time 37.8 36.0 White Blood Count 10.3 Red Blood Count 3.21 Hemoglobin 8.8 Hematocrit 26.4 Mean Corpuscular Volume 82.3 Mean Corpuscular Hemoglobin 27.6 Mean Corpuscular Hemoglobin Concent 33.5 Red Cell Distribution Width 16.4 Platelet Count 342 Mean Platelet Volume 8.3 Neutrophils (%) (Auto) 70.2 Lymphocytes (%) (Auto) 17.5 Monocytes (%) (Auto) 9.7 Eosinophils (%) (Auto) 2.3 Basophils (%) (Auto) 0.3 Neutrophils # (Auto) 7.2 Lymphocytes # (Auto) 1.8 Monocytes # (Auto) 1.0 Eosinophils # (Auto) 0.2 Basophils # (Auto) 0.0 CBC Comment AUTO DIFF Differential Total Cells Counted 100 Neutrophils % (Manual) 71 Band Neutrophils % 4 Lymphocytes % 19 Monocytes % 4 Eosinophils % 1 Neutrophils # (Manual) 7.8 Metamyelocytes 1 Nucleated Red Blood Cells 1 Differential Comment FINAL DIFF MANUAL Platelet Estimate NORMAL Platelet Morphology Comment NORMAL Red Cell Morphology Comment NORMAL Blood Urea Nitrogen 17 Creatinine 0.74 Random Glucose 125 Total Protein 6.0 Albumin 2.2 Calcium Level 8.3 Phosphorus Level 2.8 Magnesium Level 1.7 Alkaline Phosphatase 79 Aspartate Amino Transf (AST/SGOT) 48 Alanine Aminotransferase (ALT/SGPT) 39 Total Bilirubin 0.5 Sodium Level 139 Potassium Level 3.0 Chloride Level 104 Carbon Dioxide Level 27.0 Anion Gap 8 Estimat Glomerular Filtration Rate 75 Assessment and Plan Assessment: (1) Arterial occlusion Status: Acute Plan POD#5 L LE revascularization 1. normalize with all preop meds 2. PT/OOB 3. Will change lateral calf vac tomorrow and remove L groin vac tomorrow Discharge Planning clear from surgical standpoint starting tomorrow, assuming VAC changes ok Jorden Torrez MD Aug 08, 2017 10:20
[2017-08-08] MEDS: RIVAROXABAN 15 MG TAB PO SCH (10:22)
--- NOTE | 2017-08-08 10:27 | HHI.PR ---
Subjective Remarks , Patient seen in room Wound VAC Patient seen in follow-up for left lower extremity revascularization Care plan discussed with cardiology and RN Objective Vitals Vital Signs Date Time Temp Pulse Resp B/P (MAP) Pulse Ox O2 Delivery O2 Flow Rate FiO2 08/08/17 07:30 80 08/08/17 06:00 82 08/08/17 05:00 88 08/08/17 04:00 80 08/08/17 03:00 Room Air 08/08/17 03:00 86 08/08/17 03:00 97.5 87 18 137/83 (101) 95 08/08/17 02:00 80 08/08/17 01:00 72 08/08/17 00:00 77 08/07/17 23:00 Room Air 08/07/17 23:00 55 08/07/17 23:00 97.8 83 18 134/74 (94) 97 08/07/17 22:14 95 08/07/17 22:00 60 08/07/17 21:00 54 08/07/17 20:00 56 08/07/17 20:00 97.8 62 18 108/62 (77) 96 08/07/17 20:00 Room Air 08/07/17 19:00 57 08/07/17 18:15 95 08/07/17 17:00 79 08/07/17 16:00 70 08/07/17 15:30 95 Room Air 08/07/17 15:30 97.8 84 18 142/82 (102) 95 08/07/17 15:30 84 08/07/17 15:00 74 08/07/17 14:00 78 08/07/17 13:11 94 21 08/07/17 13:00 82 08/07/17 12:00 86 08/07/17 11:36 98.7 92 20 152/79 (103) 96 08/07/17 11:36 94 Room Air 08/07/17 11:36 92 08/07/17 11:00 100 I/O 08/07/17 08/07/17 08/07/17 08/08/17 08/08/17 08/08/17 07:00 15:00 23:00 07:00 15:00 23:00 Intake Total 852 ml 1096 ml 480 ml Output Total 2750 ml 775 ml 150 ml Balance -1898 ml 321 ml 330 ml Intake Oral 720 ml 960 ml 480 ml IV Total 132 ml 136 ml Output Urine Total 2750 ml 750 ml 150 ml Drainage Total 25 ml # Voids 2 # Bowel Movements 0 Result Diagram: 08/08/1771608/08/17716 Objective Remarks GENERAL: This is a well-nourished, well-developed patient, in no apparent distress. CARDIOVASCULAR: Regular rate and rhythm without murmurs, gallops, or rubs. RESPIRATORY: Clear to auscultation. Breath sounds equal bilaterally. No wheezes , rales, or rhonchi. GASTROINTESTINAL: Abdomen soft, non-tender, nondistended. Normal active bowel sounds MUSCULOSKELETAL: Left lower extremity dressing and wound VAC, other 3 Extremities without clubbing, cyanosis, or edema. NEURO: Alert & Oriented x4 to person, place, time, situation. Moves all ext x4 Procedures Left lower extremity fasciitis and revascularization due to common femoral artery occlusion A/P Problem List: (1) Diabetes mellitus ICD Code: E11.9 - Type 2 diabetes mellitus without complications Status: Acute Plan: Hemoglobin A1c 6.3 Metformin has been held while inpatient likely sliding scale insulin with hypoglycemic protocol and sliding scale with diabetic diet (2) Atrial fibrillation ICD Code: I48.91 - Unspecified atrial fibrillation Status: Acute Plan: Patient had been on xarelto in the past with some evidence of GI bleeding She was on Eliquis when she was admitted with this complicated thrombus Patient will be on Lovenox and warfarin for now and we will follow her INR Continue Cardizem, controlled (3) Arterial occlusion ICD Code: I70.90 - Unspecified atherosclerosis Status: Acute Plan: Continue Lovenox/warfarin (4) Urinary incontinence ICD Code: R32 - Unspecified urinary incontinence Plan: cont detrol (5) Hypokalemia ICD Code: E87.6 - Hypokalemia Plan: Replace and follow trend Discharge Planning pt/ot at rehab recommended ? Inpatient rehab Ivana Castano MD Aug 08, 2017 10:27
[2017-08-08] MEDS ORDERED: POTASSIUM CHLORIDE 10 MEQ CONTROLLED RELEASE TAB PO ONE (11:00)
[2017-08-08] MEDS: ENOXAPARIN SODIUM 100 MG/ML SYRINGE SQ SCH ×2 (12:01→22:27)
[2017-08-08] MEDS ORDERED: WARFARIN SOD 5 MG TAB PO SCH (16:00)
[2017-08-08] MEDS: PRAVASTATIN SOD 40 MG TAB PO SCH (22:24)
[2017-08-08] MEDS: MELATONIN 5 MG TAB PO SCH (22:24)
[2017-08-09] VITALS (16 sets, daily range): BP systolic 124–148; BP diastolic 83–88; PULSE 76–100; RESP 16–20; TEMP 98.1–98.5; O2SAT 93–95
[2017-08-09] MEDS: ACETAMINOPHEN 325 MG TAB PO PRN (03:36)
[2017-08-09] MEDS: LEVOTHYROXINE SODIUM 50 MCG TAB PO SCH (06:09)
[2017-08-09] MEDS: cloNIDine HCL 0.2 MG TAB PO SCH (06:09)
[2017-08-09 06:41] LABS: HEMATOCRIT 27.9 % (35.0-46.0); MEAN CORPUSCULAR HEMOGLOBIN 26.6 PG (27.0-34.0); PLATELET COUNT 382 TH/MM3 (150-450); RED BLOOD COUNT 3.36 MIL/MM3 (4.00-5.30); RED CELL DISTRIBUTION WIDTH 16.9 % (11.6-17.2); REVIEW FLAG FINAL; WHITE BLOOD COUNT 12.7 TH/MM3 (4.0-11.0)
[2017-08-09 06:54] LABS: APTT (PATIENT) 37.1 SEC (24.3-30.1); INTERNATIONAL NORMALIZED RATIO 1.4 RATIO; PROTHROMBIN TIME - PATIENT 15.5 SEC (9.8-11.6)
[2017-08-09] MEDS: SODIUM CHLORIDE 0.9% FLUSH 10 ML FLUSH IV FLUSH SCH (09:00)
[2017-08-09] MEDS ORDERED: POTASSIUM CHLORIDE 20 MEQ CONTROLLED RELEASE TAB PO SCH (09:00)
[2017-08-09] MEDS: INSULIN ASPART SUPPLEMENTAL SCALE SQ SCH ×2 (09:32→11:26)
--- NOTE | 2017-08-09 10:43 | PD.VS.PN ---
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 and embolectomy, fasciotomies Subjective/Hospital Course Pt alert and confused Pt denies pain LE warm w/ motor intact Objective Vitals/I&O Date Time Temp Pulse Resp B/P (MAP) Pulse Ox O2 Delivery O2 Flow Rate FiO2 08/09/17 06:14 90 08/09/17 05:49 91 08/09/17 04:33 100 08/09/17 04:10 98.1 78 16 124/84 (97) 93 08/09/17 04:10 93 Room Air 08/09/17 03:15 99 08/09/17 02:13 100 08/09/17 01:15 80 08/09/17 00:28 93 08/08/17 23:56 75 08/08/17 23:22 97.2 68 17 125/63 (83) 97 08/08/17 23:22 97 Room Air 08/08/17 22:00 80 08/08/17 21:00 68 08/08/17 20:00 58 08/08/17 19:20 96 Room Air 08/08/17 19:20 98.0 66 16 119/77 (91) 96 08/08/17 19:20 55 08/08/17 18:30 98 08/08/17 18:00 60 08/08/17 17:00 52 08/08/17 16:00 52 08/08/17 15:30 98 Room Air 08/08/17 15:30 98.5 79 20 111/74 (86) 97 08/08/17 15:30 57 08/08/17 14:00 58 08/08/17 13:00 78 08/08/17 12:00 82 08/08/17 11:30 97 Room Air 08/08/17 11:30 79 08/08/17 11:30 98.5 79 20 111/74 (86) 97 08/08/17 11:00 86 08/09/17 08/09/17 08/09/17 07:00 15:00 23:00 Intake Total 480 ml Output Total 900 ml Balance -420 ml Exam: GENERAL: Alert and confused SKIN: Warm and dry/ LE warm w/ motor intact/ left groin incision intact with slight erythema at the incision line no R/D/S/O GASTROINTESTINAL: Abdomen soft, non-tender, nondistended. MUSCULOSKELETAL: No cyanosis, Mild non pitting edema to LLE Laboratory Laboratory Tests Test 08/09/17 04:05 08/09/17 04:50 Prothrombin Time 15.5 Prothromb Time International Ratio 1.4 Activated Partial Thromboplast Time 37.1 White Blood Count 12.7 Red Blood Count 3.36 Hemoglobin 8.9 Hematocrit 27.9 Mean Corpuscular Volume 83.0 Mean Corpuscular Hemoglobin 26.6 Mean Corpuscular Hemoglobin Concent 32.0 Red Cell Distribution Width 16.9 Platelet Count 382 Mean Platelet Volume 8.6 Assessment and Plan Assessment: (1) Arterial occlusion Status: Acute Plan POD#6 L LE revascularization [facility] at the for eval Plan Continue PT/OOB L groin vac Removed Continue Wound Vac Therapy to LLE Pt clear for D/C from a Vascular Stand point Arranging out pt follow up Coco BUCKLEY [facility] [phone] Discharge Planning clear from surgical standpoint Pt to F/U in 3W (OP clinic) Coco Horvath Aug 09, 2017 10:43
[2017-08-09] MEDS: DILTIAZEM-CD 240 MG CAP ER PO SCH (10:45)
[2017-08-09] MEDS: PANTOPRAZOLE SOD 20 MG DELAYED RELEASE TAB PO SCH (10:45)
[2017-08-09] MEDS: DOCUSATE SODIUM 50 MG/SENNA 8.6 MG TAB PO SCH (10:45)
[2017-08-09] MEDS: TOLTERODINE TARTRATE 4 MG CAP LA PO SCH (10:45)
[2017-08-09] MEDS: METOPROLOL TARTRATE 50 MG TAB PO SCH (10:46)
[2017-08-09] MEDS: ENOXAPARIN SODIUM 100 MG/ML SYRINGE SQ SCH (11:26)
[2017-08-09] MEDS ORDERED: COUM5TAB PO (11:29)
[2017-08-09] MEDS ORDERED: ENOX100P SQ (11:29)
[2017-08-09] MEDS ORDERED: OXYC-392 PO (11:29)
--- NOTE | 2017-08-09 11:29 | HHI.DCPOC ---
Discharge Care Plan Diagnosis: (1) Critical ischemia of lower extremity (2) Diabetes mellitus Goals to Promote Your Health * To prevent worsening of your condition and complications * To maintain your health at the optimal level Directions to Meet Your Goals Take your medications as prescribed Follow your dietary instruction Follow activity as directed Keep your appointments as scheduled Take your immunizations and boosters as scheduled If your symptoms worsen call your PCP, if no PCP go to Urgent Care Center or Emergency Room Smoking is Dangerous to Your Health. Avoid second hand smoke Call the 24-hour hour crisis hotline for domestic abuse at Ivana Castano MD Aug 09, 2017 11:29
--- NOTE | 2017-08-09 11:31 | HHI.DS ---
Discharge Summary Admission Date Aug 03, 2017 at 05:44 Discharge Date: Aug 09, 2017 Admitting Diagnosis left lower ext. vascular insufficiency with rest pain, dm, (1) Diabetes mellitus ICD Code: E11.9 - Type 2 diabetes mellitus without complications Status: Acute (2) Atrial fibrillation ICD Code: I48.91 - Unspecified atrial fibrillation Status: Acute (3) Arterial occlusion ICD Code: I70.90 - Unspecified atherosclerosis Status: Acute (4) Urinary incontinence ICD Code: R32 - Unspecified urinary incontinence (5) Hypokalemia ICD Code: E87.6 - Hypokalemia Procedures Left lower extremity fasciitis and revascularization due to common femoral artery occlusion Brief History - From Admission 87-year-old female with a past medical history significant for history of bilateral lower extremity DVT, atrial fibrillation anticoagulated on Eliquis, hypertension, hyperlipidemia, CHF with an EF of 35% (echo done on 12/04) and type 2 diabetes mellitus presents to the emergency department with severe left lower extremity pain and numbness that started this afternoon. The patient states that the pain became worse to the point where she knew that she needed to come to the hospital. She states it starts in her toes and radiates up to her left hip. Her left lower extremity is cold. Pulses were not palpated and were not located with Doppler. CTA of the left lower extremity is pending. CBC/BMP: 08/09/17 0450 08/08/17 0717 Significant Findings Laboratory Tests Test 08/07/17 04:19 08/07/17 17:37 08/08/17 07:17 08/09/17 04:05 White Blood Count 12.3 TH/MM3 (4.0-11.0) Red Blood Count 3.37 MIL/MM3 (4.00-5.30) 3.21 MIL/MM3 (4.00-5.30) Hemoglobin 9.3 GM/DL (11.6-15.3) 8.8 GM/DL (11.6-15.3) Hematocrit 27.3 % (35.0-46.0) 26.4 % (35.0-46.0) Neutrophils (%) (Auto) 75.6 % (16.0-70.0) 70.2 % (16.0-70.0) Monocytes (%) (Auto) 9.7 % (0.0-8.0) 9.7 % (0.0-8.0) Neutrophils # (Auto) 9.3 TH/MM3 (1.8-7.7) Monocytes # (Auto) 1.2 TH/MM3 (0-0.9) 1.0 TH/MM3 (0-0.9) Activated Partial Thromboplast Time 38.8 SEC (24.3-30.1) 37.8 SEC (24.3-30.1) 36.0 SEC (24.3-30.1) 37.1 SEC (24.3-30.1) Random Glucose 148 MG/DL (74-106) 125 MG/DL (74-106) Albumin 2.5 GM/DL (3.4-5.0) 2.2 GM/DL (3.4-5.0) Calcium Level 8.4 MG/DL (8.5-10.1) 8.3 MG/DL (8.5-10.1) Aspartate Amino Transf (AST/SGOT) 75 U/L (15-37) 48 U/L (15-37) Potassium Level 3.2 MEQ/L (3.5-5.1) 3.0 MEQ/L (3.5-5.1) Estimat Glomerular Filtration Rate 78 ML/MIN (>89) 75 ML/MIN (>89) Free Thyroxine 1.57 NG/DL (0.76-1.46) Neutrophils % (Manual) 71 % (16-70) Neutrophils # (Manual) 7.8 TH/MM3 (1.8-7.7) Nucleated Red Blood Cells 1 /100 WBC (0-0) Total Protein 6.0 GM/DL (6.4-8.2) Prothrombin Time 15.5 SEC (9.8-11.6) Test 08/09/17 04:50 White Blood Count 12.7 TH/MM3 (4.0-11.0) Red Blood Count 3.36 MIL/MM3 (4.00-5.30) Hemoglobin 8.9 GM/DL (11.6-15.3) Hematocrit 27.9 % (35.0-46.0) Mean Corpuscular Hemoglobin 26.6 PG (27.0-34.0) Imaging Last Impressions Chest X-Ray 08/02/17 1827 Signed Impressions: Service Date/Time: Wednesday, August 02, 2017 18:45 - CONCLUSION: No acute abnormality is seen. The heart size is mildly enlarged. Christian Hahn MD Aorta w/Runoff CTA 08/02/17 0000 Signed Impressions: Service Date/Time: Wednesday, August 02, 2017 22:26 - CONCLUSION: 1. Patent inflow. 2. Right lower extremity shows patent outflow with diseased runoff. Runoff is via a diseased anterior tibial artery and reconstituted posterior tibial artery. 3. Left lower extremity has complete occlusion of the outflow and runoff beginning at the origin of the common femoral artery. There is reconstitution of the profunda femoris. 4. Hemodynamically significant stenoses involving the celiac, SMA, and renal arteries. Davey Parsons Jr., MD PE at Discharge GENERAL: This is a well-nourished, well-developed patient, in no apparent distress. CARDIOVASCULAR: Regular rate and rhythm without murmurs, gallops, or rubs. RESPIRATORY: Clear to auscultation. Breath sounds equal bilaterally. No wheezes , rales, or rhonchi. GASTROINTESTINAL: Abdomen soft, non-tender, nondistended. Normal active bowel sounds MUSCULOSKELETAL: Left lower extremity dressing and wound VAC, other 3 Extremities without clubbing, cyanosis, or edema. NEURO: Alert & Oriented x4 to person, place, time, situation. Moves all ext x4 Pt update on day of discharge Patient doing well today. No new complaints overnight. Patient with intermittent owning however this has remained stable. Discharge plans discussed with case management. Patient does have a bed at [facility] she will be discharged today Hospital Course This patient's 87-year-old female who came in with critical ischemia of the left lower extremity. She had an osteotomy as well as a revascularization. She did well. She did have some treated for atrial fibrillation which was pre- existing as well as for diabetic management. She required wound care with wound VAC and physical therapy. She was discharged to inpatient rehabilitation Pt Condition on Discharge: Fair Discharge Disposition: Rehab Inpatient Discharge Time: > 30 minutes Discharge Instructions DIET: Follow Instructions for: Heart Healthy Diet Activities you can perform: Regular-No Restrictions Follow up Referrals: Vascular Surgery @ Vascular Surgery with Feezor,Jorden J MD New Medications: Enoxaparin Inj (Lovenox Inj) 100 Mg/Ml Syr 90 MG SQ Q12H for clot, #10 INJECTION Oxycodone (Oxycodone) 5 Mg Tab 5 MG PO Q4H PRN for PAIN SCALE 1 TO 5, #62 TAB Warfarin (Coumadin) 5 Mg Tab 5 MG PO DAILY@1600 for clot, #31 TAB Continued Medications: Biotin (Biotin) 5 Mg Cap 5 MG PO for Nutritional Supplement, #1 BOTTLE 0 Refills Clonidine (Catapres) 0.1 Mg Tab 0.1 MG PO Q8HR for Blood Pressure Management, #90 TAB 0 Refills Diltiazem CD 24 HR (Cardizem CD 24 HR) 240 Mg Caper 240 MG PO DAILY for Regulate Heart Beat, #30 CAP Levothyroxine (Levothyroxine) 50 Mcg Tab 50 MCG PO DAILY for Thyroid, #30 TAB 0 Refills Metformin (Metformin) 500 Mg Tab 500 MG PO BID for Blood Sugar Management, #60 TAB 0 Refills With meals Metoprolol Tartrate (Lopressor) 50 Mg Tab 50 MG PO Q12HR for Regulate Heart Beat, #60 TAB Omeprazole (Omeprazole) 20 Mg Tab 20 MG PO DAILY for GERD, #30 TAB 0 Refills Potassium Chloride ER (Potassium Chloride ER) 20 Meq Tab 20 MEQ PO BID for Electrolyte Replacement, #60 TAB 0 Refills Pravastatin (Pravachol) 40 Mg Tab 40 MG PO HS for CM, #30 TAB Tolterodine (Tolterodine) 2 Mg Tab 2 MG PO BID for Urinary Symptom Managemen, #60 TAB 0 Refills Discontinued Medications: Apixaban (Eliquis) 2.5 Mg Tab 2.5 MG PO BID for Blood Clot Prevention, #60 TAB 0 Refills Diltiazem (Diltiazem) 30 Mg Tab 30 MG PO Q6HR for A-FIB, #120 TAB 0 Refills Lisinopril (Lisinopril) 20 Mg Tab 20 MG PO HS for Blood Pressure Management, #30 TAB 0 Refills Ivana Castano MD Aug 09, 2017 11:31
[2017-08-09 12:26] LABS: BICARBONATE 24.4 MEQ/L (21.0-32.0); POTASSIUM 3.9 MEQ/L (3.5-5.1)
== END 2017-08-09 14:50 | DRG 271 ==
LOC: NEPE 18:13 → NEDA 22:51 → INTOOBSV 22:51 → NEPHCDU 08-03 02:29 → OBSVTOIN 08-03 05:44 → N07B 08-03 09:01 → HCVI 08-03 11:24 → HCIS 08-05 18:04
PROVIDERS: ADMIT Hospitalist; ATTEND Hospitalist
PROC: 04CN3ZZ Extirpation of Matter from Left Popliteal Artery, Percutaneous Approach (ICD-10-PCS; principal; 2017-08-04)
PROC: 04CL0ZZ Extirpation of Matter from Left Femoral Artery, Open Approach (ICD-10-PCS; 2017-08-04)
PROC: 04UL0KZ Supplement Left Femoral Artery with Nonautologous Tissue Substitute, Open Approach (ICD-10-PCS; 2017-08-04)
PROC: 0KNT0ZZ Release Left Lower Leg Muscle, Open Approach (ICD-10-PCS; 2017-08-04)
PROC: 0KNT0ZZ Release Left Lower Leg Muscle, Open Approach (ICD-10-PCS; 2017-08-04)
PROC: 30233N1 Transfusion of Nonautologous Red Blood Cells into Peripheral Vein, Percutaneous Approach (ICD-10-PCS; 2017-08-06)
DX: E11.51 Type 2 diabetes mellitus with diabetic peripheral angiopathy without gangrene (principal); N17.9 Acute kidney failure, unspecified; M62.82 Rhabdomyolysis; I11.0 Hypertensive heart disease with heart failure; R65.10 Systemic inflammatory response syndrome (SIRS) of non-infectious origin without acute organ dysfunction; F05 Delirium due to known physiological condition; I50.9 Heart failure, unspecified; D62 Acute posthemorrhagic anemia; E11.42 Type 2 diabetes mellitus with diabetic polyneuropathy; I07.1 Rheumatic tricuspid insufficiency; I48.91 Unspecified atrial fibrillation; E78.5 Hyperlipidemia, unspecified; Z96.652 Presence of left artificial knee joint; E03.9 Hypothyroidism, unspecified; E87.6 Hypokalemia; I70.212 Atherosclerosis of native arteries of extremities with intermittent claudication, left leg; M72.8 Other fibroblastic disorders; R32 Unspecified urinary incontinence; R00.0 Tachycardia, unspecified; Z87.891 Personal history of nicotine dependence; Z85.3 Personal history of malignant neoplasm of breast; Z79.01 Long term (current) use of anticoagulants; Z86.718 Personal history of other venous thrombosis and embolism; Z79.84 Long term (current) use of oral hypoglycemic drugs
CPT/HCPCS: 36430; 71020; 75635; 76937; 80048; 80053; 81001; 82550; 82552; 82948; 83036; 83735; 84100; 84439; 84443; 85007; 85025; 85027; 85610; 85730; 86850; 86900; 86901; 86920; 93005; 93308; 96361; 96374; 96375; 96376; C1757; G0378; J0360; J0690; J1100; J1170; J1630; J1644; J1650; J1815; J1940; J2060; J2270; J2370; J2405; J2710; J2720; J3010; J3480; J7030; J7040; J7050; J7120; P9016; P9047; Q9967

== ENCOUNTER 2017-09-09 09:29 | Inpatient (IN) | payer MEDICARE, BC ==
[~2017-09-09] VITALS: Ht 170.2 cm; Wt 85.8 kg
[2017-09-09] VITALS (8 sets, daily range): BP systolic 142–188; BP diastolic 72–111; PULSE 93–125; RESP 15–25; TEMP 97.9–99; O2SAT 95–100
[~2017-09-09 09:29] MED LIST changes: -AMOX875T2 PO; -APIX2.5T PO; +BIOTCAP PO; -CALC600T13 PO; +COUM2TAB PO; -DILT30TA PO; +ECASA81 PO; +FERR325T20 PO; -FISH100020 PO; -HUMALOG SQ; -LANO0.2510 PO; -LEVE500 PO; -LISI-515 PO; -LORA-392 PO; +MELA5 PO; +OXYC-392 PO; +PERI PO; -POTA-163 PO; -SERO25TA PO; +TOLT1TAB16 PO; -VITA100018 PO; -ZOCO20TA PO
--- NOTE | 2017-09-09 10:12 | PD ---
HPI Chief Complaint: Bleeding Time Seen by Provider: 09:40 Travel History International Travel<30 days: No Contact w/Intl Traveler<30days: No Traveled to known affect area: No History of Present Illness HPI 87-year-old female complains of left groin cramping pain and bleeding. Patient noticed a lump on the left groin this morning with cramping pain and blood in her diaper. 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 Patient has healing wound on the left groin. Patient has been seen by personal physician for follow-up. Patient has history of atrial fibrillation and on Coumadin. Patient has wound VAC on to the wound since surgery. Wound VAC supposedly be replaced today. Patient denies any headache. Patient denies any chest pain. Patient states that she has intermittent shortness of breath. Patient denies any coughing congestion fever chills. Patient denies abdominal pain. Patient denies any nausea vomiting diarrhea. Patient denies any dysuria or frequency. PFSH Past Medical History Hx Anticoagulant Therapy: Yes (WARFARIN) Arthritis: No Asthma: No Autoimmune Disease: No Blood Disorders: No Anxiety: No Depression: No Heart Rhythm Problems: Yes (afib) Cancer: Yes (RIGHT BREAST ) Cardiovascular Problems: Yes (AFIB) High Cholesterol: Yes Chemotherapy: Yes Chest Pain: No Congestive Heart Failure: Yes COPD: Yes Cerebrovascular Accident: No Diabetes: Yes Diminished Hearing: No Endocrine: Yes GERD: Yes Genitourinary: Yes (INCONTINENT) Hiatal Hernia: Yes Hypertension: Yes Immune Disorder: No Kidney Stones: No Musculoskeletal: Yes (DECREASED AMBULATION, USES WALKER ) Neurologic: No Psychiatric: No Reproductive: No Respiratory: Yes Migraines: No Radiation Therapy: Yes Renal Failure: No Seizures: No Sickle Cell Disease: No Sleep Apnea: No Thyroid Disease: Yes Ulcer: No ?: Not Past Surgical History Abdominal Surgery: No AICD: No Arteriovenous Shunt: No Cardiac Surgery: No (s/p left femoral endarterctomy, embolectomy, and groin reconstruction) Ear Surgery: No Endocrine Surgery: No Eye Surgery: No Genitourinary Surgery: No Gynecologic Surgery: No Insulin Pump: Yes Joint Replacement: Yes (Left Knee) Oral Surgery: No Pacemaker: No Thoracic Surgery: Yes (Partial mastectomy) Social History Alcohol Use: Yes (RARE) Tobacco Use: No Substance Use: No Allergies-Medications (Allergen,Severity, Reaction): Coded Allergies: levetiracetam (Verified Allergy, Intermediate, 09/09/17) quetiapine (Verified Allergy, Mild, 09/09/17) Reported Meds & Prescriptions Reported Meds & Active Scripts Active Melatonin 5 Mg Tab 5 Mg PO HS PRN Gnp Senna Plus 8.6-50 mg (Sennosides-Docusate Sodium) 8.6 Mg-50 Mg Tab 1 Tab PO BID PRN Aspirin DR (Aspirin) 81 Mg Tabdr 81 Mg PO DAILY Lopressor (Metoprolol Tartrate) 50 Mg Tab 75 Mg PO Q12HR Coumadin (Warfarin) 2 Mg Tab 2 Mg PO DAILY@1600 Ferosul (Ferrous Sulfate) 325 Mg (65 Mg Iron) Tablet 325 Mg PO DAILY Oxycodone (Oxycodone HCl) 5 Mg Tab 5 Mg PO Q6HR PRN Tolterodine (Tolterodine Tartrate) 2 Mg Tab 2 Mg PO BID Catapres (Clonidine) 0.1 Mg Tab 0.1 Mg PO Q8HR Levothyroxine (Levothyroxine Sodium) 50 Mcg Tab 50 Mcg PO DAILY Pravachol (Pravastatin) 40 Mg Tab 40 Mg PO HS Cardizem CD 24 HR (Diltiazem CD 24 HR) 240 Mg Caper 240 Mg PO DAILY Metformin (Metformin HCl) 500 Mg Tab 500 Mg PO BID With meals Omeprazole 20 Mg Tab 20 Mg PO DAILY Reported Biotin 5 Mg Cap 5 Mg PO Review of Systems General / Constitutional: No: Fever Eyes: No: Visual changes HENT: No: Headaches Cardiovascular: No: Chest Pain or Discomfort Respiratory: No: Shortness of Breath Gastrointestinal: No: Abdominal Pain Genitourinary: No: Dysuria Musculoskeletal: No: Pain Skin: No Rash Neurologic: No: Weakness Psychiatric: No: Depression Endocrine: No: Polydipsia Hematologic/Lymphatic: No: Easy Bruising Physical Exam Narrative GENERAL: Well-nourished, well-developed patient. SKIN: Focused skin assessment warm/dry. HEAD: Normocephalic. EYES: No scleral icterus. No injection or drainage. NECK: Supple, trachea midline. No JVD or lymphadenopathy. CARDIOVASCULAR: Irregularly irregular rate and rhythm without murmurs, gallops, or rubs. RESPIRATORY: Breath sounds equal bilaterally. No accessory muscle use. GASTROINTESTINAL: Abdomen soft, non-tender, nondistended. MUSCULOSKELETAL: No cyanosis, or edema. BACK: Nontender without obvious deformity. No CVA tenderness. Patient have a small area of bleeding from a small hole on the skin from the left inguinal area. Soft tissue mass, pulsatile mass, left inguinal area. Sensorimotor function distally intact. Good distal pulses. Data Data Last Documented VS Vital Signs Date Time Temp Pulse Resp B/P (MAP) Pulse Ox O2 Delivery O2 Flow Rate FiO2 09/09/17 11:05 111 20 188/111 (136) 98 Nasal Cannula 2.00 09/09/17 09:43 99.0 Orders Orders Electrocardiogram (09/09/17 09:49) Complete Blood Count With Diff (09/09/17 09:49) Comprehensive Metabolic Panel (09/09/17 09:49) Prothrombin Time / Inr (Pt) (09/09/17 09:49) Act Partial Throm Time (Ptt) (09/09/17 09:49) Blood Culture (09/09/17 09:49) Urinalysis - C+S If Indicated (09/09/17 09:49) Thyroid Stimulating Hormone (09/09/17 09:49) Chest, Single Ap (09/09/17 09:49) Iv Access Insert/Monitor (09/09/17 09:49) Ecg Monitoring (09/09/17 09:49) Oximetry (09/09/17 09:49) Lactic Acid (09/09/17 09:49) Wound Culture And Gram Stain (09/09/17 09:49) Diltiazem Inj (Cardizem Inj) (09/09/17 10:15) Hydromorphone Pf Inj (Dilaudid Pf Inj) (09/09/17 10:30) Type And Screen (09/09/17 10:42) Sodium Chlor 0.9% 1000 Ml Inj (Ns 1000 M (09/09/17 10:45) Fresh Frozen Plasma (Ffp) (09/09/17 10:54) Blood Product Administration (09/09/17 10:54) Sodium Chlor 0.9% 250 Ml Inj (Ns 250 Ml (09/09/17 11:00) Consult Vascular Surgery (09/09/17 ) Vancomycin Inj (Vancomycin Inj) (09/09/17 11:15) Piperacil-Tazo 3.375 Gm Premix (Zosyn 3. (09/09/17 11:15) Prothrombin Complex Conc Inj (Kcentra In (09/09/17 11:15) Red Blood Cells (Rbc) (09/09/17 11:14) Consent (09/09/17 11:22) Levofloxacin 500 Mg Premix Inj (Levaquin (09/09/17 12:00) Admit Order (Ed Use Only) (09/09/17 11:26) Labs Laboratory Tests Test 09/09/17 10:15 White Blood Count 21.6 TH/MM3 Red Blood Count 4.39 MIL/MM3 Hemoglobin 10.7 GM/DL Hematocrit 34.2 % Mean Corpuscular Volume 78.0 FL Mean Corpuscular Hemoglobin 24.4 PG Mean Corpuscular Hemoglobin Concent 31.2 % Red Cell Distribution Width 18.2 % Platelet Count 609 TH/MM3 Mean Platelet Volume 7.7 FL Neutrophils (%) (Auto) 86.2 % Lymphocytes (%) (Auto) 6.4 % Monocytes (%) (Auto) 7.1 % Eosinophils (%) (Auto) 0.1 % Basophils (%) (Auto) 0.2 % Neutrophils # (Auto) 18.6 TH/MM3 Lymphocytes # (Auto) 1.4 TH/MM3 Monocytes # (Auto) 1.5 TH/MM3 Eosinophils # (Auto) 0.0 TH/MM3 Basophils # (Auto) 0.1 TH/MM3 CBC Comment DIFF FINAL Differential Comment Prothrombin Time 22.8 SEC Prothromb Time International Ratio 2.3 RATIO Activated Partial Thromboplast Time 31.7 SEC Blood Urea Nitrogen 23 MG/DL Creatinine 0.79 MG/DL Random Glucose 154 MG/DL Total Protein 7.5 GM/DL Albumin 2.6 GM/DL Calcium Level 8.6 MG/DL Alkaline Phosphatase 85 U/L Aspartate Amino Transf (AST/SGOT) 11 U/L Alanine Aminotransferase (ALT/SGPT) 14 U/L Total Bilirubin 0.5 MG/DL Sodium Level 137 MEQ/L Potassium Level 3.4 MEQ/L Chloride Level 98 MEQ/L Carbon Dioxide Level 29.6 MEQ/L Anion Gap 9 MEQ/L Estimat Glomerular Filtration Rate 69 ML/MIN Lactic Acid Level 2.9 mmol/L Thyroid Stimulating Hormone 3rd Gen 1.680 uIU/ML MDM Medical Decision Making Medical Screen Exam Complete: Yes Emergency Medical Condition: Yes Interpretation(s) 11 AM. Chest x-ray shows no acute consolidation. CBC WBC 21.6. Hemoglobin 10.7 hematocrit 34.2. MCV 78. 86 neutrophil. INR 2.3. Lactate acid 2.9. Differential Diagnosis Differential diagnosis including bleeding, hematoma left groin, infection, abscess, A. fib with RVR. Narrative Course 87-year-old female with bleeding from left inguinal surgical site. Status post left femoral endarterectomy with angioplasty and embolectomies secondary to left common femoral artery occlusion last month. Dr. Felipe, her surgeon came to see the patient and determined that it is hematoma with drainage. Patient is in A. fib with RVR. Cardizem 10 mg IV given. Patient started having a large amount of blood coming from the wound. Dr. Felipe was contacted. Advised to call Dr. Ferrer for management. Dr. Ferrer came to see the patient. Patient will go to the OR. Patient was given N trauma and best for some plasma stat. Type and cross blood. Patient has elevated white count. Vancomycin IV and Zosyn IV given. Repeat Cardizem 10 mg IV. Cardizem drip started. Critical Care Narrative Aggregate critical care time was 60 minutes. Time to perform other separately billable procedures was not included in the critical care time. My time did not include minutes spent treating any other patients simultaneously or on activities that did not directly contribute to the patient's treatment. The services I provided to this patient were to treat and/or prevent clinically significant deterioration that could result in: I provided critical care services requiring my management, as noted below: Chart data review, documentation time, medication orders and management, vital sign assessments/reviewing monitor data, ordering and reviewing lab tests, ordering and interpreting/reviewing x-rays and diagnostic studies, care of the patient and discussion of the patient with the admitting physicians. Diagnosis Primary Impression: Vascular hemorrhage Additional Impression: Atrial fibrillation with RVR Admitting Information Admitting Physician Requests: Admit Weston Dickey MD Sep 09, 2017 10:12
[2017-09-09] MEDS ORDERED: DILTIAZEM HCL 25 MG/5 ML VIAL IV ONE ×2 (10:15→11:45)
--- NOTE | 2017-09-09 10:26 | PD.VS.PN ---
Subjective Subjective/Hospital Course Pt well known to me, s/p L LE revasculization for acute limb ischemia several months ago. Seen in clinic 09/08 and noted to have continued improvement in groin wound as well as lateral fasciotomy. Reportedly had bleeding from L groin today. Foot ok HD stable Objective Vitals/I&O Date Time Temp Pulse Resp B/P (MAP) Pulse Ox O2 Delivery O2 Flow Rate FiO2 09/09/17 10:10 120 15 167/111 (129) 98 Nasal Cannula 2.00 09/09/17 09:52 125 16 98 Nasal Cannula 2.00 09/09/17 09:43 99.0 125 15 161/97 (118) 95 Physical Exam L groin with superficial opening at cephalad portion of wound and middle of wound, no surrounding erythema. no active bleeding, only old hematoma. No odor Laboratory pending Assessment and Plan Plan stable wound, no acute hemorrhage will f/u in clinic next week [facility] already seeing patient. Jorden Torrez MD Sep 09, 2017 10:26
[2017-09-09] MEDS ORDERED: HYDROmorphone HCL PF 2 MG/ML VIAL IV PUSH ONE (10:30)
[2017-09-09] MEDS ORDERED: SODIUM CHLOR 0.9% 1000 ML INJ 1,000 ML IV SCH ×2 (10:45→12:00)
[2017-09-09 10:51] LABS: AUTOMATED NEUTROPHIL # 18.6 TH/MM3 (1.8-7.7); BASOPHIL # 0.1 TH/MM3 (0-0.2); BASOPHIL % 0.2 % (0.0-2.0); EOSINOPHIL % 0.1 % (0.0-4.0); HEMATOCRIT 34.2 % (35.0-46.0); HEMOGLOBIN 10.7 GM/DL (11.6-15.3); LYMPH % 6.4 % (9.0-44.0); LYMPHOCYTE # 1.4 TH/MM3 (1.0-4.8); MEAN CORPUSCULAR HEMOGLOBIN 24.4 PG (27.0-34.0); MEAN CORPUSCULAR HGB CONC 31.2 % (32.0-36.0); MEAN PLATELET VOLUME 7.7 FL (7.0-11.0); MONO % 7.1 % (0.0-8.0); MONOCYTE # 1.5 TH/MM3 (0-0.9); NEUT % 86.2 % (16.0-70.0); PLATELET COUNT 609 TH/MM3 (150-450); RED BLOOD COUNT 4.39 MIL/MM3 (4.00-5.30); RED CELL DISTRIBUTION WIDTH 18.2 % (11.6-17.2); WHITE BLOOD COUNT 21.6 TH/MM3 (4.0-11.0)
[2017-09-09 10:52] LABS: INTERNATIONAL NORMALIZED RATIO 2.3 RATIO; PROTHROMBIN TIME - PATIENT 22.8 SEC (9.8-11.6)
--- NOTE | 2017-09-09 10:56 | RADRPT ---
EXAM DATE/TIME: 09/09/2017 10:14 [facility] COMPARISON: No previous studies available for comparison. INDICATIONS : Shortness of breath. MEDICAL HISTORY : Hypertension. Diabetes mellitus type II. Carcinoma, breast. COPD. CHF. A-Fib. SURGICAL HISTORY : Partial mastectomy. ENCOUNTER: Initial ACUITY: 2 days PAIN SCORE: 0/10 LOCATION: Bilateral chest FINDINGS: A single view of the chest demonstrates the lungs to be symmetrically aerated without evidence of mas s, infiltrate or effusion. The cardiac silhouette remains widened. The aorta remains tortuous. Osseou s structures are intact. CONCLUSION: No infiltrate or mass. Severe right shoulder osteoarthritis.. Carlos Alberto Rosario MD on September 09, 2017 at 10:53 Board Certified Radiologist. This report was verified electronically.
[2017-09-09] MEDS ORDERED: SODIUM CHLOR 0.9% 250 ML INJ 250 ML IV ONE ×2 (11:00→12:00)
[2017-09-09] MEDS ORDERED: VANCOMYCIN INJ 1,000 MG in SODIUM CHLOR 0.9% 250 ML INJ 250 ML IV ONE (11:15)
[2017-09-09] MEDS ORDERED: PROTHROMBIN COMPLEX CONC INJ 2,000 UNITS in SYRINGE/BAG 1 EA IV ONE (11:15)
[2017-09-09] MEDS ORDERED: PIPERACIL-TAZO 3.375 GM PREMIX 50 ML IV ONE (11:15)
--- NOTE | 2017-09-09 11:28 | PD.CAR.PN ---
CVT Progress Note Subjective/Hospital Course: 87-year-old female who underwent the femoral endarterectomy and patch several weeks ago and now has bleeding from the wound with probably disruption of the patch Patient is in chronic atrial fibrillation and on Coumadin Patient reversed with K centra and FFP and will be going to the operating room for immediate exploration of the left groin and iliofemoral reconstruction with control of bleeding Patient will be admitted to surgical ICU afterwards Objective: Vital Signs Date Time Temp Pulse Resp B/P (MAP) Pulse Ox O2 Delivery O2 Flow Rate FiO2 09/09/17 11:05 111 20 188/111 (136) 98 Nasal Cannula 2.00 09/09/17 10:10 120 15 167/111 (129) 98 Nasal Cannula 2.00 09/09/17 09:52 125 16 98 Nasal Cannula 2.00 09/09/17 09:43 99.0 125 15 161/97 (118) 95 Labs: Laboratory Tests Test 09/09/17 10:15 White Blood Count 21.6 TH/MM3 (4.0-11.0) Red Blood Count 4.39 MIL/MM3 (4.00-5.30) Hemoglobin 10.7 GM/DL (11.6-15.3) Hematocrit 34.2 % (35.0-46.0) Mean Corpuscular Volume 78.0 FL (80.0-100.0) Mean Corpuscular Hemoglobin 24.4 PG (27.0-34.0) Mean Corpuscular Hemoglobin Concent 31.2 % (32.0-36.0) Red Cell Distribution Width 18.2 % (11.6-17.2) Platelet Count 609 TH/MM3 (150-450) Mean Platelet Volume 7.7 FL (7.0-11.0) Neutrophils (%) (Auto) 86.2 % (16.0-70.0) Lymphocytes (%) (Auto) 6.4 % (9.0-44.0) Monocytes (%) (Auto) 7.1 % (0.0-8.0) Eosinophils (%) (Auto) 0.1 % (0.0-4.0) Basophils (%) (Auto) 0.2 % (0.0-2.0) Neutrophils # (Auto) 18.6 TH/MM3 (1.8-7.7) Lymphocytes # (Auto) 1.4 TH/MM3 (1.0-4.8) Monocytes # (Auto) 1.5 TH/MM3 (0-0.9) Eosinophils # (Auto) 0.0 TH/MM3 (0-0.4) Basophils # (Auto) 0.1 TH/MM3 (0-0.2) CBC Comment DIFF FINAL Differential Comment Prothrombin Time 22.8 SEC (9.8-11.6) Prothromb Time International Ratio 2.3 RATIO Activated Partial Thromboplast Time 31.7 SEC (24.3-30.1) Lactic Acid Level 2.9 mmol/L (0.4-2.0) Result Diagram: 09/09/17 1015 Patricia Mandel MD Sep 09, 2017 11:28
[2017-09-09] MEDS ORDERED: LACTULOSE SYRUP 20 GM/30 ML CUP PO PRN (11:45)
[2017-09-09] MEDS ORDERED: CHLORHEXIDINE GLUCONATE 2 % 1 PACK (2 CLOTHS) TOP PRN (11:45)
[2017-09-09] MEDS ORDERED: RESP: ALBUTEROL 2.5 MG/IPRATROPIUM 0.5 MG NEB (PRN) INH (11:45)
[2017-09-09] MEDS ORDERED: MISCELLANEOUS NURSING INFORMATION XX SCH (11:45)
[2017-09-09] MEDS ORDERED: SODIUM CHLORIDE 0.9% FLUSH 10 ML FLUSH IV FLUSH PRN (11:45)
[2017-09-09] MEDS ORDERED: PROPOFOL 200 MG/20 ML AMP IV ONE (12:00)
[2017-09-09] MEDS ORDERED: PHENYLEPH/NS 1000 MCG/10 ML SYR IV ONE (12:00)
[2017-09-09] MEDS ORDERED: LEVOFLOXACIN 500 MG PREMIX INJ 100 ML IV ONE (12:00)
[2017-09-09] MEDS ORDERED: LIDOCAINE HCL 1% PF 5 ML SYRINGE OTHER ONE (12:00)
[2017-09-09] MEDS ORDERED: NORMOSOL R INJ 1,000 ML IV ONE (12:00)
[2017-09-09] MEDS ORDERED: SODIUM CHLORID 0.9% 500 ML INJ 500 ML IV ONE (12:00)
[2017-09-09] MEDS ORDERED: NEOSTIGMINE 5 MG/5 ML SYRINGE IV PUSH ONE (12:00)
[2017-09-09] MEDS ORDERED: ONDANSETRON HCL 4 MG/2 ML VIAL IV ONE (12:00)
[2017-09-09] MEDS ORDERED: PHENYLEPHRINE HCL 10 MG/ML VIAL IV ONE (12:00)
[2017-09-09] MEDS ORDERED: PROTHROMBIN COMPLEX CONC 500 UNIT VIAL IV ONE (12:00)
[2017-09-09] MEDS ORDERED: DILTIAZEM INJ 125 MG in SODIUM CHLORIDE 0.9% INJ 100 ML IV PRN (12:00)
[2017-09-09] MEDS ORDERED: SUCCINYLCHOLINE CHLORIDE 100 MG/5 ML SYRINGE IV PUSH ONE (12:00)
[2017-09-09] MEDS ORDERED: METOPROLOL TARTRATE 5 MG/5 ML VIAL IV PUSH ONE (12:00)
[2017-09-09] MEDS ORDERED: ROCURONIUM INJ 50 MG/5 ML SYRINGE IV PUSH ONE (12:00)
[2017-09-09] MEDS ORDERED: GLYCOPYRROLATE 1 MG/5 ML SYRINGE IV PUSH ONE (12:00)
[2017-09-09 12:03] LABS: ALBUMIN 2.6 GM/DL (3.4-5.0); ALT (GPT) 14 U/L (10-53); AST (GOT) 11 U/L (15-37); BICARBONATE 29.6 MEQ/L (21.0-32.0); BLOOD UREA NITROGEN 23 MG/DL (7-18); CALCIUM 8.6 MG/DL (8.5-10.1); CHLORIDE 98 MEQ/L (98-107); CREATININE 0.79 MG/DL (0.50-1.00); GLOMERULAR FILTRATION RATE 69 ML/MIN (>89); GLUCOSE,RANDOM 154 MG/DL (74-106); SODIUM (NA) 137 MEQ/L (136-145)
[2017-09-09] MEDS ORDERED: HEPARIN SODIUM - IV 10,000 UNITS/10 ML VIAL ONE (12:07)
[2017-09-09] MEDS ORDERED: HEPARIN SODIUM - SQ 10,000 UNITS/ML VIAL ONE (12:07)
[2017-09-09] MEDS ORDERED: PROTAMINE SULFATE 50 MG/5 ML VIAL ONE (12:08)
[2017-09-09 12:12] LABS: ALKALINE PHOSPHATASE 85 U/L (45-117); TOTAL BILIRUBIN ADULT 0.5 MG/DL (0.2-1.0); TOTAL PROTEIN 7.5 GM/DL (6.4-8.2)
--- NOTE | 2017-09-09 14:13 | EKG ---
Date Performed: 09/09/2017 Time Performed: 10:26:36 PTAGE: 87 years EKG: ATRIAL FIBRILLATION WITH RAPID VENTRICULAR RESPONSE NONSPECIFIC ST & T-WAVE ABNORMALITY ABN ORMAL RHYTHM ECG Compared to PREVIOUS TRACING rate is now faster PREVIOUS TRACIN08/02/2017 20.01 DOCTOR: Yoan Giron Interpretating Date/Time 09/09/2017 14:12:38
[2017-09-09] MEDS ORDERED: DO NOT ADM ANY ANTICOAGULANT DRUGS PRN (16:10)
[2017-09-09] MEDS ORDERED: LORazepam 2 MG/ML VIAL ONE (16:21)
[2017-09-09] MEDS: SODIUM CHLOR 0.9% 1000 ML INJ 1,000 ML IV SCH (16:45)
[2017-09-09] MEDS ORDERED: GLUCAGON 1 MG/ML VIAL OTHER PRN (16:45)
[2017-09-09] MEDS ORDERED: DOCUSATE SODIUM 50 MG/SENNA 8.6 MG TAB PO PRN (16:45)
[2017-09-09] MEDS ORDERED: DEXTROSE 50% IN WATER 50 ML SYRINGE IV PUSH PRN (16:45)
--- NOTE | 2017-09-09 16:58 | RADRPT ---
EXAM DATE/TIME: 09/09/2017 16:22 [facility] COMPARISON: CHEST SINGLE AP, September 09, 2017, 10:14. INDICATIONS : Central line placement. MEDICAL HISTORY : Hypertension. Diabetes mellitus type II. Carcinoma, breast. COPD. CHF. A-FIB. SURGICAL HISTORY : Partial mastectomy. ENCOUNTER: Initial ACUITY: 1 day PAIN SCORE: Non-responsive. LOCATION: Bilateral chest FINDINGS: Interval placement of right IJ central line with tip near the atrial junction. No significant pneumot horax. No new focal pleural or parenchymal opacities. Cardiac silhouette is enlarged. Remainder of th e exam is unchanged. CONCLUSION: 1. Right IJ central line in good position without pneumothorax. Antoni Alegria MD on September 09, 2017 at 16:55 Board Certified Radiologist. This report was verified electronically.
[2017-09-09] MEDS ORDERED: LORazepam 2 MG/ML VIAL IV ONE (17:15)
[2017-09-09 17:29] LABS: INTERNATIONAL NORMALIZED RATIO 1.5 RATIO; PROTHROMBIN TIME - PATIENT 15.6 SEC (9.8-11.6)
[2017-09-09] MEDS: INSULIN ASPART SUPPLEMENTAL SCALE SQ SCH (18:00)
[2017-09-09] MEDS ORDERED: metFORMIN HCL 500 MG TAB PO SCH (18:00)
[2017-09-09 18:37] LABS: BACTERIA, URINE RARE /hpf; BILIRUBIN, URINE NEG (NEG); BLOOD, URINE NEG (NEG); GLUCOSE,URINE NEG (NEG); KETONE, URINE NEG (NEG); MUCUS URINE FEW /lpf (OCC); NITRITE,URINE NEG (NEG); SQUAMOUS EPITHELIAL CELL URINE 1 /hpf (0-5); TRANSITIONAL EPI CELLS, URINE <1 /hpf; URINE COLOR YELLOW (YELLW/STRAW); URINE LEUKOCYTE ESTERASE MOD (NEG)
[2017-09-09] MEDS: DOCUSATE SODIUM 50 MG/SENNA 8.6 MG TAB PO SCH (20:01)
[2017-09-09] MEDS: METOPROLOL TARTRATE 25 MG TAB PO SCH (20:01)
[2017-09-09] MEDS: FAMOTIDINE 20 MG TAB PO SCH (20:01)
[2017-09-09] MEDS: PRAVASTATIN SOD 40 MG TAB PO SCH (20:02)
[2017-09-09] MEDS: SODIUM CHLORIDE 0.9% FLUSH 10 ML FLUSH IV FLUSH SCH (20:03)
[2017-09-09] MEDS ORDERED: MELATONIN 5 MG TAB PO PRN (21:00)
[2017-09-09] MEDS ORDERED: FAMOTIDINE 20 MG/2 ML VIAL IV PUSH SCH (21:00)
--- NOTE | 2017-09-09 21:43 | HHI.HP ---
HPI Service Critical Care Medicine Primary Care Physician Juli Resendiz MD Admission Diagnosis vascular hemorrhage. Atrial fibrillation with RVR. Coagulation. Diagnosis: Chief Complaint: bleeding Travel History International Travel<30 Days: No Contact w/Intl Traveler <30 Da: No Traveled to Known Affected Are: No History of Present Illness This is an 87yF who had an SFA occlusion and thrombectomy by Dr. Torrez recently who presented to the ER today with bleeding at the site and was taken emergently to the operating room and found to have a disruption of the patch. She had ~300cc EBL with almost 1L old blood in the abdomen. The patch was repaired and a wound vac was placed. She arrives to the ICU extubated in stable condition. Of note, in the emergency department, she was in atrial fibrillation with rapid ventricular response and placed on a cardizem drip. on my evaluation , she is stable and denies any symptoms currently. he pain is adequately controlled. 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 Reported Medications Melatonin 5 Mg Tab 5 Mg PO HS PRN Gnp Senna Plus 8.6-50 mg (Sennosides-Docusate Sodium) 8.6 Mg-50 Mg Tab 1 Tab PO BID PRN Aspirin DR (Aspirin) 81 Mg Tabdr 81 Mg PO DAILY Lopressor (Metoprolol Tartrate) 50 Mg Tab 75 Mg PO Q12HR Coumadin (Warfarin) 2 Mg Tab 2 Mg PO DAILY@1600 Ferosul (Ferrous Sulfate) 325 Mg (65 Mg Iron) Tablet 325 Mg PO DAILY Oxycodone (Oxycodone HCl) 5 Mg Tab 5 Mg PO Q6HR PRN Tolterodine (Tolterodine Tartrate) 2 Mg Tab 2 Mg PO BID Catapres (Clonidine) 0.1 Mg Tab 0.1 Mg PO Q8HR Levothyroxine (Levothyroxine Sodium) 50 Mcg Tab 50 Mcg PO DAILY Pravachol (Pravastatin) 40 Mg Tab 40 Mg PO HS Cardizem CD 24 HR (Diltiazem CD 24 HR) 240 Mg Caper 240 Mg PO DAILY Metformin (Metformin HCl) 500 Mg Tab 500 Mg PO BID With meals Omeprazole 20 Mg Tab 20 Mg PO DAILY Active Ordered Medications See MAR Family History Both parents with diabetes and CAD Social History Quit smoking 50 years ago. Occasional alcohol. Denies illicit drugs. Physical Exam Vital Signs Vital Signs Date Time Temp Pulse Resp B/P (MAP) Pulse Ox O2 Delivery O2 Flow Rate FiO2 09/09/17 20:00 98.3 98 22 142/72 (95) 98 09/09/17 20:00 98 09/09/17 20:00 127 142/72 09/09/17 19:00 100 Nasal Cannula 2.00 09/09/17 18:00 97.9 115 25 142/79 (100) 100 09/09/17 18:00 112 09/09/17 18:00 117 21 123/73 (90) 97 Nasal Cannula 4 09/09/17 17:45 113 22 124/73 (90) 98 Nasal Cannula 4 09/09/17 17:33 113 126/93 09/09/17 17:30 113 22 126/93 (104) 98 Nasal Cannula 4 09/09/17 17:15 116 13 116/76 (89) 98 Nasal Cannula 4 09/09/17 17:00 109 19 103/80 (88) 98 Nasal Cannula 4 09/09/17 16:45 117 22 127/76 (93) 99 Simple Mask 6 09/09/17 16:30 111 23 132/64 (86) 98 Simple Mask 10 09/09/17 16:13 97.4 115 22 150/71 (97) 90 Simple Mask 8 09/09/17 12:02 120 15 173/105 (127) 96 Nasal Cannula 2.00 09/09/17 11:42 119 16 173/105 (127) 95 Nasal Cannula 2.00 09/09/17 11:05 111 20 188/111 (136) 98 Nasal Cannula 2.00 09/09/17 10:10 120 15 167/111 (129) 98 Nasal Cannula 2.00 09/09/17 09:52 125 16 98 Nasal Cannula 2.00 09/09/17 09:43 99.0 125 15 161/97 (118) 95 Physical Exam GENERAL: Frail elderly female, lying in bed HEENT: Normocephalic. Atraumatic. Pupils equal, round, reactive, conjugate. Mucous membranes are moist NECK: Trachea is midline. There is no JVD. CHEST: Equal chest rise. Unlabored. Nasal cannula oxygen CARDIOVASCULAR: Tachycardic rate, regular rhythm. A. fib by telemetry ABDOMEN: Soft, nontender, nondistended. No guarding. MUSCULOSKELETAL: Pulses 2+. No peripheral edema. Left groin with wound VAC in place. No evidence of hematoma NEUROLOGICAL: RASS -1. Follows commands. No focal deficits. Laboratory Laboratory Tests Test 09/09/17 10:15 09/09/17 17:05 09/09/17 17:47 White Blood Count 21.6 Red Blood Count 4.39 Hemoglobin 10.7 Hematocrit 34.2 Mean Corpuscular Volume 78.0 Mean Corpuscular Hemoglobin 24.4 Mean Corpuscular Hemoglobin Concent 31.2 Red Cell Distribution Width 18.2 Platelet Count 609 Mean Platelet Volume 7.7 Neutrophils (%) (Auto) 86.2 Lymphocytes (%) (Auto) 6.4 Monocytes (%) (Auto) 7.1 Eosinophils (%) (Auto) 0.1 Basophils (%) (Auto) 0.2 Neutrophils # (Auto) 18.6 Lymphocytes # (Auto) 1.4 Monocytes # (Auto) 1.5 Eosinophils # (Auto) 0.0 Basophils # (Auto) 0.1 CBC Comment DIFF FINAL Differential Comment Prothrombin Time 22.8 15.6 Prothromb Time International Ratio 2.3 1.5 Activated Partial Thromboplast Time 31.7 Blood Urea Nitrogen 23 Creatinine 0.79 Random Glucose 154 Total Protein 7.5 Albumin 2.6 Calcium Level 8.6 Alkaline Phosphatase 85 Aspartate Amino Transf (AST/SGOT) 11 Alanine Aminotransferase (ALT/SGPT) 14 Total Bilirubin 0.5 Sodium Level 137 Potassium Level 3.4 Chloride Level 98 Carbon Dioxide Level 29.6 Anion Gap 9 Estimat Glomerular Filtration Rate 69 Lactic Acid Level 2.9 Thyroid Stimulating Hormone 3rd Gen 1.680 Urine Color YELLOW Urine Turbidity HAZY Urine pH 6.0 Urine Specific [place] 1.023 Urine Protein 30 Urine Glucose (UA) NEG Urine Ketones NEG Urine Occult Blood NEG Urine Nitrite NEG Urine Bilirubin NEG Urine Urobilinogen LESS THAN 2.0 Urine Leukocyte Esterase MOD Urine RBC 2 Urine WBC 8 Urine Squamous Epithelial Cells 1 Urine Transitional Epithelial Cells <1 Urine Bacteria RARE Urine Granular Casts 3 Urine Mucus FEW Microscopic Urinalysis Comment CULT NOT INDICATED Date/Time Source Procedure Growth Status 09/09/17 10:20 Blood Peripheral Aerobic Blood Culture Pending Received 09/09/17 10:20 Blood Peripheral Anaerobic Blood Culture Pending Received 09/09/17 10:10 Wound Groin Gram Stain Pending Received 09/09/17 10:10 Wound Groin Wound Culture Pending Received Result Diagram: 09/09/17 1015 09/09/17 1015 Imaging Last Impressions Chest X-Ray 09/09/17 0949 Signed Impressions: Service Date/Time: , September 09, 2017 10:14 - CONCLUSION: No infiltrate or mass. Severe right shoulder osteoarthritis.. Carlos Alberto Rosario MD Capelio VTE Risk Assessment Caprini VTE Risk Assessment: Mod/High Risk (score >= 2) Caprini Risk Assessment Model Point Value = 1 Point Value = 2 Point Value = 3 Point Value = 5 Age 41-60 Minor surgery BMI > 25 kg/m2 Swollen legs Varicose veins or History of unexplained or recurrent spontaneous Oral contraceptives or hormone replacement Sepsis (< 1 month) Serious lung disease, including pneumonia (< 1 month) Abnormal pulmonary function Acute myocardial infarction Congestive heart failure (< 1 month) History of inflammatory bowel disease Medical patient at bed rest Age 61-74 Arthroscopic surgery Major open surgery (> 45 min) Laparoscopic surgery (> 45 min) Malignancy Confined to bed (> 72 hours) Immobilizing plaster cast Central venous access Age >= 75 History of VTE Family history of VTE Factor V Leiden Prothrombin [id number] Lupus anticoagulant Anticardiolipin antibodies Elevated serum homocysteine Heparin-induced thrombocytopenia Other congenital or acquired thrombophilia Stroke (< 1 month) Elective arthroplasty Hip, pelvis, or leg fracture Acute spinal cord injury (< 1 month) Prophylaxis Regimen Total Risk Factor Score Risk Level Prophylaxis Regimen 0-1 Low Early ambulation 2 Moderate Order ONE of the following: *Sequential Compression Device (SCD) *Heparin 5000 units SQ BID 3-4 Higher Order ONE of the following medications: *Heparin 5000 units SQ TID *Enoxaparin/Lovenox 40 mg SQ daily (WT < 150 kg, CrCl > 30 mL/min) *Enoxaparin/Lovenox 30 mg SQ daily (WT < 150 kg, CrCl > 10-29 mL/min) *Enoxaparin/Lovenox 30 mg SQ BID (WT < 150 kg, CrCl > 30 mL/min) AND/OR *Sequential Compression Device (SCD) 5 or more Highest Order ONE of the following medications: *Heparin 5000 units SQ TID (Preferred with Epidurals) *Enoxaparin/Lovenox 40 mg SQ daily (WT < 150 kg, CrCl > 30 mL/min) *Enoxaparin/Lovenox 30 mg SQ daily (WT < 150 kg, CrCl > 10-29 mL/min) *Enoxaparin/Lovenox 30 mg SQ BID (WT < 150 kg, CrCl > 30 mL/min) AND *Sequential Compression Device (SCD) Assessment and Plan Assessment and Plan Assessment: 87-year-old female status post prior SFA thrombectomy now with breakdown of the patch and associated pseudoaneurysm with massive bleeding, postop day 0 status post hematoma evacuation repair the patch. She clinically appears slightly under resuscitated. We'll continue maintenance fluids. We'll DC Cardizem drip and restart her home by mouth Cardizem. Close monitor urine output. Serial H&H. May need additional units of blood transfusion. s/p repair of femoral artery patch anemia secondary to acute blood loss Acute intravascular hypovolemia Lactic acidosis Acute kidney injury Serial H&H 500 cc 5% albumin IV 1 Maintenance fluids Daily BMP Continue Pearl Close monitoring of urine output Frequent neurovascular checks Watch for groin hematoma Trend lactates Critical care medicine will continue to follow along. Jose Duke MD Sep 09, 2017 21:43
[2017-09-09 22:04] LABS: HEMOGLOBIN 7.8 GM/DL (11.6-15.3); MEAN CELL VOLUME 78.4 FL (80.0-100.0); MEAN CORPUSCULAR HEMOGLOBIN 24.3 PG (27.0-34.0); MEAN PLATELET VOLUME 7.2 FL (7.0-11.0); PLATELET COUNT 470 TH/MM3 (150-450); WHITE BLOOD COUNT 26.8 TH/MM3 (4.0-11.0)
[2017-09-09 22:30] LABS: CALCIUM 7.6 MG/DL (8.5-10.1); CREATININE 0.82 MG/DL (0.50-1.00)
[2017-09-09] MEDS: cloNIDine HCL 0.1 MG TAB PO SCH (22:32)
[2017-09-09] MEDS: TOLTERODINE TARTRATE 4 MG CAP LA PO SCH (22:33)
[2017-09-10] VITALS (14 sets, daily range): BP systolic 105–141; BP diastolic 57–86; PULSE 79–110; RESP 18–32; TEMP 98–98.7; O2SAT 94–100
[2017-09-10] MEDS ORDERED: ALBUMIN 5% INJ 500 ML IV ONE (02:15)
[2017-09-10] MEDS ORDERED: DILTIAZEM-CD 240 MG CAP ER PO ONE (02:15)
[2017-09-10] MEDS: LEVOTHYROXINE SODIUM 50 MCG TAB PO SCH (05:10)
[2017-09-10] MEDS: cloNIDine HCL 0.1 MG TAB PO SCH ×3 (05:10→23:11)
[2017-09-10 05:26] LABS: BASOPHIL # 0.1 TH/MM3 (0-0.2); BASOPHIL % 0.4 % (0.0-2.0); EOSINOPHIL % 0.1 % (0.0-4.0); LYMPHOCYTE # 1.5 TH/MM3 (1.0-4.8); MEAN CELL VOLUME 78.5 FL (80.0-100.0); MEAN CORPUSCULAR HEMOGLOBIN 25.4 PG (27.0-34.0); MEAN CORPUSCULAR HGB CONC 32.3 % (32.0-36.0); MEAN PLATELET VOLUME 7.9 FL (7.0-11.0); MONO % 7.8 % (0.0-8.0); MONOCYTE # 1.7 TH/MM3 (0-0.9); NEUT % 84.7 % (16.0-70.0); PLATELET COUNT 405 TH/MM3 (150-450); RED BLOOD COUNT 2.57 MIL/MM3 (4.00-5.30); RED CELL DISTRIBUTION WIDTH 17.8 % (11.6-17.2); WHITE BLOOD COUNT 21.3 TH/MM3 (4.0-11.0)
[2017-09-10 05:29] LABS: HEMATOCRIT 20.2 % (35.0-46.0); HEMOGLOBIN 6.5 GM/DL (11.6-15.3)
[2017-09-10 05:43] LABS: ALBUMIN 2.6 GM/DL (3.4-5.0); AST (GOT) 9 U/L (15-37); BICARBONATE 27.9 MEQ/L (21.0-32.0); BLOOD UREA NITROGEN 27 MG/DL (7-18); CALCIUM 7.6 MG/DL (8.5-10.1); CHLORIDE 104 MEQ/L (98-107); CREATININE 0.86 MG/DL (0.50-1.00); GLOMERULAR FILTRATION RATE 63 ML/MIN (>89); GLUCOSE,RANDOM 143 MG/DL (74-106); MAGNESIUM 1.5 MG/DL (1.5-2.5); SODIUM (NA) 141 MEQ/L (136-145)
--- NOTE | 2017-09-10 05:45 | HHI.CCPN ---
Subjective Remarks/Hospital Course This is an 87yF who had an SFA occlusion and thrombectomy by Dr. Torrez recently who presented to the ER today with bleeding at the site and was taken emergently to the operating room and found to have a disruption of the patch. She had ~300cc EBL with almost 1L old blood in the abdomen. The patch was repaired and a wound vac was placed. She arrives to the ICU extubated in stable condition. Of note, in the emergency department, she was in atrial fibrillation with rapid ventricular response and placed on a cardizem drip. on my evaluation , she is stable and denies any symptoms currently. he pain is adequately controlled. SUBJECTIVE 09/10: Currently resting in bed on 2 L nasal cannula. Pain is currently controlled. Receiving 2 units PRBCs currently. Objective Vital Signs Date Time Temp Pulse Resp B/P (MAP) Pulse Ox O2 Delivery O2 Flow Rate FiO2 09/10/17 04:00 107 09/10/17 04:00 98.1 22 119/71 (87) 95 09/09/17 19:00 Nasal Cannula 2.00 Intake and Output 09/10/17 09/10/17 09/11/17 08:00 16:00 00:00 Intake Total 560 ml Balance 560 ml Result Diagram: 09/10/17 0515 09/09/17 2147 Other Results Microbiology Date/Time Source Procedure Growth Status 09/09/17 10:20 Blood Peripheral Aerobic Blood Culture Pending Received 09/09/17 10:20 Blood Peripheral Anaerobic Blood Culture Pending Received 09/09/17 10:10 Wound Groin Gram Stain Pending Received 09/09/17 10:10 Wound Groin Wound Culture Pending Received Imaging Last Impressions Chest X-Ray 09/09/17 0949 Signed Impressions: Service Date/Time: August 10:14 - CONCLUSION: No infiltrate or mass. Severe right shoulder osteoarthritis.. Carlos Alberto Rosario MD Objective Remarks GENERAL: Frail elderly female, lying in bed HEENT: Normocephalic. Atraumatic. Pupils equal, round, reactive, conjugate. Mucous membranes are moist NECK: Trachea is midline. There is no JVD. CHEST: Equal chest rise. Unlabored. Nasal cannula oxygen CARDIOVASCULAR: Tachycardic rate, regular rhythm. A. fib by telemetry ABDOMEN: Soft, nontender, nondistended. No guarding. MUSCULOSKELETAL: Pulses 2+. No peripheral edema. Left groin with wound VAC in place. No evidence of hematoma NEUROLOGICAL: RASS -1. Follows commands. No focal deficits. Vascular Central Line Catheter: Yes Assessment to: Continue Date of Insertion: Sep 09, 2017 A/P Assessment and Plan Neuro/Psych: Chronic pain management Oxycodone 5 mill grams every 4 hours when necessary pain management CV: Postoperative day #1 repair of femoral artery patch and evacuation of hematoma with history of SFA lobectomy with subsequent pseudoaneurysm Atrial fibrillation Coronary artery disease Dyslipidemia Congestive heart failure chronic diastolic preferred LV function Severe Pulmonary hypertension Severe TR History of bilateral lower extremity DVTs on warfarin Lactic acidosis Currently on diltiazem 240 mg by mouth daily, Lopressor 75 mg twice a day and clonidine 0.1 mg 3 times a day/home medication for hypertension. Continue Continue Pravachol 40 mg by mouth daily/home medication Echocardiogram 08/06V function is normal. The left atrial size is mild-to- moderately dilated. The right atrial size is mildly dilated. [id number] mitral valve regurgitation. Moderate mitral annular calcification. Aortic valve sclerosis is present with suboptimal imaging. Doppler did not suggest aortic stenosis There is estimated [id number] pulmonary hypertension present (range 60-70 mmHg). There is moderate to severe tricuspid valve regurgitation. The estimated pulmonary arterial pressure is 64.2 mmHg. Will give furosemide in between dosages of PRBCs today with elevated troponin hypertension Resp: Acute respiratory insufficiency COPD Nasal cannula to maintain saturations greater than equal to 92% Incentive spirometry while awake Scheduled albuterol/ipratropium aerosols every 6 hours with albuterol aerosols every 2 hours. Dyspnea Chest x-ray in a.m. GI: Gastroesophageal reflux disease Hypoalbuminemia Currently on 1800 ADA diet Daily and famotidine 20 mg by mouth daily/home medication. At home on omeprazole 20 mg by mouth daily Docusate sodium/senna 1 tablet twice a day bowel regimen : Maintain Pearl Endo: Diabetes mellitus Hypothyroidism Hyperglycemia Metformin 500 mg by mouth twice a day Sliding-scale insulin with Novulog with Accu-Cheks before meals/at bedtime to maintain euglycemia Continue Levoxyl 50 by mouth daily/home medication Renal: Creatinine currently within normal limits Monitor urine output Accurate I's and O's Currently on normal saline at 60 cc an hour Heme: Acute blood loss anemia Leukocytosis History of breast cancer Coagulopathy Currently being transfused 2 units PRBCs. Recheck Monitor CBC daily. Received Kcentra 2091 units in ED along with FFP. INR 1.5 this a.m. ID: Monitor for infection MSK: PT evaluate and treat FEN: Replace electrolytes as clinically indicated per ICU left leg protocol Access - Right IJ CVL day 2 placed in OR Prophylaxis - GI - famotidine - DVT - SCD/holding pharmacological prophylaxis until okay with surgery. Previously on warfarin versus apixaban Level II follow-up Kunal Sawyer MD Sep 10, 2017 05:45
[2017-09-10 05:48] LABS: ALKALINE PHOSPHATASE 56 U/L (45-117); ALT (GPT) 9 U/L (10-53); TOTAL BILIRUBIN ADULT 0.4 MG/DL (0.2-1.0); TOTAL PROTEIN 6.3 GM/DL (6.4-8.2)
[2017-09-10] MEDS: INSULIN ASPART SUPPLEMENTAL SCALE SQ SCH ×5 (06:00→20:11)
--- NOTE | 2017-09-10 06:24 | MB ---
cc: PATRICIA MANDEL MD,YANG Ferrer MD DATE OF CONSULTATION 09/09/[address] Mandel, Vascular Surgery REASON FOR CONSULTATION Pulsatile hematoma of the left groin. HISTORY OF PRESENT DISEASE This 87-year-old pleasant lady with severe peripheral vascular disease underwent common femoral artery patch angioplasty and endarterectomy in July this year. The patient's wound was healing nicely, had a wound VAC applied and then noted in the last 24 hours increasing warmth in the left groin and now pulsatile hematoma for which she came to the hospital. In the ER the patient bled a fair amount from the groin. It was noted that there was a disruption probably of the vessel. To make things a little more complicated, the patient is on Coumadin for atrial fibrillation. She is 87 and as above-noted with multiple medical problems. PAST MEDICAL HISTORY 1. A-fib with Coumadin therapy. 2. Coronary artery disease. 3. Hypercholesteremia. 4. Breast carcinoma post chemotherapy. 5. Congestive heart failure. 6. COPD. 7. Diabetes mellitus. 8. Urinary incontinence. 9. Hypertension. SURGICAL HISTORY 1. The above-noted left groin vascular reconstruction. 2. Left knee replacement. 3. Partial mastectomy. 4. Insulin pump placement. SOCIAL HISTORY The patient does not drink, does not smoke. She is a retired [employer]. MEDICATIONS Can be found on the record. PHYSICAL EXAMINATION GENERAL: A very pleasant 87-year-old lady awake, alert, oriented. HEENT: Normocephalic. No trauma to the head. Pupils equally reactive. Extraocular muscles intact. NECK: Bilateral carotid pulses and bilateral bruits 3 through 6. CHEST: Bilateral breath sounds, decreased over both lung fortune consistent with moderate degree of COPD with some wheezing in the upper lobes. HEART: Irregular rhythm. The patient is a slow A-fib of about 90. ABDOMEN: Somewhat obese, soft. Active bowel sounds. No rebound, no guarding, no masses. EXTREMITIES: On the right side the patient has dopplerable femoral pulse and distally has no popliteal pulse and then a very weak dorsalis posterior tibial pulse. Capillary refill is delayed. There is no sign of acute ischemia. On the left side the patient has a dopplerable posterior tibial pulse which is very weak, no popliteal pulse and a large hematoma in the left groin which is pulsatile measuring about 10 cm in diameter. Apparently there was bleeding earlier from this. Right now there is no bleeding out of it. Skin is partially opened where the wound VAC used to be. In addition the patient has a small area of a fasciotomy on the left lateral aspect of the lower extremity. IMPRESSION AND PLAN Patient with disruption of the femoral artery for emergency surgery now. Patricia MILLER/ESTELLA /4:04 PM /6:01 AM
[2017-09-10] MEDS: DILTIAZEM-CD 240 MG CAP ER PO SCH ×2 (09:00→09:21)
[2017-09-10] MEDS ORDERED: NON-FORMULARY DRUG (Omeprazole 20 MG) PO SCH (09:00)
[2017-09-10] MEDS: MAGNESIUM SULFATE 1 GM PREMIX 100 ML IV SCH ×2 (09:17→10:00)
[2017-09-10] MEDS: SODIUM CHLORIDE 0.9% FLUSH 10 ML FLUSH IV FLUSH SCH ×2 (09:17→20:11)
[2017-09-10] MEDS: METOPROLOL TARTRATE 25 MG TAB PO SCH ×2 (09:19→22:18)
[2017-09-10] MEDS: FAMOTIDINE 20 MG TAB PO SCH ×2 (09:24→20:10)
[2017-09-10] MEDS: DOCUSATE SODIUM 50 MG/SENNA 8.6 MG TAB PO SCH ×2 (09:24→20:10)
[2017-09-10] MEDS: ASPIRIN EC 81 MG TABEC PO SCH (09:24)
[2017-09-10] MEDS: SODIUM CHLOR 0.9% 1000 ML INJ 1,000 ML IV SCH (09:25)
[2017-09-10] MEDS: TOLTERODINE TARTRATE 4 MG CAP LA PO SCH (09:29)
[2017-09-10] MEDS ORDERED: POTASSIUM PHOSPHATE MONOBASIC 500 MG TAB PO PRN (09:45)
[2017-09-10] MEDS ORDERED: MAGNESIUM SULFATE INJ 4 GM in SODIUM CHLORIDE 0.9% INJ 92 ML IV PRN (09:45)
[2017-09-10] MEDS ORDERED: POTASSIUM CHLOR 40 MEQ PREMIX 100 ML IV PRN ×2 (09:45)
[2017-09-10] MEDS ORDERED: MAGNESIUM OXIDE 400 MG TAB PO PRN (09:45)
[2017-09-10] MEDS ORDERED: SODIUM PHOSPHATE INJ 30 MMOL in SODIUM CHLOR 0.9% 250 ML INJ 240 ML IV PRN (09:45)
[2017-09-10] MEDS ORDERED: POTASSIUM PHOSPHATE MONOBASIC 500 MG TAB PO/TUBE PRN (09:45)
[2017-09-10] MEDS ORDERED: POTASSIUM CHLORIDE 25 MEQ EFFERVESCENT TAB PO PRN (09:45)
[2017-09-10] MEDS ORDERED: MAGNESIUM SULFATE INJ 2 GM in SODIUM CHLORIDE 0.9% INJ 96 ML IV PRN (09:45)
[2017-09-10] MEDS ORDERED: POTASSIUM PHOSPHATE INJ 30 MMOL in SODIUM CHLOR 0.9% 250 ML INJ 250 ML IV PRN (09:45)
[2017-09-10] MEDS ORDERED: POTASSIUM CHLOR 20 MEQ PREMIX 100 ML IV PRN ×2 (09:45)
[2017-09-10] MEDS ORDERED: FUROSEMIDE 20 MG/2 ML VIAL IV PUSH ONE (10:00)
[2017-09-10] MEDS: RESP: ALBUTEROL 2.5 MG/IPRATROPIUM 0.5 MG NEB (SCH) NEB ×3 (10:00→20:49)
[2017-09-10] MEDS ORDERED: RESP: ALBUTEROL 2.5 MG/3 ML NEB (PRN) NEB (10:00)
[2017-09-10] MEDS ORDERED: Vancomycin Consult Pharmacy 1 EA OTHER SCH ×2 (11:00→12:15)
--- NOTE | 2017-09-10 11:28 | PD.CAR.PN ---
CVT Progress Note Subjective/Hospital Course: 87-year-old female who underwent the femoral endarterectomy and patch several weeks ago and now has bleeding from the wound with probably disruption of the patch Patient is in chronic atrial fibrillation and on Coumadin Patient reversed with K centra and FFP and will be going to the operating room for immediate exploration of the left groin and iliofemoral reconstruction with control of bleeding Patient will be admitted to surgical ICU afterwards 09/10/17 Patient is status post repair of the common femoral and external iliac artery disruption Incision is clean and dry ERIN drainage is minimal and wound VAC is in position Feet are warm Patient is perfusing both legs through collateral circulation distal to the groin for 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 Fortunately medical solid state tester ordered 2 units of PRBC which I fully agree with Patient is now awake alert somewhat disoriented It should be noted that patient has chronic atrial fibrillation for which she was on Coumadin at home Blood cultures are positive for MRSA which is sort of expected considering the patient's incision site and the wound Will start on vancomycin and consult infectious disease The problem if the patient has an artificial patch in although bovine patches are somewhat resistant to infections this is still a foreign body Would leave patient in ICU for another day at least Objective: Vital Signs Date Time Temp Pulse Resp B/P (MAP) Pulse Ox O2 Delivery O2 Flow Rate FiO2 09/10/17 10:00 94 09/10/17 09:40 98.6 97 27 111/68 94 09/10/17 08:00 98.6 96 22 105/60 (75) 94 09/10/17 08:00 96 09/10/17 07:00 94 Nasal Cannula 2.00 09/10/17 06:00 96 09/10/17 04:00 107 09/10/17 04:00 98.1 88 22 119/71 (87) 95 09/10/17 02:00 100 09/10/17 01:00 100 87/65 09/10/17 00:00 92 09/10/17 00:00 98.7 96 22 109/76 (87) 100 09/09/17 22:00 93 09/09/17 20:00 98.3 98 22 142/72 (95) 98 09/09/17 20:00 98 09/09/17 20:00 127 142/72 09/09/17 19:00 100 Nasal Cannula 2.00 09/09/17 18:00 97.9 115 25 142/79 (100) 100 09/09/17 18:00 112 09/09/17 18:00 117 21 123/73 (90) 97 Nasal Cannula 4 09/09/17 17:45 113 22 124/73 (90) 98 Nasal Cannula 4 09/09/17 17:33 113 126/93 09/09/17 17:30 113 22 126/93 (104) 98 Nasal Cannula 4 09/09/17 17:15 116 13 116/76 (89) 98 Nasal Cannula 4 09/09/17 17:00 109 19 103/80 (88) 98 Nasal Cannula 4 09/09/17 16:45 117 22 127/76 (93) 99 Simple Mask 6 09/09/17 16:30 111 23 132/64 (86) 98 Simple Mask 10 09/09/17 16:13 97.4 115 22 150/71 (97) 90 Simple Mask 8 09/09/17 12:02 120 15 173/105 (127) 96 Nasal Cannula 2.00 09/09/17 11:42 119 16 173/105 (127) 95 Nasal Cannula 2.00 Labs: Laboratory Tests Test 09/10/17 05:15 White Blood Count 21.3 TH/MM3 (4.0-11.0) Red Blood Count 2.57 MIL/MM3 (4.00-5.30) Hemoglobin 6.5 GM/DL (11.6-15.3) Hematocrit 20.2 % (35.0-46.0) Mean Corpuscular Volume 78.5 FL (80.0-100.0) Mean Corpuscular Hemoglobin 25.4 PG (27.0-34.0) Mean Corpuscular Hemoglobin Concent 32.3 % (32.0-36.0) Red Cell Distribution Width 17.8 % (11.6-17.2) Platelet Count 405 TH/MM3 (150-450) Mean Platelet Volume 7.9 FL (7.0-11.0) Neutrophils (%) (Auto) 84.7 % (16.0-70.0) Lymphocytes (%) (Auto) 7.0 % (9.0-44.0) Monocytes (%) (Auto) 7.8 % (0.0-8.0) Eosinophils (%) (Auto) 0.1 % (0.0-4.0) Basophils (%) (Auto) 0.4 % (0.0-2.0) Neutrophils # (Auto) 18.0 TH/MM3 (1.8-7.7) Lymphocytes # (Auto) 1.5 TH/MM3 (1.0-4.8) Monocytes # (Auto) 1.7 TH/MM3 (0-0.9) Eosinophils # (Auto) 0.0 TH/MM3 (0-0.4) Basophils # (Auto) 0.1 TH/MM3 (0-0.2) CBC Comment DIFF FINAL Differential Comment Blood Urea Nitrogen 27 MG/DL (7-18) Creatinine 0.86 MG/DL (0.50-1.00) Random Glucose 143 MG/DL (74-106) Total Protein 6.3 GM/DL (6.4-8.2) Albumin 2.6 GM/DL (3.4-5.0) Calcium Level 7.6 MG/DL (8.5-10.1) Magnesium Level 1.5 MG/DL (1.5-2.5) Alkaline Phosphatase 56 U/L (45-117) Aspartate Amino Transf (AST/SGOT) 9 U/L (15-37) Alanine Aminotransferase (ALT/SGPT) 9 U/L (10-53) Total Bilirubin 0.4 MG/DL (0.2-1.0) Sodium Level 141 MEQ/L (136-145) Potassium Level 3.8 MEQ/L (3.5-5.1) Chloride Level 104 MEQ/L (98-107) Carbon Dioxide Level 27.9 MEQ/L (21.0-32.0) Anion Gap 9 MEQ/L (5-15) Estimat Glomerular Filtration Rate 63 ML/MIN (>89) Result Diagram: 09/10/17 0515 09/10/17 0515 Patricia Mandel MD Sep 10, 2017 11:28
[2017-09-10] MEDS ORDERED: VANCOMYCIN INJ 1,600 MG in SODIUM CHLORID 0.9% 500 ML INJ 500 ML IV ONE ×4 (13:00)
[2017-09-10] MEDS ORDERED: ZIPRASIDONE MESYLATE 20 MG VIAL IM PRN (15:00)
[2017-09-10 15:07] LABS: HEMOGLOBIN 8.6 GM/DL (11.6-15.3)
[2017-09-10] MEDS: HALOPERIDOL LACTATE 5 MG/ML AMP IV PUSH PRN ×2 (15:15→22:18)
--- NOTE | 2017-09-10 16:56 | MB ---
cc: EDGAR SNOW MD DATE OF CONSULTATION: 09/10/2017. REASON FOR CONSULTATION: MRSA bacteremia. REQUESTING PHYSICIAN: Dr. Fishman. HISTORY OF PRESENT ILLNESS: This is an 87-year white female who underwent iliofemoral bypass from the left on 08/03/2017. This was for vascular disease . The patient was evaluated on followup in the vascular physicians clinic and the groin area was noted to have improvement. However, she woke up with bleeding from the left groin and presented to the emergency department for evaluation. She was noted to have disruption of the patch at the femoral artery and she underwent repair of the patch today and also wound VAC was applied over the left lower extremity. She also had a Levy-Pate drain inserted into the left retroperitoneal area as she was found to have old blood. Cultures were taken from the wound and are pending. Blood cultures were taken and three of four bottles of gram-positive cocci with one bottle identified as MRSA. This consultation is requested because of MRSA. The patient's white blood cell count is elevated. Her temperature is normal. She notes that she has pain in the left groin earlier. She is currently receiving blood transfusions. She has received one dose of Vancomycin when she came to the emergency department yesterday. The patient has no other complaints. PAST MEDICAL HISTORY: 1. Atrial fibrillation. 2. History of bilateral DVT. 3. Hypertension. 4. Diabetes mellitus. 5. Hyperlipidemia. 6. Neuropathy. 7. Congestive heart failure. 8. History of breast cancer. 9. History of left knee replacement. 10. History of breast lumpectomy. ALLERGIES: 1. LEVETIRACETAM. 2. QUETIAPINE. MEDICATIONS: 1. Insulin. 2. DuoNeb. 3. Aspirin. 4. Synthroid. 5. Pepcid. 6. [place]-Colace. 7. Melatonin. 8. Lopressor. 9. Pravachol. 10. Detrol LA. 11. Oxycodone. SOCIAL HISTORY: No tobacco. No alcohol. No illicit drugs. FAMILY HISTORY: Noncontributory. REVIEW OF SYSTEMS: Negative on a ten point review. PHYSICAL EXAMINATION: GENERAL: This is a well-developed female in no acute distress. She is awake, alert and oriented. VITAL SIGNS: Temperature 98.6, blood pressure 111/68, heart rate 111, respirations 24. HEAD, EYES, EARS, NOSE, THROAT: The head is atraumatic Extraocular movements grossly intact. Pupils reactive to light. No icterus. Oropharynx with moist mucosa without lesions. NECK: The neck is supple without adenopathy. LUNGS: Clear breath sounds. HEART: Regular S1-S2. No murmurs, rubs or gallops. ABDOMEN: Bowel sounds present, soft. The bowel sounds are diminished however. The left groin has a wound VAC in place and the area around the entrance of the wound VAC is clean and without any erythema. A Levy-Pate drainage catheter exits the lower flank on the left and has serous drainage. RECTAL: Not performed. EXTREMITIES: No clubbing or cyanosis. The left lower extremity has 1+ edema. SKIN: No diffuse rash. NEUROLOGIC: No gross focal finding except for mild weakness in the left lower extremity. PSYCHIATRIC: The patient is pleasant, calm and cooperative. LABS: White blood cell count 21.3, platelet count 405,000, hemoglobin 6.5. Creatinine 0.86, BUN 27, sodium 141. IMPRESSION: 1. Bacteremia, source likely is the left groin wound 2. Left groin wound post vascularization of the left femoral artery with patch. Wound culture pending. 3. Recent revascularization procedure on the left groin. RECOMMENDATIONS: 1. Continue vancomycin 2. Follow the culture from the groin. 3. Follow the blood cultures. 4. Monitor antibiotic response. The patient's progress will be monitored and further recommendations will be given on follow up. Edgar Snow MD FD/CHARLIE /11:43 AM /4:16 PM MOJGAN
[2017-09-10] MEDS: PRAVASTATIN SOD 40 MG TAB PO SCH (20:10)
[2017-09-10 20:21] LABS: HEMATOCRIT 24.9 % (35.0-46.0); HEMOGLOBIN 8.2 GM/DL (11.6-15.3); MEAN CELL VOLUME 81.1 FL (80.0-100.0); MEAN CORPUSCULAR HEMOGLOBIN 26.8 PG (27.0-34.0); MEAN CORPUSCULAR HGB CONC 33.1 % (32.0-36.0); MEAN PLATELET VOLUME 7.5 FL (7.0-11.0); PLATELET COUNT 341 TH/MM3 (150-450); RED BLOOD COUNT 3.07 MIL/MM3 (4.00-5.30); RED CELL DISTRIBUTION WIDTH 18.3 % (11.6-17.2); WHITE BLOOD COUNT 19.5 TH/MM3 (4.0-11.0)
[2017-09-11] VITALS (8 sets, daily range): BP systolic 110–164; BP diastolic 78–90; PULSE 104–133; RESP 20–24; TEMP 98–99.5; O2SAT 90–100
[2017-09-11] MEDS: SODIUM CHLOR 0.9% 1000 ML INJ 1,000 ML IV SCH (02:05)
[2017-09-11] MEDS: HALOPERIDOL LACTATE 5 MG/ML AMP IV PUSH PRN (03:51)
[2017-09-11 05:01] LABS: HEMATOCRIT 24.7 % (35.0-46.0); HEMOGLOBIN 8.2 GM/DL (11.6-15.3); MEAN CELL VOLUME 81.4 FL (80.0-100.0); MEAN CORPUSCULAR HEMOGLOBIN 26.9 PG (27.0-34.0); MEAN CORPUSCULAR HGB CONC 33.1 % (32.0-36.0); MEAN PLATELET VOLUME 7.6 FL (7.0-11.0); PLATELET COUNT 333 TH/MM3 (150-450); RED BLOOD COUNT 3.04 MIL/MM3 (4.00-5.30); RED CELL DISTRIBUTION WIDTH 18.4 % (11.6-17.2); WHITE BLOOD COUNT 15.9 TH/MM3 (4.0-11.0)
[2017-09-11] MEDS: RESP: ALBUTEROL 2.5 MG/IPRATROPIUM 0.5 MG NEB (SCH) NEB ×4 (05:13→21:25)
[2017-09-11 05:14] LABS: INTERNATIONAL NORMALIZED RATIO 1.8 RATIO; PROTHROMBIN TIME - PATIENT 17.9 SEC (9.8-11.6)
[2017-09-11] MEDS: cloNIDine HCL 0.1 MG TAB PO SCH ×4 (05:23→20:54)
[2017-09-11] MEDS: LEVOTHYROXINE SODIUM 50 MCG TAB PO SCH (05:23)
[2017-09-11 05:29] LABS: BICARBONATE 26.6 MEQ/L (21.0-32.0); CALCIUM 7.8 MG/DL (8.5-10.1); CREATININE 0.64 MG/DL (0.50-1.00); MAGNESIUM 1.7 MG/DL (1.5-2.5); PHOSPHORUS 2.3 MG/DL (2.5-4.9)
--- NOTE | 2017-09-11 07:43 | HHI.CCPN ---
Subjective Remarks/Hospital Course This is an 87yF who had an SFA occlusion and thrombectomy by Dr. Torrez recently who presented to the ER today with bleeding at the site and was taken emergently to the operating room and found to have a disruption of the patch. She had ~300cc EBL with almost 1L old blood in the abdomen. The patch was repaired and a wound vac was placed. She arrives to the ICU extubated in stable condition. Of note, in the emergency department, she was in atrial fibrillation with rapid ventricular response and placed on a cardizem drip. on my evaluation , she is stable and denies any symptoms currently. he pain is adequately controlled. 09/10: Currently resting in bed on 2 L nasal cannula. Pain is currently controlled. Receiving 2 units PRBCs currently. SUBJECTIVE 09/11: Received chemical sedation overnight due to agitation. Awake and alert to person, place and age. Pulled out central line. Blood peripheral IV placed today. Replacing lites lites including potassium magnesium currently. 11 stable. Minimal output out of Hemovac 45 cc Objective Vital Signs Date Time Temp Pulse Resp B/P (MAP) Pulse Ox O2 Delivery O2 Flow Rate FiO2 09/11/17 05:14 20 09/11/17 04:00 98.4 133 137/90 (106) 96 09/10/17 20:52 Nasal Cannula 2.00 Intake and Output 09/11/17 09/11/17 09/12/17 08:00 16:00 00:00 Intake Total 1240 ml Output Total 525 ml Balance 715 ml Result Diagram: 09/11/17 0440 09/11/17 0440 Other Results Microbiology Date/Time Source Procedure Growth Status 09/10/17 13:50 Blood Peripheral Aerobic Blood Culture Pending Received 09/10/17 13:50 Blood Peripheral Anaerobic Blood Culture Pending Received 09/09/17 10:10 Wound Groin Gram Stain - Final Resulted 09/09/17 10:10 Wound Groin Wound Culture - Preliminary HEAVY GROWTH NORMAL SKIN ITZEL AT 24HRS Resulted Imaging Last Impressions Chest X-Ray 09/09/17 0984 Signed Impressions: Service Date/Time: August 10:14 - CONCLUSION: No infiltrate or mass. Severe right shoulder osteoarthritis.. Carlos Alberto Rosario MD Objective Remarks GENERAL: 87-year-old female lying in bed on nasal cannula HEENT: Normocephalic. Atraumatic. Pupils equal, round, reactive, conjugate. Mucous membranes are moist NECK: Trachea is midline. There is no JVD. CHEST: Equal chest rise. Unlabored. Nasal cannula oxygen CARDIOVASCULAR: Tachycardic rate, IR. S1, S2. No S4. ABDOMEN: Soft, nontender, nondistended. No guarding. MUSCULOSKELETAL: Pulses 2+. No peripheral edema. Left groin with hemaVAC in place. ERIN left lower quadrant no drainage. Fasc dressing LLE C/D/I.No evidence of hematoma NEUROLOGICAL: Nerves II through XII grossly intact. Moves all 4 extremities spontaneous. Normal sensation. Date of Insertion: Sep 09, 2017 A/P Assessment and Plan Neuro/Psych: Chronic pain management Oxycodone 5 mill grams every 4 hours when necessary pain management Haloperidol 2 mg IV every 6 hours when necessary agitation Ziprasidone 10 mg IM every 6 hours when necessary 3 days if necessary agitation CV: Postoperative day #2 repair of femoral artery patch and evacuation of hematoma with history of SFA lobectomy with subsequent pseudoaneurysm, LLE fasciotomy Atrial fibrillation Coronary artery disease Dyslipidemia Congestive heart failure chronic diastolic preferred LV function Severe Pulmonary hypertension Severe TR History of bilateral lower extremity DVTs on warfarin Lactic acidosis Currently on diltiazem 240 mg by mouth daily, Lopressor 75 mg twice a day and clonidine 0.1 mg 3 times a day/home medication for hypertension. Continue Continue Pravachol 40 mg by mouth daily/home medication Echocardiogram 08/06V function is normal. The left atrial size is mild-to- moderately dilated. The right atrial size is mildly dilated. Ldhpm-mi-jxdy mitral valve regurgitation. Moderate mitral annular calcification. Aortic valve sclerosis is present with suboptimal imaging. Doppler did not suggest aortic stenosis There is estimated kocvbflx-lg-exvsiw pulmonary hypertension present (range 60-70 mmHg). There is moderate to severe tricuspid valve regurgitation. The estimated pulmonary arterial pressure is 64.2 mmHg. Resp: Acute respiratory insufficiency COPD Nasal cannula to maintain saturations greater than equal to 92% Incentive spirometry while awake Scheduled albuterol/ipratropium aerosols every 6 hours with albuterol aerosols every 2 hours. Dyspnea Chest x-ray in a.m. 09/12 GI: Gastroesophageal reflux disease Hypoalbuminemia Currently on 1800 ADA diet Continue famotidine 20 mg by mouth daily/home medication. At home on omeprazole 20 mg by mouth daily Docusate sodium/senna 1 tablet twice a day bowel regimen : Maintain Pearl Endo: Diabetes mellitus Hypothyroidism Hyperglycemia Metformin 500 mg by mouth twice a day is being held Sliding-scale insulin with Novulog with Accu-Cheks before meals/at bedtime to maintain euglycemia Continue Levoxyl 50 by mouth daily/home medication Renal: Creatinine currently within normal limits Monitor urine output Accurate I's and O's Currently on normal saline at 60 cc an hour. Discontinue today Heme: Acute blood loss anemia Leukocytosis History of breast cancer Coagulopathy Currently being transfused 2 units PRBCs. Recheck Monitor CBC daily. Received Kcentra 2091 units in ED along with FFP. INR 1.8 this a.m. ID: MRSA bacteremia 2-D echocardiogram ordered Appreciation infectious disease Vancomycin day #2 Blood cultures 09/09 - MRSA Blood cultures 09/10 - pending Wound culture - 09/09 - pending MSK: PT evaluate and treat FEN: Hypokalemia KCl 30 mEq IV 1/40 mEq by mouth 1. Recheck at 1800 Replace electrolytes as clinically indicated per ICU electrolyte protocol Access - Right IJ CVL day 3 placed in OR removed today by patient 09/11. Place peripheral IV Prophylaxis - GI - famotidine - DVT - SCD/holding pharmacological prophylaxis until okay with surgery. Previously on warfarin versus apixaban Level II follow-up DIETER palencia/ Dr. Burk to tx to [facility]. Assign to [facility] in AM 09/12 Kunal Sawyer MD Sep 11, 2017 07:43
[2017-09-11] MEDS ORDERED: POTASSIUM CHLORIDE 20 MEQ CONTROLLED RELEASE TAB PO ONE (07:45)
[2017-09-11] MEDS ORDERED: MAGNESIUM SULFATE 1 GM PREMIX 100 ML IV SCH (07:45)
[2017-09-11] MEDS ORDERED: POTASSIUM CHLOR 10 MEQ PREMIX 100 ML IV SCH (07:45)
[2017-09-11] MEDS: INSULIN ASPART SUPPLEMENTAL SCALE SQ SCH ×4 (08:00→20:51)
[2017-09-11] MEDS: FAMOTIDINE 20 MG TAB PO SCH ×2 (08:29→20:53)
[2017-09-11] MEDS: ASPIRIN EC 81 MG TABEC PO SCH (08:29)
[2017-09-11] MEDS: METOPROLOL TARTRATE 25 MG TAB PO SCH ×2 (08:30→20:52)
[2017-09-11] MEDS: DOCUSATE SODIUM 50 MG/SENNA 8.6 MG TAB PO SCH ×2 (08:30→20:53)
[2017-09-11] MEDS: DILTIAZEM-CD 240 MG CAP ER PO SCH (08:30)
[2017-09-11] MEDS: TOLTERODINE TARTRATE 4 MG CAP LA PO SCH (08:48)
[2017-09-11] MEDS: SODIUM CHLORIDE 0.9% FLUSH 10 ML FLUSH IV FLUSH SCH ×2 (09:00→21:00)
--- NOTE | 2017-09-11 10:45 | PD.CAR.PN ---
CVT Progress Note Subjective/Hospital Course: 87-year-old female who underwent the femoral endarterectomy and patch several weeks ago and now has bleeding from the wound with probably disruption of the patch Patient is in chronic atrial fibrillation and on Coumadin Patient reversed with K centra and FFP and will be going to the operating room for immediate exploration of the left groin and iliofemoral reconstruction with control of bleeding Patient will be admitted to surgical ICU afterwards 09/10/17 Patient is status post repair of the common femoral and external iliac artery disruption Incision is clean and dry ERIN drainage is minimal and wound VAC is in position Feet are warm Patient is perfusing both legs through collateral circulation distal to the groin for 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 Fortunately medical brass and wind instrument repairer ordered 2 units of PRBC which I fully agree with Patient is now awake alert somewhat disoriented It should be noted that patient has chronic atrial fibrillation for which she was on Coumadin at home Blood cultures are positive for MRSA which is sort of expected considering the patient's incision site and the wound Will start on vancomycin and consult infectious disease The problem if the patient has an artificial patch in although bovine patches are somewhat resistant to infections this is still a foreign body Would leave patient in ICU for another day at least 09/11/17 Patient status post revascularization of the left leg after disruption of the common femoral and external iliac patch Dopplerable dorsalis pedis pulse and foot is nice and warm with good capillary refill all through collateral flow Incision clean and dry in the upper portion ERIN drain drainage minimal-DC Wound VAC in place drainage minimal to stay on Patient has grown MRSA ID help is greatly appreciated Can transfer to floor today from my point and does not require anymore ICU care Objective: Vital Signs Date Time Temp Pulse Resp B/P (MAP) Pulse Ox O2 Delivery O2 Flow Rate FiO2 09/11/17 09:44 90 Nasal Cannula 5.00 09/11/17 08:00 98.2 121 21 110/80 (90) 98 09/11/17 08:00 98 Room Air 09/11/17 08:00 121 09/11/17 05:14 20 09/11/17 04:00 98.4 133 24 137/90 (106) 96 09/11/17 00:00 98.7 114 22 125/78 (94) 100 09/10/17 20:52 95 Nasal Cannula 2.00 09/10/17 20:00 98.0 104 25 126/86 (99) 95 09/10/17 19:30 Nasal Cannula 2.00 09/10/17 18:00 110 09/10/17 16:00 109 09/10/17 16:00 98.3 102 20 141/71 (94) 96 09/10/17 14:00 80 09/10/17 12:00 98.6 94 18 119/57 (77) 94 09/10/17 12:00 94 09/10/17 11:40 98.0 79 32 119/64 94 Labs: Laboratory Tests Test 09/11/17 04:40 White Blood Count 15.9 TH/MM3 (4.0-11.0) Red Blood Count 3.04 MIL/MM3 (4.00-5.30) Hemoglobin 8.2 GM/DL (11.6-15.3) Hematocrit 24.7 % (35.0-46.0) Mean Corpuscular Volume 81.4 FL (80.0-100.0) Mean Corpuscular Hemoglobin 26.9 PG (27.0-34.0) Mean Corpuscular Hemoglobin Concent 33.1 % (32.0-36.0) Red Cell Distribution Width 18.4 % (11.6-17.2) Platelet Count 333 TH/MM3 (150-450) Mean Platelet Volume 7.6 FL (7.0-11.0) Prothrombin Time 17.9 SEC (9.8-11.6) Prothromb Time International Ratio 1.8 RATIO Activated Partial Thromboplast Time 33.7 SEC (24.3-30.1) Blood Urea Nitrogen 18 MG/DL (7-18) Creatinine 0.64 MG/DL (0.50-1.00) Random Glucose 119 MG/DL (74-106) Calcium Level 7.8 MG/DL (8.5-10.1) Phosphorus Level 2.3 MG/DL (2.5-4.9) Magnesium Level 1.7 MG/DL (1.5-2.5) Sodium Level 139 MEQ/L (136-145) Potassium Level 3.2 MEQ/L (3.5-5.1) Chloride Level 104 MEQ/L (98-107) Carbon Dioxide Level 26.6 MEQ/L (21.0-32.0) Anion Gap 8 MEQ/L (5-15) Estimat Glomerular Filtration Rate 88 ML/MIN (>89) Result Diagram: 09/11/17 0440 09/11/17 0440 Patricia Mandel MD Sep 11, 2017 10:45
--- NOTE | 2017-09-11 12:26 | MP ---
cc: MD KATY,PATRICIA DATE OF SURGERY: 09/09/2017 PREOPERATIVE DIAGNOSIS: 1. Severe peripheral vascular disease. 2. Diabetes mellitus. 3. Coronary artery disease. 4. Atrial fibrillation. 5. Disruption of the vasculature left groin. POSTOPERATIVE DIAGNOSIS: Disruption of the left common femoral artery with disruption of the patch graft and hematoma of the left groin. OPERATIVE PROCEDURE PERFORMED: 1. Retroperitoneal access to the left external iliac artery with vascular control. 2. Evacuation of the hematoma. 3. Exploration of the common femoral artery with placement of a patch graft and pledgets. SURGEON: PATRICIA BURNS M.D. ANESTHESIA: General. ESTIMATED BLOOD LOSS: 400 cc. DESCRIPTION OF THE PROCEDURE IN DETAIL: The patient was prepped and draped in the usual sterile fashion all the way up to the nipples just in case we had to access the abdomen. The left groin incision was opened in the proximal part where the wound VAC used to be and there was a huge pulsatile hematoma in the left groin. The incision was now extended upward in a slightly curvilinear fashion in a paramedian location. This one was deepened down to the rectus sheath. The rectus sheath was opened longitudinally and then posterior rectus sheath was opened. The retroperitoneal tissue was now swept medially rotating the peritoneum and not entering the peritoneal cavity. This allowed the access to retroperitoneal space and readily the external iliac artery was located here. The external iliac artery looked surprisingly okay. A Vesseloop was placed around the vessel and then the patient was given 5000 units of heparin and a profunda clamp was used to clamp the vessel. Now the incision was completely opened in the groin and area exposed. There was a huge hematoma here which was evacuated and it was noted now that blood coming up from the deep depths up. Everything was cleaned out with copious amounts of saline. It was noted that there was some back bleeding which was fine but the main problem was that the patch had ripped off the vessel because of the poor quality of the vessel itself. Actually it was a very nicely done endarterectomy with patch angioplasty; however, due to poor quality of the vessel, the patch proximally pulled off and this is commonly seen in these situations. The patch was now lifted off more. The area was irrigated with copious amounts of saline and then decision was made to use the same patch, which was fine, only it was sewn in with running 5-0 Prolene all around again, but this time using pledgets to help with the integrity of the repair considering the thin wall of the vessel. Once the anastomosis was almost completed, blood flow was re-established. The vessel was flushed and then the closure completed. Once this was done, blood flow was re-established. There was no more bleeding. The area was irrigated with copious amounts of saline and then incision closed in layers with #0 Vicryl leaving the skin open in the distal part and small wound VAC was placed here. The patient tolerated the procedure well. At the end of the procedure, she had nice pulses in this leg and she had a posterior tibial pulse, which was Dopplerable. The foot warmed up readily and turned pinker. It should be noted that this is a last resort surgery for this unfortunate lady with severe peripheral vascular disease because she has completely occluded the superficial femoral artery, popliteal artery and essentially has unrecognizable vessels below the level of the knee. I think she has an anterior tibial artery there, but it is very hard to tell on the CTA. I have explained this to the patient and the family before the surgery. Patircia MILLER/CHARLIE /4:09 PM /12:01 PM
[2017-09-11] MEDS: VANCOMYCIN 1,000 MG/NS 250 ML IV SCH ×2 (14:00)
[2017-09-11] MEDS ORDERED: MAGNESIUM SULFATE 1 GM PREMIX 100 ML ONE (14:37)
--- NOTE | 2017-09-11 17:38 | ECHRPT ---
Indication: sepsis endocarditis CONCLUSIONS Normal left ventricular size. Wall thickness is measured at the upper limits of normal. The left ventricular systolic function is low normal with an estimated ejection fraction in the rang e of 50- 55%. The left atrial size is mildly dilated. The right atrial size is mildly dilated. Severe mitral annular calcification is present. Mild mitral valve regurgitation with 2 jets. Aortic valve is severely calcified with at least mild possibly moderate stenosis. Trace aortic valve regurgitation. Aortic valve mean gradient is 24 mmHg. There is frhuluxw-dj-lotkwl tricuspid regurgitation. There is estimated lgiriqgi-dr-xduqpl pulmonary hypertension present (range 65 mmHg). Trivial pulmonary valve regurgitation. The inferior vena cava is slightly dilated. There is a small pericardial effusion present. BP: 119 / 57 HR: 94 Rhythm: MEASUREMENTS (Male / Female) Normal Values Technical Quality:Good 2D ECHO LV Diastolic Diameter PLAX 4.5 cm 4.2 - 5.9 / 3.9 - 5.3 cm LV Systolic Diameter PLAX 3.6 cm IVS Diastolic Thickness 1.1 cm 0.6 - 1.0 / 0.6 - 0.9 cm LVPW Diastolic Thickness 0.9 cm 0.6 - 1.0 / 0.6 - 0.9 cm LV Relative Wall Thickness 0.4 RV Internal Dim ED PLAX 2.3 cm LA Systolic Diameter LX 4.3 cm 3.0 - 4.0 / 2.7 - 3.8 cm DOPPLER AV Peak Velocity 352.0 cm/s AV Peak Gradient 49.6 mmHg AV Mean Gradient 24.0 mmHg AV Velocity Time Integral 74.4 cm LVOT Peak Velocity 96.3 cm/s LVOT Peak Gradient 3.7 mmHg LVOT Velocity Time Integral 17.3 cm TR Peak Velocity 387.0 cm/s TR Peak Gradient 59.9 mmHg Right Atrial Pressure 5.0 mmHg Pulmonary Artery Systolic Pressu 64.9 mmHg Right Ventricular Systolic Press 64.9 mmHg FINDINGS LEFT VENTRICLE Normal left ventricular size. Wall thickness is measured at the upper limits of normal. The left ventricular systolic function is low normal with an estimated ejection fraction in the rang e of 50- 55%. RIGHT VENTRICLE Normal right ventricular size and systolic function. LEFT ATRIUM The left atrial size is mildly dilated. RIGHT ATRIUM The right atrial size is mildly dilated. ATRIAL SEPTUM Normal atrial septal thickness without atrial level shunting by limited color doppler interrogation. AORTA The aortic root and proximal ascending aorta are normal in size on limited imaging. MITRAL VALVE Severe mitral annular calcification is present. Mild mitral valve regurgitation with 2 jets. AORTIC VALVE Aortic valve is severely calcified with at least mild possibly moderate stenosis. Trace aortic valve regurgitation. Aortic valve mean gradient is 24 mmHg. TRICUSPID VALVE There is ckszxtpj-xh-xsyecy tricuspid regurgitation. There is estimated ubdblteu-rs-ptvepe pulmonary hypertension present (range 65 mmHg). PULMONARY VALVE Trivial pulmonary valve regurgitation. VESSELS The inferior vena cava is slightly dilated. PERICARDIUM There is a small pericardial effusion present. Juan Jose Singh MD (Electronically Signed) Final Date:11 September 2017 17:37
--- NOTE | 2017-09-11 18:33 | RADRPT ---
EXAM DATE/TIME: 09/11/2017 16:25 [facility] COMPARISON: No previous studies available for comparison. INDICATIONS : Bilateral bruits. MEDICAL HISTORY : Hypercholesterolemia. Congestive heart failure. Chronic obstructive pulmonary disease. Peripheral vas cular disease. Thyroid disease. Hearing loss. Numbness. Afib. Anticoagulant therapy. Hiatal hernia. G ERD. Diabetes. Right breast cancer. Chemotherapy. Radiation therapy. Measles. Blood transfusion. SURGICAL HISTORY : Left femoral endarterectomy with angioplasty and embolectomy. Right partial mastectomy. Left knee rep lacement. ENCOUNTER: Initial ACUITY: 1 day PAIN SCORE: 2/10 LOCATION: Bilateral neck PEAK SYSTOLIC VELOCITIES (cm/sec): ICA/CCA RATIO: Right: N/A Left: 0.7 ICA: Right: N/A Left: 50.4 CCA: Right: 39.8 Left: 72.5 ECA: Right: 63.6 Left: 37.2 VERTEBRAL: Right: 35.1 antegrade Left: N/A antegrade Elevated flow velocities and ICA/CCA ratios have been found to correlate with increased degrees of vessel stenosis, calculated as percentage of diameter relative to a normal segment of distal ICA/CCA FINDINGS: RIGHT CAROTID: No flow is seen in the right internal carotid artery. Findings suggest occlusion at the origin. Flow is identified in the right external carotid artery and the common carotid artery. LEFT CAROTID: No significant stenosis is visualized. The waveforms are within normal limits. VERTEBRAL ARTERIES: No color flow identified in the left vertebral artery. There is apparent flow on the pulse wave Doppl er images. MISCELLANEOUS: None. CONCLUSION: 1. 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 2. No evidence of hemodynamically significant carotid stenosis on the left. 3. Possible occlusion of left vertebral artery. Favian Sánchez MD on September 11, 2017 at 18:28 Board Certified Radiologist. This report was verified electronically.
[2017-09-11] MEDS: PRAVASTATIN SOD 40 MG TAB PO SCH (20:52)
[2017-09-12] VITALS (11 sets, daily range): BP systolic 118–158; BP diastolic 68–89; PULSE 100–136; RESP 17–24; TEMP 97.3–99.3; O2SAT 93–100
[2017-09-12] MEDS: VANCOMYCIN 1,000 MG/NS 250 ML IV SCH ×4 (01:46→21:00)
[2017-09-12] MEDS: RESP: ALBUTEROL 2.5 MG/IPRATROPIUM 0.5 MG NEB (SCH) NEB ×5 (05:06→21:00)
[2017-09-12] MEDS: LEVOTHYROXINE SODIUM 50 MCG TAB PO SCH (05:54)
[2017-09-12] MEDS: cloNIDine HCL 0.1 MG TAB PO SCH (05:54)
--- NOTE | 2017-09-12 06:22 | RADRPT ---
EXAM DATE/TIME: 09/12/2017 04:21 [facility] COMPARISON: CHEST SINGLE AP, September 09, 2017, 16:22. INDICATIONS : Congestion. MEDICAL HISTORY : Hypercholesterolemia. Congestive heart failure. Chronic obstructive pulmonarydisease. Peripheral vasc ular disease. Thyroid disease. Hearing loss. Numbness. Afib. Anticoagulant therapy. Hiatal hernia. GE RD. Diabetes. Right breast cancer. Chemotherapy. Radiation therapy. Measles. SURGICAL HISTORY : Left femoral endarterectomy with angioplasty and embolectomy. Right partial mastectomy. Left knee rep lacement mastectomy. ENCOUNTER: Subsequent ACUITY: 3 days PAIN SCORE: Non-responsive. LOCATION: Bilateral chest FINDINGS: There has been interval removal of a central line. Lungs are grossly clear. Heart is enlarged. CONCLUSION: Stable compensated cardiomegaly Christian Moss MD on September 12, 2017 at 6:19 Board Certified Radiologist. This report was verified electronically.
[2017-09-12] MEDS: INSULIN ASPART SUPPLEMENTAL SCALE SQ SCH ×4 (08:00→21:00)
[2017-09-12 08:49] LABS: HEMATOCRIT 24.9 % (35.0-46.0); HEMOGLOBIN 8.2 GM/DL (11.6-15.3); MEAN CELL VOLUME 82.8 FL (80.0-100.0); MEAN CORPUSCULAR HEMOGLOBIN 27.2 PG (27.0-34.0); MEAN CORPUSCULAR HGB CONC 32.8 % (32.0-36.0); MEAN PLATELET VOLUME 8.1 FL (7.0-11.0); PLATELET COUNT 378 TH/MM3 (150-450); RED BLOOD COUNT 3.01 MIL/MM3 (4.00-5.30); RED CELL DISTRIBUTION WIDTH 18.7 % (11.6-17.2); WHITE BLOOD COUNT 14.6 TH/MM3 (4.0-11.0)
[2017-09-12] MEDS: FAMOTIDINE 20 MG TAB PO SCH (09:00)
[2017-09-12] MEDS: DOCUSATE SODIUM 50 MG/SENNA 8.6 MG TAB PO SCH (09:00)
[2017-09-12] MEDS ORDERED: FERROUS SULFATE 325 MG (65 MG ELEMENTAL IRON) TAB PO SCH (09:00)
[2017-09-12 09:05] LABS: BICARBONATE 25.4 MEQ/L (21.0-32.0); CALCIUM 8.2 MG/DL (8.5-10.1); CREATININE 0.66 MG/DL (0.50-1.00); MAGNESIUM 1.7 MG/DL (1.5-2.5)
[2017-09-12] MEDS: DILTIAZEM-CD 240 MG CAP ER PO SCH (09:34)
[2017-09-12] MEDS: ASPIRIN EC 81 MG TABEC PO SCH (09:35)
[2017-09-12] MEDS: SODIUM CHLORIDE 0.9% FLUSH 10 ML FLUSH IV FLUSH SCH ×2 (09:37→22:33)
[2017-09-12] MEDS ORDERED: METOPROLOL TARTRATE 100 MG TAB PO SCH (10:00)
[2017-09-12] MEDS ORDERED: POTASSIUM CHLORIDE 20 MEQ CONTROLLED RELEASE TAB PO ONE (10:00)
--- NOTE | 2017-09-12 10:03 | PD.CAR.PN ---
CVT Progress Note Subjective/Hospital Course: 87-year-old female who underwent the femoral endarterectomy and patch several weeks ago and now has bleeding from the wound with probably disruption of the patch Patient is in chronic atrial fibrillation and on Coumadin Patient reversed with K centra and FFP and will be going to the operating room for immediate exploration of the left groin and iliofemoral reconstruction with control of bleeding Patient will be admitted to surgical ICU afterwards 09/10/17 Patient is status post repair of the common femoral and external iliac artery disruption Incision is clean and dry ERIN drainage is minimal and wound VAC is in position Feet are warm Patient is perfusing both legs through collateral circulation distal to the groin for 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 Fortunately medical doll dresser ordered 2 units of PRBC which I fully agree with Patient is now awake alert somewhat disoriented It should be noted that patient has chronic atrial fibrillation for which she was on Coumadin at home Blood cultures are positive for MRSA which is sort of expected considering the patient's incision site and the wound Will start on vancomycin and consult infectious disease The problem if the patient has an artificial patch in although bovine patches are somewhat resistant to infections this is still a foreign body Would leave patient in ICU for another day at least 09/11/17 Patient status post revascularization of the left leg after disruption of the common femoral and external iliac patch Dopplerable dorsalis pedis pulse and foot is nice and warm with good capillary refill all through collateral flow Incision clean and dry in the upper portion ERIN drain drainage minimal-DC Wound VAC in place drainage minimal to stay on Patient has grown MRSA ID help is greatly appreciated Can transfer to floor today from my point and does not require anymore ICU care 09/12/17 Groin incision is clean and dry Common femoral and deep femoral arteries widely patent. No drainage Excellent perfusion of the left foot through collateral circulation anywhere below the SFA level Foot warm Patient has been confused for the last 24 hours which is not unusual in her age group Nothing to add to care and from my point patient can be transferred to rehabilitation any time Objective: Vital Signs Date Time Temp Pulse Resp B/P (MAP) Pulse Ox O2 Delivery O2 Flow Rate FiO2 09/12/17 09:18 100 Nasal Cannula 2.00 09/12/17 08:00 97.3 123 17 118/78 (91) 98 12/24/17 04:56 99.3 118 22 158/83 (108) 95 09/12/17 04:14 136 09/12/17 00:11 115 09/12/17 00:00 97.3 116 22 134/75 (94) 93 09/11/17 21:25 92 Nasal Cannula 2.00 09/11/17 21:00 Nasal Cannula 2.00 09/11/17 20:00 98.0 122 22 164/81 (108) 90 09/11/17 16:00 104 09/11/17 16:00 99.5 104 20 137/81 (99) 95 09/11/17 12:00 98.4 117 22 156/80 (105) 98 09/11/17 12:00 118 Labs: Laboratory Tests Test 09/11/17 22:35 09/12/17 07:40 Potassium Level 3.8 MEQ/L (3.5-5.1) 3.6 MEQ/L (3.5-5.1) White Blood Count 14.6 TH/MM3 (4.0-11.0) Red Blood Count 3.01 MIL/MM3 (4.00-5.30) Hemoglobin 8.2 GM/DL (11.6-15.3) Hematocrit 24.9 % (35.0-46.0) Mean Corpuscular Volume 82.8 FL (80.0-100.0) Mean Corpuscular Hemoglobin 27.2 PG (27.0-34.0) Mean Corpuscular Hemoglobin Concent 32.8 % (32.0-36.0) Red Cell Distribution Width 18.7 % (11.6-17.2) Platelet Count 378 TH/MM3 (150-450) Mean Platelet Volume 8.1 FL (7.0-11.0) Blood Urea Nitrogen 14 MG/DL (7-18) Creatinine 0.66 MG/DL (0.50-1.00) Random Glucose 138 MG/DL (74-106) Calcium Level 8.2 MG/DL (8.5-10.1) Magnesium Level 1.7 MG/DL (1.5-2.5) Sodium Level 137 MEQ/L (136-145) Chloride Level 104 MEQ/L (98-107) Carbon Dioxide Level 25.4 MEQ/L (21.0-32.0) Anion Gap 8 MEQ/L (5-15) Estimat Glomerular Filtration Rate 85 ML/MIN (>89) Result Diagram: 09/12/17 0740 09/12/17 0740 Patricia Mandel MD Sep 12, 2017 10:03
[2017-09-12] MEDS: LEVOFLOXACIN 750 MG TAB PO SCH (10:22)
[2017-09-12] MEDS: TOLTERODINE TARTRATE 4 MG CAP LA PO SCH (11:21)
[2017-09-12] MEDS ORDERED: 1/2 NS + KCL 20 MEQ INJ 1,000 ML IV PRN (12:45)
--- NOTE | 2017-09-12 13:05 | RADRPT ---
EXAM DATE/TIME: 09/12/2017 12:28 [place] COMPARISON: No previous studies available for comparison. INDICATIONS : Altered mental status. RADIATION DOSE: 43.34 CTDIvol (mGy) MEDICAL HISTORY : Cardiovascular disease. Diabetes mellitus type 2. Carcinoma, breast. SURGICAL HISTORY : None. ENCOUNTER: Initial ACUITY: 1 day PAIN SCALE: Non-responsive LOCATION: cranial TECHNIQUE: Multiple contiguous axial images were obtained of the head. Using automated exposure control and adj ustment of the mA and/or kV according to patient size, radiation dose was kept as low as reasonably a chievable to obtain optimal diagnostic quality images. DICOM format image data is available electro nically for review and comparison. FINDINGS: CEREBRUM: The ventricles are normal for age. No evidence of midline shift, mass lesion, hemorrhage or acute in farction. No extra-axial fluid collections are seen. POSTERIOR FOSSA: The cerebellum and brainstem are intact. The 4th ventricle is midline. The cerebellopontine angle i s unremarkable. EXTRACRANIAL: The visualized portion of the orbits is intact. SKULL: The calvaria is intact. No evidence of skull fracture. CONCLUSION: Negative for acute process. Jefry Rojo MD FACR on September 12, 2017 at 13:03 Board Certified Radiologist. This report was verified electronically.
[2017-09-12] MEDS ORDERED: DOCUSATE SODIUM 50 MG/SENNA 8.6 MG TAB NG PRN (13:45)
[2017-09-12] MEDS ORDERED: LACTULOSE SYRUP 20 GM/30 ML CUP NG PRN (13:45)
[2017-09-12] MEDS: cloNIDine HCL 0.1 MG TAB NG SCH ×2 (14:15→22:31)
--- NOTE | 2017-09-12 14:57 | HHI.PR ---
Subjective Remarks Consulted by critical care medicine for transfer care medical management. Chart reviewed. Seen with sister who provided history. Discussed with RN and vascular surgery. She is arousable intermittently following commands. She is confused Objective Vitals Vital Signs Date Time Temp Pulse Resp B/P (MAP) Pulse Ox O2 Delivery O2 Flow Rate FiO2 09/12/17 12:00 120 09/12/17 12:00 98.1 101 18 124/70 (88) 97 09/12/17 11:17 113 09/12/17 09:18 100 Nasal Cannula 2.00 09/12/17 09:00 Nasal Cannula 3.00 09/12/17 08:00 97.3 123 17 118/78 (91) 98 09/12/17 04:56 99.3 118 22 158/83 (108) 95 09/12/17 04:14 136 09/12/17 00:11 115 09/12/17 00:00 97.3 116 22 134/75 (94) 93 09/11/17 21:25 92 Nasal Cannula 2.00 09/11/17 21:00 Nasal Cannula 2.00 09/11/17 20:00 98.0 122 22 164/81 (108) 90 09/11/17 16:00 104 09/11/17 16:00 99.5 104 20 137/81 (99) 95 I/O 09/11/17 09/11/17 09/11/17 09/12/17 09/12/17 09/12/17 07:00 15:00 23:00 07:00 15:00 23:00 Intake Total 1240 ml 1090 ml 90 ml Output Total 525 ml 455 ml 550 ml 100 ml Balance 715 ml 635 ml -460 ml -100 ml Intake Oral 240 ml 740 ml 90 ml IV Total 1000 ml 350 ml Output Urine Total 500 ml 425 ml 550 ml 100 ml Drainage Total 25 ml 30 ml # Bowel Movements 0 0 Result Diagram: 09/12/17 0740 09/12/17 0740 Imaging Last Impressions Chest X-Ray 09/12/17 0600 Signed Impressions: Service Date/Time: Tuesday, September 12, 2017 04:21 - CONCLUSION: Stable compensated cardiomegaly Christian Moss MD Head CT 09/12/17 0000 Signed Impressions: Service Date/Time: Tuesday, September 12, 2017 12:28 - CONCLUSION: Negative for acute process. Jefry Rojo MD FACR Carotid Artery Ultrasound 09/11/17 0000 Signed Impressions: Service Date/Time: Monday, September 11, 2017 16:25 - CONCLUSION: 1. 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 2. No evidence of hemodynamically significant carotid stenosis on the left. 3. Possible occlusion of left vertebral artery. Favian Sánchez MD Objective Remarks GENERAL: 87-year-old female lying in bed on nasal cannula HEENT: Normocephalic. Atraumatic. Pupils equal, round, reactive, conjugate. Mucous membranes are moist NECK: Trachea is midline. There is no JVD. CHEST: Equal chest rise. Unlabored. Nasal cannula oxygen CARDIOVASCULAR: Tachycardic rate, irregular telemetry shows A. fib. S1, S2. No S4. ABDOMEN: Soft, nontender, nondistended. No guarding. MUSCULOSKELETAL: Pulses 2+. No peripheral edema. Left groin with hemaVAC in place. ERIN left lower quadrant no drainage. Fasc dressing LLE C/D/I.No evidence of hematoma NEUROLOGICAL: Easily arousable but confused. Nerves II through XII grossly intact. Moves all 4 extremities spontaneous. Normal sensation. Procedures Central line placement OPERATIVE PROCEDURE PERFORMED: 1. Retroperitoneal access to the left external iliac artery with vascular control. 2. Evacuation of the hematoma. 3. Exploration of the common femoral artery with placement of a patch graft and pledgets. Date of Insertion: Sep 09, 2017 A/P Problem List: (1) Vascular hemorrhage ICD Code: R58 - Hemorrhage, not elsewhere classified Status: Acute Assessment and Plan Neuro/Psych: Encephalopathy likely toxic Chronic pain management Neurochecks. Obtain stat head CT to evaluate for CVA with history of A. fib and EEG. Consider MRI. 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 Increase Lopressor 200 mg twice a day. Cardizem drip as needed. Discussed with vascular surgery okay to restart Coumadin. Ct asa Continue Pravachol 40 mg by mouth daily/home medication Echocardiogram 08/06 LV function is normal. The left atrial size is mild-to- moderately dilated. The right atrial size is mildly dilated. [id number] mitral valve regurgitation. Moderate mitral annular calcification. Aortic valve sclerosis is present with suboptimal imaging. Doppler did not suggest aortic stenosis There is estimated [id number] pulmonary hypertension present (range 60-70 mmHg). There is moderate to severe tricuspid valve regurgitation. The estimated pulmonary arterial pressure is 64.2 mmHg. Resp: Acute respiratory insufficiency COPD Nasal cannula to maintain saturations greater than equal to 92% Incentive spirometry while awake Scheduled albuterol/ipratropium aerosols every 6 hours with albuterol aerosols every 2 hours. Chest x-ray stable GI: Gastroesophageal reflux disease Hypoalbuminemia Currently on 1800 ADA diet Continue famotidine 20 mg by mouth daily/home medication. At home on omeprazole 20 mg by mouth daily Docusate sodium/senna 1 tablet twice a day bowel regimen : Discontinue [place] Endo: Diabetes mellitus Hypothyroidism Hyperglycemia Metformin 500 mg by mouth twice a day is being held Sliding-scale insulin with Novulog with Accu-Cheks before meals/at bedtime to maintain euglycemia Continue Levoxyl 50 by mouth daily/home medication Renal: Creatinine currently within normal limits Monitor urine output Accurate I's and O's Restart IV fluid if not tolerating by mouth Heme: Acute blood loss anemia Leukocytosis History of breast cancer Coagulopathy Stable status post transfusion Monitor CBC Received Kcentra 2091 units in ED along with FFP. INR pending today ID: MRSA bacteremia 2-D echocardiogram ordered Appreciation infectious disease Continue IV Vancomycin Blood cultures 09/09 - MRSA Blood cultures 09/10 -negative to date Wound culture - 09/09 -Acinetobacter. Start Levaquin MSK: PT evaluate and treat, although bed FEN: Hypokalemia Replace electrolytes accordingly Consulted dietitian for tube feeding Access Central line removed by patient 09/11. Place peripheral IV Prophylaxis - GI - famotidine - DVT - SCD Coumadin okay with surgery. According to sister, patient bled on Eliquis and developed clots on XaTarik Miller MD Sep 12, 2017 14:57
[2017-09-12] MEDS: WARFARIN SOD 2 MG TAB NG SCH (16:00)
[2017-09-12] MEDS ORDERED: WARFARIN SOD 2 MG TAB PO SCH (16:00)
[2017-09-12] MEDS ORDERED: PHARMACY ORDERED LAB ONE (19:45)
[2017-09-12] MEDS: HALOPERIDOL LACTATE 5 MG/ML AMP IV PUSH PRN (22:31)
[2017-09-12] MEDS: FAMOTIDINE 20 MG TAB NG SCH (22:31)
[2017-09-12] MEDS: METOPROLOL TARTRATE 100 MG TAB NG SCH (22:31)
[2017-09-12] MEDS: DOCUSATE SODIUM 50 MG/SENNA 8.6 MG TAB NG SCH (22:32)
[2017-09-12] MEDS: TOLTERODINE TARTRATE 2 MG TAB NG SCH (22:32)
[2017-09-12] MEDS: PRAVASTATIN SOD 40 MG TAB NG SCH (22:32)
[2017-09-13] VITALS (10 sets, daily range): BP systolic 126–142; BP diastolic 72–95; PULSE 106–136; RESP 18–22; TEMP 97.2–98.2; O2SAT 92–97
[2017-09-13] MEDS: RESP: ALBUTEROL 2.5 MG/IPRATROPIUM 0.5 MG NEB (SCH) NEB (03:53)
[2017-09-13] MEDS: DILTIAZEM HCL 60 MG TAB PO SCH ×4 (04:41→22:59)
[2017-09-13] MEDS: cloNIDine HCL 0.1 MG TAB NG SCH ×3 (04:42→21:25)
[2017-09-13] MEDS: LEVOTHYROXINE SODIUM 50 MCG TAB NG SCH (04:42)
[2017-09-13] MEDS ORDERED: DILTIAZEM-CD 240 MG CAP ER PO SCH (06:00)
[2017-09-13] MEDS ORDERED: DILTIAZEM-CD 240 MG CAP ER SCH (06:00)
[2017-09-13] MEDS: INSULIN ASPART SUPPLEMENTAL SCALE SQ SCH ×4 (07:44→21:00)
[2017-09-13] MEDS: FERROUS SULFATE 300 MG /5ML UDC NG SCH (08:32)
[2017-09-13] MEDS: ASPIRIN 81 MG CHEW TAB NG SCH (08:33)
[2017-09-13] MEDS: SODIUM CHLORIDE 0.9% FLUSH 10 ML FLUSH IV FLUSH SCH ×2 (08:33→21:24)
[2017-09-13] MEDS: METOPROLOL TARTRATE 100 MG TAB NG SCH ×2 (08:33→21:23)
[2017-09-13] MEDS: FAMOTIDINE 20 MG TAB NG SCH ×2 (08:33→21:23)
[2017-09-13] MEDS: DOCUSATE SODIUM 50 MG/SENNA 8.6 MG TAB NG SCH ×2 (08:33→21:23)
[2017-09-13] MEDS: TOLTERODINE TARTRATE 2 MG TAB NG SCH ×2 (08:33→21:24)
[2017-09-13] MEDS: LEVOFLOXACIN 750 MG TAB PO SCH (08:33)
[2017-09-13] MEDS ORDERED: DILTIAZEM INJ 125 MG in SODIUM CHLORIDE 0.9% INJ 100 ML IV PRN (08:45)
[2017-09-13] MEDS ORDERED: TOLTERODINE TARTRATE 4 MG CAP LA SCH (09:00)
[2017-09-13 09:21] LABS: INTERNATIONAL NORMALIZED RATIO 1.8 RATIO; PROTHROMBIN TIME - PATIENT 18.1 SEC (9.8-11.6)
[2017-09-13] MEDS ORDERED: RESP: ALBUTEROL 2.5 MG/IPRATROPIUM 0.5 MG NEB (SCH) NEB (10:00)
[2017-09-13] MEDS: LEVOFLOXACIN 750 MG TAB NG SCH (10:53)
--- NOTE | 2017-09-13 11:01 | PD.PSY.CON ---
Provisional Diagnosis Admission Date Sep 09, 2017 at 11:29 [place] Delirium History of Present Illness Service Psychiatry Consult Requested By Attending physician Reason for Consult Question of depression and competency. Primary Care Physician Juli Resendiz MD HPI 87-year-old female with vascular issues. This physician was consult did regarding her competency to give informed consent and issues of depression. Patient is alert but otherwise a poor historian. She is verbal. She is oriented to person primarily. She wished this physician happy new year and wanted to know if I was going to save her life. This physician also spoke with the patient's nurse and VENEER MANUFACTURER, both of whom have found her confused. Review of Systems ROS Limitations: Clinical Condition, Altered Mental Status Psychiatric: COMPLAINS OF: Confusion Except as stated in HPI: all other systems reviewed are Neg Past Family Social History Coded Allergies: levetiracetam (Verified Allergy, Intermediate, 09/09/17) quetiapine (Verified Allergy, Mild, 09/09/17) Active Scripts Melatonin (Melatonin) 5 Mg Tab, 5 MG PO HS Y for INSOMNIA, #30 TAB Prov:King Xiong MD 08/23/17 Sennosides-Docusate Sodium (Gnp Senna Plus 8.6-50 mg) 8.6 Mg-50 Mg Tab, 1 TAB PO BID Y for CONSTIPATION, #60 TAB Prov:King Xiong MD 08/23/[address] (Aspirin DR) 81 Mg Tabdr, 81 MG PO DAILY, #30 TAB Prov:King Xiong MD 08/23/17 Metoprolol Tartrate (Lopressor) 50 Mg Tab, 75 MG PO Q12HR, #90 TAB Prov:King Xiong MD 08/23/17 Warfarin (Coumadin) 2 Mg Tab, 2 MG PO DAILY@1600, #30 TAB Prov:King Xiong MD 08/23/17 Ferrous Sulfate (Ferosul) 325 Mg (65 Mg Iron) Tablet, 325 MG PO DAILY, #30 Prov:King Xiong MD 08/23/17 Oxycodone (Oxycodone) 5 Mg Tab, 5 MG PO Q6HR Y for Pain 6-10, #60 TAB Prov:King Xiong MD 08/23/17 Tolterodine (Tolterodine) 2 Mg Tab, 2 MG PO BID for Urinary Symptom Managemen, # 60 TAB 0 Refills Prov:King Xiong MD 08/23/17 Clonidine (Catapres) 0.1 Mg Tab, 0.1 MG PO Q8HR for Blood Pressure Management, # 90 TAB 0 Refills Prov:King Xiong MD 08/23/17 Levothyroxine (Levothyroxine) 50 Mcg Tab, 50 MCG PO DAILY for Thyroid, #30 TAB 0 Refills Prov:King Xiong MD 08/23/17 Pravastatin (Pravachol) 40 Mg Tab, 40 MG PO HS for CM, #30 TAB Prov:King Xiong MD 08/23/17 Diltiazem CD 24 HR (Cardizem CD 24 HR) 240 Mg Caper, 240 MG PO DAILY for Regulate Heart Beat, #30 CAP Prov:King Xiong MD 08/23/17 Metformin (Metformin) 500 Mg Tab, 500 MG PO BID for Blood Sugar Management, #60 TAB 0 Refills With meals Prov:King Xiong MD 08/23/17 Omeprazole (Omeprazole) 20 Mg Tab, 20 MG PO DAILY for GERD, #30 TAB 0 Refills Prov:King Xiong MD 08/23/17 Current Medications Medications (Trade) Dose Ordered Sig/Nova Route Start Time Stop Time Status Last Admin (NS Flush) 2 ml UNSCH PRN IV FLUSH 09/09/17 11:45 (NS Flush) 2 ml BID IV FLUSH 09/09/17 21:00 09/13/17 08:33 Miscellaneous Information 1 Q361D XX 09/09/17 11:45 (Chlorhexidine 2% Cloth) 3 pack Taper DAILY@04 TOP 09/10/17 04:00 09/06/18 03:59 (Chlorhexidine 2% Cloth) 3 pack UNSCH PRN TOP 09/09/17 11:45 (D50w (Syr) Inj) 50 ml UNSCH PRN IV PUSH 09/09/17 16:45 (Glucagon Inj) 1 mg UNSCH PRN OTHER 09/09/17 16:45 (Melatonin) 5 mg HS PRN PO 09/09/17 21:00 (Glucophage) 500 mg BIDPC PO 09/09/17 18:00 Future Hold (NovoLOG SUPPLEMENTAL SCALE) 1 ACHS SQ 09/10/17 12:00 09/12/17 12:47 (Albuterol Neb) 2.5 mg Q2HR NEB PRN NEB 09/10/17 10:00 Pharmacy Profile Note 0 ml @ 0 mls/hr UNSCH OTHER 09/10/17 12:15 Vancomycin HCl 1000 mg/Sodium Chloride 250 ml @ 250 mls/hr Q18H IV 09/11/17 08:00 09/12/17 21:00 (Haldol Inj) 2 mg Q4HR PRN IV PUSH 09/10/17 15:00 09/12/17 22:31 (Geodon Inj) 10 mg Q6HR PRN IM 09/10/17 15:00 09/13/17 14:59 09/11/17 10:27 Pharmacy Profile Note 0 ml @ 0 mls/hr UNSCH OTHER 09/12/17 12:45 Potassium Chloride/Sodium Chloride 1,000 ml @ 42 mls/hr [id number] PRN IV 09/12/17 12:45 (Aspirin Chew) 81 mg DAILY NG 09/13/17 09:00 09/13/17 08:33 (Catapres) 0.1 mg Q8HR NG 09/12/17 14:00 09/13/17 04:42 ([place]-Colace) 1 tab BID PRN NG 09/12/17 13:45 ([place]-Colace) 1 tab BID NG 09/12/17 21:00 09/13/17 08:33 (Pepcid) 20 mg Q12HR NG 09/12/17 21:00 09/13/17 08:33 (Ferrous Sulfate Liq) 300 mg DAILY NG 09/13/17 09:00 09/13/17 08:32 (Lactulose Liq) 30 ml DAILY PRN NG 09/12/17 13:45 (Synthroid) 50 mcg DAILY@0600 NG 09/13/17 06:00 09/13/17 04:42 (Lopressor) 100 mg Q12HR NG 09/12/17 21:00 09/13/17 08:33 (Roxicodone) 2.5 mg Q6HR PRN NG 09/12/17 13:45 (Pravachol) 40 mg HS NG 09/12/17 21:00 09/12/17 22:32 (Coumadin) 2 mg DAILY@1600 NG 09/12/17 16:00 09/12/17 16:00 (Cardizem) 60 mg Q6HR PO 09/13/17 06:00 09/13/17 04:41 (Detrol) 2 mg BID NG 09/12/17 21:00 09/13/17 08:33 (Levaquin) 750 mg DAILY NG 09/13/17 09:00 09/13/17 10:53 Diltiazem HCl 125 mg/Sodium Chloride 125 ml @ 5 mls/hr TITRATE PRN IV 09/13/17 08:45 Family Psych History Unknown. Patient poor historian. Social History Unknown. Patient poor historian. Patient's Strengths (min. 2) Verbal and has access to healthcare. Physical Exam Vital Signs Vital Signs Date Time Temp Pulse Resp B/P (MAP) Pulse Ox O2 Delivery O2 Flow Rate FiO2 09/13/17 08:07 98.1 111 18 135/88 (104) 95 09/13/17 08:00 Room Air 09/12/17 09:18 2.00 Lab Results Test 09/12/17 19:45 09/13/17 08:58 Vancomycin Level Trough 13.0 MCG/ML Prothrombin Time 18.1 SEC Prothromb Time International Ratio 1.8 RATIO Date/Time Source Procedure Growth Status 09/10/17 13:50 Blood Peripheral Aerobic Blood Culture - Preliminary NO GROWTH IN 2 DAYS Resulted 09/10/17 13:50 Blood Peripheral Anaerobic Blood Culture - Preliminary NO GROWTH IN 2 DAYS Resulted 09/09/17 10:10 Wound Groin Gram Stain - Final Complete 09/09/17 10:10 Wound Culture - Final Acinetobacter Baumannii/Haemol Complete Mental Status Examination Appearance: Appropriate Consciousness: Alert Orientation: Person Motor Activity: Abnormal gait Speech: Hesitant Language: Adequate Fund of Knowledge: Inadequate Attention and Concentration: Easily Distracted Memory: Impaired Mood: Anxious Affect: Anxious Thought Process & Associations: Disorganized Thought Content: Other Hallucination Type: None Delusion Type: None Suicidal Ideation: No Suicidal Plan: No Suicidal Intention: No Homicidal Ideation: No Homicidal Plan: No Homicidal Intention: No Insight: Poor Judgment: Poor Assessment & Plan Problem List: (1) Delirium due to another medical condition ICD Codes: F05 - Delirium due to known physiological condition Status: Acute Assessment & Plan Estimated LOS: days. 87-year-old female presents with confusion, disorientation, concentration and memory problems, etc. As this does not appear to have been her presentation at the time of admission, this physician believes she is having a reaction to recent medical procedure. This was also reviewed in her electronic medical record. At this time, this physician feels she is not competent to make medical decisions. An evaluation for depression is not appropriate in the face of this delirium. Nilo Ash MD Sep 13, 2017 11:01
[2017-09-13 11:20] LABS: AUTOMATED NEUTROPHIL # 9.9 TH/MM3 (1.8-7.7); BASOPHIL % 0.2 % (0.0-2.0); EOSINOPHIL # 0.1 TH/MM3 (0-0.4); EOSINOPHIL % 0.7 % (0.0-4.0); HEMATOCRIT 26.2 % (35.0-46.0); HEMOGLOBIN 8.4 GM/DL (11.6-15.3); LYMPH % 9.5 % (9.0-44.0); LYMPHOCYTE # 1.1 TH/MM3 (1.0-4.8); MEAN CELL VOLUME 83.3 FL (80.0-100.0); MEAN CORPUSCULAR HEMOGLOBIN 26.7 PG (27.0-34.0); MEAN CORPUSCULAR HGB CONC 32.1 % (32.0-36.0); MONO % 7.7 % (0.0-8.0); MONOCYTE # 0.9 TH/MM3 (0-0.9); NEUT % 81.9 % (16.0-70.0); PLATELET COUNT 365 TH/MM3 (150-450); RED BLOOD COUNT 3.15 MIL/MM3 (4.00-5.30); RED CELL DISTRIBUTION WIDTH 19.1 % (11.6-17.2); WHITE BLOOD COUNT 12.1 TH/MM3 (4.0-11.0)
[2017-09-13 11:40] LABS: BICARBONATE 26.8 MEQ/L (21.0-32.0); CALCIUM 8.2 MG/DL (8.5-10.1); CREATININE 0.52 MG/DL (0.50-1.00); MAGNESIUM 1.6 MG/DL (1.5-2.5)
--- NOTE | 2017-09-13 11:54 | PD.CAR.PN ---
CVT Progress Note Subjective/Hospital Course: 87-year-old female who underwent the femoral endarterectomy and patch several weeks ago and now has bleeding from the wound with probably disruption of the patch Patient is in chronic atrial fibrillation and on Coumadin Patient reversed with K centra and FFP and will be going to the operating room for immediate exploration of the left groin and iliofemoral reconstruction with control of bleeding Patient will be admitted to surgical ICU afterwards 09/10/17 Patient is status post repair of the common femoral and external iliac artery disruption Incision is clean and dry ERIN drainage is minimal and wound VAC is in position Feet are warm Patient is perfusing both legs through collateral circulation distal to the groin for 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 Fortunately medical wallet assembler ordered 2 units of PRBC which I fully agree with Patient is now awake alert somewhat disoriented It should be noted that patient has chronic atrial fibrillation for which she was on Coumadin at home Blood cultures are positive for MRSA which is sort of expected considering the patient's incision site and the wound Will start on vancomycin and consult infectious disease The problem if the patient has an artificial patch in although bovine patches are somewhat resistant to infections this is still a foreign body Would leave patient in ICU for another day at least 09/11/17 Patient status post revascularization of the left leg after disruption of the common femoral and external iliac patch Dopplerable dorsalis pedis pulse and foot is nice and warm with good capillary refill all through collateral flow Incision clean and dry in the upper portion ERIN drain drainage minimal-DC Wound VAC in place drainage minimal to stay on Patient has grown MRSA ID help is greatly appreciated Can transfer to floor today from my point and does not require anymore ICU care 09/12/17 Groin incision is clean and dry Common femoral and deep femoral arteries widely patent. No drainage Excellent perfusion of the left foot through collateral circulation anywhere below the SFA level Foot warm Patient has been confused for the last 24 hours which is not unusual in her age group Nothing to add to care and from my point patient can be transferred to rehabilitation any time 09/12/17 Patient doing well at this time she seems to be better alert and oriented than yesterday Left groin incision is clean and dry Left leg is well perfused and foot is nice and warm Discussed with medicine and patient can be placed safely on anticoagulants at this time Nothing to add from my point patient can be discharged any time Follow-up with me in 3 months Objective: Vital Signs Date Time Temp Pulse Resp B/P (MAP) Pulse Ox O2 Delivery O2 Flow Rate FiO2 09/13/17 08:07 98.1 111 18 135/88 (104) 95 09/13/17 08:00 Room Air 09/13/17 07:47 136 09/13/17 04:00 97.8 132 18 142/87 (105) 97 09/13/17 04:00 111 09/13/17 00:00 118 09/13/17 00:00 97.2 127 22 135/95 (108) 95 09/12/17 20:55 94 09/12/17 20:00 100 09/12/17 20:00 97 Room Air 09/12/17 20:00 98.1 120 24 132/89 (103) 94 09/12/17 16:00 97.5 116 17 126/68 (87) 96 09/12/17 16:00 109 09/12/17 12:00 120 09/12/17 12:00 98.1 101 18 124/70 (88) 97 Labs: Laboratory Tests Test 09/13/17 08:58 09/13/17 10:18 Prothrombin Time 18.1 SEC (9.8-11.6) Prothromb Time International Ratio 1.8 RATIO White Blood Count 12.1 TH/MM3 (4.0-11.0) Red Blood Count 3.15 MIL/MM3 (4.00-5.30) Hemoglobin 8.4 GM/DL (11.6-15.3) Hematocrit 26.2 % (35.0-46.0) Mean Corpuscular Volume 83.3 FL (80.0-100.0) Mean Corpuscular Hemoglobin 26.7 PG (27.0-34.0) Mean Corpuscular Hemoglobin Concent 32.1 % (32.0-36.0) Red Cell Distribution Width 19.1 % (11.6-17.2) Platelet Count 365 TH/MM3 (150-450) Mean Platelet Volume 8.0 FL (7.0-11.0) Neutrophils (%) (Auto) 81.9 % (16.0-70.0) Lymphocytes (%) (Auto) 9.5 % (9.0-44.0) Monocytes (%) (Auto) 7.7 % (0.0-8.0) Eosinophils (%) (Auto) 0.7 % (0.0-4.0) Basophils (%) (Auto) 0.2 % (0.0-2.0) Neutrophils # (Auto) 9.9 TH/MM3 (1.8-7.7) Lymphocytes # (Auto) 1.1 TH/MM3 (1.0-4.8) Monocytes # (Auto) 0.9 TH/MM3 (0-0.9) Eosinophils # (Auto) 0.1 TH/MM3 (0-0.4) Basophils # (Auto) 0.0 TH/MM3 (0-0.2) CBC Comment DIFF FINAL Differential Comment Blood Urea Nitrogen 14 MG/DL (7-18) Creatinine 0.52 MG/DL (0.50-1.00) Random Glucose 112 MG/DL (74-106) Calcium Level 8.2 MG/DL (8.5-10.1) Magnesium Level 1.6 MG/DL (1.5-2.5) Sodium Level 140 MEQ/L (136-145) Potassium Level 3.4 MEQ/L (3.5-5.1) Chloride Level 106 MEQ/L (98-107) Carbon Dioxide Level 26.8 MEQ/L (21.0-32.0) Anion Gap 7 MEQ/L (5-15) Estimat Glomerular Filtration Rate 112 ML/MIN (>89) Result Diagram: 09/13/17 1018 09/13/17 1018 Patricia Mandel MD Sep 13, 2017 11:54
--- NOTE | 2017-09-13 12:24 | HHI.IDPN ---
Note Infectious Disease Note Patient feels okay. No complaints. Afebrile. Groin wound culture has MRSA. Blood culture has MRSA. PAST MEDICAL HISTORY: 1. Atrial fibrillation. 2. History of bilateral DVT. 3. Hypertension. 4. Diabetes mellitus. 5. Hyperlipidemia. 6. Neuropathy. 7. Congestive heart failure. 8. History of breast cancer. 9. History of left knee replacement. 10. History of breast lumpectomy. ALLERGIES: 1. LEVETIRACETAM. 2. QUETIAPINE. ANTIBIOTICS: Vancomycin. Levaquin. PHYSICAL EXAMINATION: GENERAL: No acute distress. She is awake, alert and oriented. HEAD, EYES, EARS, NOSE, THROAT: The head is atraumatic Extraocular movements grossly intact. Pupils reactive to light. No icterus. Oropharynx with moist mucosa without lesions. NECK: Supple without adenopathy. LUNGS: Clear breath sounds. HEART: Regular S1-S2. No murmurs, rubs or gallops. ABDOMEN: Bowel sounds present, soft. The left groin has a wound VAC in place and the area around the entrance of the wound VAC is clean and without any erythema. EXTREMITIES: No clubbing or cyanosis. The left lower extremity has 1+ edema. left lateral leg wound post op clean, good granulation. SKIN: No diffuse rash. NEUROLOGIC: No gross focal finding except for mild weakness in the left lower extremity. PSYCHIATRIC: Calm and cooperative. IMPRESSION: 1. Bacteremia MRSA. Probably form left groin wound. Repeat blood culture negative. 2. Left groin wound - Acinetobacter. 3. Recent revascularization procedure on the left femoral artery with patch. RECOMMENDATIONS: 1. Continue vancomycin IV x 3 weeks. 2. Continue Levaquin PO x 3 weeks. See written orders. Okay to transfer to Rehab from ID standpoint. Kashif Snow MD Sep 13, 2017 12:24
--- NOTE | 2017-09-13 12:31 | HHI.FF ---
Infusion Therapy Location of Infusion Therapy: [facility] Infusion Therapy Order Patient Information Patient Weight 86.4 kg Diagnosis: Diagnosis Bacteremia. MRSA Left groin wound - Post op. Acinetobacter. 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 [] May leave port accessed during therapy. [] May leave peripheral site accessed for duration of therapy. [x] If patient has SOB or respiratory distress, check oxygen saturation. If less than 90% or clinical signs of respiratory distress, administer oxygen at 2 L/min. via nasal cannula and notify physician. [x] Anaphylaxis/Reaction orders: * Stop infusion. * Keep IV line open with saline flush. * Notify physician. * Monitor vital signs every 15 minutes until symptoms resolve. * Check Oxygen saturation; Oxygen at 2 L/min. via nasal cannula if less than 90% or clinical signs of respiratory distress. * Administer diphenhydramine (Benadryl) 25 mg IV STAT, (unless patient has received as pre-med). May repeat once, if necessary. * Solu-Cortef 250 mg IVP over 30-60 seconds, use 100 mg vials for each dissolution. * Epinephrine (1mg/1 ml) 0.3 mg subcutaneously or IVP now with any signs of respiratory distress. * Check with physician for new additional pre-med orders if patient is re- challenged or re-treated. [x] May remove PICC line when treatment complete, after confirming with Physician. [x] If the patient is admitted to the hospital, the ED, or transferred via [facility] , complete transfer form including medication reconciliation order sheet. Laboratory Tests Weekly Labs: Vancomycin Trough Additional Information BMP QOD while on vancomycin. Kashif Snow MD Sep 13, 2017 12:31
[2017-09-13] MEDS: VANCOMYCIN INJ 1,250 MG in SODIUM CHLOR 0.9% 250 ML INJ 250 ML IV SCH (14:20)
--- NOTE | 2017-09-13 16:24 | HHI.PR ---
Subjective Remarks Follow-up encephalopathy. She is awake and oriented to person and place. She has been refusing medications and food stating she wants to "life is not worth living" discussed with sister who stated that patient took her medications and consumed her meals well yesterday. Sister who is the healthcare surrogate does not want NGT inserted. Discussed with RN. Consulted psychiatry patient not competent to make decisions at this time. Also consulted palliative care to clarify goals of care. Both Vascular surgery and ID cleared patient for discharge to rehabilitation Objective Vitals Vital Signs Date Time Temp Pulse Resp B/P (MAP) Pulse Ox O2 Delivery O2 Flow Rate FiO2 09/13/17 12:16 98.2 124 21 126/87 (100) 93 09/13/17 08:07 98.1 111 18 135/88 (104) 95 09/13/17 08:00 Room Air 09/13/17 07:47 136 09/13/17 04:00 97.8 132 18 142/87 (105) 97 09/13/17 04:00 111 09/13/17 00:00 118 09/13/17 00:00 97.2 127 22 135/95 (108) 95 09/12/17 20:55 94 09/12/17 20:00 100 09/12/17 20:00 97 Room Air 09/12/17 20:00 98.1 120 24 132/89 (103) 94 I/O 09/12/17 09/12/17 09/12/17 09/13/17 09/13/17 09/13/17 07:00 15:00 23:00 07:00 15:00 23:00 Intake Total 90 ml 120 ml 250 ml Output Total 550 ml 100 ml Balance -460 ml 20 ml 250 ml Intake Oral 90 ml 120 ml IV Total 250 ml Output Urine Total 550 ml 100 ml Bladder Scan Volume Amount 75 ml # Voids 3 0 # Bowel Movements 0 0 Result Diagram: 09/13/17 1018 09/13/17 1018 Imaging Last Impressions Chest X-Ray 09/12/17 0600 Signed Impressions: Service Date/Time: Tuesday, September 12, 2017 04:21 - CONCLUSION: Stable compensated cardiomegaly Christian Moss MD Head CT 09/12/17 0000 Signed Impressions: Service Date/Time: Tuesday, September 12, 2017 12:28 - CONCLUSION: Negative for acute process. Jefry Rojo MD FACR Carotid Artery Ultrasound 09/11/17 0000 Signed Impressions: Service Date/Time: Monday, September 11, 2017 16:25 - CONCLUSION: 1. 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 2. No evidence of hemodynamically significant carotid stenosis on the left. 3. Possible occlusion of left vertebral artery. Favian Sánchez MD Objective Remarks GENERAL: 87-year-old female lying in bed on nasal cannula HEENT: Normocephalic. Atraumatic. Pupils equal, round, reactive, conjugate. Mucous membranes are moist NECK: Trachea is midline. There is no JVD. CHEST: Equal chest rise. Unlabored. Nasal cannula oxygen CARDIOVASCULAR: Tachycardic rate, irregular telemetry shows A. fib. S1, S2. No S4. ABDOMEN: Soft, nontender, nondistended. No guarding. MUSCULOSKELETAL: Pulses 2+. No peripheral edema. Left groin with hemaVAC in place. ERIN left lower quadrant no drainage. NEUROLOGICAL: Awake and oriented to person and place. Nerves II through XII grossly intact. Moves all 4 extremities spontaneous. Procedures Central line placement OPERATIVE PROCEDURE PERFORMED: 1. Retroperitoneal access to the left external iliac artery with vascular control. 2. Evacuation of the hematoma. 3. Exploration of the common femoral artery with placement of a patch graft and pledgets. Date of Insertion: Sep 09, 2017 A/P Problem List: (1) Vascular hemorrhage ICD Code: R58 - Hemorrhage, not elsewhere classified Status: Acute Assessment and Plan Neuro/Psych: Encephalopathy likely toxic . Head CT without acute findings. Improving but still confused and not competent to make decisions Chronic pain management Continue Neurochecks. Follow-up EEG. Consider MRI. Decreased Oxycodone to 2.5 mg every 4 hours when necessary pain management Haloperidol 2 mg IV every 6 hours when necessary agitation Ziprasidone 10 mg IM every 6 hours when necessary 3 days if necessary agitation Patient is not competent to make decisions per psychiatry unable to evaluate for depression at this time CV: Postoperative repair of femoral artery patch and evacuation of hematoma with history of SFA thrombectomy with subsequent pseudoaneurysm, LLE fasciotomy Atrial fibrillation with RVR Coronary artery disease Dyslipidemia Congestive heart failure chronic diastolic preferred LV function Severe Pulmonary hypertension 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 Increased Lopressor to 100 mg twice a day. Cardizem drip as needed. Discussed with vascular surgery okay to restart Coumadin. Ct asa Continue Pravachol 40 mg by mouth daily/home medication Echocardiogram 08/06 LV function is normal. The left atrial size is mild-to- moderately dilated. The right atrial size is mildly dilated. [id number] mitral valve regurgitation. Moderate mitral annular calcification. Aortic valve sclerosis is present with suboptimal imaging. Doppler did not suggest aortic stenosis There is estimated [id number] pulmonary hypertension present (range 60-70 mmHg). There is moderate to severe tricuspid valve regurgitation. The estimated pulmonary arterial pressure is 64.2 mmHg. Resp: Acute respiratory insufficiency COPD Nasal cannula to maintain saturations greater than equal to 92% Incentive spirometry while awake Scheduled albuterol/ipratropium aerosols every 6 hours with albuterol aerosols every 2 hours. Chest x-ray stable GI: Gastroesophageal reflux disease Hypoalbuminemia Currently on 1800 ADA diet Continue famotidine 20 mg by mouth daily/home medication. At home on omeprazole 20 mg by mouth daily Docusate sodium/senna 1 tablet twice a day bowel regimen : Discontinued Pearl Endo: Diabetes mellitus Hypothyroidism Hyperglycemia Metformin 500 mg by mouth twice a day is being held Sliding-scale insulin with Novulog with Accu-Cheks before meals/at bedtime to maintain euglycemia Continue Levoxyl 50 by mouth daily/home medication Renal: Creatinine currently within normal limits Monitor urine output Accurate I's and O's Restart IV fluid if not tolerating by mouth Heme: Acute blood loss anemia Leukocytosis History of breast cancer Coagulopathy Stable status post transfusion Monitor CBC Received Kcentra 2091 units in ED along with FFP. INR 1.8 ID: MRSA bacteremia 2-D echocardiogram ordered Appreciation infectious disease Continue IV Vancomycin for 3 weeks Blood cultures 09/09 - MRSA Blood cultures 09/10 -negative to date Wound culture - 09/09 -Acinetobacter. Continue Levaquin for 3 weeks MSK: PT evaluate and treat, although bed FEN: Hypokalemia Replace electrolytes accordingly Consulted dietitian for tube feeding but patient and sister refuse NGT insertion Access Central line removed by patient 09/11. Place peripheral IV Prophylaxis - GI - famotidine - DVT - SCD Coumadin okay with surgery. According to sister, patient bled on Eliquis and developed clots on Xarelto Consulted palliative care to clarify goals of care Discharge Planning Discharge to rehabilitation with encephalopathy improves. Tarik Ang MD Sep 13, 2017 16:24
[2017-09-13] MEDS ORDERED: POTASSIUM CHLORIDE 10 MEQ CONTROLLED RELEASE TAB PO ONE (16:30)
[2017-09-13] MEDS: WARFARIN SOD 2 MG TAB NG SCH (16:54)
[2017-09-13] MEDS: PRAVASTATIN SOD 40 MG TAB NG SCH (21:23)
[2017-09-14] VITALS (12 sets, daily range): BP systolic 133–160; BP diastolic 86–112; PULSE 67–130; RESP 20–24; TEMP 97.2–98.1; O2SAT 94–98
[2017-09-14] MEDS: DILTIAZEM HCL 60 MG TAB PO SCH ×2 (05:26→13:20)
[2017-09-14] MEDS: cloNIDine HCL 0.1 MG TAB NG SCH ×3 (05:26→20:59)
[2017-09-14] MEDS: LEVOTHYROXINE SODIUM 50 MCG TAB NG SCH (05:26)
[2017-09-14 07:12] LABS: BASOPHIL % 0.3 % (0.0-2.0); EOSINOPHIL # 0.2 TH/MM3 (0-0.4); EOSINOPHIL % 1.3 % (0.0-4.0); HEMATOCRIT 28.5 % (35.0-46.0); HEMOGLOBIN 9.3 GM/DL (11.6-15.3); LYMPH % 10.7 % (9.0-44.0); LYMPHOCYTE # 1.6 TH/MM3 (1.0-4.8); MEAN CELL VOLUME 83.1 FL (80.0-100.0); MEAN CORPUSCULAR HEMOGLOBIN 27.1 PG (27.0-34.0); MEAN CORPUSCULAR HGB CONC 32.6 % (32.0-36.0); MEAN PLATELET VOLUME 8.2 FL (7.0-11.0); MONO % 9.1 % (0.0-8.0); MONOCYTE # 1.4 TH/MM3 (0-0.9); NEUT % 78.6 % (16.0-70.0); PLATELET COUNT 496 TH/MM3 (150-450); RED BLOOD COUNT 3.43 MIL/MM3 (4.00-5.30); WHITE BLOOD COUNT 15.3 TH/MM3 (4.0-11.0)
[2017-09-14 07:17] LABS: INTERNATIONAL NORMALIZED RATIO 1.7 RATIO; PROTHROMBIN TIME - PATIENT 17.7 SEC (9.8-11.6)
[2017-09-14 08:00] LABS: BICARBONATE 23.9 MEQ/L (21.0-32.0); CALCIUM 8.8 MG/DL (8.5-10.1); CREATININE 0.72 MG/DL (0.50-1.00); MAGNESIUM 1.6 MG/DL (1.5-2.5)
[2017-09-14] MEDS: INSULIN ASPART SUPPLEMENTAL SCALE SQ SCH ×4 (08:00→20:51)
[2017-09-14] MEDS: VANCOMYCIN INJ 1,250 MG in SODIUM CHLOR 0.9% 250 ML INJ 250 ML IV SCH (08:49)
[2017-09-14] MEDS: LEVOFLOXACIN 750 MG TAB NG SCH (09:00)
[2017-09-14] MEDS: SODIUM CHLORIDE 0.9% FLUSH 10 ML FLUSH IV FLUSH SCH ×2 (09:00→20:46)
[2017-09-14] MEDS: DOCUSATE SODIUM 50 MG/SENNA 8.6 MG TAB NG SCH ×2 (09:00→20:43)
[2017-09-14] MEDS: TOLTERODINE TARTRATE 2 MG TAB NG SCH ×2 (09:00→20:43)
[2017-09-14] MEDS: METOPROLOL TARTRATE 100 MG TAB NG SCH ×2 (09:00→20:43)
[2017-09-14] MEDS: ASPIRIN 81 MG CHEW TAB NG SCH (09:00)
[2017-09-14] MEDS: FAMOTIDINE 20 MG TAB NG SCH ×2 (09:00→20:43)
[2017-09-14] MEDS: FERROUS SULFATE 300 MG /5ML UDC NG SCH (09:00)
[2017-09-14] MEDS ORDERED: WARFARIN SOD 1 MG TAB NG ONE (16:00)
--- NOTE | 2017-09-14 16:15 | HHI.PR ---
Subjective Remarks Patient denies cp/sob. Denies fevers and chills. Denies nausea, vomiting or abdominal pain. Objective Vitals Vital Signs Date Time Temp Pulse Resp B/P (MAP) Pulse Ox O2 Delivery O2 Flow Rate FiO2 09/14/17 12:15 115 09/14/17 12:00 97.4 115 20 149/97 (114) 96 09/14/17 08:05 128 09/14/17 08:00 98.1 130 24 157/112 (127) 94 09/14/17 07:00 Room Air 09/14/17 04:15 128 09/14/17 04:00 97.9 119 21 160/86 (110) 94 09/14/17 03:55 Room Air 09/14/17 00:00 97.5 112 20 133/87 (102) 98 09/14/17 00:00 112 09/14/17 00:00 Room Air 09/13/17 21:00 Room Air 09/13/17 20:23 93 21 09/13/17 20:00 128 09/13/17 20:00 128 09/13/17 20:00 97.7 111 21 134/81 (98) 93 09/13/17 16:37 106 I/O 09/13/17 09/13/17 09/13/17 09/14/17 09/14/17 09/14/17 07:00 15:00 23:00 07:00 15:00 23:00 Intake Total 240 ml 880 ml Output Total 300 ml Balance -60 ml 880 ml Intake Oral 240 ml 880 ml Output Urine Total 300 ml # Voids 0 3 4 # Bowel Movements 0 0 0 Result Diagram: 09/14/17 0646 09/14/17 0646 Imaging Last Impressions Chest X-Ray 09/12/17 0600 Signed Impressions: Service Date/Time: Tuesday, September 12, 2017 04:21 - CONCLUSION: Stable compensated cardiomegaly Christian Moss MD Head CT 09/12/17 0000 Signed Impressions: Service Date/Time: Tuesday, September 12, 2017 12:28 - CONCLUSION: Negative for acute process. Jefry Rojo MD FACR Carotid Artery Ultrasound 09/11/17 0000 Signed Impressions: Service Date/Time: Monday, September 11, 2017 16:25 - CONCLUSION: 1. 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 2. No evidence of hemodynamically significant carotid stenosis on the left. 3. Possible occlusion of left vertebral artery. Favian Sánchez MD Objective Remarks GENERAL: 87-year-old female lying in bed on nasal cannula HEENT: Normocephalic. Atraumatic. Pupils equal, round, reactive, conjugate. Mucous membranes are moist NECK: Trachea is midline. There is no JVD. CHEST: Equal chest rise. Unlabored. Nasal cannula oxygen CARDIOVASCULAR: Tachycardic rate, irregular telemetry shows A. fib. S1, S2. No S4. ABDOMEN: Soft, nontender, nondistended. No guarding. MUSCULOSKELETAL: Pulses 2+. No peripheral edema. Left groin with hemaVAC in place. ERIN left lower quadrant no drainage. NEUROLOGICAL: Awake and oriented to person and place. Nerves II through XII grossly intact. Moves all 4 extremities spontaneous. Procedures Central line placement OPERATIVE PROCEDURE PERFORMED: 1. Retroperitoneal access to the left external iliac artery with vascular control. 2. Evacuation of the hematoma. 3. Exploration of the common femoral artery with placement of a patch graft and pledgets. Medications and IVs Current Medications Medications (Trade) Dose Ordered Sig/Nova Route Start Time Stop Time Status Last Admin (NS Flush) 2 ml UNSCH PRN IV FLUSH 09/09/17 11:45 (NS Flush) 2 ml BID IV FLUSH 09/09/17 21:00 09/14/17 09:00 Miscellaneous Information 1 Q361D XX 09/09/17 11:45 (Chlorhexidine 2% Cloth) 3 pack Taper DAILY@04 TOP 09/10/17 04:00 09/06/18 03:59 (Chlorhexidine 2% Cloth) 3 pack UNSCH PRN TOP 09/09/17 11:45 (D50w (Syr) Inj) 50 ml UNSCH PRN IV PUSH 09/09/17 16:45 (Glucagon Inj) 1 mg UNSCH PRN OTHER 09/09/17 16:45 (Melatonin) 5 mg HS PRN PO 09/09/17 21:00 (Glucophage) 500 mg BIDPC PO 09/09/17 18:00 Future Hold (NovoLOG SUPPLEMENTAL SCALE) 1 ACHS SQ 09/10/17 12:00 09/14/17 08:00 (Albuterol Neb) 2.5 mg Q2HR NEB PRN NEB 09/10/17 10:00 Pharmacy Profile Note 0 ml @ 0 mls/hr UNSCH OTHER 09/10/17 12:15 (Haldol Inj) 2 mg Q4HR PRN IV PUSH 09/10/17 15:00 09/12/17 22:31 Pharmacy Profile Note 0 ml @ 0 mls/hr UNSCH OTHER 09/12/17 12:45 Potassium Chloride/Sodium Chloride 1,000 ml @ 42 mls/hr [id number] PRN IV 09/12/17 12:45 (Aspirin Chew) 81 mg DAILY NG 09/13/17 09:00 09/14/17 09:00 (Catapres) 0.1 mg Q8HR NG 09/12/17 14:00 09/14/17 13:20 ([place]-Colace) 1 tab BID PRN NG 09/12/17 13:45 ([place]-Colace) 1 tab BID NG 09/12/17 21:00 09/14/17 09:00 (Pepcid) 20 mg Q12HR NG 09/12/17 21:00 09/14/17 09:00 (Ferrous Sulfate Liq) 300 mg DAILY NG 09/13/17 09:00 09/14/17 09:00 (Lactulose Liq) 30 ml DAILY PRN NG 09/12/17 13:45 (Synthroid) 50 mcg DAILY@0600 NG 09/13/17 06:00 09/14/17 05:26 (Lopressor) 100 mg Q12HR NG 09/12/17 21:00 09/14/17 09:00 (Roxicodone) 2.5 mg Q6HR PRN NG 09/12/17 13:45 (Pravachol) 40 mg HS NG 09/12/17 21:00 09/13/17 21:23 (Coumadin) 2 mg DAILY@1600 NG 09/12/17 16:00 09/14/17 17:22 (Detrol) 2 mg BID NG 09/12/17 21:00 09/14/17 09:00 (Levaquin) 750 mg DAILY NG 09/13/17 09:00 09/14/17 09:00 Diltiazem HCl 125 mg/Sodium Chloride 125 ml @ 5 mls/hr TITRATE PRN IV 09/13/17 08:45 Vancomycin HCl 1250 mg/Sodium Chloride 262.5 ml @ 250 mls/hr Q18H IV 09/13/17 14:00 09/14/17 08:49 Miscellaneous Information SPECIFIC LAB TO BE [facility]ARD[facility]... ONCE ONCE .XX 09/15/17 19:45 09/15/17 19:46 (Cardizem) 90 mg Q6HR PO 09/14/17 18:00 09/14/17 17:26 Date of Insertion: Sep 09, 2017 A/P Problem List: (1) Vascular hemorrhage ICD Code: R58 - Hemorrhage, not elsewhere classified Status: Acute Assessment and Plan Encephalopathy likely toxic . Head CT without acute findings. Improving but still confused and not competent to make decisions Chronic pain management Continue Neurochecks. Decreased Oxycodone to 2.5 mg every 4 hours when necessary pain management Haloperidol 2 mg IV every 6 hours when necessary agitation Ziprasidone 10 mg IM every 6 hours when necessary 3 days if necessary agitation Patient is not competent to make decisions per psychiatry unable to evaluate for depression at this time Postoperative repair of femoral artery patch and evacuation of hematoma with history of SFA thrombectomy with subsequent pseudoaneurysm, LLE fasciotomy Atrial fibrillation with RVR Coronary artery disease Dyslipidemia Congestive heart failure chronic diastolic preferred LV function Severe Pulmonary hypertension 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 Increased Lopressor to 100 mg twice a day. Cardizem drip as needed. Discussed with vascular surgery okay to restart Coumadin. Ct asa Continue Pravachol 40 mg by mouth daily/home medication Echocardiogram 08/06 LV function is normal. The left atrial size is mild-to- moderately dilated. The right atrial size is mildly dilated. [id number]-gh-pzri mitral valve regurgitation. Moderate mitral annular calcification. Aortic valve sclerosis is present with suboptimal imaging. Doppler did not suggest aortic stenosis There is estimated utovyhql-pu-odfccs pulmonary hypertension present (range 60-70 mmHg). There is moderate to severe tricuspid valve regurgitation. The estimated pulmonary arterial pressure is 64.2 mmHg. Acute respiratory insufficiency COPDm - stable Nasal cannula to maintain saturations greater than equal to 92% Incentive spirometry while awake Scheduled albuterol/ipratropium aerosols every 6 hours with albuterol aerosols every 2 hours. Chest x-ray stable Gastroesophageal reflux disease Hypoalbuminemia Currently on 1800 ADA diet Continue famotidine 20 mg by mouth daily/home medication. At home on omeprazole 20 mg by mouth daily Docusate sodium/senna 1 tablet twice a day bowel regimen : Pearl discontinued Endo: Diabetes mellitus Hypothyroidism Hyperglycemia Metformin 500 mg by mouth twice a day is being held Sliding-scale insulin with Novulog with Accu-Cheks before meals/at bedtime to maintain euglycemia Continue Levoxyl 50 by mouth daily/home medication 09/14 Blood sugars stable - Continue to monitor accuchecks. Renal: Creatinine currently within normal limits Monitor urine output Accurate I's and O's Restart IV fluid if not tolerating by mouth Heme: Acute blood loss anemia Leukocytosis History of breast cancer Coagulopathy Stable status post transfusion Monitor CBC Received Kcentra 2091 units in ED along with FFP. INR 1.8 ID: MRSA bacteremia 2-D echocardiogram ordered Appreciation infectious disease Continue IV Vancomycin for 3 weeks Blood cultures 09/09 - MRSA Blood cultures 09/10 -negative to date Wound culture - 09/09 -Acinetobacter. Continue Levaquin for 3 weeks MSK: PT evaluate and treat, although bed FEN: Hypokalemia Replace electrolytes accordingly Consulted dietitian for tube feeding but patient and sister refuse NGT insertion Access Central line removed by patient 09/11. Place peripheral IV Prophylaxis - GI - famotidine - DVT - SCD Coumadin okay with surgery. According to sister, patient bled on Eliquis and developed clots on Xarelto discussed the case with Wendy Meraz from palliative care. For now the [place] of care progressive short of no code DO NOT RESUSCITATE. Patient to be discharged to rehabilitation. Discharge Planning DC to SNF in am. Will discuss with case management rn. James Almaraz MD Sep 14, 2017 16:15
--- NOTE | 2017-09-14 16:42 | PD.CONS ---
Consult Service Palliative Care Consult Requested By Dr. Ang. Primary Care Physician Juli Resendiz MD Reason for Consultation a. To assist with evaluation and management of symptoms including: Confusion , pain, debility. b. To assist medical decision maker(s) with: better understanding of current medical conditions; weighing benefits/burdens of medical treatment options; making medical treatment decisions. . HPI History of Present Illness Mrs. Michel An 87-year-old female with a medical history significant for atrial fibrillation on anticoagulation, DM 2, hypertension, hyperlipidemia, CHF. 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 Patient presented to ED on 09/09/17 with complaints of bleeding at the surgical site. Upon ED presentation, she was found on A. fib with RVR. Cardizem was given and patient was started on Cardizem drip. ED workup to include laboratory revealing WBC 21.6, Hgb 10.7, platelet count 609. BUN/creatinine 23/0.79. Liver enzymes within normal limits. UA negative for neck traits, moderate leukocytes. Patient was admitted for further management. Dr. Torrez was consulted. Cardiovascular surgeon, Dr. Mandel consulted for evaluation of pulsatile hematoma of the left groin. Patient was taken emergently to the operating room and found to have disruption of the patch and associated pseudoaneurysm with massive bleeding. Patient underwent hematoma evacuation and repair of the patch. After surgical intervention, pt was transfer to SICU s/p extubation in stable condition. Patient received 2 packs of red blood cells for to Hgb of 6.5. Infectious disease, Dr. Snow consulted on secondary to MRSA bacteremia with positive blood cultures. She was continued on IV antibiotics. 2-D echocardiogram 09/12/17 revealing EF of 50-55%, severe mitral annular calcifications, mild mitral valve regurgitation, moderate to severe tricuspid regurgitation, moderate to severe pulmonary hypertension. Clinical course complicated by persistent confusion. Psychiatry was consulted on 09/13/17 to evaluate for medical decision-making capacity and treat depression. Vision diagnosed with delirium by psych, Dr. Ash. Patient not competent to make medical decisions, "evaluation for depression not appropriate in face of delirium". All other care was consulted for further clarifications of goals of care. Reviewed patient's past medical history. Most recent acute hospitalization from 08/03 to 08/09/17 secondary to vascular surgery. Patient underwent acute rehabilitation at [facility] from 08/09/17 to 08/23/17. Previous hospitalization from 02/03/17 to 02/08/17 secondary to sepsis. Prior hospitalization 01/30/17 to secondary to UTI. Earlier hospitalization in November secondary to A. fib with RVR. Patient seen in her room. She was resting in bed in no acute distress. Opening eyes to verbal stimuli. Patient appeared confused, looking around her room. She was able to tell me her name, confused as to place and situation. Denies pain or discomfort at time of my visit. Upon further questioning, patient told me that she was at the hospital but was unable to elaborate. No family at bedside.Patient afebrile, tachycardic with heart rate in the low 110s to 120s. Tolerated room air, oxygen saturation in the mid 90s. Patient with progressive confusion, head CT 09/12 negative for acute process. Chest x-ray stable with compensated cardiomegaly. Telephone conversation with patient's sister Bonnie Ray. Living will secured , sister designated as healthcare surrogate decision maker. Obtained patient's past medical history and psychosocial history. Reviewed events leading to these hospitalization, clinical course and current medical management. Krystle tells me that patient has been experiencing delirium every time that she comes to the hospital, daughter reports that this is usually self resoling while she leaves the hospital. Reviewed risks, benefits and limitations of CPR, intubation and mechanical ventilation. Shared concerns of patient's debilitated condition and poor appetite/oral intake. Sr. tells me that patient ate yesterday, nursing staff reporting that patient has been refusing her meals. As per attending's notes, verbalizing "wanting to ". Reviewed psych recommendations. As per sister, goal of therapy at this time is to pursue aggressive management short of no code. Sister reports that patient has been verbal in the past regarding not wanting any NG tube/feeding tube. Goal is to discharge to rehabilitation for physical strengthening. Case discussed with Dr. Bean. . Function/Cognitive Trajectory Patient residing in private home prior to this hospitalization. Sister Bonnie Cory residing with patient for the past 13 months. Patient mostly independent with ADLs, requiring assistance with cooking and grocery shopping. Ambulating with walker. Stopped driving over a year ago. Intermittent confusion/ ing reported by family since January of this year. . Review of Systems ROS Limitations: Clinical Condition, Altered Mental Status, Poor Historian Constitutional: DENIES: Fever, Change in appetite Endocrine: DENIES: Abnorml menstrual pattern Eyes: DENIES: Eye inflammation Ears, nose, mouth, throat: DENIES: Nasal discharge, Oral lesions, Ear Pain, Running Nose, Epistaxis Respiratory: COMPLAINS OF: Shortness of breath, DENIES: Cough, Sputum production Cardiovascular: DENIES: Lower Extremity Edema Gastrointestinal: COMPLAINS OF: Difficulty Swallowing, DENIES: Nausea, Vomiting Genitourinary: COMPLAINS OF: Urinary incontinence Musculoskeletal: DENIES: Neck pain Integumentary: DENIES: Rash Hematologic/Lymphatics: COMPLAINS OF: Bruising Immunologic/Allergic: DENIES: Eczema Neurologic: COMPLAINS OF: Abnormal gait, Poor Balance, DENIES: Seizures, Tremor Psychiatric: COMPLAINS OF: Anxiety, Confusion, Depression Other ROS: Limited ROS secondary to clinical condition, confusion. ROS obtained from patient, medical records, clinical observation. . 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 Past Surgical History Femoral endarterectomy Jul 2017 Left knee replacement Right breast lumpectomy 1994 . Reported Medications Melatonin 5 Mg Tab 5 Mg PO HS PRN Gnp Senna Plus 8.6-50 mg (Sennosides-Docusate Sodium) 8.6 Mg-50 Mg Tab 1 Tab PO BID PRN Aspirin DR (Aspirin) 81 Mg Tabdr 81 Mg PO DAILY Lopressor (Metoprolol Tartrate) 50 Mg Tab 75 Mg PO Q12HR Coumadin (Warfarin) 2 Mg Tab 2 Mg PO DAILY@1600 Ferosul (Ferrous Sulfate) 325 Mg (65 Mg Iron) Tablet 325 Mg PO DAILY Oxycodone (Oxycodone HCl) 5 Mg Tab 5 Mg PO Q6HR PRN Tolterodine (Tolterodine Tartrate) 2 Mg Tab 2 Mg PO BID Catapres (Clonidine) 0.1 Mg Tab 0.1 Mg PO Q8HR Levothyroxine (Levothyroxine Sodium) 50 Mcg Tab 50 Mcg PO DAILY Pravachol (Pravastatin) 40 Mg Tab 40 Mg PO HS Cardizem CD 24 HR (Diltiazem CD 24 HR) 240 Mg Caper 240 Mg PO DAILY Metformin (Metformin HCl) 500 Mg Tab 500 Mg PO BID Omeprazole 20 Mg Tab 20 Mg PO DAILY . Current Medications Medications (Trade) Dose Ordered Sig/Nova Route Start Time Stop Time Status Last Admin (NS Flush) 2 ml UNSCH PRN IV FLUSH 09/09/17 11:45 (NS Flush) 2 ml BID IV FLUSH 09/09/17 21:00 09/14/17 09:00 Miscellaneous Information 1 Q361D XX 09/09/17 11:45 (Chlorhexidine 2% Cloth) 3 pack Taper DAILY@04 TOP 09/10/17 04:00 09/06/18 03:59 (Chlorhexidine 2% Cloth) 3 pack UNSCH PRN TOP 09/09/17 11:45 (D50w (Syr) Inj) 50 ml UNSCH PRN IV PUSH 09/09/17 16:45 (Glucagon Inj) 1 mg UNSCH PRN OTHER 09/09/17 16:45 (Melatonin) 5 mg HS PRN PO 09/09/17 21:00 (Glucophage) 500 mg BIDPC PO 09/09/17 18:00 Future Hold (NovoLOG SUPPLEMENTAL SCALE) 1 ACHS SQ 09/10/17 12:00 09/14/17 08:00 (Albuterol Neb) 2.5 mg Q2HR NEB PRN NEB 09/10/17 10:00 Pharmacy Profile Note 0 ml @ 0 mls/hr UNSCH OTHER 09/10/17 12:15 (Haldol Inj) 2 mg Q4HR PRN IV PUSH 09/10/17 15:00 09/12/17 22:31 Pharmacy Profile Note 0 ml @ 0 mls/hr UNSCH OTHER 09/12/17 12:45 Potassium Chloride/Sodium Chloride 1,000 ml @ 42 mls/hr [id number] PRN IV 09/12/17 12:45 (Aspirin Chew) 81 mg DAILY NG 09/13/17 09:00 09/14/17 09:00 (Catapres) 0.1 mg Q8HR NG 09/12/17 14:00 09/14/17 13:20 ([place]-Colace) 1 tab BID PRN NG 09/12/17 13:45 ([place]-Colace) 1 tab BID NG 09/12/17 21:00 09/14/17 09:00 (Pepcid) 20 mg Q12HR NG 09/12/17 21:00 09/14/17 09:00 (Ferrous Sulfate Liq) 300 mg DAILY NG 09/13/17 09:00 09/14/17 09:00 (Lactulose Liq) 30 ml DAILY PRN NG 09/12/17 13:45 (Synthroid) 50 mcg DAILY@0600 NG 09/13/17 06:00 09/14/17 05:26 (Lopressor) 100 mg Q12HR NG 09/12/17 21:00 09/14/17 09:00 (Roxicodone) 2.5 mg Q6HR PRN NG 09/12/17 13:45 (Pravachol) 40 mg HS NG 09/12/17 21:00 09/13/17 21:23 (Coumadin) 2 mg DAILY@1600 NG 09/12/17 16:00 09/13/17 16:54 (Cardizem) 60 mg Q6HR PO 09/13/17 06:00 09/14/17 13:20 (Detrol) 2 mg BID NG 09/12/17 21:00 09/14/17 09:00 (Levaquin) 750 mg DAILY NG 09/13/17 09:00 09/14/17 09:00 Diltiazem HCl 125 mg/Sodium Chloride 125 ml @ 5 mls/hr TITRATE PRN IV 09/13/17 08:45 Vancomycin HCl 1250 mg/Sodium Chloride 262.5 ml @ 250 mls/hr Q18H IV 09/13/17 14:00 09/14/17 08:49 Miscellaneous Information SPECIFIC LAB TO BE ... ONCE ONCE .XX 09/15/17 19:45 09/15/17 19:46 (Coumadin) 1 mg ONCE ONCE NG 09/14/17 16:00 09/14/17 16:01 Family History Mother and father with history of heart disease. . Substance Use Tobacco: Former smoker. Quit smoking over 40 years ago. Alcohol: Socially. Prescription med abuse: None reported. Illicits: No reported . Psychosocial History Patient originally from [place]. Moved to [place] over 20 years ago. Patient is single, no children. 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 . Spiritual/Cultural Factors Hinduism samantha. . Living Will: Copy in medical record Health Care Surrogate: Copy in medical record Date completed: 07/27/2013. . Health Care Surrogate(s): Patient designated her sister Bonnie Ray as healthcare surrogate decision- maker, alternate Marcelo Michel. . Documented care wishes: Living will secured. Standard verbiage as it pertains to terminal condition, end -stage condition or persistent vegetative state. . Family/friends goals: No code. DNR/DNI. Conservative management short of NO code, NO NG tube. . Ethical and Legal Issues No ethical legal issues identified. . Physical Exam Vital Signs Date Time Temp Pulse Resp B/P (MAP) Pulse Ox O2 Delivery O2 Flow Rate FiO2 09/14/17 12:15 115 09/14/17 12:00 97.4 115 20 149/97 (114) 96 09/14/17 08:05 128 09/14/17 08:00 98.1 130 24 157/112 (127) 94 09/14/17 07:00 Room Air 09/14/17 04:15 128 09/14/17 04:00 97.9 119 21 160/86 (110) 94 09/14/17 03:55 Room Air 09/14/17 00:00 97.5 112 20 133/87 (102) 98 09/14/17 00:00 112 09/14/17 00:00 Room Air 09/13/17 21:00 Room Air 09/13/17 20:23 93 21 09/13/17 20:00 128 09/13/17 20:00 128 09/13/17 20:00 97.7 111 21 134/81 (98) 93 09/13/17 16:37 106 09/13/17 16:07 97.5 111 22 135/72 (93) 92 Exam CONSTITUTIONAL/GENERAL: This is an adequately nourished elderly patient, in no apparent distress. Confused looking. TUBES/LINES/DRAINS: PIV's, bilateral soft wrist restraints. SKIN: No jaundice, rashes, or lesions. Ecchymoses on upper extremities. Skin temperature appropriate. Not diaphoretic. Wound VAC to left groin, healing surgical incision to left inner calf. HEAD: Atraumatic. Normocephalic. EYES: Pupils equal and round and reactive. Extraocular motions intact. No scleral icterus. No injection or drainage. Fundi not examined. ENT: Hearing grossly normal. Nose without bleeding or purulent drainage. Moist oral mucosa. NECK: Trachea midline. Supple, nontender. CARDIOVASCULAR: Regular rate and rhythm without murmurs, gallops, or rubs. Peripheral pulses symmetric. RESPIRATORY/CHEST: Symmetric, unlabored respirations. Clear, diminished to auscultation. Breath sounds equal bilaterally. No wheezes, rales, or rhonchi. GASTROINTESTINAL: Abdomen soft, non-tender, nondistended. No guarding. Bowel sounds present. GENITOURINARY: Without palpable bladder distension. MUSCULOSKELETAL: Extremities without clubbing, cyanosis. Trace edema to bilateral lower extremities. No mottling or clubbing. NEUROLOGICAL: Awake and alert to self. Confused, delirious. Moves all extremities. PSYCHIATRIC: Confused. . Diagnostic Tests Laboratory Laboratory Tests Test 09/11/17 22:35 09/12/17 07:40 09/12/17 19:45 09/13/17 08:58 Potassium Level 3.8 MEQ/L (3.5-5.1) 3.6 MEQ/L (3.5-5.1) White Blood Count 14.6 TH/MM3 (4.0-11.0) Red Blood Count 3.01 MIL/MM3 (4.00-5.30) Hemoglobin 8.2 GM/DL (11.6-15.3) Hematocrit 24.9 % (35.0-46.0) Mean Corpuscular Volume 82.8 FL (80.0-100.0) Mean Corpuscular Hemoglobin 27.2 PG (27.0-34.0) Mean Corpuscular Hemoglobin Concent 32.8 % (32.0-36.0) Red Cell Distribution Width 18.7 % (11.6-17.2) Platelet Count 378 TH/MM3 (150-450) Mean Platelet Volume 8.1 FL (7.0-11.0) Blood Urea Nitrogen 14 MG/DL (7-18) Creatinine 0.66 MG/DL (0.50-1.00) Random Glucose 138 MG/DL (74-106) Calcium Level 8.2 MG/DL (8.5-10.1) Magnesium Level 1.7 MG/DL (1.5-2.5) Sodium Level 137 MEQ/L (136-145) Chloride Level 104 MEQ/L (98-107) Carbon Dioxide Level 25.4 MEQ/L (21.0-32.0) Anion Gap 8 MEQ/L (5-15) Estimat Glomerular Filtration Rate 85 ML/MIN (>89) Vancomycin Level Trough 13.0 MCG/ML (5.0-10.0) Prothrombin Time 18.1 SEC (9.8-11.6) Prothromb Time International Ratio 1.8 RATIO Test 09/13/17 10:18 09/14/17 06:46 White Blood Count 12.1 TH/MM3 (4.0-11.0) 15.3 TH/MM3 (4.0-11.0) Red Blood Count 3.15 MIL/MM3 (4.00-5.30) 3.43 MIL/MM3 (4.00-5.30) Hemoglobin 8.4 GM/DL (11.6-15.3) 9.3 GM/DL (11.6-15.3) Hematocrit 26.2 % (35.0-46.0) 28.5 % (35.0-46.0) Mean Corpuscular Volume 83.3 FL (80.0-100.0) 83.1 FL (80.0-100.0) Mean Corpuscular Hemoglobin 26.7 PG (27.0-34.0) 27.1 PG (27.0-34.0) Mean Corpuscular Hemoglobin Concent 32.1 % (32.0-36.0) 32.6 % (32.0-36.0) Red Cell Distribution Width 19.1 % (11.6-17.2) 20.0 % (11.6-17.2) Platelet Count 365 TH/MM3 (150-450) 496 TH/MM3 (150-450) Mean Platelet Volume 8.0 FL (7.0-11.0) 8.2 FL (7.0-11.0) Neutrophils (%) (Auto) 81.9 % (16.0-70.0) 78.6 % (16.0-70.0) Lymphocytes (%) (Auto) 9.5 % (9.0-44.0) 10.7 % (9.0-44.0) Monocytes (%) (Auto) 7.7 % (0.0-8.0) 9.1 % (0.0-8.0) Eosinophils (%) (Auto) 0.7 % (0.0-4.0) 1.3 % (0.0-4.0) Basophils (%) (Auto) 0.2 % (0.0-2.0) 0.3 % (0.0-2.0) Neutrophils # (Auto) 9.9 TH/MM3 (1.8-7.7) 12.0 TH/MM3 (1.8-7.7) Lymphocytes # (Auto) 1.1 TH/MM3 (1.0-4.8) 1.6 TH/MM3 (1.0-4.8) Monocytes # (Auto) 0.9 TH/MM3 (0-0.9) 1.4 TH/MM3 (0-0.9) Eosinophils # (Auto) 0.1 TH/MM3 (0-0.4) 0.2 TH/MM3 (0-0.4) Basophils # (Auto) 0.0 TH/MM3 (0-0.2) 0.0 TH/MM3 (0-0.2) CBC Comment DIFF FINAL DIFF FINAL Differential Comment Blood Urea Nitrogen 14 MG/DL (7-18) 16 MG/DL (7-18) Creatinine 0.52 MG/DL (0.50-1.00) 0.72 MG/DL (0.50-1.00) Random Glucose 112 MG/DL (74-106) 138 MG/DL (74-106) Calcium Level 8.2 MG/DL (8.5-10.1) 8.8 MG/DL (8.5-10.1) Magnesium Level 1.6 MG/DL (1.5-2.5) 1.6 MG/DL (1.5-2.5) Sodium Level 140 MEQ/L (136-145) 139 MEQ/L (136-145) Potassium Level 3.4 MEQ/L (3.5-5.1) 4.0 MEQ/L (3.5-5.1) Chloride Level 106 MEQ/L (98-107) 105 MEQ/L (98-107) Carbon Dioxide Level 26.8 MEQ/L (21.0-32.0) 23.9 MEQ/L (21.0-32.0) Anion Gap 7 MEQ/L (5-15) 10 MEQ/L (5-15) Estimat Glomerular Filtration Rate 112 ML/MIN (>89) 77 ML/MIN (>89) Prothrombin Time 17.7 SEC (9.8-11.6) Prothromb Time International Ratio 1.7 RATIO Result Diagram: 09/14/17 0646 09/14/17 0646 Microbiology Microbiology Date/Time Source Procedure Growth Status 09/10/17 13:50 Blood Peripheral Aerobic Blood Culture - Preliminary NO GROWTH IN 4 DAYS Resulted 09/10/17 13:50 Blood Peripheral Anaerobic Blood Culture - Preliminary NO GROWTH IN 4 DAYS Resulted 09/09/17 10:10 Wound Groin Gram Stain - Final Complete 09/09/17 10:10 Wound Culture - Final Acinetobacter Baumannii/Haemol Complete Imaging Last Impressions Chest X-Ray 09/12/17 0600 Signed Impressions: Service Date/Time: Tuesday, September 12, 2017 04:21 - CONCLUSION: Stable compensated cardiomegaly Christian Moss MD Head CT 09/12/17 0000 Signed Impressions: Service Date/Time: Tuesday, September 12, 2017 12:28 - CONCLUSION: Negative for acute process. Jefry Rojo MD FACR Carotid Artery Ultrasound 09/11/17 0000 Signed Impressions: Service Date/Time: Monday, September 11, 2017 16:25 - CONCLUSION: 1. 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 2. No evidence of hemodynamically significant carotid stenosis on the left. 3. Possible occlusion of left vertebral artery. Favian Sánchez MD Procedures * 09/09/17 -. Retroperitoneal access to the left external iliac artery with vascular control, evacuation of the hematoma, exploration of the common femoral artery with placement of a patch graft and pledgets. . Patient/Family Conference Present at Family Conference: Sister Bonnie Ray. Family Conference Time (mins): 33 Family Conference Location: Telephone Issues Discussed: * Palliative care role, purpose, approach * Additional medical, psychosocial, and spiritual history * Patients general health, functional status, and cognitive changes in the months leading up to the current hospitalization * Patient/family understanding of the current medical problems -MRSA bacteremia , encephalopathy/delirium, respiratory insufficiency. * Patient/family understanding of prognosis -guarded prognosis * Patients goals of care as best understood from advance directives and/or conversations and/or values * Current medical treatment options and benefits/burdens of those options * Questions answered to the best of my ability * Palliative care contact information provided * Risks, benefits and limitations of CPR, intubation and mechanical ventilation . Assessment and Plan Disease Oriented Problem List: (1) MRSA bacteremia (2) Acute respiratory insufficiency (3) Delirium due to another medical condition (4) Atrial fibrillation with RVR (5) Vascular hemorrhage (6) Postoperative anemia due to acute blood loss Symptom Scale: (1) Pain 0-10 Scale: Unable to quantify Comment: Secondary to surgical intervention, wound VAC. (2) Debility 0-10 Scale: Unable to quantify Comment: Secondary to acute illness,surgical intervention, hospitalization. (3) Confusion 0-10 Scale: Unable to quantify Comment: Delirium. Pertinent Non-Medical Issues Psychosocial: Patient originally from [place]. Moved to [place] over 20 years ago. Patient is single, no children. 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 Spiritual: Hinduism samantha. Legal: Advance directives completed. Ethical issues impacting care: No ethical issues identified. . Important Contacts Patient's sister/HCS Bonnie Cory , . . Prognosis Mrs. Michel An 87-year-old female with a medical history significant for atrial fibrillation on anticoagulation, DM 2, hypertension, hyperlipidemia, CHF. 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 Patient presented to ED on 09/09/17 with complaints of bleeding at the surgical site. Patient was taken emergently to the operating room and found to have disruption of the patch and associated pseudoaneurysm with massive bleeding. Patient underwent hematoma evacuation and repair of the patch. Clinical course complicated by MRSA bacteremia, delirium. Patient high risk for further complications, continue decline and . . Code Status: No Code Plan * CODE STATUS: No code. DNR/DNI. Patient's sister acting as healthcare surrogate decision maker electing no CODE STATUS given patient's known wishes. * HEALTHCARE DECISION-MAKING: Psychiatry consulted, patient lacks capacity for medical decision-making secondary to the Delirium. Likely to regain capacity. Advance directives completed, patient designated her sister Bonnie Ray as primary healthcare surrogate decision maker, alternate Marcelo Michel. * GOALS OF CARE: Patient's sister Bonnie Ray acting as healthcare surrogate decision maker has elected to continue aggressive management short of NO code, NO NG/feeding tube. Family's goal is for patient to be discharged to rehabilitation for physical straightening. Sister receptive to continue goals of care conversation as patient's clinical course continues to evolve. * SYMPTOMS: = Pain, secondary to surgical intervention, wound VAC. Oxycodone 2.5 mg q6hr available as needed, none given in the past 24 hours. = Confusion, likely secondary to delirium. Psych following. = Debility, PT following. PT at rehabilitation recommended. * Case discussed with Dr. Bean. * Palliative care contact information has been provided to patient's family. * Palliative care will continue to follow-up for further clarifications of goals of care as patient's clinical course continues to evolve. . Time Spent Total Floor Time (mins): 66 (Total time to include review and summarization of available medical records to include multiple prior hospitalizations, physical exam, goals of care conversation with patient's family, case discussion with Dr. Bean.) >50% Counseling/Coord of Care: Yes Thank you for the opportunity to participate in the care of Ms. Michel. Attestation To help prompt me to consider important information that might be impacting today's encounter and assessment, information from prior notes written by myself or my colleagues may have been "brought forward" into today's note. My signature on this note, however, is an attestation that I personally performed the exam, history, and/or decision-making noted today, and, unless otherwise indicated, the interactions with patient, family, and staff as well as the review of records all occurred today. I also attest that the listed assessment and stated plan reflect my best clinical judgment today based on the combination of historical information, prior notes, and today's exam/ interactions. When time spent is documented, it refers only to time spent today by the signer, or if indicated, combined time spent today by collaborating physician/nurse practitioner. Wendy Meraz Sep 14, 2017 16:42
[2017-09-14] MEDS: WARFARIN SOD 2 MG TAB NG SCH (17:22)
[2017-09-14] MEDS: DILTIAZEM HCL 90 MG TAB PO SCH ×2 (17:26→23:23)
[2017-09-14] MEDS: PRAVASTATIN SOD 40 MG TAB NG SCH (20:43)
[2017-09-15] VITALS (11 sets, daily range): BP systolic 117–160; BP diastolic 61–93; PULSE 67–107; RESP 18–24; TEMP 97.4–98.8; O2SAT 95–97
[2017-09-15] MEDS: VANCOMYCIN INJ 1,250 MG in SODIUM CHLOR 0.9% 250 ML INJ 250 ML IV SCH ×2 (00:17→20:00)
[2017-09-15] MEDS: LEVOTHYROXINE SODIUM 50 MCG TAB NG SCH (04:50)
[2017-09-15] MEDS: cloNIDine HCL 0.1 MG TAB NG SCH ×3 (04:50→23:47)
[2017-09-15] MEDS: DILTIAZEM HCL 90 MG TAB PO SCH ×4 (04:51→23:57)
[2017-09-15] MEDS: INSULIN ASPART SUPPLEMENTAL SCALE SQ SCH ×4 (08:00→21:00)
[2017-09-15 09:00] LABS: INTERNATIONAL NORMALIZED RATIO 1.9 RATIO; PROTHROMBIN TIME - PATIENT 19.4 SEC (9.8-11.6)
[2017-09-15] MEDS: FAMOTIDINE 20 MG TAB NG SCH ×2 (09:09→23:47)
[2017-09-15] MEDS: FERROUS SULFATE 300 MG /5ML UDC NG SCH (09:09)
[2017-09-15] MEDS: DOCUSATE SODIUM 50 MG/SENNA 8.6 MG TAB NG SCH ×2 (09:09→23:47)
[2017-09-15] MEDS: ASPIRIN 81 MG CHEW TAB NG SCH (09:09)
[2017-09-15] MEDS: TOLTERODINE TARTRATE 2 MG TAB NG SCH ×2 (09:10→23:47)
[2017-09-15] MEDS: SODIUM CHLORIDE 0.9% FLUSH 10 ML FLUSH IV FLUSH SCH ×2 (09:10→23:48)
[2017-09-15] MEDS: METOPROLOL TARTRATE 100 MG TAB NG SCH ×2 (09:10→23:47)
[2017-09-15] MEDS: LEVOFLOXACIN 750 MG TAB NG SCH (09:10)
--- NOTE | 2017-09-15 11:25 | HHI.HCPN ---
Reason for visit a. To assist with evaluation and management of symptoms including: Confusion , pain, debility. b. To assist medical decision maker(s) with: better understanding of current medical conditions; weighing benefits/burdens of medical treatment options; making medical treatment decisions. . Subjective/Interval History Palliative care follow-up for further clarifications of goals of care. Patient seen in her room. She was resting in bed in no acute distress. Patient alert to self, disoriented as to place or situation. Reoriented, however patient remained confused. Verbal, not always able to communicate needs secondary to confusion. Patient denies any pain, shortness of breath or abdominal discomfort. Asking for her glasses, following simple commands. Patient remains afebrile, stable hemodynamically. Tolerating room air, oxygen saturation in the high 90s. No new laboratory or imaging available for review. Telephone conversation with patient's sister Bonnie Ray/[facility]. Medical update provided. As per sister, goal of therapy is to continue aggressive management short of No code, No NG/feeding tube. Sister reports that patient has been verbal in the past regarding not wanting any NG tube/feeding tube. Goal is to discharge to rehabilitation for physical strengthening. Case discussed with Dr. Bean and case management. Patient will require 3 weeks with IV antibiotics for MRSA bacteremia. CODE STATUS remains DNR/DNI. Introduce community DNR to patient's sister, sister to sign prior to dc to rehab. Community DNR left at bedside. . Family/friend interactions See interval note. . Advance Directives Living Will: Copy in medical record Health Care Surrogate: Copy in medical record Advance Directive Specifics Date completed: 07/27/2013. . Health Care Surrogate(s): Patient designated her sister Bonnie Ray as healthcare surrogate decision- maker, alternate Marcelo Michel. . Documented care wishes: Living will secured. Standard verbiage as it pertains to terminal condition, end -stage condition or persistent vegetative state. . Significant change in goals: Goals of care remain unchanged. . Objective Vital Signs Date Time Temp Pulse Resp B/P (MAP) Pulse Ox O2 Delivery O2 Flow Rate FiO2 09/15/17 08:10 97.8 67 20 117/61 (79) 97 09/15/17 08:00 85 09/15/17 08:00 Room Air 09/15/17 04:00 97.4 107 20 160/93 (115) 97 09/15/17 03:44 98 09/15/17 00:00 97.5 104 18 150/77 (101) 96 09/14/17 23:47 109 09/14/17 20:00 97.2 101 20 142/92 (109) 96 09/14/17 20:00 Room Air 09/14/17 19:47 67 09/14/17 16:15 109 09/14/17 16:15 109 09/14/17 16:00 97.5 112 20 160/97 (118) 94 09/14/17 12:15 115 09/14/17 12:00 97.4 115 20 149/97 (114) 96 Intake & Output 09/15/17 09/15/17 07:00 19:00 Intake Total 120 ml Balance 120 ml Intake Oral 120 ml # Voids 3 # Bowel Movements 0 Physical Exam CONSTITUTIONAL/GENERAL: This is an adequately nourished elderly patient, in no apparent distress. Confused. TUBES/LINES/DRAINS: PIV's, bilateral soft wrist restraints. SKIN: No jaundice, rashes, or lesions. Ecchymoses on upper extremities. Skin temperature appropriate. Not diaphoretic. Wound VAC to left groin, healing surgical incision to left inner calf. HEAD: Atraumatic. Normocephalic. EYES: Pupils equal and round and reactive. Extraocular motions intact. No scleral icterus. No injection or drainage. Fundi not examined. ENT: Hearing grossly normal. Nose without bleeding or purulent drainage. Moist oral mucosa. Edentulous, top and bottom dentures. NECK: Trachea midline. Supple, nontender. CARDIOVASCULAR: Regular rate and rhythm without murmurs, gallops, or rubs. Peripheral pulses symmetric. RESPIRATORY/CHEST: Symmetric, unlabored respirations. Clear, diminished to auscultation. Breath sounds equal bilaterally. No wheezes, rales, or rhonchi. GASTROINTESTINAL: Abdomen soft, non-tender, nondistended. No guarding. Bowel sounds present. GENITOURINARY: Without palpable bladder distension. MUSCULOSKELETAL: Extremities without clubbing, cyanosis. Trace edema to bilateral lower extremities. No mottling or clubbing. NEUROLOGICAL: Awake and alert to self. Confused. Moves all extremities. PSYCHIATRIC: Confused. . Diagnostic Tests Laboratory Laboratory Tests Test 09/12/17 19:45 09/13/17 08:58 09/13/17 10:18 09/14/17 06:46 Vancomycin Level Trough 13.0 MCG/ML (5.0-10.0) Prothrombin Time 18.1 SEC (9.8-11.6) 17.7 SEC (9.8-11.6) Prothromb Time International Ratio 1.8 RATIO 1.7 RATIO White Blood Count 12.1 TH/MM3 (4.0-11.0) 15.3 TH/MM3 (4.0-11.0) Red Blood Count 3.15 MIL/MM3 (4.00-5.30) 3.43 MIL/MM3 (4.00-5.30) Hemoglobin 8.4 GM/DL (11.6-15.3) 9.3 GM/DL (11.6-15.3) Hematocrit 26.2 % (35.0-46.0) 28.5 % (35.0-46.0) Mean Corpuscular Volume 83.3 FL (80.0-100.0) 83.1 FL (80.0-100.0) Mean Corpuscular Hemoglobin 26.7 PG (27.0-34.0) 27.1 PG (27.0-34.0) Mean Corpuscular Hemoglobin Concent 32.1 % (32.0-36.0) 32.6 % (32.0-36.0) Red Cell Distribution Width 19.1 % (11.6-17.2) 20.0 % (11.6-17.2) Platelet Count 365 TH/MM3 (150-450) 496 TH/MM3 (150-450) Mean Platelet Volume 8.0 FL (7.0-11.0) 8.2 FL (7.0-11.0) Neutrophils (%) (Auto) 81.9 % (16.0-70.0) 78.6 % (16.0-70.0) Lymphocytes (%) (Auto) 9.5 % (9.0-44.0) 10.7 % (9.0-44.0) Monocytes (%) (Auto) 7.7 % (0.0-8.0) 9.1 % (0.0-8.0) Eosinophils (%) (Auto) 0.7 % (0.0-4.0) 1.3 % (0.0-4.0) Basophils (%) (Auto) 0.2 % (0.0-2.0) 0.3 % (0.0-2.0) Neutrophils # (Auto) 9.9 TH/MM3 (1.8-7.7) 12.0 TH/MM3 (1.8-7.7) Lymphocytes # (Auto) 1.1 TH/MM3 (1.0-4.8) 1.6 TH/MM3 (1.0-4.8) Monocytes # (Auto) 0.9 TH/MM3 (0-0.9) 1.4 TH/MM3 (0-0.9) Eosinophils # (Auto) 0.1 TH/MM3 (0-0.4) 0.2 TH/MM3 (0-0.4) Basophils # (Auto) 0.0 TH/MM3 (0-0.2) 0.0 TH/MM3 (0-0.2) CBC Comment DIFF FINAL DIFF FINAL Differential Comment Blood Urea Nitrogen 14 MG/DL (7-18) 16 MG/DL (7-18) Creatinine 0.52 MG/DL (0.50-1.00) 0.72 MG/DL (0.50-1.00) Random Glucose 112 MG/DL (74-106) 138 MG/DL (74-106) Calcium Level 8.2 MG/DL (8.5-10.1) 8.8 MG/DL (8.5-10.1) Magnesium Level 1.6 MG/DL (1.5-2.5) 1.6 MG/DL (1.5-2.5) Sodium Level 140 MEQ/L (136-145) 139 MEQ/L (136-145) Potassium Level 3.4 MEQ/L (3.5-5.1) 4.0 MEQ/L (3.5-5.1) Chloride Level 106 MEQ/L (98-107) 105 MEQ/L (98-107) Carbon Dioxide Level 26.8 MEQ/L (21.0-32.0) 23.9 MEQ/L (21.0-32.0) Anion Gap 7 MEQ/L (5-15) 10 MEQ/L (5-15) Estimat Glomerular Filtration Rate 112 ML/MIN (>89) 77 ML/MIN (>89) Test 09/15/17 08:25 Prothrombin Time 19.4 SEC (9.8-11.6) Prothromb Time International Ratio 1.9 RATIO Result Diagram: 09/14/17 0646 09/14/17 0646 Microbiology Microbiology Date/Time Source Procedure Growth Status 09/10/17 13:50 Blood Peripheral Aerobic Blood Culture - Final NO GROWTH IN 5 DAYS Complete 09/10/17 13:50 Blood Peripheral Anaerobic Blood Culture - Final NO GROWTH IN 5 DAYS Complete 09/09/17 10:10 Wound Groin Gram Stain - Final Complete 09/09/17 10:10 Wound Culture - Final Acinetobacter Baumannii/Haemol Complete Procedures * 09/09/17 -. Retroperitoneal access to the left external iliac artery with vascular control, evacuation of the hematoma, exploration of the common femoral artery with placement of a patch graft and pledgets. . Assessment and Plan Disease Oriented Problem List: (1) MRSA bacteremia (2) Acute respiratory insufficiency (3) Delirium due to another medical condition (4) Atrial fibrillation with RVR (5) Vascular hemorrhage (6) Postoperative anemia due to acute blood loss Symptom Scale: (1) Pain 0-10 Scale: 0 Comment: Secondary to surgical intervention, wound VAC. (2) Debility 0-10 Scale: Unable to quantify Comment: Secondary to acute illness,surgical intervention, hospitalization. (3) Confusion 0-10 Scale: Unable to quantify Comment: Delirium. Pertinent Non-Medical Issues Psychosocial: Patient originally from [place]. Moved to [place] over 20 years ago. Patient is single, no children. 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 [place], served in the [employer]. Spiritual: [employer] samantha. Legal: Advance directives completed. Ethical issues impacting care: No ethical issues identified. . Important Contacts Patient's sister/HCS Bonnie Ray , . . Prognosis Mrs. Michel An 87-year-old female with a medical history significant for atrial fibrillation on anticoagulation, DM 2, hypertension, hyperlipidemia, CHF. 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 Patient presented to ED on 09/09/17 with complaints of bleeding at the surgical site. Patient was taken emergently to the operating room and found to have disruption of the patch and associated pseudoaneurysm with massive bleeding. Patient underwent hematoma evacuation and repair of the patch. Clinical course complicated by MRSA bacteremia, delirium. Patient high risk for further complications, continue decline and . . Code Status: No Code Plan * CODE STATUS: No code. DNR/DNI. Patient's sister acting as healthcare surrogate decision maker electing no CODE STATUS given patient's known wishes. Community DNR has been introduced, left at bedside for sister to sign. * HEALTHCARE DECISION-MAKING: Psychiatry consulted, patient lacks capacity for medical decision-making secondary to the Delirium. Likely to regain capacity. Advance directives completed, patient designated her sister Bonnie Ray as primary healthcare surrogate decision maker, alternate Marcelo Michel. * GOALS OF CARE: Patient's sister Bonnie Ray acting as healthcare surrogate decision maker has elected to continue aggressive management short of NO code, NO NG/feeding tube. Family's goal is for patient to be discharged to rehabilitation for physical straightening. * SYMPTOMS: = Pain, secondary to surgical intervention, wound VAC. Oxycodone 2.5 mg q6hr available as needed, none given in the past 24 hours. = Confusion, likely secondary to delirium. Psych following. Haldol available as needed. = Debility, PT following. PT at rehabilitation recommended. * Case discussed with case management and Dr. Bean. * Palliative care contact information has been provided to patient's family. * Palliative care will continue to follow-up as needed for further clarifications of goals of care as patient's clinical course continues to evolve. . Time Spent Total Floor Time (mins): 28 (Total time to include review medical records, physical exam, goals of resection with patient's sister, case discussion with case management and Dr. Bean.) >50% Counseling/Coord of Care: Yes Attestation To help prompt me to consider important information that might be impacting today's encounter and assessment, information from prior notes written by myself or my colleagues may have been "brought forward" into today's note. My signature on this note, however, is an attestation that I personally performed the exam, history, and/or decision-making noted today, and, unless otherwise indicated, the interactions with patient, family, and staff as well as the review of records all occurred today. I also attest that the listed assessment and stated plan reflect my best clinical judgment today based on the combination of historical information, prior notes, and today's exam/ interactions. When time spent is documented, it refers only to time spent today by the signer, or if indicated, combined time spent today by collaborating physician/nurse practitioner. Wendy Meraz Sep 15, 2017 11:25
[2017-09-15] MEDS: WARFARIN SOD 2 MG TAB NG SCH (15:35)
[2017-09-15] MEDS ORDERED: PHARMACY ORDERED LAB ONE (19:45)
[2017-09-15] MEDS ORDERED: QUEtiapine FUMARATE 25 MG TAB PO SCH (21:00)
[2017-09-15] MEDS: PRAVASTATIN SOD 40 MG TAB NG SCH (23:47)
[2017-09-16] VITALS (9 sets, daily range): BP systolic 137–159; BP diastolic 78–90; PULSE 90–113; RESP 20–21; TEMP 97.4–98.3; O2SAT 93–95
--- NOTE | 2017-09-16 02:47 | HHI.PR ---
Subjective Remarks late entry - patient seen on 09/15 at 16:00 hrs No arianna overnight events - aptient is afebrile Discussed w rn - patient agitated overnight and previously on restraints. Objective Vitals Vital Signs Date Time Temp Pulse Resp B/P (MAP) Pulse Ox O2 Delivery O2 Flow Rate FiO2 09/16/17 00:00 98.0 105 20 137/90 (106) 95 09/15/17 20:00 98.8 75 21 124/78 (93) 95 09/15/17 16:07 97.7 80 19 130/78 (95) 97 09/15/17 16:00 97.4 88 24 130/87 (101) 97 09/15/17 12:07 97.6 89 20 132/91 (105) 96 09/15/17 08:10 97.8 67 20 117/61 (79) 97 09/15/17 08:00 85 09/15/17 08:00 Room Air 09/15/17 04:00 97.4 107 20 160/93 (115) 97 09/15/17 03:44 98 I/O 09/15/17 09/15/17 09/15/17 09/16/17 09/16/17 09/16/17 07:00 15:00 23:00 07:00 15:00 23:00 Intake Total 120 ml 380 ml Balance 120 ml 380 ml Intake Oral 120 ml 380 ml # Voids 3 4 # Bowel Movements 0 0 Result Diagram: 09/14/1746 09/14/1746 Objective Remarks GENERAL: 87-year-old female lying in bed on nasal cannula HEENT: Normocephalic. Atraumatic. Pupils equal, round, reactive, conjugate. Mucous membranes are moist NECK: Trachea is midline. There is no JVD. CHEST: Equal chest rise. Unlabored. Nasal cannula oxygen CARDIOVASCULAR: Tachycardic rate, irregular telemetry shows A. fib. S1, S2. No S4. ABDOMEN: Soft, nontender, nondistended. No guarding. MUSCULOSKELETAL: Pulses 2+. No peripheral edema. Left groin with hemaVAC in place. ERIN left lower quadrant no drainage. NEUROLOGICAL: Awake and oriented to person and place. Nerves II through XII grossly intact. Moves all 4 extremities spontaneous. Procedures Central line placement OPERATIVE PROCEDURE PERFORMED: 1. Retroperitoneal access to the left external iliac artery with vascular control. 2. Evacuation of the hematoma. 3. Exploration of the common femoral artery with placement of a patch graft and pledgets. Date of Insertion: Sep 09, 2017 A/P Problem List: (1) Vascular hemorrhage ICD Code: R58 - Hemorrhage, not elsewhere classified Status: Acute Assessment and Plan Encephalopathy likely toxic . Head CT without acute findings. Improving but still confused and not competent to make decisions Chronic pain management Continue Neurochecks. Decreased Oxycodone to 2.5 mg every 4 hours when necessary pain management Haloperidol 2 mg IV every 6 hours when necessary agitation Ziprasidone 10 mg IM every 6 hours when necessary 3 days if necessary agitation Patient is not competent to make decisions per psychiatry unable to evaluate for depression at this time Postoperative repair of femoral artery patch and evacuation of hematoma with history of SFA thrombectomy with subsequent pseudoaneurysm, LLE fasciotomy Atrial fibrillation with RVR Coronary artery disease Dyslipidemia Congestive heart failure chronic diastolic preferred LV function Severe Pulmonary hypertension 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 Increased Lopressor to 100 mg twice a day. Cardizem drip as needed. Discussed with vascular surgery okay to restart Coumadin. Ct asa Continue Pravachol 40 mg by mouth daily/home medication Echocardiogram 08/06 LV function is normal. The left atrial size is mild-to- moderately dilated. The right atrial size is mildly dilated. [id number] mitral valve regurgitation. Moderate mitral annular calcification. Aortic valve sclerosis is present with suboptimal imaging. Doppler did not suggest aortic stenosis There is estimated [id number] pulmonary hypertension present (range 60-70 mmHg). There is moderate to severe tricuspid valve regurgitation. The estimated pulmonary arterial pressure is 64.2 mmHg. Acute respiratory insufficiency COPDm - stable Nasal cannula to maintain saturations greater than equal to 92% Incentive spirometry while awake Scheduled albuterol/ipratropium aerosols every 6 hours with albuterol aerosols every 2 hours. Chest x-ray stable Gastroesophageal reflux disease Hypoalbuminemia Currently on 1800 ADA diet Continue famotidine 20 mg by mouth daily/home medication. At home on omeprazole 20 mg by mouth daily Docusate sodium/senna 1 tablet twice a day bowel regimen : Pearl discontinued Endo: Diabetes mellitus Hypothyroidism Hyperglycemia Metformin 500 mg by mouth twice a day is being held Sliding-scale insulin with Novulog with Accu-Cheks before meals/at bedtime to maintain euglycemia Continue Levoxyl 50 by mouth daily/home medication 09/14 Blood sugars stable - Continue to monitor accuchecks. Renal: Creatinine currently within normal limits Monitor urine output Accurate I's and O's Restart IV fluid if not tolerating by mouth Heme: Acute blood loss anemia Leukocytosis History of breast cancer Coagulopathy Stable status post transfusion Monitor CBC Received Kcentra 2091 units in ED along with FFP. INR 1.8 ID: MRSA bacteremia 2-D echocardiogram ordered Appreciation infectious disease Continue IV Vancomycin for 3 weeks Blood cultures 09/09 - MRSA Blood cultures 09/10 -negative to date Wound culture - 09/09 -Acinetobacter. Continue Levaquin for 3 weeks MSK: PT evaluate and treat, although bed FEN: Hypokalemia Replace electrolytes accordingly Consulted dietitian for tube feeding but patient and sister refuse NGT insertion Agitation off restraints now. Previously agitated. Will Rx Seroquel at bedtime. Access Central line removed by patient 09/11. Place peripheral IV Prophylaxis - GI - famotidine - DVT - SCD Coumadin okay with surgery. According to sister, patient bled on Eliquis and developed clots on Xarelto discussed the case with Wendy Meraz from palliative care. For now the [place] of care progressive short of no code DO NOT RESUSCITATE. Patient to be discharged to rehabilitation. Discharge Planning DC to SNF in am once off restraints x 24 hrs. Will discuss with watch caser. James Almaraz MD Sep 16, 2017 02:47
[2017-09-16] MEDS: DILTIAZEM HCL 90 MG TAB PO SCH ×3 (05:23→17:09)
[2017-09-16] MEDS: cloNIDine HCL 0.1 MG TAB NG SCH ×3 (05:23→21:12)
[2017-09-16] MEDS: LEVOTHYROXINE SODIUM 50 MCG TAB NG SCH (05:23)
[2017-09-16] MEDS: INSULIN ASPART SUPPLEMENTAL SCALE SQ SCH ×4 (08:00→21:00)
[2017-09-16] MEDS: LEVOFLOXACIN 750 MG TAB NG SCH (09:01)
[2017-09-16] MEDS: METOPROLOL TARTRATE 100 MG TAB NG SCH ×2 (09:01→21:12)
[2017-09-16] MEDS: FAMOTIDINE 20 MG TAB NG SCH ×2 (09:01→21:12)
[2017-09-16] MEDS: DOCUSATE SODIUM 50 MG/SENNA 8.6 MG TAB NG SCH ×2 (09:01→21:12)
[2017-09-16] MEDS: FERROUS SULFATE 300 MG /5ML UDC NG SCH (09:01)
[2017-09-16] MEDS: ASPIRIN 81 MG CHEW TAB NG SCH (09:01)
[2017-09-16] MEDS: SODIUM CHLORIDE 0.9% FLUSH 10 ML FLUSH IV FLUSH SCH ×2 (09:02→21:00)
[2017-09-16] MEDS: TOLTERODINE TARTRATE 2 MG TAB NG SCH ×2 (09:02→21:12)
[2017-09-16 09:52] LABS: AUTOMATED NEUTROPHIL # 10.7 TH/MM3 (1.8-7.7); BASOPHIL % 0.2 % (0.0-2.0); EOSINOPHIL # 0.2 TH/MM3 (0-0.4); EOSINOPHIL % 1.3 % (0.0-4.0); HEMATOCRIT 29.4 % (35.0-46.0); HEMOGLOBIN 9.2 GM/DL (11.6-15.3); LYMPH % 9.7 % (9.0-44.0); LYMPHOCYTE # 1.3 TH/MM3 (1.0-4.8); MEAN CELL VOLUME 82.4 FL (80.0-100.0); MEAN CORPUSCULAR HEMOGLOBIN 25.7 PG (27.0-34.0); MEAN CORPUSCULAR HGB CONC 31.2 % (32.0-36.0); MEAN PLATELET VOLUME 7.8 FL (7.0-11.0); MONOCYTE # 1.2 TH/MM3 (0-0.9); NEUT % 79.8 % (16.0-70.0); PLATELET COUNT 432 TH/MM3 (150-450); RED BLOOD COUNT 3.57 MIL/MM3 (4.00-5.30); RED CELL DISTRIBUTION WIDTH 19.8 % (11.6-17.2); WHITE BLOOD COUNT 13.4 TH/MM3 (4.0-11.0)
[2017-09-16 09:56] LABS: INTERNATIONAL NORMALIZED RATIO 1.7 RATIO; PROTHROMBIN TIME - PATIENT 17.3 SEC (9.8-11.6)
[2017-09-16 10:19] LABS: BICARBONATE 22.5 MEQ/L (21.0-32.0); CALCIUM 8.6 MG/DL (8.5-10.1); CREATININE 0.78 MG/DL (0.50-1.00)
[2017-09-16] MEDS ORDERED: POTASSIUM BICARBONATE 25 MEQ EFFERVESCENT TAB PO ONE (11:00)
[2017-09-16] MEDS: POTASSIUM CHLOR 20 MEQ PREMIX 100 ML IV SCH ×2 (12:22→14:58)
--- NOTE | 2017-09-16 12:47 | HHI.PR ---
Subjective Remarks as per RN patient becomes agitated - seems to be slightly confused and agitated. Sister at bedside states patient is confused. K low at 2.8 afebrile Objective Vitals Vital Signs Date Time Temp Pulse Resp B/P (MAP) Pulse Ox O2 Delivery O2 Flow Rate FiO2 09/16/17 08:07 97.8 100 20 156/85 (108) 93 09/16/17 08:00 Room Air 09/16/17 08:00 90 09/16/17 04:00 97.7 111 21 146/78 (100) 94 09/16/17 03:47 113 09/16/17 00:00 Room Air 09/16/17 00:00 98.0 105 20 137/90 (106) 95 09/15/17 23:47 91 09/15/17 20:00 Room Air 09/15/17 20:00 98.8 75 21 124/78 (93) 95 09/15/17 19:49 83 09/15/17 16:07 97.7 80 19 130/78 (95) 97 09/15/17 16:00 97.4 88 24 130/87 (101) 97 I/O 09/15/17 09/15/17 09/15/17 09/16/17 09/16/17 09/16/17 07:00 15:00 23:00 07:00 15:00 23:00 Intake Total 120 ml 380 ml 670 ml Balance 120 ml 380 ml 670 ml Intake Oral 120 ml 380 ml 420 ml IV Total 250 ml # Voids 3 4 5 # Bowel Movements 0 0 1 Result Diagram: 09/16/17 0843 09/16/17 0843 Imaging Last Impressions Chest X-Ray 09/12/17 0600 Signed Impressions: Service Date/Time: Tuesday, September 12, 2017 04:21 - CONCLUSION: Stable compensated cardiomegaly Christian Moss MD Head CT 09/12/17 0000 Signed Impressions: Service Date/Time: Tuesday, September 12, 2017 12:28 - CONCLUSION: Negative for acute process. Jefry Rojo MD FACR Carotid Artery Ultrasound 09/11/17 0000 Signed Impressions: Service Date/Time: Monday, September 11, 2017 16:25 - CONCLUSION: 1. 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 2. No evidence of hemodynamically significant carotid stenosis on the left. 3. Possible occlusion of left vertebral artery. Favian Sánchez MD Objective Remarks GENERAL: 87-year-old female lying in bed on nasal cannula HEENT: Normocephalic. Atraumatic. Pupils equal, round, reactive, conjugate. Mucous membranes are moist NECK: Trachea is midline. There is no JVD. CHEST: Equal chest rise. Unlabored. Nasal cannula oxygen CARDIOVASCULAR: Tachycardic rate, irregular telemetry shows A. fib. S1, S2. No S4. ABDOMEN: Soft, nontender, nondistended. No guarding. MUSCULOSKELETAL: Pulses 2+. No peripheral edema. Left groin with hemaVAC in place. ERIN left lower quadrant no drainage. NEUROLOGICAL: Awake and oriented to person and place. Nerves II through XII grossly intact. Moves all 4 extremities spontaneous. Procedures Central line placement OPERATIVE PROCEDURE PERFORMED: 1. Retroperitoneal access to the left external iliac artery with vascular control. 2. Evacuation of the hematoma. 3. Exploration of the common femoral artery with placement of a patch graft and pledgets. Medications and IVs Current Medications Medications (Trade) Dose Ordered Sig/Nova Route Start Time Stop Time Status Last Admin (NS Flush) 2 ml UNSCH PRN IV FLUSH 09/09/17 11:45 (NS Flush) 2 ml BID IV FLUSH 09/09/17 21:00 09/16/17 09:02 Miscellaneous Information 1 Q361D XX 09/09/17 11:45 (Chlorhexidine 2% Cloth) Taper DAILY@04 TOP 09/10/17 04:00 09/06/18 03:59 (Chlorhexidine 2% Cloth) 3 pack UNSCH PRN TOP 09/09/17 11:45 (D50w (Syr) Inj) 50 ml UNSCH PRN IV PUSH 09/09/17 16:45 (Glucagon Inj) 1 mg UNSCH PRN OTHER 09/09/17 16:45 (Melatonin) 5 mg HS PRN PO 09/09/17 21:00 (Glucophage) 500 mg BIDPC PO 09/09/17 18:00 Future Hold (NovoLOG SUPPLEMENTAL SCALE) 1 ACHS SQ 09/10/17 12:00 09/15/17 13:38 (Albuterol Neb) 2.5 mg Q2HR NEB PRN NEB 09/10/17 10:00 Pharmacy Profile Note 0 ml @ 0 mls/hr UNSCH OTHER 09/10/17 12:15 (Haldol Inj) 2 mg Q4HR PRN IV PUSH 09/10/17 15:00 09/12/17 22:31 Pharmacy Profile Note 0 ml @ 0 mls/hr UNSCH OTHER 09/12/17 12:45 Potassium Chloride/Sodium Chloride 1,000 ml @ 42 mls/hr [id number] PRN IV 09/12/17 12:45 (Aspirin Chew) 81 mg DAILY NG 09/13/17 09:00 09/16/17 09:01 (Catapres) 0.1 mg Q8HR NG 09/12/17 14:00 09/16/17 05:23 ([place]-Colace) 1 tab BID PRN NG 09/12/17 13:45 ([place]-Colace) 1 tab BID NG 09/12/17 21:00 09/16/17 09:01 (Pepcid) 20 mg Q12HR NG 09/12/17 21:00 09/16/17 09:01 (Ferrous Sulfate Liq) 300 mg DAILY NG 09/13/17 09:00 09/16/17 09:01 (Lactulose Liq) 30 ml DAILY PRN NG 09/12/17 13:45 (Synthroid) 50 mcg DAILY@0600 NG 09/13/17 06:00 09/16/17 05:23 (Lopressor) 100 mg Q12HR NG 09/12/17 21:00 09/16/17 09:01 (Roxicodone) 2.5 mg Q6HR PRN NG 09/12/17 13:45 (Pravachol) 40 mg HS NG 09/12/17 21:00 09/15/17 23:47 (Coumadin) 2 mg DAILY@1600 NG 09/12/17 16:00 09/15/17 15:35 (Detrol) 2 mg BID NG 09/12/17 21:00 09/16/17 09:02 (Levaquin) 750 mg DAILY NG 09/13/17 09:00 09/16/17 09:01 Diltiazem HCl 125 mg/Sodium Chloride 125 ml @ 5 mls/hr TITRATE PRN IV 09/13/17 08:45 Vancomycin HCl 1250 mg/Sodium Chloride 262.5 ml @ 250 mls/hr Q18H IV 09/13/17 14:00 09/15/17 20:00 (Cardizem) 90 mg Q6HR PO 09/14/17 18:00 09/16/17 05:23 (SEROquel) 25 mg HS PO 09/15/17 21:00 09/15/17 23:47 Miscellaneous Information SPECIFIC LAB TO BE DRAWN:VANCOMYCIN TROUGH DATE TO... ONCE ONCE .XX 09/16/17 13:45 09/16/17 13:46 Potassium Chloride 100 ml @ 50 mls/hr Q2H IV 09/16/17 11:00 09/16/17 14:59 09/16/17 12:22 Date of Insertion: Sep 09, 2017 A/P Problem List: (1) Vascular hemorrhage ICD Code: R58 - Hemorrhage, not elsewhere classified Status: Acute Assessment and Plan Encephalopathy likely toxic . Head CT without acute findings. Improving but still confused and not competent to make decisions Chronic pain management Continue Neurochecks. Decreased Oxycodone to 2.5 mg every 4 hours when necessary pain management Haloperidol 2 mg IV every 6 hours when necessary agitation Ziprasidone 10 mg IM every 6 hours when necessary 3 days if necessary agitation Patient is not competent to make decisions per psychiatry unable to evaluate for depression at this time 09/16 Patient started on Seroquel at night, tolerated it well. Patient however still confused. will Rx Seroquel 25 mg po daily and increase dose up to 50 mg at night. Consult psychiatry for further recommendations. 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 Increased Lopressor to 100 mg twice a day. Cardizem drip as needed. Discussed with vascular surgery okay to restart Coumadin. Ct asa Continue Pravachol 40 mg by mouth daily/home medication Echocardiogram 08/06 LV function is normal. The left atrial size is mild-to- moderately dilated. The right atrial size is mildly dilated. [id number] mitral valve regurgitation. Moderate mitral annular calcification. Aortic valve sclerosis is present with suboptimal imaging. Doppler did not suggest aortic stenosis There is estimated whqfchha-af-recqza pulmonary hypertension present (range 60-70 mmHg). There is moderate to severe tricuspid valve regurgitation. The estimated pulmonary arterial pressure is 64.2 mmHg. 09/16 BP stable. Continue current antihypertensive medications. Heart rate controlled. Acute respiratory insufficiency COPDm - stable Nasal cannula to maintain saturations greater than equal to 92% Incentive spirometry while awake Scheduled albuterol/ipratropium aerosols every 6 hours with albuterol aerosols every 2 hours. Chest x-ray stable Gastroesophageal reflux disease Hypoalbuminemia Currently on 1800 ADA diet Continue famotidine 20 mg by mouth daily/home medication. At home on omeprazole 20 mg by mouth daily Docusate sodium/senna 1 tablet twice a day bowel regimen : Pearl discontinued Endo: Diabetes mellitus Hypothyroidism Hyperglycemia Metformin 500 mg by mouth twice a day is being held Sliding-scale insulin with Novulog with Accu-Cheks before meals/at bedtime to maintain euglycemia Continue Levoxyl 50 by mouth daily/home medication 09/14 Blood sugars stable - Continue to monitor accuchecks. Renal: Creatinine currently within normal limits Monitor urine output Accurate I's and O's Restart IV fluid if not tolerating by mouth Heme: Acute blood loss anemia Leukocytosis History of breast cancer Coagulopathy Stable status post transfusion Monitor CBC Received Kcentra 2091 units in ED along with FFP. INR 1.8 ID: MRSA bacteremia 2-D echocardiogram ordered Appreciation infectious disease Continue IV Vancomycin for 3 weeks Blood cultures 09/09 - MRSA Blood cultures 09/10 -negative to date Wound culture - 09/09 -Acinetobacter. 09/16 ID cleared patient for DC - needs Vancomycin IV and Levaquin PO for a total of 3 weeks. Hypokalemia Replace electrolytes accordingly Consulted dietitian for tube feeding but patient and sister refuse NGT insertion 09/16 Potassium 2.8. Agitation Patient still on restraints. Patient started on Seroquel 25 mg at bedtime on . tolerated it well, however still with periods of agitation and confused so will start on Seroquel 25 mg po daily and increased PM dose upp to 50 mg. Will consult psychiatry. Access Central line removed by patient 09/11. Place peripheral IV Prophylaxis - GI - famotidine - DVT - SCD Coumadin okay with surgery. According to sister, patient bled on Eliquis and developed clots on Xarelto discussed the case with Wendy Meraz from palliative care. For now the [place] of care progressive short of no code DO NOT RESUSCITATE. Patient to be discharged to rehabilitation. Discharge Planning DC to SNF in am once off restraints x 24 hrs. Patient still on restraints, Psychiatry consulted. James Almaraz MD Sep 16, 2017 12:47
[2017-09-16] MEDS ORDERED: PHARMACY ORDERED LAB ONE (13:45)
[2017-09-16] MEDS: VANCOMYCIN INJ 1,250 MG in SODIUM CHLOR 0.9% 250 ML INJ 250 ML IV SCH (14:07)
[2017-09-16] MEDS ORDERED: WARFARIN SOD 2 MG TAB NG ONE (16:00)
[2017-09-16] MEDS: WARFARIN SOD 2 MG TAB NG SCH (17:09)
[2017-09-16] MEDS ORDERED: QUEtiapine FUMARATE 25 MG TAB PO SCH (21:00)
[2017-09-16] MEDS: PRAVASTATIN SOD 40 MG TAB NG SCH (21:12)
[2017-09-17] VITALS (11 sets, daily range): BP systolic 121–152; BP diastolic 74–94; PULSE 50–107; RESP 18–20; TEMP 97.7–99.1; O2SAT 94–98
[2017-09-17] MEDS: DILTIAZEM HCL 90 MG TAB PO SCH ×5 (00:16→23:33)
[2017-09-17] MEDS: CHLORHEXIDINE GLUCONATE 2 % 1 PACK (2 CLOTHS) TOP SCH (03:24)
[2017-09-17] MEDS: cloNIDine HCL 0.1 MG TAB NG SCH ×3 (05:26→22:00)
[2017-09-17] MEDS: LEVOTHYROXINE SODIUM 50 MCG TAB NG SCH (05:26)
[2017-09-17 07:13] LABS: INTERNATIONAL NORMALIZED RATIO 1.6 RATIO; PROTHROMBIN TIME - PATIENT 15.8 SEC (9.8-11.6)
[2017-09-17] MEDS: FAMOTIDINE 20 MG TAB NG SCH ×2 (08:56→20:18)
[2017-09-17] MEDS: DOCUSATE SODIUM 50 MG/SENNA 8.6 MG TAB NG SCH ×2 (08:56→20:18)
[2017-09-17] MEDS: VANCOMYCIN INJ 1,250 MG in SODIUM CHLOR 0.9% 250 ML INJ 250 ML IV SCH (08:56)
[2017-09-17] MEDS: FERROUS SULFATE 300 MG /5ML UDC NG SCH (08:56)
[2017-09-17] MEDS: TOLTERODINE TARTRATE 2 MG TAB NG SCH ×2 (08:56→20:18)
[2017-09-17] MEDS: SODIUM CHLORIDE 0.9% FLUSH 10 ML FLUSH IV FLUSH SCH ×2 (08:57→20:31)
[2017-09-17] MEDS: LEVOFLOXACIN 750 MG TAB NG SCH (08:57)
[2017-09-17] MEDS: ASPIRIN 81 MG CHEW TAB NG SCH (08:57)
[2017-09-17] MEDS: METOPROLOL TARTRATE 100 MG TAB NG SCH ×2 (08:57→20:18)
[2017-09-17] MEDS: INSULIN ASPART SUPPLEMENTAL SCALE SQ SCH ×4 (10:00→20:31)
[2017-09-17 12:08] LABS: AUTOMATED NEUTROPHIL # 11.5 TH/MM3 (1.8-7.7); BASOPHIL % 0.2 % (0.0-2.0); EOSINOPHIL % 0.2 % (0.0-4.0); HEMATOCRIT 28.4 % (35.0-46.0); HEMOGLOBIN 8.7 GM/DL (11.6-15.3); LYMPH % 7.4 % (9.0-44.0); MEAN CELL VOLUME 82.9 FL (80.0-100.0); MEAN CORPUSCULAR HEMOGLOBIN 25.4 PG (27.0-34.0); MEAN CORPUSCULAR HGB CONC 30.7 % (32.0-36.0); MEAN PLATELET VOLUME 7.7 FL (7.0-11.0); MONO % 7.3 % (0.0-8.0); NEUT % 84.9 % (16.0-70.0); PLATELET COUNT 435 TH/MM3 (150-450); RED BLOOD COUNT 3.42 MIL/MM3 (4.00-5.30); RED CELL DISTRIBUTION WIDTH 19.4 % (11.6-17.2); WHITE BLOOD COUNT 13.5 TH/MM3 (4.0-11.0)
[2017-09-17 12:26] LABS: ALBUMIN 2.1 GM/DL (3.4-5.0); AST (GOT) 13 U/L (15-37); BICARBONATE 23.1 MEQ/L (21.0-32.0); BLOOD UREA NITROGEN 20 MG/DL (7-18); CALCIUM 8.5 MG/DL (8.5-10.1); CHLORIDE 113 MEQ/L (98-107); GLOMERULAR FILTRATION RATE 68 ML/MIN (>89); GLUCOSE,RANDOM 144 MG/DL (74-106); MAGNESIUM 1.7 MG/DL (1.5-2.5); SODIUM (NA) 146 MEQ/L (136-145)
[2017-09-17 12:30] LABS: ALKALINE PHOSPHATASE 74 U/L (45-117); ALT (GPT) 12 U/L (10-53); PHOSPHORUS 3.9 MG/DL (2.5-4.9); TOTAL BILIRUBIN ADULT 0.5 MG/DL (0.2-1.0); TOTAL PROTEIN 6.4 GM/DL (6.4-8.2)
--- NOTE | 2017-09-17 13:32 | HHI.PYPN ---
Subjective Remarks The patient is an 87-year-old woman, no documented psychiatric history , she denies any previous psychiatric hospitalizations, denies suicidal attempts. She was seen by Dr. Ash, documentation reviewed. With a medical history significant for atrial fibrillation on anticoagulation, DM 2, hypertension, hyperlipidemia, CHF. 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 Patient presented to ED on 09/09/17 with complaints of bleeding at the surgical site. Patient was taken emergently to the operating room and found to have disruption of the patch and associated pseudoaneurysm with massive bleeding. Patient underwent hematoma evacuation and repair of the patch. Clinical course complicated by MRSA bacteremia, delirium, agitation and belligerent behavior in the floor. On psychiatric evaluation she is found restrained in 4 points, she is calm, just superficially cooperative, very disorganized, illogical and disoriented, unable to provide meaningful information for the psychiatric assessment at this moment due to the level of delirium. She has been reportedly very agitated, refusing to take medications, combative, needing medication to calm her down. Mental Status Examination Appearance: Disheveled Consciousness: Obtunded Orientation: Person Motor Activity: Abnormal gait Speech: Hesitant, Incoherent Language: Adequate Fund of Knowledge: Inadequate Attention and Concentration: Easily Distracted Memory: Impaired Mood: Anxious Affect: Anxious Thought Process & Associations: Loose associations, Disorganized Thought Content: Other Hallucination Type: None Delusion Type: None Suicidal Ideation: No Suicidal Plan: No Suicidal Intention: No Homicidal Ideation: No Homicidal Plan: No Homicidal Intention: No Insight: Poor Judgment: Poor Results Labs Test 09/16/17 14:00 09/17/17 06:41 09/17/17 11:34 Vancomycin Level Trough 19.6 MCG/ML Prothrombin Time 15.8 SEC Prothromb Time International Ratio 1.6 RATIO White Blood Count 13.5 TH/MM3 Red Blood Count 3.42 MIL/MM3 Hemoglobin 8.7 GM/DL Hematocrit 28.4 % Mean Corpuscular Volume 82.9 FL Mean Corpuscular Hemoglobin 25.4 PG Mean Corpuscular Hemoglobin Concent 30.7 % Red Cell Distribution Width 19.4 % Platelet Count 435 TH/MM3 Mean Platelet Volume 7.7 FL Neutrophils (%) (Auto) 84.9 % Lymphocytes (%) (Auto) 7.4 % Monocytes (%) (Auto) 7.3 % Eosinophils (%) (Auto) 0.2 % Basophils (%) (Auto) 0.2 % Neutrophils # (Auto) 11.5 TH/MM3 Lymphocytes # (Auto) 1.0 TH/MM3 Monocytes # (Auto) 1.0 TH/MM3 Eosinophils # (Auto) 0.0 TH/MM3 Basophils # (Auto) 0.0 TH/MM3 CBC Comment DIFF FINAL Differential Comment Blood Urea Nitrogen 20 MG/DL Creatinine 0.80 MG/DL Random Glucose 144 MG/DL Total Protein 6.4 GM/DL Albumin 2.1 GM/DL Calcium Level 8.5 MG/DL Phosphorus Level 3.9 MG/DL Magnesium Level 1.7 MG/DL Alkaline Phosphatase 74 U/L Aspartate Amino Transf (AST/SGOT) 13 U/L Alanine Aminotransferase (ALT/SGPT) 12 U/L Total Bilirubin 0.5 MG/DL Sodium Level 146 MEQ/L Potassium Level 3.5 MEQ/L Chloride Level 113 MEQ/L Carbon Dioxide Level 23.1 MEQ/L Anion Gap 10 MEQ/L Estimat Glomerular Filtration Rate 68 ML/MIN Date/Time Source Procedure Growth Status 09/10/17 13:50 Blood Peripheral Aerobic Blood Culture - Final NO GROWTH IN 5 DAYS Complete 09/10/17 13:50 Blood Peripheral Anaerobic Blood Culture - Final NO GROWTH IN 5 DAYS Complete 09/09/17 10:10 Wound Groin Gram Stain - Final Complete 09/09/17 10:10 Wound Culture - Final Acinetobacter Baumannii/Haemol Complete Vitals/IOs Vital Signs Date Time Temp Pulse Resp B/P (MAP) Pulse Ox O2 Delivery O2 Flow Rate FiO2 09/17/17 12:00 97.7 97 20 132/94 (107) 95 09/17/17 11:43 Room Air 21 Assessment & Plan Problem List: (1) Delirium due to another medical condition ICD Codes: F05 - Delirium due to known physiological condition Status: Acute Assessment & Plan: The patient presents with acute delirium, agitated, at times combative. He benefits of a low dose of antipsychotic to prevent delirious and for behavioral dysregulation. Seroquel 25 mg twice a day is appropriate. Also Haldol 2-5 mg every 8 hours when necessary breakthrough aggressive behavior and agitation can be used to help with aggressiveness. Labs were reviewed. Case discussed with Dr. Bean. Follow-up. Assessment & Plan Estimated LOS: days Justification for Cont. Inpt. She does not meet criteria for involuntary psychiatric admission at this moment. Marshall Honeycutt MD Sep 17, 2017 13:32
--- NOTE | 2017-09-17 14:32 | HHI.PR ---
Subjective Remarks Case discussed with RN and patient's sister who is at bedside. Patient's sister states that the patient is not behaving as her usual self, she is seeing objects that are not there. RN states that the patient has been agitated and had to be placed on restraints. Vital signs are stable, patient is afebrile. Objective Vitals Vital Signs Date Time Temp Pulse Resp B/P (MAP) Pulse Ox O2 Delivery O2 Flow Rate FiO2 09/17/17 12:00 97.7 97 20 132/94 (107) 95 09/17/17 11:43 Room Air 21 09/17/17 08:00 97.8 104 20 141/90 (107) 98 09/17/17 04:00 98.5 94 18 121/74 (90) 95 09/17/17 04:00 88 09/17/17 00:51 99.1 103 20 152/93 (112) 96 09/17/17 00:05 107 09/16/17 21:15 Room Air 09/16/17 20:42 98.3 91 20 159/86 (110) 95 09/16/17 20:15 108 09/16/17 16:07 97.9 103 20 148/84 (105) 94 I/O 09/16/17 09/16/17 09/16/17 09/17/17 09/17/17 09/17/17 07:00 15:00 23:00 07:00 15:00 23:00 Intake Total 670 ml 280 ml Balance 670 ml 280 ml Intake Oral 420 ml 280 ml IV Total 250 ml # Voids 5 3 3 # Bowel Movements 1 1 0 Result Diagram: 09/17/17 1134 09/17/17 1134 Objective Remarks GENERAL: 87-year-old female lying in bed on nasal cannula HEENT: Normocephalic. Atraumatic. Pupils equal, round, reactive, conjugate. Mucous membranes are moist NECK: Trachea is midline. There is no JVD. CHEST: Equal chest rise. Unlabored. Nasal cannula oxygen CARDIOVASCULAR: Tachycardic rate, irregular telemetry shows A. fib. S1, S2. No S4. ABDOMEN: Soft, nontender, nondistended. No guarding. MUSCULOSKELETAL: Pulses 2+. No peripheral edema. NEUROLOGICAL: Awake and oriented to person and place. Nerves II through XII grossly intact. Moves all 4 extremities spontaneous. Procedures Central line placement OPERATIVE PROCEDURE PERFORMED: 1. Retroperitoneal access to the left external iliac artery with vascular control. 2. Evacuation of the hematoma. 3. Exploration of the common femoral artery with placement of a patch graft and pledgets. Medications and IVs Current Medications Medications (Trade) Dose Ordered Sig/Nova Route Start Time Stop Time Status Last Admin (NS Flush) 2 ml UNSCH PRN IV FLUSH 09/09/17 11:45 (NS Flush) 2 ml BID IV FLUSH 09/09/17 21:00 09/17/17 08:57 Miscellaneous Information 1 Q361D XX 09/09/17 11:45 (Chlorhexidine 2% Cloth) Taper DAILY@04 TOP 09/10/17 04:00 09/06/18 03:59 (Chlorhexidine 2% Cloth) 3 pack UNSCH PRN TOP 09/09/17 11:45 (D50w (Syr) Inj) 50 ml UNSCH PRN IV PUSH 09/09/17 16:45 (Glucagon Inj) 1 mg UNSCH PRN OTHER 09/09/17 16:45 (Melatonin) 5 mg HS PRN PO 09/09/17 21:00 (Glucophage) 500 mg BIDPC PO 09/09/17 18:00 Future Hold (NovoLOG SUPPLEMENTAL SCALE) 1 ACHS SQ 09/10/17 12:00 09/17/17 13:31 (Albuterol Neb) 2.5 mg Q2HR NEB PRN NEB 09/10/17 10:00 Pharmacy Profile Note 0 ml @ 0 mls/hr UNSCH OTHER 09/10/17 12:15 (Haldol Inj) 2 mg Q4HR PRN IV PUSH 09/10/17 15:00 09/12/17 22:31 Pharmacy Profile Note 0 ml @ 0 mls/hr UNSCH OTHER 09/12/17 12:45 (Aspirin Chew) 81 mg DAILY NG 09/13/17 09:00 09/17/17 08:57 (Catapres) 0.1 mg Q8HR NG 09/12/17 14:00 09/17/17 13:31 ([place]-Colace) 1 tab BID PRN NG 09/12/17 13:45 ([place]-Colace) 1 tab BID NG 09/12/17 21:00 09/17/17 08:56 (Pepcid) 20 mg Q12HR NG 09/12/17 21:00 09/17/17 08:56 (Ferrous Sulfate Liq) 300 mg DAILY NG 09/13/17 09:00 09/17/17 08:56 (Lactulose Liq) 30 ml DAILY PRN NG 09/12/17 13:45 (Synthroid) 50 mcg DAILY@0600 NG 09/13/17 06:00 09/17/17 05:26 (Lopressor) 100 mg Q12HR NG 09/12/17 21:00 09/17/17 08:57 (Roxicodone) 2.5 mg Q6HR PRN NG 09/12/17 13:45 (Pravachol) 40 mg HS NG 09/12/17 21:00 09/16/17 21:12 (Coumadin) 2 mg DAILY@1600 NG 09/12/17 16:00 09/16/17 17:09 (Detrol) 2 mg BID NG 09/12/17 21:00 09/17/17 08:56 (Levaquin) 750 mg DAILY NG 09/13/17 09:00 09/17/17 08:57 Diltiazem HCl 125 mg/Sodium Chloride 125 ml @ 5 mls/hr TITRATE PRN IV 09/13/17 08:45 Vancomycin HCl 1250 mg/Sodium Chloride 262.5 ml @ 250 mls/hr Q18H IV 09/13/17 14:00 09/17/17 08:56 (Cardizem) 90 mg Q6HR PO 09/14/17 18:00 09/17/17 13:30 (Coumadin) 2 mg ONCE@1600 ONCE NG 09/17/17 16:00 09/17/17 16:01 Date of Insertion: Sep 09, 2017 A/P Problem List: (1) Vascular hemorrhage ICD Code: R58 - Hemorrhage, not elsewhere classified Status: Acute Assessment and Plan Encephalopathy likely toxic . Head CT without acute findings. Improving but still confused and not competent to make decisions Chronic pain management Continue Neurochecks. Decreased Oxycodone to 2.5 mg every 4 hours when necessary pain management Haloperidol 2 mg IV every 6 hours when necessary agitation Ziprasidone 10 mg IM every 6 hours when necessary 3 days if necessary agitation Patient is not competent to make decisions per psychiatry unable to evaluate for depression at this time 09/16 Patient started on Seroquel at night, tolerated it well. Patient however still confused. will Rx Seroquel 25 mg po daily and increase dose up to 50 mg at night. Consult psychiatry for further recommendations. 09/17 Discussed case with psychiatry. Patient sister very concerned that the patient is having an adverse side effect to the Seroquel and that the patient's hallucinations actually do to the Seroquel. I discussed with psychiatry and we will place patient on Abilify 2.5 mg by mouth twice a day. Continue restraints as needed. 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 Increased Lopressor to 100 mg twice a day. Cardizem drip as needed. Discussed with vascular surgery okay to restart Coumadin. Ct asa Continue Pravachol 40 mg by mouth daily/home medication Echocardiogram 08/06 LV function is normal. The left atrial size is mild-to- moderately dilated. The right atrial size is mildly dilated. [id number]-[id number] mitral valve regurgitation. Moderate mitral annular calcification. Aortic valve sclerosis is present with suboptimal imaging. Doppler did not suggest aortic stenosis There is estimated eltbjsmn-xt-wfzoye pulmonary hypertension present (range 60-70 mmHg). There is moderate to severe tricuspid valve regurgitation. The estimated pulmonary arterial pressure is 64.2 mmHg. 09/16 BP stable. Continue current antihypertensive medications. Heart rate controlled. Acute respiratory insufficiency COPDm - stable Nasal cannula to maintain saturations greater than equal to 92% Incentive spirometry while awake Scheduled albuterol/ipratropium aerosols every 6 hours with albuterol aerosols every 2 hours. Chest x-ray stable Gastroesophageal reflux disease Hypoalbuminemia Currently on 1800 ADA diet Continue famotidine 20 mg by mouth daily/home medication. At home on omeprazole 20 mg by mouth daily Docusate sodium/senna 1 tablet twice a day bowel regimen : Pearl discontinued Endo: Diabetes mellitus Hypothyroidism Hyperglycemia Metformin 500 mg by mouth twice a day is being held Sliding-scale insulin with Novulog with Accu-Cheks before meals/at bedtime to maintain euglycemia Continue Levoxyl 50 by mouth daily/home medication 09/14 Blood sugars stable - Continue to monitor accuchecks. Renal: Creatinine currently within normal limits Monitor urine output Accurate I's and O's Restart IV fluid if not tolerating by mouth Heme: Acute blood loss anemia Leukocytosis History of breast cancer Coagulopathy Stable status post transfusion Monitor CBC Received Kcentra 2091 units in ED along with FFP. INR 1.8 ID: MRSA bacteremia 2-D echocardiogram ordered Appreciation infectious disease Continue IV Vancomycin for 3 weeks Blood cultures 09/09 - MRSA Blood cultures 09/10 -negative to date Wound culture - 09/09 -Acinetobacter. 09/16 ID cleared patient for DC - needs Vancomycin IV and Levaquin PO for a total of 3 weeks. Hypokalemia Replace electrolytes accordingly Consulted dietitian for tube feeding but patient and sister refuse NGT insertion 09/16 Potassium 2.8. Agitation Patient still on restraints. Patient started on Seroquel 25 mg at bedtime on . tolerated it well, however still with periods of agitation and confused so will start on Seroquel 25 mg po daily and increased PM dose upp to 50 mg. Will consult psychiatry. Access Central line removed by patient 09/11. Place peripheral IV Prophylaxis - GI - famotidine - DVT - SCD Coumadin okay with surgery. According to sister, patient bled on Eliquis and developed clots on Xarelto discussed the case with Wendy Meraz from palliative care. For now the [place] of care progressive short of no code DO NOT RESUSCITATE. Patient to be discharged to rehabilitation. Discharge Planning DC to SNF in am once off restraints x 24 hrs. Patient still on restraints, Psychiatry consulted. James Almaraz MD Sep 17, 2017 14:32
[2017-09-17] MEDS ORDERED: POTASSIUM CHLORIDE 10 MEQ CONTROLLED RELEASE TAB PO ONE (14:45)
[2017-09-17] MEDS ORDERED: PILL SPLITTER OTHER PRN (15:00)
[2017-09-17] MEDS: WARFARIN SOD 2 MG TAB NG SCH (15:25)
[2017-09-17] MEDS ORDERED: WARFARIN SOD 2 MG TAB NG ONE (16:00)
[2017-09-17] MEDS: PRAVASTATIN SOD 40 MG TAB NG SCH (20:18)
[2017-09-17] MEDS: ARIPiprazole 5 MG TAB PO SCH (20:18)
[2017-09-18] VITALS (9 sets, daily range): BP systolic 126–157; BP diastolic 75–95; PULSE 63–120; RESP 18; TEMP 97.9–98.9; O2SAT 93–97
[2017-09-18] MEDS: VANCOMYCIN INJ 1,250 MG in SODIUM CHLOR 0.9% 250 ML INJ 250 ML IV SCH ×2 (01:42→21:19)
[2017-09-18] MEDS: CHLORHEXIDINE GLUCONATE 2 % 1 PACK (2 CLOTHS) TOP SCH (03:54)
[2017-09-18] MEDS: DILTIAZEM HCL 90 MG TAB PO SCH ×4 (05:27→23:16)
[2017-09-18] MEDS: cloNIDine HCL 0.1 MG TAB NG SCH ×3 (05:27→21:20)
[2017-09-18] MEDS: LEVOTHYROXINE SODIUM 50 MCG TAB NG SCH (05:27)
[2017-09-18] MEDS: INSULIN ASPART SUPPLEMENTAL SCALE SQ SCH ×4 (07:50→21:00)
[2017-09-18] MEDS: TOLTERODINE TARTRATE 2 MG TAB NG SCH ×2 (09:40→21:20)
[2017-09-18] MEDS: FAMOTIDINE 20 MG TAB NG SCH ×2 (09:40→21:20)
[2017-09-18] MEDS: ASPIRIN 81 MG CHEW TAB NG SCH (09:41)
[2017-09-18] MEDS: METOPROLOL TARTRATE 100 MG TAB NG SCH ×2 (09:41→21:20)
[2017-09-18] MEDS: LEVOFLOXACIN 750 MG TAB NG SCH (09:41)
[2017-09-18] MEDS: SODIUM CHLORIDE 0.9% FLUSH 10 ML FLUSH IV FLUSH SCH ×2 (09:41→21:00)
[2017-09-18] MEDS: DOCUSATE SODIUM 50 MG/SENNA 8.6 MG TAB NG SCH ×2 (09:41→21:20)
[2017-09-18] MEDS: FERROUS SULFATE 300 MG /5ML UDC NG SCH (09:41)
[2017-09-18] MEDS: ARIPiprazole 5 MG TAB PO SCH ×2 (09:41→21:20)
[2017-09-18 10:26] LABS: HEMATOCRIT 26.2 % (35.0-46.0); HEMOGLOBIN 8.6 GM/DL (11.6-15.3); MEAN CELL VOLUME 81.5 FL (80.0-100.0); MEAN CORPUSCULAR HEMOGLOBIN 26.7 PG (27.0-34.0); MEAN CORPUSCULAR HGB CONC 32.7 % (32.0-36.0); MEAN PLATELET VOLUME 7.4 FL (7.0-11.0); PLATELET COUNT 443 TH/MM3 (150-450); RED BLOOD COUNT 3.22 MIL/MM3 (4.00-5.30); RED CELL DISTRIBUTION WIDTH 19.9 % (11.6-17.2); WHITE BLOOD COUNT 12.7 TH/MM3 (4.0-11.0)
[2017-09-18 10:32] LABS: INTERNATIONAL NORMALIZED RATIO 3.4 RATIO
[2017-09-18 10:49] LABS: BICARBONATE 24.1 MEQ/L (21.0-32.0); CALCIUM 8.4 MG/DL (8.5-10.1); CREATININE 0.73 MG/DL (0.50-1.00)
--- NOTE | 2017-09-18 12:40 | PD.CAR.PN ---
CVT Progress Note Subjective/Hospital Course: 87-year-old female who underwent the femoral endarterectomy and patch several weeks ago and now has bleeding from the wound with probably disruption of the patch Patient is in chronic atrial fibrillation and on Coumadin Patient reversed with K centra and FFP and will be going to the operating room for immediate exploration of the left groin and iliofemoral reconstruction with control of bleeding Patient will be admitted to surgical ICU afterwards 09/10/17 Patient is status post repair of the common femoral and external iliac artery disruption Incision is clean and dry ERIN drainage is minimal and wound VAC is in position Feet are warm Patient is perfusing both legs through collateral circulation distal to the groin for 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 Fortunately medical chromium plater ordered 2 units of PRBC which I fully agree with Patient is now awake alert somewhat disoriented It should be noted that patient has chronic atrial fibrillation for which she was on Coumadin at home Blood cultures are positive for MRSA which is sort of expected considering the patient's incision site and the wound Will start on vancomycin and consult infectious disease The problem if the patient has an artificial patch in although bovine patches are somewhat resistant to infections this is still a foreign body Would leave patient in ICU for another day at least 09/11/17 Patient status post revascularization of the left leg after disruption of the common femoral and external iliac patch Dopplerable dorsalis pedis pulse and foot is nice and warm with good capillary refill all through collateral flow Incision clean and dry in the upper portion ERIN drain drainage minimal-DC Wound VAC in place drainage minimal to stay on Patient has grown MRSA ID help is greatly appreciated Can transfer to floor today from my point and does not require anymore ICU care 09/12/17 Groin incision is clean and dry Common femoral and deep femoral arteries widely patent. No drainage Excellent perfusion of the left foot through collateral circulation anywhere below the SFA level Foot warm Patient has been confused for the last 24 hours which is not unusual in her age group Nothing to add to care and from my point patient can be transferred to rehabilitation any time 09/12/17 Patient doing well at this time she seems to be better alert and oriented than yesterday Left groin incision is clean and dry Left leg is well perfused and foot is nice and warm Discussed with medicine and patient can be placed safely on anticoagulants at this time Nothing to add from my point patient can be discharged any time Follow-up with me in 3 months 09/18/17 Incisions are clean Foot is well-perfused Nothing to add to care Objective: Vital Signs Date Time Temp Pulse Resp B/P (MAP) Pulse Ox O2 Delivery O2 Flow Rate FiO2 09/18/17 08:00 98.0 99 18 145/95 (112) 93 09/18/17 04:00 115 09/18/17 04:00 98.2 114 18 143/89 (107) 95 09/18/17 00:00 97.9 97 18 126/80 (95) 97 09/17/17 23:53 101 09/17/17 20:20 Room Air 09/17/17 20:00 76 09/17/17 20:00 99.0 99 18 146/84 (104) 94 09/17/17 16:00 98.0 50 20 134/76 (95) 95 09/17/17 15:57 87 Labs: Laboratory Tests Test 09/18/17 10:15 White Blood Count 12.7 TH/MM3 (4.0-11.0) Red Blood Count 3.22 MIL/MM3 (4.00-5.30) Hemoglobin 8.6 GM/DL (11.6-15.3) Hematocrit 26.2 % (35.0-46.0) Mean Corpuscular Volume 81.5 FL (80.0-100.0) Mean Corpuscular Hemoglobin 26.7 PG (27.0-34.0) Mean Corpuscular Hemoglobin Concent 32.7 % (32.0-36.0) Red Cell Distribution Width 19.9 % (11.6-17.2) Platelet Count 443 TH/MM3 (150-450) Mean Platelet Volume 7.4 FL (7.0-11.0) Prothrombin Time 34.0 SEC (9.8-11.6) Prothromb Time International Ratio 3.4 RATIO Blood Urea Nitrogen 18 MG/DL (7-18) Creatinine 0.73 MG/DL (0.50-1.00) Random Glucose 144 MG/DL (74-106) Calcium Level 8.4 MG/DL (8.5-10.1) Sodium Level 143 MEQ/L (136-145) Potassium Level 3.0 MEQ/L (3.5-5.1) Chloride Level 110 MEQ/L (98-107) Carbon Dioxide Level 24.1 MEQ/L (21.0-32.0) Anion Gap 9 MEQ/L (5-15) Estimat Glomerular Filtration Rate 76 ML/MIN (>89) Result Diagram: 09/18/17 1015 09/18/17 1015 Patricia Mandel MD Sep 18, 2017 12:40
[2017-09-18] MEDS: POTASSIUM CHLOR 20 MEQ PREMIX 100 ML IV SCH ×2 (13:59→16:18)
--- NOTE | 2017-09-18 17:37 | HHI.PR ---
Subjective Remarks Patient off restraints since noon. As per RN patient was combative last night however now much more calm. Denies fevers or chills. Denies cp/sob. Objective Vitals Vital Signs Date Time Temp Pulse Resp B/P (MAP) Pulse Ox O2 Delivery O2 Flow Rate FiO2 09/18/17 12:00 98.9 113 18 147/88 (107) 97 09/18/17 12:00 90 09/18/17 08:00 98.0 99 18 145/95 (112) 93 09/18/17 08:00 92 09/18/17 04:00 115 09/18/17 04:00 98.2 114 18 143/89 (107) 95 09/18/17 00:00 97.9 97 18 126/80 (95) 97 09/17/17 23:53 101 09/17/17 20:20 Room Air 09/17/17 20:00 76 09/17/17 20:00 99.0 99 18 146/84 (104) 94 I/O 09/17/17 09/17/17 09/17/17 09/18/17 09/18/17 09/18/17 07:00 15:00 23:00 07:00 15:00 23:00 Intake Total 262.5 ml Output Total 1600 ml Balance -1337.5 ml IV Total 262.5 ml Output Urine Total 1600 ml Bladder Scan Volume Amount 999 ml # Voids 3 # Bowel Movements 0 Result Diagram: 09/18/17 1015 09/18/17 1015 Imaging Last Impressions Chest X-Ray 09/12/17 0600 Signed Impressions: Service Date/Time: Tuesday, September 12, 2017 04:21 - CONCLUSION: Stable compensated cardiomegaly Christian Moss MD Head CT 09/12/17 0000 Signed Impressions: Service Date/Time: Tuesday, September 12, 2017 12:28 - CONCLUSION: Negative for acute process. Jefry Rojo MD FACR Carotid Artery Ultrasound 09/11/17 0000 Signed Impressions: Service Date/Time: Monday, September 11, 2017 16:25 - CONCLUSION: 1. 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 2. No evidence of hemodynamically significant carotid stenosis on the left. 3. Possible occlusion of left vertebral artery. Favian Sánchez MD Objective Remarks GENERAL: 87-year-old female lying in bed on nasal cannula HEENT: Normocephalic. Atraumatic. Pupils equal, round, reactive, conjugate. Mucous membranes are moist NECK: Trachea is midline. There is no JVD. CHEST: Equal chest rise. Unlabored. Nasal cannula oxygen CARDIOVASCULAR: Tachycardic rate, irregular telemetry shows A. fib. S1, S2. No S4. ABDOMEN: Soft, nontender, nondistended. No guarding. MUSCULOSKELETAL: Pulses 2+. No peripheral edema. NEUROLOGICAL: Awake and oriented to person and place. Nerves II through XII grossly intact. Moves all 4 extremities spontaneous. Procedures Central line placement OPERATIVE PROCEDURE PERFORMED: 1. Retroperitoneal access to the left external iliac artery with vascular control. 2. Evacuation of the hematoma. 3. Exploration of the common femoral artery with placement of a patch graft and pledgets. Medications and IVs Current Medications Medications (Trade) Dose Ordered Sig/Nova Route Start Time Stop Time Status Last Admin (NS Flush) 2 ml UNSCH PRN IV FLUSH 09/09/17 11:45 (NS Flush) 2 ml BID IV FLUSH 09/09/17 21:00 09/18/17 09:41 Miscellaneous Information 1 Q361D XX 09/09/17 11:45 (Chlorhexidine 2% Cloth) Taper DAILY@04 TOP 09/10/17 04:00 09/06/18 03:59 (Chlorhexidine 2% Cloth) 3 pack UNSCH PRN TOP 09/09/17 11:45 (D50w (Syr) Inj) 50 ml UNSCH PRN IV PUSH 09/09/17 16:45 (Glucagon Inj) 1 mg UNSCH PRN OTHER 09/09/17 16:45 (Melatonin) 5 mg HS PRN PO 09/09/17 21:00 (Glucophage) 500 mg BIDPC PO 09/09/17 18:00 Future Hold (NovoLOG SUPPLEMENTAL SCALE) 1 ACHS SQ 09/10/17 12:00 09/17/17 13:31 (Albuterol Neb) 2.5 mg Q2HR NEB PRN NEB 09/10/17 10:00 Pharmacy Profile Note 0 ml @ 0 mls/hr UNSCH OTHER 09/10/17 12:15 (Haldol Inj) 2 mg Q4HR PRN IV PUSH 09/10/17 15:00 09/12/17 22:31 Pharmacy Profile Note 0 ml @ 0 mls/hr UNSCH OTHER 09/12/17 12:45 (Aspirin Chew) 81 mg DAILY NG 09/13/17 09:00 09/18/17 09:41 (Catapres) 0.1 mg Q8HR NG 09/12/17 14:00 09/18/17 13:07 ([place]-Colace) 1 tab BID PRN NG 09/12/17 13:45 ([place]-Colace) 1 tab BID NG 09/12/17 21:00 09/18/17 09:41 (Pepcid) 20 mg Q12HR NG 09/12/17 21:00 09/18/17 09:40 (Ferrous Sulfate Liq) 300 mg DAILY NG 09/13/17 09:00 09/18/17 09:41 (Lactulose Liq) 30 ml DAILY PRN NG 09/12/17 13:45 (Synthroid) 50 mcg DAILY@0600 NG 09/13/17 06:00 09/18/17 05:27 (Lopressor) 100 mg Q12HR NG 09/12/17 21:00 09/18/17 09:41 (Roxicodone) 2.5 mg Q6HR PRN NG 09/12/17 13:45 (Pravachol) 40 mg HS NG 09/12/17 21:00 09/17/17 20:18 (Coumadin) 2 mg DAILY@1600 NG 09/12/17 16:00 Future Hold 09/17/17 15:25 (Detrol) 2 mg BID NG 09/12/17 21:00 09/18/17 09:40 (Levaquin) 750 mg DAILY NG 09/13/17 09:00 09/18/17 09:41 Diltiazem HCl 125 mg/Sodium Chloride 125 ml @ 5 mls/hr TITRATE PRN IV 09/13/17 08:45 Vancomycin HCl 1250 mg/Sodium Chloride 262.5 ml @ 250 mls/hr Q18H IV 09/13/17 14:00 09/18/17 01:42 (Cardizem) 90 mg Q6HR PO 09/14/17 18:00 09/18/17 13:08 (Abilify) 2.5 mg BID PO 09/17/17 21:00 09/18/17 09:41 (Pill Splitter) 1 ea UNSCH PRN OTHER 09/17/17 15:00 Date of Insertion: Sep 09, 2017 A/P Problem List: (1) Vascular hemorrhage ICD Code: R58 - Hemorrhage, not elsewhere classified Status: Acute Assessment and Plan Encephalopathy likely toxic . Head CT without acute findings. Improving but still confused and not competent to make decisions Chronic pain management Continue Neurochecks. Decreased Oxycodone to 2.5 mg every 4 hours when necessary pain management Haloperidol 2 mg IV every 6 hours when necessary agitation Ziprasidone 10 mg IM every 6 hours when necessary 3 days if necessary agitation Patient is not competent to make decisions per psychiatry unable to evaluate for depression at this time 09/16 Patient started on Seroquel at night, tolerated it well. Patient however still confused. will Rx Seroquel 25 mg po daily and increase dose up to 50 mg at night. Consult psychiatry for further recommendations. 09/17 Discussed case with psychiatry. Patient sister very concerned that the patient is having an adverse side effect to the Seroquel and that the patient's hallucinations actually do to the Seroquel. I discussed with psychiatry and we will place patient on Abilify 2.5 mg by mouth twice a day. Continue restraints as needed. 09/18 Encephalopathy much improved. Continue Abilify. 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 Increased Lopressor to 100 mg twice a day. Cardizem drip as needed. Discussed with vascular surgery okay to restart Coumadin. Ct asa Continue Pravachol 40 mg by mouth daily/home medication Echocardiogram 08/06 LV function is normal. The left atrial size is mild-to- moderately dilated. The right atrial size is mildly dilated. [id number] mitral valve regurgitation. Moderate mitral annular calcification. Aortic valve sclerosis is present with suboptimal imaging. Doppler did not suggest aortic stenosis There is estimated [id number] pulmonary hypertension present (range 60-70 mmHg). There is moderate to severe tricuspid valve regurgitation. The estimated pulmonary arterial pressure is 64.2 mmHg. 09/16 BP stable. Continue current antihypertensive medications. Heart rate controlled. Acute respiratory insufficiency COPDm - stable Nasal cannula to maintain saturations greater than equal to 92% Incentive spirometry while awake Scheduled albuterol/ipratropium aerosols every 6 hours with albuterol aerosols every 2 hours. Chest x-ray stable Gastroesophageal reflux disease Hypoalbuminemia Currently on 1800 ADA diet Continue famotidine 20 mg by mouth daily/home medication. At home on omeprazole 20 mg by mouth daily Docusate sodium/senna 1 tablet twice a day bowel regimen : Pearl discontinued Endo: Diabetes mellitus Hypothyroidism Hyperglycemia Metformin 500 mg by mouth twice a day is being held Sliding-scale insulin with Novulog with Accu-Cheks before meals/at bedtime to maintain euglycemia Continue Levoxyl 50 by mouth daily/home medication 09/14 Blood sugars stable - Continue to monitor accuchecks. Renal: Creatinine currently within normal limits Monitor urine output Accurate I's and O's Restart IV fluid if not tolerating by mouth Heme: Acute blood loss anemia Leukocytosis History of breast cancer Coagulopathy Stable status post transfusion Monitor CBC Received Kcentra 2091 units in ED along with FFP. INR 1.8 ID: MRSA bacteremia 2-D echocardiogram ordered Appreciation infectious disease Continue IV Vancomycin for 3 weeks Blood cultures 09/09 - MRSA Blood cultures 09/10 -negative to date Wound culture - 09/09 -Acinetobacter. 09/16 ID cleared patient for DC - needs Vancomycin IV and Levaquin PO for a total of 3 weeks. Hypokalemia Replace electrolytes accordingly Consulted dietitian for tube feeding but patient and sister refuse NGT insertion 09/16 Potassium 2.8. 09/18 Potassium 3.0 - replace and monitor BMP. Agitation Patient off restraints since noon today. Agitation resolved and patient's mentation much improved on abilify. Supratherapeutic INR Hold Coumadin. Consult pharmacy for dosage. Access Central line removed by patient 09/11. Place peripheral IV Prophylaxis - GI - famotidine - DVT - SCD Coumadin okay with surgery. According to sister, patient bled on Eliquis and developed clots on Xarelto discussed the case with Wendy Meraz from palliative care. For now the [place] of care progressive short of no code DO NOT RESUSCITATE. Patient to be discharged to rehabilitation. Discharge Planning DC to SNF in am once off restraints x 24 hrs. Patient still on restraints, Psychiatry consulted. James Almaraz MD Sep 18, 2017 17:37
[2017-09-18] MEDS: PRAVASTATIN SOD 40 MG TAB NG SCH (21:20)
[2017-09-19] VITALS (10 sets, daily range): BP systolic 119–160; BP diastolic 67–108; PULSE 69–138; RESP 17–22; TEMP 97–98; O2SAT 95–99
[2017-09-19] MEDS: CHLORHEXIDINE GLUCONATE 2 % 1 PACK (2 CLOTHS) TOP SCH (04:00)
[2017-09-19] MEDS: DILTIAZEM HCL 90 MG TAB PO SCH ×3 (05:21→17:33)
[2017-09-19] MEDS: LEVOTHYROXINE SODIUM 50 MCG TAB NG SCH (05:21)
[2017-09-19] MEDS: cloNIDine HCL 0.1 MG TAB NG SCH ×3 (05:21→21:19)
[2017-09-19 07:33] LABS: INTERNATIONAL NORMALIZED RATIO 3.4 RATIO; PROTHROMBIN TIME - PATIENT 34.3 SEC (9.8-11.6)
[2017-09-19] MEDS: INSULIN ASPART SUPPLEMENTAL SCALE SQ SCH ×4 (08:00→21:00)
[2017-09-19] MEDS: LEVOFLOXACIN 750 MG TAB NG SCH (09:27)
[2017-09-19] MEDS: FERROUS SULFATE 300 MG /5ML UDC NG SCH (09:27)
[2017-09-19] MEDS: TOLTERODINE TARTRATE 2 MG TAB NG SCH ×2 (09:27→21:20)
[2017-09-19] MEDS: METOPROLOL TARTRATE 100 MG TAB NG SCH ×2 (09:27→21:19)
[2017-09-19] MEDS: DOCUSATE SODIUM 50 MG/SENNA 8.6 MG TAB NG SCH ×2 (09:27→21:19)
[2017-09-19] MEDS: FAMOTIDINE 20 MG TAB NG SCH ×2 (09:27→21:20)
[2017-09-19] MEDS: ARIPiprazole 5 MG TAB PO SCH ×2 (09:27→21:20)
[2017-09-19] MEDS: ASPIRIN 81 MG CHEW TAB NG SCH (09:28)
[2017-09-19] MEDS: SODIUM CHLORIDE 0.9% FLUSH 10 ML FLUSH IV FLUSH SCH ×2 (09:28→21:19)
[2017-09-19 12:37] LABS: HEMATOCRIT 27.3 % (35.0-46.0); MEAN CORPUSCULAR HEMOGLOBIN 26.6 PG (27.0-34.0); MEAN CORPUSCULAR HGB CONC 32.8 % (32.0-36.0); MEAN PLATELET VOLUME 7.6 FL (7.0-11.0); PLATELET COUNT 431 TH/MM3 (150-450); RED BLOOD COUNT 3.37 MIL/MM3 (4.00-5.30); RED CELL DISTRIBUTION WIDTH 19.4 % (11.6-17.2); WHITE BLOOD COUNT 10.6 TH/MM3 (4.0-11.0)
[2017-09-19 13:14] LABS: BICARBONATE 26.1 MEQ/L (21.0-32.0); CALCIUM 7.9 MG/DL (8.5-10.1); CREATININE 0.64 MG/DL (0.50-1.00)
[2017-09-19] MEDS ORDERED: POTASSIUM CHLOR 20 MEQ PREMIX 100 ML IV SCH (13:15)
[2017-09-19] MEDS ORDERED: POTASSIUM CHLORIDE 10 MEQ CONTROLLED RELEASE TAB PO ONE ×2 (13:15→14:00)
[2017-09-19] MEDS ORDERED: DILT360C12 PO (13:22)
[2017-09-19] MEDS ORDERED: OXYC-392 NG (13:22)
[2017-09-19] MEDS ORDERED: LEVA750T9 NG (13:22)
[2017-09-19] MEDS ORDERED: ARIP1TAB11 PO (13:22)
[2017-09-19] MEDS ORDERED: METO-338 NG (13:22)
--- NOTE | 2017-09-19 13:37 | HHI.PR ---
Subjective Remarks Patient off restraints for 24 hours. Vanesas cp/sob. Afebrile. Discussed case w RN - no agitation or combativeness reported in the last 24 hrs Objective Vitals Vital Signs Date Time Temp Pulse Resp B/P (MAP) Pulse Ox O2 Delivery O2 Flow Rate FiO2 09/19/17 12:00 98.0 80 20 122/81 (95) 97 09/19/17 08:00 97.2 100 20 135/73 (93) 98 09/19/17 04:00 97.8 112 18 158/108 (125) 96 140/100 (113) 09/19/17 03:49 138 09/19/17 00:00 97.7 106 18 157/80 (105) 99 09/18/17 23:57 82 09/18/17 23:48 82 09/18/17 23:29 103 09/18/17 20:00 Room Air 09/18/17 20:00 98.4 63 18 129/75 (93) 97 09/18/17 16:00 98.5 76 18 157/81 (106) 97 09/18/17 16:00 120 I/O 09/18/17 09/18/17 09/18/17 09/19/17 09/19/17 09/19/17 07:00 15:00 23:00 07:00 15:00 23:00 Intake Total 262.5 ml 480 ml 662.5 ml 0 ml Output Total 1600 ml 1050 ml 0 ml Balance -1337.5 ml -570 ml 662.5 ml 0 ml Intake Oral 480 ml 0 ml IV Total 262.5 ml 662.5 ml Output Urine Total 1600 ml 1050 ml 0 ml Bladder Scan Volume Amount 999 ml 233 ml 577 ml 233 ml # Bowel Movements 0 Result Diagram: 09/19/17 1155 09/18/17 1015 Imaging Last Impressions Chest X-Ray 09/12/17 0600 Signed Impressions: Service Date/Time: Tuesday, September 12, 2017 04:21 - CONCLUSION: Stable compensated cardiomegaly Christian Moss MD Head CT 09/12/17 0000 Signed Impressions: Service Date/Time: Tuesday, September 12, 2017 12:28 - CONCLUSION: Negative for acute process. Jefry Rojo MD FACR Carotid Artery Ultrasound 09/11/17 0000 Signed Impressions: Service Date/Time: Monday, September 11, 2017 16:25 - CONCLUSION: 1. 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 2. No evidence of hemodynamically significant carotid stenosis on the left. 3. Possible occlusion of left vertebral artery. Favian Sánchez MD Objective Remarks GENERAL: 87-year-old female lying in bed on nasal cannula HEENT: Normocephalic. Atraumatic. Pupils equal, round, reactive, conjugate. Mucous membranes are moist NECK: Trachea is midline. There is no JVD. CHEST: Equal chest rise. Unlabored. Nasal cannula oxygen CARDIOVASCULAR: Tachycardic rate, irregular telemetry shows A. fib. S1, S2. No S4. ABDOMEN: Soft, nontender, nondistended. No guarding. MUSCULOSKELETAL: Pulses 2+. No peripheral edema. NEUROLOGICAL: Awake and oriented to person and place. Nerves II through XII grossly intact. Moves all 4 extremities spontaneous. Procedures Central line placement OPERATIVE PROCEDURE PERFORMED: 1. Retroperitoneal access to the left external iliac artery with vascular control. 2. Evacuation of the hematoma. 3. Exploration of the common femoral artery with placement of a patch graft and pledgets. Medications and IVs Current Medications Medications (Trade) Dose Ordered Sig/Nova Route Start Time Stop Time Status Last Admin (NS Flush) 2 ml UNSCH PRN IV FLUSH 09/09/17 11:45 (NS Flush) 2 ml BID IV FLUSH 09/09/17 21:00 09/19/17 09:28 Miscellaneous Information 1 Q361D XX 09/09/17 11:45 (Chlorhexidine 2% Cloth) Taper DAILY@04 TOP 09/10/17 04:00 09/06/18 03:59 (Chlorhexidine 2% Cloth) 3 pack UNSCH PRN TOP 09/09/17 11:45 (D50w (Syr) Inj) 50 ml UNSCH PRN IV PUSH 09/09/17 16:45 (Glucagon Inj) 1 mg UNSCH PRN OTHER 09/09/17 16:45 (Melatonin) 5 mg HS PRN PO 09/09/17 21:00 (Glucophage) 500 mg BIDPC PO 09/09/17 18:00 Future Hold (NovoLOG SUPPLEMENTAL SCALE) 1 ACHS SQ 09/10/17 12:00 09/17/17 13:31 (Albuterol Neb) 2.5 mg Q2HR NEB PRN NEB 09/10/17 10:00 Pharmacy Profile Note 0 ml @ 0 mls/hr UNSCH OTHER 09/10/17 12:15 (Haldol Inj) 2 mg Q4HR PRN IV PUSH 09/10/17 15:00 09/12/17 22:31 Pharmacy Profile Note 0 ml @ 0 mls/hr UNSCH OTHER 09/12/17 12:45 (Aspirin Chew) 81 mg DAILY NG 09/13/17 09:00 09/19/17 09:28 (Catapres) 0.1 mg Q8HR NG 09/12/17 14:00 09/19/17 05:21 ([place]-Colace) 1 tab BID PRN NG 09/12/17 13:45 ([place]-Colace) 1 tab BID NG 09/12/17 21:00 09/19/17 09:27 (Pepcid) 20 mg Q12HR NG 09/12/17 21:00 09/19/17 09:27 (Ferrous Sulfate Liq) 300 mg DAILY NG 09/13/17 09:00 09/19/17 09:27 (Lactulose Liq) 30 ml DAILY PRN NG 09/12/17 13:45 (Synthroid) 50 mcg DAILY@0600 NG 09/13/17 06:00 09/19/17 05:21 (Lopressor) 100 mg Q12HR NG 09/12/17 21:00 09/19/17 09:27 (Roxicodone) 2.5 mg Q6HR PRN NG 09/12/17 13:45 (Pravachol) 40 mg HS NG 09/12/17 21:00 09/18/17 21:20 (Coumadin) 2 mg DAILY@1600 NG 09/12/17 16:00 Future Hold 09/17/17 15:25 (Detrol) 2 mg BID NG 09/12/17 21:00 09/19/17 09:27 (Levaquin) 750 mg DAILY NG 09/13/17 09:00 09/19/17 09:27 Diltiazem HCl 125 mg/Sodium Chloride 125 ml @ 5 mls/hr TITRATE PRN IV 09/13/17 08:45 Vancomycin HCl 1250 mg/Sodium Chloride 262.5 ml @ 250 mls/hr Q18H IV 09/13/17 14:00 09/18/17 21:19 (Cardizem) 90 mg Q6HR PO 09/14/17 18:00 09/19/17 13:05 (Abilify) 2.5 mg BID PO 09/17/17 21:00 09/19/17 09:27 (Pill Splitter) 1 ea UNSCH PRN OTHER 09/17/17 15:00 Date of Insertion: Sep 09, 2017 A/P Problem List: (1) Vascular hemorrhage ICD Code: R58 - Hemorrhage, not elsewhere classified Status: Acute (2) Supratherapeutic INR ICD Code: R79.1 - Abnormal coagulation profile Status: Acute (3) COPD (chronic obstructive pulmonary disease) ICD Code: J44.9 - Chronic obstructive pulmonary disease, unspecified Status: Chronic (4) Chronic diastolic heart failure ICD Code: I50.32 - Chronic diastolic (congestive) heart failure Status: Chronic (5) Encephalopathy, toxic ICD Code: G92 - Toxic encephalopathy Status: Resolved (6) Atrial fibrillation with RVR ICD Code: I48.91 - Unspecified atrial fibrillation Status: Resolved (7) Impaired mobility and activities of daily living ICD Code: Z74.09 - Other reduced mobility Status: Chronic (8) Delirium due to another medical condition ICD Code: F05 - Delirium due to known physiological condition Status: Resolved (9) HLD (hyperlipidemia) ICD Code: E78.5 - Hyperlipidemia, unspecified Status: Chronic (10) HTN (hypertension) ICD Code: I10 - Essential (primary) hypertension Status: Chronic (11) Debility ICD Code: R53.81 - Other malaise Status: Acute (12) Pulmonary HTN ICD Code: I27.20 - Pulmonary hypertension, unspecified Status: Chronic (13) Tricuspid regurgitation ICD Code: I07.1 - Rheumatic tricuspid insufficiency Status: Chronic (14) DM (diabetes mellitus) ICD Code: E11.9 - Type 2 diabetes mellitus without complications Status: Chronic (15) Confusion ICD Code: R41.0 - Disorientation, unspecified Status: Resolved (16) Postoperative anemia due to acute blood loss ICD Code: D62 - Acute posthemorrhagic anemia Status: Acute (17) Hypothyroidism ICD Code: E03.9 - Hypothyroidism, unspecified Status: Chronic (18) MRSA bacteremia ICD Code: R78.81 - Bacteremia Status: Chronic (19) Respiratory failure ICD Code: J96.90 - Respiratory failure, unspecified, unspecified whether with hypoxia or hypercapnia Status: Acute Assessment and Plan Encephalopathy likely toxic . Head CT without acute findings. Improving but still confused and not competent to make decisions Chronic pain management Continue Neurochecks. Decreased Oxycodone to 2.5 mg every 4 hours when necessary pain management Haloperidol 2 mg IV every 6 hours when necessary agitation Ziprasidone 10 mg IM every 6 hours when necessary 3 days if necessary agitation Patient is not competent to make decisions per psychiatry unable to evaluate for depression at this time 09/16 Patient started on Seroquel at night, tolerated it well. Patient however still confused. will Rx Seroquel 25 mg po daily and increase dose up to 50 mg at night. Consult psychiatry for further recommendations. 09/17 Discussed case with psychiatry. Patient sister very concerned that the patient is having an adverse side effect to the Seroquel and that the patient's hallucinations actually do to the Seroquel. I discussed with psychiatry and we will place patient on Abilify 2.5 mg by mouth twice a day. Continue restraints as needed. 09/18 Encephalopathy much improved. Continue Abilify. 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 Increased Lopressor to 100 mg twice a day. Cardizem drip as needed. Discussed with vascular surgery okay to restart Coumadin. Ct asa Continue Pravachol 40 mg by mouth daily/home medication Echocardiogram 08/06 LV function is normal. The left atrial size is mild-to- moderately dilated. The right atrial size is mildly dilated. Dezax-[id number] mitral valve regurgitation. Moderate mitral annular calcification. Aortic valve sclerosis is present with suboptimal imaging. Doppler did not suggest aortic stenosis There is estimated [id number]-[id number] pulmonary hypertension present (range 60-70 mmHg). There is moderate to severe tricuspid valve regurgitation. The estimated pulmonary arterial pressure is 64.2 mmHg. 09/16 BP stable. Continue current antihypertensive medications. Heart rate controlled. Acute respiratory insufficiency COPDm - stable Nasal cannula to maintain saturations greater than equal to 92% Incentive spirometry while awake Scheduled albuterol/ipratropium aerosols every 6 hours with albuterol aerosols every 2 hours. Chest x-ray stable Gastroesophageal reflux disease Hypoalbuminemia Currently on 1800 ADA diet Continue famotidine 20 mg by mouth daily/home medication. At home on omeprazole 20 mg by mouth daily Docusate sodium/senna 1 tablet twice a day bowel regimen : Pearl discontinued Endo: Diabetes mellitus Hypothyroidism Hyperglycemia Metformin 500 mg by mouth twice a day is being held Sliding-scale insulin with Novulog with Accu-Cheks before meals/at bedtime to maintain euglycemia Continue Levoxyl 50 by mouth daily/home medication 09/14 Blood sugars stable - Continue to monitor accuchecks. Renal: Creatinine currently within normal limits Monitor urine output Accurate I's and O's Restart IV fluid if not tolerating by mouth Heme: Acute blood loss anemia Leukocytosis History of breast cancer Coagulopathy Stable status post transfusion Monitor CBC Received Kcentra 2091 units in ED along with FFP. INR 1.8 ID: MRSA bacteremia 2-D echocardiogram ordered Appreciation infectious disease Continue IV Vancomycin for 3 weeks Blood cultures 09/09 - MRSA Blood cultures 09/10 -negative to date Wound culture - 09/09 -Acinetobacter. 09/16 ID cleared patient for DC - needs Vancomycin IV and Levaquin PO for a total of 3 weeks. Hypokalemia Replace electrolytes accordingly Consulted dietitian for tube feeding but patient and sister refuse NGT insertion 09/16 Potassium 2.8. 09/18 Potassium 3.0 - replace and monitor BMP. 09/19 Potassium 2.4.Will replace oraly and monitor BMP. Agitation Patient off restraints since noon today. Agitation resolved and patient's mentation much improved on abilify. Supratherapeutic INR Continue to hold Coumadin. INR 3.4. If potassium replaced today then patient will be able to go with Coumadin on hold. This should be resumed once patient's INR drops between 2 to 3. Access Central line removed by patient 09/11. Place peripheral IV Prophylaxis - GI - famotidine - DVT - SCD Coumadin okay with surgery. According to sister, patient bled on Eliquis and developed clots on Xarelto discussed the case with Wendy Meraz from palliative care. For now the [place] of care progressive short of no code DO NOT RESUSCITATE. Patient to be discharged to rehabilitation. Discharge Planning DC to SNF once potassium replenished. Problem Qualifiers (1) COPD (chronic obstructive pulmonary disease): Qualified Codes: J44.9 - Chronic obstructive pulmonary disease, unspecified (2) HLD (hyperlipidemia): Qualified Codes: E78.5 - Hyperlipidemia, unspecified (3) HTN (hypertension): Qualified Codes: I10 - Essential (primary) hypertension (4) DM (diabetes mellitus): Qualified Codes: E11.8 - Type 2 diabetes mellitus with unspecified complications (5) Hypothyroidism: Qualified Codes: E03.9 - Hypothyroidism, unspecified James Almaraz MD Sep 19, 2017 13:37
[2017-09-19 19:46] LABS: BICARBONATE 27.6 MEQ/L (21.0-32.0); CALCIUM 7.8 MG/DL (8.5-10.1); CREATININE 0.76 MG/DL (0.50-1.00)
[2017-09-19] MEDS: PRAVASTATIN SOD 40 MG TAB NG SCH (21:19)
[2017-09-19] MEDS: VANCOMYCIN INJ 1,250 MG in SODIUM CHLOR 0.9% 250 ML INJ 250 ML IV SCH (21:20)
[2017-09-20] VITALS (7 sets, daily range): BP systolic 119–148; BP diastolic 60–84; PULSE 65–104; RESP 18–20; TEMP 96.6–97.5; O2SAT 96–98
[2017-09-20] MEDS: DILTIAZEM HCL 90 MG TAB PO SCH ×4 (00:28→18:29)
[2017-09-20] MEDS: CHLORHEXIDINE GLUCONATE 2 % 1 PACK (2 CLOTHS) TOP SCH (04:00)
[2017-09-20] MEDS: LEVOTHYROXINE SODIUM 50 MCG TAB NG SCH (06:03)
[2017-09-20] MEDS: cloNIDine HCL 0.1 MG TAB NG SCH ×3 (06:04→21:16)
[2017-09-20] MEDS: INSULIN ASPART SUPPLEMENTAL SCALE SQ SCH ×4 (08:00→21:00)
[2017-09-20 08:52] LABS: CREATININE 0.64 MG/DL (0.50-1.00)
[2017-09-20] MEDS: FERROUS SULFATE 300 MG /5ML UDC NG SCH (09:00)
[2017-09-20 09:44] LABS: BICARBONATE 19.4 MEQ/L (21.0-32.0); CALCIUM 7.8 MG/DL (8.5-10.1); CREATININE 0.67 MG/DL (0.50-1.00)
[2017-09-20] MEDS: LEVOFLOXACIN 750 MG TAB NG SCH (10:25)
[2017-09-20] MEDS: FAMOTIDINE 20 MG TAB NG SCH ×2 (10:25→21:15)
[2017-09-20] MEDS: METOPROLOL TARTRATE 100 MG TAB NG SCH ×2 (10:25→21:15)
[2017-09-20] MEDS: TOLTERODINE TARTRATE 2 MG TAB NG SCH ×2 (10:26→21:16)
[2017-09-20] MEDS: ARIPiprazole 5 MG TAB PO SCH (10:26)
[2017-09-20] MEDS: SODIUM CHLORIDE 0.9% FLUSH 10 ML FLUSH IV FLUSH SCH ×2 (10:26→21:16)
[2017-09-20] MEDS: DOCUSATE SODIUM 50 MG/SENNA 8.6 MG TAB NG SCH ×2 (10:26→21:00)
[2017-09-20] MEDS: ASPIRIN 81 MG CHEW TAB NG SCH (10:26)
--- NOTE | 2017-09-20 12:01 | HHI.HCPN ---
Reason for visit a. To assist with evaluation and management of symptoms including: Confusion , pain, debility. b. To assist medical decision maker(s) with: better understanding of current medical conditions; weighing benefits/burdens of medical treatment options; making medical treatment decisions. . Subjective/Interval History Palliative care follow-up for further clarifications of goals of care. Patient seen in her room, sister Bonnie at bedside. Patient was resting in bed in no acute distress. Patient alert to self, disoriented as to place or situation. Following simple commands. Verbal, not always able to communicate needs secondary to confusion. Patient endorsing abdominal discomfort, reports being hungry. No nausea vomiting or shortness of breath. Patient remains afebrile , stable hemodynamically. Tolerating room air, oxygen saturation in the high 90s. No new laboratory or imaging available for review. Psychiatry following for management of delirium, agitation. Patient was placed on Seroquel 25 mg twice a day, subsequently changed to Abilify on 09/17. Patient reported of restraints for over 24 hours, appears that agitation is controlled with current treatment plan. Bedside conversation with patient's sister Bonnie Ray/[facility]. Medical update provided. As per sister, goal of therapy is to continue aggressive management short of no code, pending DC to residential facility for physical straightening. Sister tells me that she had a chance to visit a few SNF in the area, has made her selection and communicated this to manager rn case. Shared concerns with sister of patient's progressive debilitated state with multiple recent acute hospitalizations. Sister requesting for Abilify to be discontinued, sister under the impression that Abilify is causing patient's confusion. Reviewed with sister rationale for medication, recommended to discuss with attending or psychiatry. . Family/friend interactions See interval note. . Advance Directives Living Will: Copy in medical record Health Care Surrogate: Copy in medical record Advance Directive Specifics Date completed: 07/27/2013. . Health Care Surrogate(s): Patient designated her sister Bonnie Ray as healthcare surrogate decision- maker, alternate Marcelo Michel. . Documented care wishes: Living will secured. Standard verbiage as it pertains to terminal condition, end -stage condition or persistent vegetative state. . Significant change in goals: Goals of therapy remain unchanged. . Objective Vital Signs Date Time Temp Pulse Resp B/P (MAP) Pulse Ox O2 Delivery O2 Flow Rate FiO2 09/20/17 08:00 97.5 94 20 120/61 (80) 98 09/20/17 05:10 97.3 81 18 137/72 (93) 96 09/20/17 04:00 Room Air 09/20/17 03:58 65 09/20/17 00:05 86 09/20/17 00:00 Room Air 09/19/17 23:52 97.3 69 17 147/75 (99) 98 09/19/17 20:52 97.2 104 18 119/67 (84) 96 09/19/17 20:04 79 09/19/17 20:00 Room Air 09/19/17 16:00 104 09/19/17 15:57 97.0 102 22 160/87 (111) 95 09/19/17 12:00 80 09/19/17 12:00 98.0 80 20 122/81 (95) 97 Intake & Output 09/20/17 09/20/17 07:00 19:00 Intake Total 983 ml Output Total 1125 ml Balance -142 ml Intake Oral 720 ml IV Total 263 ml Output Urine Total 1125 ml # Voids 5 # Bowel Movements 1 Physical Exam CONSTITUTIONAL/GENERAL: This is an adequately nourished elderly patient, in no apparent distress. Confused. TUBES/LINES/DRAINS: PIV's, wound VAC to left groin. SKIN: No jaundice, rashes, or lesions. Ecchymoses on upper extremities. Skin temperature appropriate. Not diaphoretic. Wound VAC to left groin, healing surgical incision to left inner calf. HEAD: Atraumatic. Normocephalic. EYES: Pupils equal and round and reactive. Extraocular motions intact. No scleral icterus. No injection or drainage. Fundi not examined. ENT: Hearing grossly normal. Nose without bleeding or purulent drainage. Moist oral mucosa. Edentulous, top and bottom dentures. NECK: Trachea midline. Supple, nontender. CARDIOVASCULAR: Regular rate and rhythm without murmurs, gallops, or rubs. Peripheral pulses symmetric. RESPIRATORY/CHEST: Symmetric, unlabored respirations. Clear, diminished to auscultation. Breath sounds equal bilaterally. No wheezes, rales, or rhonchi. GASTROINTESTINAL: Abdomen soft, non-tender, nondistended. No guarding. Bowel sounds present. GENITOURINARY: Without palpable bladder distension. MUSCULOSKELETAL: Extremities without clubbing, cyanosis. Trace edema to bilateral lower extremities. No mottling or clubbing. NEUROLOGICAL: Awake and alert to self. Confused. Moves all extremities. PSYCHIATRIC: Confused. . Diagnostic Tests Laboratory Laboratory Tests Test 09/18/17 10:15 09/19/17 06:13 09/19/17 11:55 09/19/17 18:47 White Blood Count 12.7 TH/MM3 (4.0-11.0) 10.6 TH/MM3 (4.0-11.0) Red Blood Count 3.22 MIL/MM3 (4.00-5.30) 3.37 MIL/MM3 (4.00-5.30) Hemoglobin 8.6 GM/DL (11.6-15.3) 9.0 GM/DL (11.6-15.3) Hematocrit 26.2 % (35.0-46.0) 27.3 % (35.0-46.0) Mean Corpuscular Volume 81.5 FL (80.0-100.0) 81.0 FL (80.0-100.0) Mean Corpuscular Hemoglobin 26.7 PG (27.0-34.0) 26.6 PG (27.0-34.0) Mean Corpuscular Hemoglobin Concent 32.7 % (32.0-36.0) 32.8 % (32.0-36.0) Red Cell Distribution Width 19.9 % (11.6-17.2) 19.4 % (11.6-17.2) Platelet Count 443 TH/MM3 (150-450) 431 TH/MM3 (150-450) Mean Platelet Volume 7.4 FL (7.0-11.0) 7.6 FL (7.0-11.0) Prothrombin Time 34.0 SEC (9.8-11.6) 34.3 SEC (9.8-11.6) Prothromb Time International Ratio 3.4 RATIO 3.4 RATIO Blood Urea Nitrogen 18 MG/DL (7-18) 16 MG/DL (7-18) 17 MG/DL (7-18) Creatinine 0.73 MG/DL (0.50-1.00) 0.64 MG/DL (0.50-1.00) 0.76 MG/DL (0.50-1.00) Random Glucose 144 MG/DL (74-106) 116 MG/DL (74-106) 146 MG/DL (74-106) Calcium Level 8.4 MG/DL (8.5-10.1) 7.9 MG/DL (8.5-10.1) 7.8 MG/DL (8.5-10.1) Sodium Level 143 MEQ/L (136-145) 139 MEQ/L (136-145) 139 MEQ/L (136-145) Potassium Level 3.0 MEQ/L (3.5-5.1) 2.4 MEQ/L (3.5-5.1) 3.4 MEQ/L (3.5-5.1) Chloride Level 110 MEQ/L (98-107) 105 MEQ/L (98-107) 105 MEQ/L (98-107) Carbon Dioxide Level 24.1 MEQ/L (21.0-32.0) 26.1 MEQ/L (21.0-32.0) 27.6 MEQ/L (21.0-32.0) Anion Gap 9 MEQ/L (5-15) 8 MEQ/L (5-15) 6 MEQ/L (5-15) Estimat Glomerular Filtration Rate 76 ML/MIN (>89) 88 ML/MIN (>89) 72 ML/MIN (>89) Test 09/20/17 07:30 Blood Urea Nitrogen 18 MG/DL (7-18) Creatinine 0.67 MG/DL (0.50-1.00) Random Glucose 123 MG/DL (74-106) Calcium Level 7.8 MG/DL (8.5-10.1) Sodium Level 138 MEQ/L (136-145) Potassium Level 3.5 MEQ/L (3.5-5.1) Chloride Level 108 MEQ/L (98-107) Carbon Dioxide Level 19.4 MEQ/L (21.0-32.0) Anion Gap 11 MEQ/L (5-15) Estimat Glomerular Filtration Rate 84 ML/MIN (>89) Result Diagram: 09/19/17 1155 09/20/17 0730 Procedures * 09/09/17 -. Retroperitoneal access to the left external iliac artery with vascular control, evacuation of the hematoma, exploration of the common femoral artery with placement of a patch graft and pledgets. . Assessment and Plan Disease Oriented Problem List: (1) MRSA bacteremia (2) Acute respiratory insufficiency (3) Delirium due to another medical condition (4) Atrial fibrillation with RVR (5) Vascular hemorrhage (6) Postoperative anemia due to acute blood loss Symptom Scale: (1) Pain 0-10 Scale: 0 Comment: Secondary to surgical intervention, wound VAC. (2) Debility 0-10 Scale: Unable to quantify Comment: Secondary to acute illness,surgical intervention, hospitalization. (3) Confusion 0-10 Scale: Unable to quantify Comment: Delirium. Pertinent Non-Medical Issues Psychosocial: Patient originally from [place]. Moved to [place] over 20 years ago. Patient is single, no children. 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 Spiritual: [employer] samantha. Legal: Advance directives completed. Ethical issues impacting care: No ethical issues identified. . Important Contacts Patient's sister/HEATHER Ray , . . Prognosis Mrs. Michel An 87-year-old female with a medical history significant for atrial fibrillation on anticoagulation, DM 2, hypertension, hyperlipidemia, CHF. 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 Patient presented to ED on 09/09/17 with complaints of bleeding at the surgical site. Patient was taken emergently to the operating room and found to have disruption of the patch and associated pseudoaneurysm with massive bleeding. Patient underwent hematoma evacuation and repair of the patch. Clinical course complicated by MRSA bacteremia, delirium. Patient high risk for further complications, continue decline and . . Code Status: No Code Plan * CODE STATUS: No code. DNR/DNI. Community DNR signed. * HEALTHCARE DECISION-MAKING: Psychiatry consulted, patient lacks capacity for medical decision-making secondary to the Delirium. Likely to regain capacity. Advance directives completed, patient designated her sister Bonnie Ray as primary healthcare surrogate decision maker, alternate Marcelo Michel. * GOALS OF CARE: Patient's sister Bonnie Ray acting as healthcare surrogate decision maker has elected to continue aggressive management short of NO code, NO NG/feeding tube. Family's goal is for patient to be discharged to rehabilitation for physical straightening. * SYMPTOMS: = Pain, secondary to surgical intervention, wound VAC. Oxycodone 2.5 mg q6hr available as needed, none given in the past 24 hours. = Confusion, likely secondary to delirium. Psych following. Haldol available as needed. = Debility, PT following. PT at rehabilitation recommended. * Palliative care contact information has been provided to patient's family. * Palliative care will continue to follow-up as needed for further clarifications of goals of care as patient's clinical course continues to evolve. . Time Spent Total Floor Time (mins): 21 (Total time to include review medical records, physical exam, goals of care conversation with patient's Bonnie. ) >50% Counseling/Coord of Care: Yes Attestation To help prompt me to consider important information that might be impacting today's encounter and assessment, information from prior notes written by myself or my colleagues may have been "brought forward" into today's note. My signature on this note, however, is an attestation that I personally performed the exam, history, and/or decision-making noted today, and, unless otherwise indicated, the interactions with patient, family, and staff as well as the review of records all occurred today. I also attest that the listed assessment and stated plan reflect my best clinical judgment today based on the combination of historical information, prior notes, and today's exam/ interactions. When time spent is documented, it refers only to time spent today by the signer, or if indicated, combined time spent today by collaborating physician/nurse practitioner. Wendy Meraz Sep 20, 2017 12:01
[2017-09-20 12:24] LABS: PROTHROMBIN TIME - PATIENT 20.3 SEC (9.8-11.6)
[2017-09-20] MEDS: VANCOMYCIN INJ 1,250 MG in SODIUM CHLOR 0.9% 250 ML INJ 250 ML IV SCH (14:52)
--- NOTE | 2017-09-20 15:40 | HHI.PR ---
Subjective Remarks INR down to 2.0 As per sister who is at bedside patient is confused and is requesting abilify to be discontinued as she believes this drugs can alter the patient's mentation. afebrile off restraints Objective Vitals Vital Signs Date Time Temp Pulse Resp B/P (MAP) Pulse Ox O2 Delivery O2 Flow Rate FiO2 09/20/17 12:00 97.5 75 18 119/60 (79) 97 09/20/17 08:00 97.5 94 20 120/61 (80) 98 09/20/17 05:10 97.3 81 18 137/72 (93) 96 09/20/17 04:00 Room Air 09/20/17 03:58 65 09/20/17 00:05 86 09/20/17 00:00 Room Air 09/19/17 23:52 97.3 69 17 147/75 (99) 98 09/19/17 20:52 97.2 104 18 119/67 (84) 96 09/19/17 20:04 79 09/19/17 20:00 Room Air 09/19/17 16:00 104 09/19/17 15:57 97.0 102 22 160/87 (111) 95 I/O 09/19/17 09/19/17 09/19/17 09/20/17 09/20/17 09/20/17 07:00 15:00 23:00 07:00 15:00 23:00 Intake Total 0 ml 743 ml 240 ml Output Total 0 ml 1125 ml Balance 0 ml 743 ml -885 ml Intake Oral 0 ml 480 ml 240 ml IV Total 263 ml Output Urine Total 0 ml 1125 ml Bladder Scan Volume Amount 233 ml 577 ml 233 ml # Voids 5 # Bowel Movements 0 1 0 Result Diagram: 09/19/17 1155 09/20/17 0730 Imaging Last Impressions Chest X-Ray 09/12/17 0600 Signed Impressions: Service Date/Time: Tuesday, September 12, 2017 04:21 - CONCLUSION: Stable compensated cardiomegaly Christian Moss MD Head CT 09/12/17 0000 Signed Impressions: Service Date/Time: Tuesday, September 12, 2017 12:28 - CONCLUSION: Negative for acute process. Jefry Rojo MD FACR Carotid Artery Ultrasound 09/11/17 0000 Signed Impressions: Service Date/Time: Monday, September 11, 2017 16:25 - CONCLUSION: 1. 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 2. No evidence of hemodynamically significant carotid stenosis on the left. 3. Possible occlusion of left vertebral artery. Favian Sánchez MD Objective Remarks GENERAL: 87-year-old female lying in bed on nasal cannula HEENT: Normocephalic. Atraumatic. Pupils equal, round, reactive, conjugate. Mucous membranes are moist NECK: Trachea is midline. There is no JVD. CHEST: Equal chest rise. Unlabored. Nasal cannula oxygen CARDIOVASCULAR: Tachycardic rate, irregular telemetry shows A. fib. S1, S2. No S4. ABDOMEN: Soft, nontender, nondistended. No guarding. MUSCULOSKELETAL: Pulses 2+. No peripheral edema. NEUROLOGICAL: Awake and oriented to person and place. Nerves II through XII grossly intact. Moves all 4 extremities spontaneous. Procedures Central line placement OPERATIVE PROCEDURE PERFORMED: 1. Retroperitoneal access to the left external iliac artery with vascular control. 2. Evacuation of the hematoma. 3. Exploration of the common femoral artery with placement of a patch graft and pledgets. Medications and IVs Current Medications Medications (Trade) Dose Ordered Sig/Nova Route Start Time Stop Time Status Last Admin (NS Flush) 2 ml UNSCH PRN IV FLUSH 09/09/17 11:45 (NS Flush) 2 ml BID IV FLUSH 09/09/17 21:00 09/20/17 10:26 Miscellaneous Information 1 Q361D XX 09/09/17 11:45 (Chlorhexidine 2% Cloth) Taper DAILY@04 TOP 09/10/17 04:00 09/06/18 03:59 (Chlorhexidine 2% Cloth) 3 pack UNSCH PRN TOP 09/09/17 11:45 (D50w (Syr) Inj) 50 ml UNSCH PRN IV PUSH 09/09/17 16:45 (Glucagon Inj) 1 mg UNSCH PRN OTHER 09/09/17 16:45 (Melatonin) 5 mg HS PRN PO 09/09/17 21:00 (Glucophage) 500 mg BIDPC PO 09/09/17 18:00 Future Hold (NovoLOG SUPPLEMENTAL SCALE) 1 ACHS SQ 09/10/17 12:00 09/17/17 13:31 (Albuterol Neb) 2.5 mg Q2HR NEB PRN NEB 09/10/17 10:00 Pharmacy Profile Note 0 ml @ 0 mls/hr UNSCH OTHER 09/10/17 12:15 (Haldol Inj) 2 mg Q4HR PRN IV PUSH 09/10/17 15:00 09/12/17 22:31 Pharmacy Profile Note 0 ml @ 0 mls/hr UNSCH OTHER 09/12/17 12:45 (Aspirin Chew) 81 mg DAILY NG 09/13/17 09:00 09/20/17 10:26 (Catapres) 0.1 mg Q8HR NG 09/12/17 14:00 09/20/17 14:52 ([place]-Colace) 1 tab BID PRN NG 09/12/17 13:45 ([place]-Colace) 1 tab BID NG 09/12/17 21:00 09/20/17 10:26 (Pepcid) 20 mg Q12HR NG 09/12/17 21:00 09/20/17 10:25 (Ferrous Sulfate Liq) 300 mg DAILY NG 09/13/17 09:00 09/19/17 09:27 (Lactulose Liq) 30 ml DAILY PRN NG 09/12/17 13:45 (Synthroid) 50 mcg DAILY@0600 NG 09/13/17 06:00 09/20/17 06:03 (Lopressor) 100 mg Q12HR NG 09/12/17 21:00 09/20/17 10:25 (Roxicodone) 2.5 mg Q6HR PRN NG 09/12/17 13:45 (Pravachol) 40 mg HS NG 09/12/17 21:00 09/19/17 21:19 (Coumadin) 2 mg DAILY@1600 NG 09/12/17 16:00 Future Hold 09/17/17 15:25 (Detrol) 2 mg BID NG 09/12/17 21:00 09/20/17 10:26 (Levaquin) 750 mg DAILY NG 09/13/17 09:00 09/20/17 10:25 Diltiazem HCl 125 mg/Sodium Chloride 125 ml @ 5 mls/hr TITRATE PRN IV 09/13/17 08:45 (Cardizem) 90 mg Q6HR PO 09/14/17 18:00 09/20/17 12:45 (Pill Splitter) 1 ea UNSCH PRN OTHER 09/17/17 15:00 Vancomycin HCl 1250 mg/Sodium Chloride 262.5 ml @ 250 mls/hr Q18H IV 09/19/17 20:00 09/20/17 14:52 Miscellaneous Information SPECIFIC LAB TO BE . ONCE ONCE .XX 09/21/17 07:45 09/21/17 07:46 Urinary Catheter: No Date of Insertion: Sep 09, 2017 A/P Problem List: (1) Vascular hemorrhage ICD Code: R58 - Hemorrhage, not elsewhere classified Status: Acute (2) Supratherapeutic INR ICD Code: R79.1 - Abnormal coagulation profile Status: Acute (3) COPD (chronic obstructive pulmonary disease) ICD Code: J44.9 - Chronic obstructive pulmonary disease, unspecified Status: Chronic (4) Chronic diastolic heart failure ICD Code: I50.32 - Chronic diastolic (congestive) heart failure Status: Chronic (5) Encephalopathy, toxic ICD Code: G92 - Toxic encephalopathy Status: Resolved (6) Atrial fibrillation with RVR ICD Code: I48.91 - Unspecified atrial fibrillation Status: Resolved (7) Impaired mobility and activities of daily living ICD Code: Z74.09 - Other reduced mobility Status: Chronic (8) Delirium due to another medical condition ICD Code: F05 - Delirium due to known physiological condition Status: Resolved (9) HLD (hyperlipidemia) ICD Code: E78.5 - Hyperlipidemia, unspecified Status: Chronic (10) HTN (hypertension) ICD Code: I10 - Essential (primary) hypertension Status: Chronic (11) Debility ICD Code: R53.81 - Other malaise Status: Acute (12) Pulmonary HTN ICD Code: I27.20 - Pulmonary hypertension, unspecified Status: Chronic (13) Tricuspid regurgitation ICD Code: I07.1 - Rheumatic tricuspid insufficiency Status: Chronic (14) DM (diabetes mellitus) ICD Code: E11.9 - Type 2 diabetes mellitus without complications Status: Chronic (15) Confusion ICD Code: R41.0 - Disorientation, unspecified Status: Resolved (16) Postoperative anemia due to acute blood loss ICD Code: D62 - Acute posthemorrhagic anemia Status: Acute (17) Hypothyroidism ICD Code: E03.9 - Hypothyroidism, unspecified Status: Chronic (18) MRSA bacteremia ICD Code: R78.81 - Bacteremia Status: Chronic (19) Respiratory failure ICD Code: J96.90 - Respiratory failure, unspecified, unspecified whether with hypoxia or hypercapnia Status: Acute Assessment and Plan Encephalopathy likely toxic . Head CT without acute findings. Improving but still confused and not competent to make decisions Chronic pain management Continue Neurochecks. Decreased Oxycodone to 2.5 mg every 4 hours when necessary pain management Haloperidol 2 mg IV every 6 hours when necessary agitation Ziprasidone 10 mg IM every 6 hours when necessary 3 days if necessary agitation Patient is not competent to make decisions per psychiatry unable to evaluate for depression at this time 09/16 Patient started on Seroquel at night, tolerated it well. Patient however still confused. will Rx Seroquel 25 mg po daily and increase dose up to 50 mg at night. Consult psychiatry for further recommendations. 09/17 Discussed case with psychiatry. Patient sister very concerned that the patient is having an adverse side effect to the Seroquel and that the patient's hallucinations actually do to the Seroquel. I discussed with psychiatry and we will place patient on Abilify 2.5 mg by mouth twice a day. Continue restraints as needed. 09/20/17 Patient is pleasantly confused, not combative and off restraints. Will stop abilify upon's family request. Advised sister to provide frequent reorientation. 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 Increased Lopressor to 100 mg twice a day. Cardizem drip as needed. Discussed with vascular surgery okay to restart Coumadin. Ct asa Continue Pravachol 40 mg by mouth daily/home medication Echocardiogram 08/06 LV function is normal. The left atrial size is mild-to- moderately dilated. The right atrial size is mildly dilated. Dittv-ri-piko mitral valve regurgitation. Moderate mitral annular calcification. Aortic valve sclerosis is present with suboptimal imaging. Doppler did not suggest aortic stenosis There is estimated ufncequi-va-eabeve pulmonary hypertension present (range 60-70 mmHg). There is moderate to severe tricuspid valve regurgitation. The estimated pulmonary arterial pressure is 64.2 mmHg. 09/16 BP stable. Continue current antihypertensive medications. Heart rate controlled. Acute respiratory insufficiency COPDm - stable Nasal cannula to maintain saturations greater than equal to 92% Incentive spirometry while awake Scheduled albuterol/ipratropium aerosols every 6 hours with albuterol aerosols every 2 hours. Chest x-ray stable Gastroesophageal reflux disease Hypoalbuminemia Currently on 1800 ADA diet Continue famotidine 20 mg by mouth daily/home medication. At home on omeprazole 20 mg by mouth daily Docusate sodium/senna 1 tablet twice a day bowel regimen : Pearl discontinued Endo: Diabetes mellitus Hypothyroidism Hyperglycemia Metformin 500 mg by mouth twice a day is being held Sliding-scale insulin with Novulog with Accu-Cheks before meals/at bedtime to maintain euglycemia Continue Levoxyl 50 by mouth daily/home medication Blood sugars stable - Continue to monitor accuchecks. Renal: Creatinine currently within normal limits Monitor urine output Accurate I's and O's Restart IV fluid if not tolerating by mouth Heme: Acute blood loss anemia Leukocytosis History of breast cancer Coagulopathy Stable status post transfusion Monitor CBC Received Kcentra 2091 units in ED along with FFP. INR 1.8 ID: MRSA bacteremia 2-D echocardiogram ordered Appreciation infectious disease Continue IV Vancomycin for 3 weeks Blood cultures 09/09 - MRSA Blood cultures 09/10 -negative to date Wound culture - 09/09 -Acinetobacter. 09/16 ID cleared patient for DC - needs Vancomycin IV and Levaquin PO for a total of 3 weeks. Hypokalemia Replace electrolytes accordingly Consulted dietitian for tube feeding but patient and sister refuse NGT insertion 09/16 Potassium 2.8. 09/18 Potassium 3.0 - replace and monitor BMP. 09/19 Potassium 2.4.Will replace oraly and monitor BMP. Agitation Patient off restraints since noon today. Agitation resolved and patient's mentation much improved on abilify. Supratherapeutic INR Continue to hold Coumadin. INR 3.4. If potassium replaced today then patient will be able to go with Coumadin on hold. Hold Coumadin for now until patient get PICC line placed. Access Central line removed by patient 09/11. Place peripheral IV Prophylaxis - GI - famotidine - DVT - SCD Coumadin okay with surgery. According to sister, patient bled on Eliquis and developed clots on Xarelto discussed the case with Wendy Meraz from palliative care. For now the [place] of care progressive short of no code DO NOT RESUSCITATE. Patient to be discharged to rehabilitation. Discharge Planning DC pending placement and PICC placement. Problem Qualifiers (1) COPD (chronic obstructive pulmonary disease): Qualified Codes: J44.9 - Chronic obstructive pulmonary disease, unspecified (2) HLD (hyperlipidemia): Qualified Codes: E78.5 - Hyperlipidemia, unspecified (3) HTN (hypertension): Qualified Codes: I10 - Essential (primary) hypertension (4) DM (diabetes mellitus): Qualified Codes: E11.8 - Type 2 diabetes mellitus with unspecified complications (5) Hypothyroidism: Qualified Codes: E03.9 - Hypothyroidism, unspecified James Almaraz MD Sep 20, 2017 15:40
[2017-09-20] MEDS ORDERED: POTASSIUM CHLORIDE 10 MEQ CONTROLLED RELEASE TAB PO ONE (15:45)
[2017-09-20] MEDS: PRAVASTATIN SOD 40 MG TAB NG SCH (21:16)
[2017-09-21] VITALS: BP 124/82; PULSE 78; PULSE 92; RESP 16; TEMP 97.1; O2SAT 95
[2017-09-21] MEDS: DILTIAZEM HCL 90 MG TAB PO SCH ×3 (00:34→13:53)
[2017-09-21 04:00] VITALS: BP 145/79; PULSE 72; PULSE 74; RESP 18; TEMP 97.3; O2SAT 98
[2017-09-21] MEDS: CHLORHEXIDINE GLUCONATE 2 % 1 PACK (2 CLOTHS) TOP SCH (04:00)
[2017-09-21] MEDS: LEVOTHYROXINE SODIUM 50 MCG TAB NG SCH (05:25)
[2017-09-21] MEDS: cloNIDine HCL 0.1 MG TAB NG SCH ×2 (05:25→13:53)
[2017-09-21] MEDS ORDERED: PHARMACY ORDERED LAB ONE (07:45)
[2017-09-21 08:00] VITALS: BP 133/88; PULSE 107; PULSE 94; RESP 20; TEMP 97.7; O2SAT 94
[2017-09-21] MEDS: INSULIN ASPART SUPPLEMENTAL SCALE SQ SCH ×2 (08:00→12:00)
[2017-09-21 08:06] LABS: INTERNATIONAL NORMALIZED RATIO 1.9 RATIO; PROTHROMBIN TIME - PATIENT 19.4 SEC (9.8-11.6)
[2017-09-21] MEDS: METOPROLOL TARTRATE 100 MG TAB NG SCH (08:46)
[2017-09-21] MEDS: FAMOTIDINE 20 MG TAB NG SCH (08:46)
[2017-09-21] MEDS: DOCUSATE SODIUM 50 MG/SENNA 8.6 MG TAB NG SCH (08:46)
[2017-09-21] MEDS: HALOPERIDOL LACTATE 5 MG/ML AMP IV PUSH PRN (08:46)
[2017-09-21] MEDS: FERROUS SULFATE 300 MG /5ML UDC NG SCH (08:46)
[2017-09-21] MEDS: ASPIRIN 81 MG CHEW TAB NG SCH (08:46)
[2017-09-21] MEDS: LEVOFLOXACIN 750 MG TAB NG SCH (08:46)
[2017-09-21] MEDS: TOLTERODINE TARTRATE 2 MG TAB NG SCH (08:46)
[2017-09-21] MEDS: VANCOMYCIN INJ 1,250 MG in SODIUM CHLOR 0.9% 250 ML INJ 250 ML IV SCH (08:47)
[2017-09-21] MEDS: SODIUM CHLORIDE 0.9% FLUSH 10 ML FLUSH IV FLUSH SCH (09:17)
[2017-09-21] MEDS ORDERED: WARF4TAB52 PO (10:13)
[2017-09-21 12:00] VITALS: BP 118/65; PULSE 62; RESP 20; TEMP 97.1; O2SAT 99
[2017-09-21] MEDS ORDERED: SODIUM CHLORIDE 0.9% FLUSH 10 ML FLUSH IV FLUSH PRN (14:30)
[2017-09-21] MEDS ORDERED: ARIPiprazole 2 MG TAB PO ONE (15:00)
[2017-09-21] MEDS ORDERED: LORazepam 2 MG/ML VIAL IV PUSH ONE (15:00)
--- NOTE | 2017-09-21 15:48 | RADRPT ---
EXAM DATE/TIME: 09/21/2017 15:06 [facility] COMPARISON: CHEST SINGLE AP, September 12, 2017, 4:21. INDICATIONS : PICC line placement. MEDICAL HISTORY : Hypercholesterolemia. Congestive heart failure. Chronic obstructive pulmonarydisease. Peripheral vasc ular disease. Thyroid disease. Hearing lossNumbness. Afib. Anticoagulant therapy. Hiatal hernia. GERD . Diabetes. Right. SURGICAL HISTORY : Left femoral endarterectomy with angioplasty and embolectomy. ENCOUNTER: Subsequent ACUITY: 4 - 6 days PAIN SCORE: 0/10 LOCATION: Bilateral chest FINDINGS: The heart is enlarged. Bibasilar patchiness is noted. Right-sided PICC line has its tip in the right atrium. CONCLUSION: 1. Cardiomegaly. 2. Bibasilar patchiness consistent with pneumonia and/or atelectasis. 3. Right-sided PICC line has its tip in the right atrium. Jorden Foster MD on September 21, 2017 at 15:45 Board Certified Radiologist. This report was verified electronically.
--- NOTE | 2017-09-21 16:28 | HHI.DS ---
Discharge Summary Admission Date Sep 09, 2017 at 11:29 Discharge Date: Sep 21, 2017 Admitting Diagnosis vascular hemorrhage. Atrial fibrillation with RVR. Coagulation. (1) Vascular hemorrhage ICD Code: R58 - Hemorrhage, not elsewhere classified Status: Acute (2) Supratherapeutic INR ICD Code: R79.1 - Abnormal coagulation profile Status: Acute (3) COPD (chronic obstructive pulmonary disease) ICD Code: J44.9 - Chronic obstructive pulmonary disease, unspecified Status: Chronic (4) Chronic diastolic heart failure ICD Code: I50.32 - Chronic diastolic (congestive) heart failure Status: Chronic (5) Encephalopathy, toxic ICD Code: G92 - Toxic encephalopathy Status: Resolved (6) Atrial fibrillation with RVR ICD Code: I48.91 - Unspecified atrial fibrillation Status: Resolved (7) Impaired mobility and activities of daily living ICD Code: Z74.09 - Other reduced mobility Status: Chronic (8) Delirium due to another medical condition ICD Code: F05 - Delirium due to known physiological condition Status: Resolved (9) HLD (hyperlipidemia) ICD Code: E78.5 - Hyperlipidemia, unspecified Status: Chronic (10) HTN (hypertension) ICD Code: I10 - Essential (primary) hypertension Status: Chronic (11) Debility ICD Code: R53.81 - Other malaise Status: Acute (12) Pulmonary HTN ICD Code: I27.20 - Pulmonary hypertension, unspecified Status: Chronic (13) Tricuspid regurgitation ICD Code: I07.1 - Rheumatic tricuspid insufficiency Status: Chronic (14) DM (diabetes mellitus) ICD Code: E11.9 - Type 2 diabetes mellitus without complications Status: Chronic (15) Confusion ICD Code: R41.0 - Disorientation, unspecified Status: Resolved (16) Postoperative anemia due to acute blood loss ICD Code: D62 - Acute posthemorrhagic anemia Status: Acute (17) Hypothyroidism ICD Code: E03.9 - Hypothyroidism, unspecified Status: Chronic (18) MRSA bacteremia ICD Code: R78.81 - Bacteremia Status: Chronic (19) Respiratory failure ICD Code: J96.90 - Respiratory failure, unspecified, unspecified whether with hypoxia or hypercapnia Status: Acute Procedures Central line placement OPERATIVE PROCEDURE PERFORMED: 1. Retroperitoneal access to the left external iliac artery with vascular control. 2. Evacuation of the hematoma. 3. Exploration of the common femoral artery with placement of a patch graft and pledgets. Brief History - From Admission This is an 87yF who had an SFA occlusion and thrombectomy by Dr. Torrez recently who presented to the ER today with bleeding at the site and was taken emergently to the operating room and found to have a disruption of the patch. She had ~300cc EBL with almost 1L old blood in the abdomen. The patch was repaired and a wound vac was placed. She arrives to the ICU extubated in stable condition. Of note, in the emergency department, she was in atrial fibrillation with rapid ventricular response and placed on a cardizem drip. on my evaluation , she is stable and denies any symptoms currently. he pain is adequately controlled. CBC/BMP: 09/19/17 1155 09/20/17 0730 Significant Findings Laboratory Tests Test 09/19/17 06:13 09/19/17 11:55 09/19/17 18:47 09/20/17 07:30 Prothrombin Time 34.3 SEC (9.8-11.6) Red Blood Count 3.37 MIL/MM3 (4.00-5.30) Hemoglobin 9.0 GM/DL (11.6-15.3) Hematocrit 27.3 % (35.0-46.0) Mean Corpuscular Hemoglobin 26.6 PG (27.0-34.0) Red Cell Distribution Width 19.4 % (11.6-17.2) Random Glucose 116 MG/DL (74-106) 146 MG/DL (74-106) 123 MG/DL (74-106) Calcium Level 7.9 MG/DL (8.5-10.1) 7.8 MG/DL (8.5-10.1) 7.8 MG/DL (8.5-10.1) Potassium Level 2.4 MEQ/L (3.5-5.1) 3.4 MEQ/L (3.5-5.1) Estimat Glomerular Filtration Rate 88 ML/MIN (>89) 72 ML/MIN (>89) 84 ML/MIN (>89) Chloride Level 108 MEQ/L (98-107) Carbon Dioxide Level 19.4 MEQ/L (21.0-32.0) Test 09/20/17 12:00 09/21/17 07:44 09/21/17 09:14 Prothrombin Time 20.3 SEC (9.8-11.6) 19.4 SEC (9.8-11.6) Vancomycin Level Trough 17.6 MCG/ML (5.0-10.0) Imaging Last Impressions Chest X-Ray 09/21/17 0000 Signed Impressions: Service Date/Time: Thursday, September 21, 2017 15:06 - CONCLUSION: 1. Cardiomegaly. 2. Bibasilar patchiness consistent with pneumonia and/or atelectasis. 3. Right-sided PICC line has its tip in the right atrium. Jorden Foster MD Head CT 09/12/17 0000 Signed Impressions: Service Date/Time: Tuesday, September 12, 2017 12:28 - CONCLUSION: Negative for acute process. Jefry Rojo MD FACR Carotid Artery Ultrasound 09/11/17 0000 Signed Impressions: Service Date/Time: Monday, September 11, 2017 16:25 - CONCLUSION: 1. 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 2. No evidence of hemodynamically significant carotid stenosis on the left. 3. Possible occlusion of left vertebral artery. Favian Sánchez MD PE at Discharge GENERAL: 87-year-old female lying in bed on nasal cannula HEENT: Normocephalic. Atraumatic. Pupils equal, round, reactive, conjugate. Mucous membranes are moist NECK: Trachea is midline. There is no JVD. CHEST: Equal chest rise. Unlabored. Nasal cannula oxygen CARDIOVASCULAR: Tachycardic rate, irregular telemetry shows A. fib. S1, S2. No S4. ABDOMEN: Soft, nontender, nondistended. No guarding. MUSCULOSKELETAL: Pulses 2+. No peripheral edema. NEUROLOGICAL: Awake and oriented to person and place. Nerves II through XII grossly intact. Moves all 4 extremities spontaneous. Pt Condition on Discharge: Stable Discharge Disposition: Discharge to SNF Discharge Time: > 30 minutes Discharge Instructions DIET: Follow Instructions for: Heart Healthy Diet Activities you can perform: See Additionl Instruction Other Activity Instructions: OOB with assistance only. As per Pt instructions. Follow up Referrals: PCP Follow-up - 2 Weeks Vascular Surgery - 3 Months with Patricia Mandel MD New Medications: Diltiazem CD 24 HR (Diltiazem CD 24 HR) 360 Mg Capcr 360 MG PO DAILY for afib, #30 CAP 0 Refills Warfarin (Warfarin) 1 Mg Tab 1 MG PO DAILY for Blood Clot Prevention, #30 TAB 0 Refills Aripiprazole (Aripiprazole) 5 Mg Tab 2.5 MG PO BID for Anxiety, #62 TAB Levofloxacin (Levaquin) 750 Mg Tablet 750 MG NG DAILY for Infection, #15 TAB Metoprolol Tartrate (Lopressor) 100 Mg Tab 100 MG NG Q12HR for Blood Pressure Management, #62 TAB Continued Medications: Aspirin DR (Aspirin DR) 81 Mg Tabdr 81 MG PO DAILY, #30 TAB Clonidine (Catapres) 0.1 Mg Tab 0.1 MG PO Q8HR for Blood Pressure Management, #90 TAB 0 Refills Ferrous Sulfate (Ferosul) 325 Mg (65 Mg Iron) Tablet 325 MG PO DAILY, #30 Levothyroxine (Levothyroxine) 50 Mcg Tab 50 MCG PO DAILY for Thyroid, #30 TAB 0 Refills Melatonin (Melatonin) 5 Mg Tab 5 MG PO HS PRN for INSOMNIA, #30 TAB Metformin (Metformin) 500 Mg Tab 500 MG PO BID for Blood Sugar Management, #60 TAB 0 Refills With meals Omeprazole (Omeprazole) 20 Mg Tab 20 MG PO DAILY for GERD, #30 TAB 0 Refills Pravastatin (Pravachol) 40 Mg Tab 40 MG PO HS for CM, #30 TAB Sennosides-Docusate Sodium (Gnp Senna Plus 8.6-50 mg) 8.6 Mg-50 Mg Tab 1 TAB PO BID PRN for CONSTIPATION, #60 TAB Tolterodine (Tolterodine) 2 Mg Tab 2 MG PO BID for Urinary Symptom Managemen, #60 TAB 0 Refills Discontinued Medications: Diltiazem CD 24 HR (Cardizem CD 24 HR) 240 Mg Caper 240 MG PO DAILY for Regulate Heart Beat, #30 CAP Metoprolol Tartrate (Lopressor) 50 Mg Tab 75 MG PO Q12HR, #90 TAB Oxycodone (Oxycodone) 5 Mg Tab 5 MG PO Q6HR PRN for Pain 6-10, #60 TAB Warfarin (Coumadin) 2 Mg Tab 2 MG PO DAILY@1600, #30 TAB James Almaraz MD Sep 21, 2017 16:28
[2017-09-22] MEDS ORDERED: SODIUM CHLORIDE 0.9% FLUSH 10 ML FLUSH IV FLUSH SCH (09:00)
[2017-09-22] MEDS ORDERED: ARIPiprazole 2 MG TAB PO SCH (09:00)
== END 2017-09-21 17:00 | DRG 907 ==
LOC: NEPC 09:29 → NEDA 11:29 → N03A 18:35 → N04A 09-11 19:29
PROVIDERS: ADMIT Hospitalist; ATTEND Hospitalist
PROC: 04WY0KZ Revision of Nonautologous Tissue Substitute in Lower Artery, Open Approach (ICD-10-PCS; 2017-09-09)
PROC: 0Y9D0ZZ Drainage of Left Upper Leg, Open Approach (ICD-10-PCS; 2017-09-09)
PROC: 30233N1 Transfusion of Nonautologous Red Blood Cells into Peripheral Vein, Percutaneous Approach (ICD-10-PCS; 2017-09-09)
PROC: 04CJ0ZZ Extirpation of Matter from Left External Iliac Artery, Open Approach (ICD-10-PCS; principal; 2017-09-09 12:56)
DX: I97.638 Postprocedural hematoma of a circulatory system organ or structure following other circulatory system procedure (principal); G92 Toxic encephalopathy; J96.90 Respiratory failure, unspecified, unspecified whether with hypoxia or hypercapnia; N17.9 Acute kidney failure, unspecified; R78.81 Bacteremia; E87.2 Acidosis; I50.32 Chronic diastolic (congestive) heart failure; I11.0 Hypertensive heart disease with heart failure; I48.2 Chronic atrial fibrillation; E86.1 Hypovolemia; B95.62 Methicillin resistant Staphylococcus aureus infection as the cause of diseases classified elsewhere; F05 Delirium due to known physiological condition; T82.392A Other mechanical complication of femoral arterial graft (bypass), initial encounter; D62 Acute posthemorrhagic anemia; I27.20 Pulmonary hypertension, unspecified; E88.09 Other disorders of plasma-protein metabolism, not elsewhere classified; E11.65 Type 2 diabetes mellitus with hyperglycemia; E78.5 Hyperlipidemia, unspecified; Y83.8 Other surgical procedures as the cause of abnormal reaction of the patient, or of later complication, without mention of misadventure at the time of the procedure; Y82.8 Other medical devices associated with adverse incidents; I65.21 Occlusion and stenosis of right carotid artery; E03.9 Hypothyroidism, unspecified; I70.202 Unspecified atherosclerosis of native arteries of extremities, left leg; K44.9 Diaphragmatic hernia without obstruction or gangrene; K21.9 Gastro-esophageal reflux disease without esophagitis; Z85.3 Personal history of malignant neoplasm of breast; Z78.1 Physical restraint status; Z66 Do not resuscitate; Z51.5 Encounter for palliative care; J44.9 Chronic obstructive pulmonary disease, unspecified; R32 Unspecified urinary incontinence; I25.10 Atherosclerotic heart disease of native coronary artery without angina pectoris; R79.1 Abnormal coagulation profile; Z92.21 Personal history of antineoplastic chemotherapy; Z79.84 Long term (current) use of oral hypoglycemic drugs; Z87.891 Personal history of nicotine dependence; Z96.652 Presence of left artificial knee joint; Z83.3 Family history of diabetes mellitus; Z79.01 Long term (current) use of anticoagulants; Z82.49 Family history of ischemic heart disease and other diseases of the circulatory system; Z86.718 Personal history of other venous thrombosis and embolism; I08.3 Combined rheumatic disorders of mitral, aortic and tricuspid valves; E87.6 Hypokalemia; R26.9 Unspecified abnormalities of gait and mobility
CPT/HCPCS: 36430; 36569; 70450; 71010; 71045; 76937; 80048; 80053; 80202; 81001; 82565; 82948; 83605; 83735; 84100; 84132; 84443; 85014; 85018; 85025; 85027; 85610; 85730; 86403; 86850; 86900; 86901; 86920; 87040; 87070; 87077; 87186; 87205; 88304; 88305; 93005; 93306; 93880; 94640; 94664; 96374; 96375; C9132; J0330; J1170; J1630; J1644; J1815; J1940; J2060; J2370; J2405; J2543; J2710; J2720; J3370; J3475; J3480; J3486; J7030; J7040; J7050; P9016; P9045

== ENCOUNTER 2017-09-22 04:37 | Emergency (ER) | payer MEDICARE, BC ==
[~2017-09-22] VITALS: Ht 162.6 cm; Wt 75.0 kg
[~2017-09-22 04:37] MED LIST changes: +ARIP1TAB11 PO; -BIOTCAP PO; -CARD240C6 PO; -COUM2TAB PO; +DILT360C12 PO; +LEVA750T9 NG; -METO-309 PO; +METO-338 NG; -OXYC-392 PO; +WARF4TAB52 PO
[2017-09-22 04:42] VITALS: BP 133/100; PULSE 115; RESP 16; TEMP 98.3; O2SAT 100
--- NOTE | 2017-09-22 06:34 | PD ---
HPI . Status post fall Chief Complaint: Fall Time Seen by Provider: 04:46 Travel History International Travel<30 days: No Contact w/Intl Traveler<30days: No Traveled to known affect area: No History of Present Illness HPI 87-year-old female status post witnessed fall at assisted living/penitentiary, the patient notes no injury. Staff transported patient secondary to patient taking blood thinners, with some concern of possible bleeding. There is no head injury, patient denies loss of consciousness or any other injury. Denies weakness numbness or tingling. There is no seizure activity, no incontinence. PFSH Past Medical History Narrative Medical Past medical history reviewed Hx Anticoagulant Therapy: Yes (WARFARIN) Arthritis: No Asthma: No Autoimmune Disease: No Blood Disorders: No Anxiety: No Depression: No Heart Rhythm Problems: Yes (afib) Cancer: Yes (RIGHT BREAST ) Cardiovascular Problems: Yes (AFIB) High Cholesterol: Yes Chemotherapy: Yes Chest Pain: No Congestive Heart Failure: Yes COPD: Yes Cerebrovascular Accident: No Diabetes: Yes Patient Takes Glucophage: Yes Diminished Hearing: Yes Endocrine: Yes Gastrointestinal Disorders: Yes (GERD) GERD: Yes Genitourinary: Yes (INCONTINENT) Headaches: Yes Hiatal Hernia: Yes Heparin Induced Thrombocytopen: No Hypertension: Yes Immune Disorder: No Kidney Stones: No Musculoskeletal: Yes (DECREASED AMBULATION, USES WALKER ) Neurologic: Yes Psychiatric: No Reproductive: No Respiratory: Yes (COPD) Migraines: No Radiation Therapy: Yes Renal Failure: No Seizures: No Sickle Cell Disease: No Sleep Apnea: No Thyroid Disease: Yes Ulcer: No Influenza Vaccination: Yes ?: Not Past Surgical History Abdominal Surgery: No AICD: No Arteriovenous Shunt: No Ear Surgery: No Endocrine Surgery: No Eye Surgery: No Genitourinary Surgery: No Gynecologic Surgery: No Insulin Pump: Yes Joint Replacement: Yes (Left Knee) Oral Surgery: No Pacemaker: No Thoracic Surgery: Yes (Partial mastectomy) Other Surgery: Yes (RIGHT LUMPECTOMY, LLE REPLACEMENT ) Social History Alcohol Use: Yes (RARE) Tobacco Use: No Substance Use: No Allergies-Medications (Allergen,Severity, Reaction): Coded Allergies: levetiracetam (Verified Allergy, Intermediate, 09/09/17) quetiapine (Verified Allergy, Mild, 09/09/17) Reported Meds & Prescriptions Reported Meds & Active Scripts Active Warfarin 1 Mg Tab 1 Mg PO DAILY Aripiprazole 5 Mg Tab 2.5 Mg PO BID Diltiazem CD 24 HR 360 Mg Capcr 360 Mg PO DAILY Lopressor (Metoprolol Tartrate) 100 Mg Tab 100 Mg NG Q12HR Levaquin (Levofloxacin) 750 Mg Tablet 750 Mg NG DAILY Melatonin 5 Mg Tab 5 Mg PO HS PRN Gnp Senna Plus 8.6-50 mg (Sennosides-Docusate Sodium) 8.6 Mg-50 Mg Tab 1 Tab PO BID PRN Aspirin DR (Aspirin) 81 Mg Tabdr 81 Mg PO DAILY Ferosul (Ferrous Sulfate) 325 Mg (65 Mg Iron) Tablet 325 Mg PO DAILY Tolterodine (Tolterodine Tartrate) 2 Mg Tab 2 Mg PO BID Catapres (Clonidine) 0.1 Mg Tab 0.1 Mg PO Q8HR Levothyroxine (Levothyroxine Sodium) 50 Mcg Tab 50 Mcg PO DAILY Pravachol (Pravastatin) 40 Mg Tab 40 Mg PO HS Metformin (Metformin HCl) 500 Mg Tab 500 Mg PO BID With meals Omeprazole 20 Mg Tab 20 Mg PO DAILY Narrative Medication Allergies and medications reviewed Review of Systems Except as stated in HPI: all other systems reviewed are Neg General / Constitutional: No: Fever Eyes: No: Visual changes HENT: No: Headaches Cardiovascular: No: Chest Pain or Discomfort Respiratory: No: Shortness of Breath Gastrointestinal: No: Abdominal Pain Genitourinary: No: Dysuria Musculoskeletal: No: Pain Skin: No Rash Neurologic: No: Weakness Psychiatric: No: Depression Endocrine: No: Polydipsia Hematologic/Lymphatic: No: Easy Bruising Physical Exam Narrative GENERAL: Awake and alert oriented 3 in no acute distress. Vital signs normal and stable SKIN: Warm and dry. Color is normal no diaphoresis cyanosis or pallor HEAD: Atraumatic. Normocephalic. EYES: Pupils equal and round. No scleral icterus. No injection or drainage. ENT: No nasal bleeding or discharge. Mucous membranes pink and moist. NECK: Trachea midline. No JVD. Supple full range of motion CARDIOVASCULAR: Regular rate and rhythm. No murmurs rubs or gallops RESPIRATORY: No accessory muscle use. Clear to auscultation. Breath sounds equal bilaterally. GASTROINTESTINAL: Abdomen soft, non-tender, nondistended. Hepatic and splenic margins not palpable. MUSCULOSKELETAL: Extremities without clubbing, cyanosis, or edema. No obvious deformities. NEUROLOGICAL: Awake and alert. No obvious deficits. Patient will 4 extremities , conversing easily with normal speech, no asymmetry PSYCHIATRIC: Appropriate mood and affect Data Data Last Documented VS Vital Signs Date Time Temp Pulse Resp B/P (MAP) Pulse Ox O2 Delivery O2 Flow Rate FiO2 09/22/17 04:42 98.3 115 16 133/100 (111) 100 MDM Medical Decision Making Medical Screen Exam Complete: Yes Emergency Medical Condition: Yes Medical Record Reviewed: Yes Differential Diagnosis Status post fall knee elderly, no apparent injury Narrative Course Patient was observed for several hours, repeat examinations benign. Patient remains having no focal complaints. Case management discussed penitentiary, patient being transported back. Diagnosis Primary Impression: Fall in elderly patient Patient Instructions: Fall Prevention (ED), General Instructions Additional Instructions: Care and activities as per usual. Follow-up with your doctor. Return for worsening Disposition: 01 DISCHARGE HOME Condition: Stable Ez Houston MD Sep 22, 2017 06:34
== END 2017-09-22 07:59 | disposition home or self-care (01) ==
LOC: NEPC 04:37
DX: Z04.3 Encounter for examination and observation following other accident (principal); W19.XXXA Unspecified fall, initial encounter; Y92.199 Unspecified place in other specified residential institution as the place of occurrence of the external cause; E11.9 Type 2 diabetes mellitus without complications; E78.00 Pure hypercholesterolemia, unspecified; I11.0 Hypertensive heart disease with heart failure; I50.9 Heart failure, unspecified; I48.91 Unspecified atrial fibrillation; Z79.01 Long term (current) use of anticoagulants
CPT/HCPCS: 99283